=== PATIENT | female | born 2000 | race Caucasian/White ===

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

== ENCOUNTER → 2023-01-09 | Outpatient (CLI) | payer MEDICAID, SELFPAY ==
[2023-01-11 21:07] LABS: Chlamydia By Nucleic Acid AMP Negative (Negative); Gonococcus By Nucleic Acid AMP Negative (Negative)
== END | disposition home or self-care (01) ==
PROVIDERS: PCP Pediatrics; Referring Provider Obstetrics & Gynecology; Visit Provider Obstetrics & Gynecology
DX: Z34.90 Encounter for supervision of normal pregnancy, unspecified, unspecified trimester (principal)
CPT/HCPCS: 87086; 87491; 87591

== ENCOUNTER → 2023-01-10 | Outpatient (CLI) | payer MEDICAID, SELFPAY ==
[2023-01-10 14:51] LABS: Absolute Lymphocyte Count 2.27 X10^3/uL (0.83-4.51); Absolute Neutrophil Count 9.3 X10^3/uL (2.0-7.7); Basophil# 0.06 X10^3/uL; Basophil% 0.5 % (0-1); Eosinophil# 0.23 X10^3/uL; Eosinophils% 1.8 % (0-5); Hematocrit 39.2 % (37-47); Hemoglobin 13.3 g/dL (12.0-15.0); Lymphocyte # 2.27 X10^3/ul (0.83-4.51); Mean Corp Hgb Conc 33.9 g/dL (32-36); Mean Corpuscular Hgb 31.4 pg (27.0-32.0); Mean Corpuscular Volume 92.7 fL (81-99); Mean Platelet Vol. 11.2 fl (6.2-12.0); Monocyte# 0.74 X10^3/uL; Monocyte% 5.9 % (0-10); NRBC Flagged by Analyzer 0 % (0-5); Neutrophil # 9.25 X10^3/uL (2.7-7.7); Neutrophil % 73.4 % (47-70); Platelet Count 186 K/mm3 (150-450); RBC Distribution Width CV 12.4 % (11.6-14.6); RBC Distribution Width SD 42.5 fl (35.1-43.9); Red Blood Count 4.23 M/mm3 (4.2-5.4); White Blood Count 12.6 K/mm3 (4.4-11.0)
[2023-01-10 15:50] LABS: NATERA MAILED SPECIMEN
[2023-01-10 16:04] LABS: HIV - WCH Non-Reactive (Nonreactive); Hepatitis B Surface Antigen Non-Reactive (Nonreactive); Hepatitis C Antibody Non-Reactive (Nonreactive); Rubella IgG Reactive (Nonreactive); Syphilis Antibodies Non-reactive
== END | disposition home or self-care (01) ==
PROVIDERS: PCP Pediatrics; Referring Provider Obstetrics & Gynecology; Visit Provider Obstetrics & Gynecology
DX: Z34.81 Encounter for supervision of other normal pregnancy, first trimester (principal)
CPT/HCPCS: 36415; 85025; 86703; 86762; 86780; 86803; 86850; 86900; 86901; 87340

== ENCOUNTER → 2023-05-16 | Outpatient (CLI) | payer MEDICAID, SELFPAY ==
[2023-05-16 13:31] LABS: Absolute Lymphocyte Count 1.79 X10^3/uL (0.83-4.51); Absolute Neutrophil Count 8.4 X10^3/uL (2.0-7.7); Basophil# 0.03 X10^3/uL; Basophil% 0.3 % (0-1); Eosinophil# 0.09 X10^3/uL; Eosinophils% 0.8 % (0-5); Hematocrit 35.3 % (37-47); Lymphocyte # 1.79 X10^3/ul (0.83-4.51); Mean Corpuscular Hgb 31.7 pg (27.0-32.0); Mean Corpuscular Volume 93.4 fL (81-99); Mean Platelet Vol. 10.7 fl (6.2-12.0); Monocyte# 0.75 X10^3/uL; Monocyte% 6.7 % (0-10); NRBC Flagged by Analyzer 0 % (0-5); Neutrophil # 8.42 X10^3/uL (2.7-7.7); Platelet Count 205 K/mm3 (150-450); RBC Distribution Width CV 12.5 % (11.6-14.6); Red Blood Count 3.78 M/mm3 (4.2-5.4); White Blood Count 11.2 K/mm3 (4.4-11.0)
[2023-05-16 13:49] LABS: Glucose Challenge Gest 1H 50g 111 mg/dL (70-140)
--- OUTSIDE RECORDS SUMMARY | 2023-05-16 14:40 | XMS RPT_ITS | CCD ---
Author Name Unknown Address [facility] [address] [place] [address] Organization [facility] Care Team Providers Care Job Superintendent Name Role Phone DELICIA NEAL Primary Care Unavailable HERMAN PINZON Attending Unavailable DELICIA NEAL Primary Care Unavailable PORSHA RENDON Referring Unavailable DELICIA NEAL Primary Care Unavailable HELENA HUDSON Referring Unavailab BETTY Sylvester Attending Unavailable Results Test Name Value Interpretation Reference Range Facil ity Encounters Encounter Date Encounter Type Care Provider Facility Start: 04-26-2023 End: 04-26-2023 ambulatory DELICIA [facility] Start: 03-27-2023 End: 03-27-2023 ambulatory HERMAN PINZON [facility] Start: 12-11-2022 ambulatory DELICIA NEAL Facil ity:[facility] Procedures Date Procedure Procedure Detail Performing Clinician Start: 05-13-2019 Electrocardiogram Payers Date Payer Category Payer Medicaid [id number] 2002 Unknown [id number] 2002 Unknown [id number] Summary Purpose Family History No Family History Records FoundNo Family History Records FoundNo Family History Records FoundNo Family History Records FoundNo Family History Records Found Advance Directives No Advanced Directives Records FoundNo Advanced Directives Records FoundNo Advanced Directives Records FoundNo Advanced Directives Records FoundNo Advanced Directives Records Found Hospital Course Note Send Summary: Discharge Summ alondra Providers: Provider RoleProvider Name Yajaira Villalba AttendingUte Olmos PrimaryRequired, No Pcp Note Recipients: Yajaira Hagan MD Required, No Pcp, MAYKEL CRANDALL M - [phone] [] Discharge: Summary: Admission Date: .13-May-2019 17:56:00 Discharge Date: 17-May-2019 Attending Physician at Discharge: Ute Olmos Admission Reason: Suicidal Ideation(1) Final Discharge Diagnoses: Cervicitis, Current severe episode of major depressive disorder without psychotic features without prior episode, PTSD (post-traumatic stress disorder), Recurrent major depressive disorder, Procedures: none Condition at Discharge: Satisfactory Disposition at Discharge: .Home Vital Signs: T PRBPSpO2 [id number]/8498% Date/Time05/16 9: 9: 9: 9: 9:02 Range(36.5C - 36.8C ) (72 - 74 ) (18 - 18 ) (109 - 119 )/ (74 - 84 ) (98% - 98% ) Physical Exam: General: Well appearing teenage female Appearance: In hospital gown, with long dark montoya (more content not included)... Additional Source Comments INFORMATION SOURCE (unrecogn ized section and content) DATE CREATED AUTHOR AUTHOR'S ORGANIZ ATION 05/17/2019 [facility] DATE CREATED AUTHOR AUTHOR'S ORGANIZ ATION 05/20/2019 [facility] DATE CREATED AUTHOR AUTHOR'S ORGANIZ ATION 12/16/2022 [facility] DATE CREATED AUTHOR AUTHOR'S ORGANIZ ATION 04/28/2023 [facility] FOR RECORDS PERTAINING TO PATIENTS WHO ARE OR HAVE BEEN ENROLLED IN A CHEMICAL DEPENDENCY/SUBSTANCEABUSE PROGRAM, SOME INFORMATION MAY BE OMITTED. This clinical summary was aggregated from multiple sources. Caution should be exercised in using it in the provision of clinical care. This summary normalizes information from multiple sources, and as a consequence, information in this document may materially change the coding, format and clinical context of patient data. In addition, data may be omitted in some cases. CLINICAL DECISIONS SHOULD BE BASED ON THE PRIMARY CLINICAL RECORDS. [facility]. provides no warranty or guarantee of the accuracy or completeness of information in this document.
[2023-05-16 14:52] LABS: HIV - WCH Non-Reactive (Nonreactive); Syphilis Antibodies Non-reactive
== END | disposition home or self-care (01) ==
LOC: PAVLAB 12:42
PROVIDERS: PCP Pediatrics; Referring Provider Obstetrics & Gynecology; Visit Provider Obstetrics & Gynecology
DX: Z34.00 Encounter for supervision of normal first pregnancy, unspecified trimester (principal)
CPT/HCPCS: 36415; 82950; 85025; 86703; 86780

== ENCOUNTER 2023-07-09 17:40 | Outpatient (CLI) | payer MEDICAID, SELFPAY ==
[2023-07-09] VITALS (7 sets, daily range): BP systolic 132–142; BP diastolic 65–84; PULSE 85–109; RESP 20; TEMP 37.7; O2SAT 99; BMI 29.7
--- NOTE | 2023-07-09 18:07 | OB.TRI.HP_ITS ---
HPI - General General Date of Service: 07/09/23 Chief Complaint: dec fm HPI Narrative BERENICE LEIJA, is a 22 F who presents at 35.6 with decreased movement. has felt 7 movements in 1 hour. denies lof/vb/ctx. Maternal Data Information DESTIN Calculator Estimated Delivery Date Method Current WG Current Estimate 08/10/23 Ultrasound #1 35w 3d Other Estimates 08/07/23 Ultrasound #2 35w 6d PFSH PFSH Medical History Anxiety Depression Migraines Home Medications multivit-min no.71-iron fum 28 mg-folate no.1 1 mg-dha 300 mg capsule (PNV- [place]) 1 cap PO DAILY 01/05/23 [History Last Taken 07/09/23 09:00] calcium carbonate 500 mg-simethicone 20 mg chewable tablet 2 tab PO PRN PRN heartburn 07/09/23 [History Last Taken 07/09/23 13:45] Allergy/AdvReac Type Severity Reaction Status Date / Time No Known Allergies Allergy Verified 07/09/23 17:50 Family History Grandmother Breast cancer, Onset Age: 80 Paternal Surgical History History of tonsillectomy Social History adopted: No household members: significant other current occupational status: employed current occupation: [employer] current occupational exposures/hazards: No pets and animals: Yes pets and animals: dog(s) history of recent travel: No sexually active: Yes Smoking Status: Never smoker alcohol intake: never substance use type: does not use well-balanced diet: daily or most days caffeine: Yes Type: coffee Number of servings: 1 eating out: 1-3 times/week during the past year weight has: remained stable what type of physical activity do you participate in: weight training and other details: cardio frequency: 1-2 times per week duration: > 90 minutes/day dana/mandaen: [employer] seatbelt use: always do you feel safe at home: Yes additional social history: BF Magdiel- [employer] History 1 Elective abortions Hx Para 0 Spontaneous abortions Hx # Term Pregnancies Ectopic pregnancies Hx # Pregnancies Multiple births # of living children Visit Details Expected Delivery Route/Plan Labor Preferences- CB/BF classes: encouraged labor support person: BARB Veloz labor intervention preferences: [] pain management options preferred: epidural cut cord/dad catch: yes : yes PP control planned: discussed discussed possible routes of delivery and associated risks: [] special requests: [] Plans Covid status: no Flu vaccine: no, not interested Tdap vaccine: declines Rhogam: na LARC form signed: yes Problem list reviewed and updated with the most current plan of care details and appropriate orders placed. Relevant counseling for the gestational age provided. Continue routine care and follow up unless otherwise noted in visit notes/problem list details OB Flowsheet Initial Weight: Not Recorded Date -?-?-?-?-?-?-?-?-?-?-?-?- EGA Weight BP Urine Prot -?-?-?-?-?-?-?-?-?-?-?-?- Glucose FHR FuHt Pres Dilation -?-?-?-?-?-?-?-?-?-?-?-?- Effaced St Visit Note 01/09/23 -?-?-?-?-?-?-?-?-?-?-?-?- 9w 4d 142 lb 4 oz 125/78 -?-?-?-?-?-?-?-?-?-?-?-?- 186 -?-?-?-?-?-?-?-?-?-?-?-?- JV- CRL consiste nt with LMP. undecided about NIPT (gutierrez pay) 02/09/23 -?-?-?-?-?-?-?-?-?-?-?-?- 14w 0d 142 lb 2 oz 116/74 Nega tive -?-?-?-?-?-?-?-?-?-?-?-?- Negative 160 -?-?-?-?-?-?-?-?-?-?-?-?- LC- no vb/crampi ng. its a girl! discussed and declines afp. anatomy scheduled. 12/28/23 -?-?-?-?-?-?-?-?-?-?-?-?- 17w 6d 150 lb 125/74 Negative -?-?-?-?-?-?-?-?-?-?-?-?- Negative 149 -?-?-?-?-?-?-?-?-?-?-?-?- -No VB, chris silva. Has felt flutters. US next week 04/05/23 -?-?-?-?-?-?-?-?-?-?-?-?- 21w 6d 161 lb 2 oz 114/64 Nega tive -?-?-?-?-?-?-?-?-?-?-?-?- Negative 145 22 -?-?-?-?-?-?-?-?-?-?-?-?- SM- no vb lof go od fm no regular ctx, fu anatomy scan to evaluate feet, declined ntd screen. encouraged classes 05/16/23 -?-?-?-?-?-?-?-?-?-?-?-?- 27w 5d 172 lb 6 oz 126/74 Nega tive -?-?-?-?-?-?-?-?-?-?-?-?- Negative 146 27 -?-?-?-?-?-?-?-?-?-?-?-?- -No VB, LOF. g ood FM. 28 wk labs pending. Larc. 05/31/23 -?-?-?-?-?-?-?-?-?-?-?-?- 29w 6d 178 lb 122/78 Negative -?-?-?-?-?-?-?-?-?-?-?-?- Negative 145 31 -?-?-?-?-?-?-?-?-?-?-?-?- KW- no vb/lof/ct x. good fm. Labs normal. 06/13/23 -?-?-?-?-?-?-?-?-?-?-?-?- 31w 5d 184 lb 2 oz 126/77 Nega tive -?-?-?-?-?-?-?-?-?-?-?-?- Negative 161 32 -?-?-?-?-?-?-?-?-?-?-?-?- MH-No VB, LOF. G ood Fm. Some RL pain-reassured 06/27/23 -?-?-?-?-?-?-?-?-?-?-?-?- 33w 5d 185 lb 115/71 Negative -?-?-?-?-?-?-?-?-?-?-?--?- Negative 130 34 -?-?-?-?-?-?-?-?-?-?-?-?- LC- no vb/ctx/lo f. good fm. no concerns today. Physical Exam Const alert, oriented x3 and no apparent distress Resp normal respiratory effort, normal air movement, no retractions and no use of accessory muscles Cardio regular rate and regular rhythm GI soft to palpation and non-tender Inspection: Palpation: soft Rectal Exam: deferred no CVA tenderness and external exam normal Bimanual Exam - Vag & Uterus: uterus non-tender and other gravid uterus, normal for gestational age OB / External & Speculum: Negative for herpetic lesions Manual OB Exam: estimated gestational size appropriate and presentation cephalic Amniotic Fluid: no amniotic fluid noted Extremity normal to inspection and full ROM Neuro Motor Exam: strength 5/5 throughout and muscle tone normal throughout Deep Tendon Reflexes: Rt Patellar (L4): 2+ and Lt Patellar (L4): 2+ NST FHR Rate Baby A Baseline: 140 Variability:: Moderate Accelerations:: 15 x 15 Decelerations:: None NST Reactive:: Yes FHR Category:: Category I Uterine Activity:: irregular, non painful Assessment & Plan (1) Decreased movement: COMMENT: reactive NST, movement now safe for d/c PLAN: Plan Patient presents for triage evaluation secondary to decreased movement FHT: Moderate variability reactive no decelerations category I tracing [place]: irreg non painful Contractions Assessment and plan: Reactive NST, reassuring maternal and status patient discharged to home to follow-up in office. See problem list details for additional plan information. Charges/Coding Visit Charges Office Visits / Consults: [id number] OP Consult L3 Procedures Urinary/Genital 52xxx-59xxx: 20196-20 non-stress test Interp Multi Select Codes Urinary/Genital Urinary/Genital CPT Codes: 11059-96 non-stress test Interp
== END 2023-07-09 18:55 | disposition home or self-care (01) ==
LOC: WPOUT 17:47 → WP 17:47
PROVIDERS: PCP Pediatrics; Referring Provider Registered Nurse; Visit Provider Registered Nurse
DX: O36.8130 Decreased fetal movements, third trimester, not applicable or unspecified (principal); Z3A.35 35 weeks gestation of pregnancy
CPT/HCPCS: 59025; 59050; 99221; G0378

== ENCOUNTER → 2023-07-18 | Outpatient (CLI) | payer MEDICAID, SELFPAY | END | disposition home or self-care (01) | PROVIDERS: PCP Pediatrics; Referring Provider Obstetrics & Gynecology; Visit Provider Obstetrics & Gynecology | DX: Z34.00 Encounter for supervision of normal first pregnancy, unspecified trimester (principal); Z3A.00 Weeks of gestation of pregnancy not specified | CPT/HCPCS: 87081 ==

== ENCOUNTER 2023-08-02 10:18 | Outpatient (CLI) | payer MEDICAID, SELFPAY ==
[2023-08-02 10:28] VITALS: BP 133/75; PULSE 106; RESP 18; TEMP 36.7; O2SAT 100
[2023-08-02 10:41] VITALS: BMI 30.2
[2023-08-02] MEDS: Acetaminophen 500 MG Tablet 1000 MG PO (11:04)
[2023-08-02 11:08] VITALS: BP 130/75; PULSE 109
[2023-08-02] MEDS: Metoclopramide 10 MG Tablet PO (11:12)
[2023-08-02 11:16] LABS: Protein, Urine (Random) 18.9 mg/dL (<11.9); Protein:Creat Ratio 228 mg/g CRE (0-200)
[2023-08-02 11:19] LABS: Hematocrit 33.7 % (37-47); Hemoglobin 10.8 g/dL (12.0-15.0); Mean Corpuscular Hgb 27.8 pg (27.0-32.0); Mean Corpuscular Volume 86.9 fL (81-99); Mean Platelet Vol. 10.5 fl (6.2-12.0); Platelet Count 165 K/mm3 (150-450); RBC Distribution Width CV 13.5 % (11.6-14.6); RBC Distribution Width SD 42.8 fl (35.1-43.9); Red Blood Count 3.88 M/mm3 (4.2-5.4); White Blood Count 13.5 K/mm3 (4.4-11.0)
[2023-08-02 11:23] VITALS: BP 122/70; PULSE 100
[2023-08-02 11:23] LABS: ROM Internal Control Test YES-OK TO RESULT pt. (Internal QC); ROM Patient Test Negative (Negative); Record Kit Lot#, ROM+ K1866
[2023-08-02 11:33] LABS: AST(SGOT) 24 U/L (15-37); Alanine Aminotransfer ALT/SGPT 21 U/L (13-56); Creatinine, Serum 0.59 mg/dL (0.55-1.02); EST Glomerular Filtration Rate 137 mL/min (>60); Est Glom Filt Rate - Afr Amer 166 mL/min (>60); Estimated Creatinine Clearance 168.32 ml/min
[2023-08-02 11:38] VITALS: BP 127/68; PULSE 101
[2023-08-02 11:53] VITALS: BP 125/67; PULSE 96
--- NOTE | 2023-08-02 17:57 | OB.TRI.PN_ITS ---
Progress Notes Date of Service: 08/02/23 Progress Note: Patient presents for triage evaluation secondary to headache FHT: 140 Moderate variability reactive no decelerations category I tracing [place]: mno regular Contractions Assessment and plan: headcahe normal pree labs no proteinuria no elevated bps, possible early sinus infection or allergies. Reactive NST, reassuring maternal and status patient discharged to home to follow-up as scheduled, reviewe dprecautions. See problem list details for additional plan information. Laboratory Studies: Laboratory Tests 08/02/23 08/02/23 Range/Units 11:11 10:15 WBC 13.5 H (4.4-11.0) K/mm3 RBC 3.88 L (4.2-5.4) M/mm3 Hgb 10.8 L (12.0-15.0) g/dL Hct 33.7 L (37-47) % MCV 86.9 (81-99) fL MCH 27.8 (27.0-32.0) pg MCHC 32.0 (32-36) g/dL RDW Std Deviation 42.8 (35.1-43.9) fl RDW Coeff of Francesco 13.5 (11.6-14.6) % Plt Count 165 (150-450) K/mm3 MPV 10.5 (6.2-12.0) fl Creatinine 0.59 (0.55-1.02) mg/dL Estim Creat Clear Calc 168.32 ml/min Est GFR (MDRD) Af Amer 166 (>60) mL/min Est GFR (MDRD) Non-Af 137 (>60) mL/min Uric Acid 4.0 (2.6-6.0) mg/dL AST 24 (15-37) U/L ALT 21 (13-56) U/L U Random Total Protein 18.9 H (<11.9) mg/dL Urine Creatinine 83.00 (NO RANGE EST.) mg/dL Protein/Creatinin Ratio 228 H (0-200) mg/g CRE Vag Amniotic Fld Detect Negative (Negative) Charges/Coding Procedures Urinary/Genital 52xxx-59xxx: 65452-55 non-stress test Interp
== END 2023-08-02 12:17 | disposition home or self-care (01) ==
LOC: WPOUT 10:27 → WP 10:27
PROVIDERS: PCP Pediatrics; Referring Provider Obstetrics & Gynecology; Visit Provider Obstetrics & Gynecology
DX: O99.891 Other specified diseases and conditions complicating pregnancy (principal); R51.9 Headache, unspecified; Z3A.00 Weeks of gestation of pregnancy not specified
CPT/HCPCS: 36415; 59025; 59050; 82565; 82570; 84112; 84156; 84450; 84460; 84550; 85027; 99221; G0378

== ENCOUNTER 2023-08-06 21:47 | Inpatient (IN) | payer MEDICAID, SELFPAY ==
[2023-08-06] VITALS (7 sets, daily range): BP systolic 123–145; BP diastolic 59–79; PULSE 79–99; RESP 16–17; TEMP 36.8–37.6; O2SAT 99; BMI 31.5
[2023-08-06 21:42] LABS: ROM Internal Control Test YES-OK TO RESULT pt. (Internal QC); ROM Patient Test POSITIVE (Negative); Record Kit Lot#, ROM+ K1866
[2023-08-06] MEDS: Lactated Ringers 1,000 ML 50 ML IV (22:07)
[2023-08-06 22:25] LABS: Absolute Lymphocyte Count 2.17 X10^3/uL (0.83-4.51); Absolute Neutrophil Count 9.2 X10^3/uL (2.0-7.7); Basophil# 0.04 X10^3/uL; Basophil% 0.3 % (0-1); Eosinophil# 0.12 X10^3/uL; Eosinophils% 0.9 % (0-5); Hemoglobin 10.5 g/dL (12.0-15.0); Lymphocyte # 2.17 X10^3/ul (0.83-4.51); Lymphocyte % 17.2 % (19-41); Mean Corp Hgb Conc 31.8 g/dL (32-36); Mean Corpuscular Hgb 27.5 pg (27.0-32.0); Mean Corpuscular Volume 86.4 fL (81-99); Mean Platelet Vol. 10.7 fl (6.2-12.0); Monocyte# 0.97 X10^3/uL; Monocyte% 7.7 % (0-10); NRBC Flagged by Analyzer 0 % (0-5); Neutrophil # 9.24 X10^3/uL (2.7-7.7); Platelet Count 172 K/mm3 (150-450); RBC Distribution Width CV 13.7 % (11.6-14.6); RBC Distribution Width SD 42.5 fl (35.1-43.9); Red Blood Count 3.82 M/mm3 (4.2-5.4); White Blood Count 12.7 K/mm3 (4.4-11.0)
[2023-08-06 22:39] LABS: AST(SGOT) 21 U/L (15-37); Alanine Aminotransfer ALT/SGPT 20 U/L (13-56); Creatinine, Serum 0.54 mg/dL (0.55-1.02); EST Glomerular Filtration Rate 151 mL/min (>60); Est Glom Filt Rate - Afr Amer 182 mL/min (>60); Estimated Creatinine Clearance 186.34 ml/min
[2023-08-06 23:11] LABS: Protein:Creat Ratio 287 mg/g CRE (0-200)
[2023-08-06 23:34] LABS: Amphetamine Urine NEGATIVE (<1000 ng/mL); Barbiturate Urine NEGATIVE (< 200 ng/mL); Benzodiazepine Urine NEGATIVE (< 200 ng/mL); Cocaine Urine NEGATIVE (< 300 ng/mL); Ecstacy Urine NEGATIVE (< 500 ng/mL); Methadone Urine NEGATIVE (< 300 ng/mL); Opiates Urine NEGATIVE (< 300 ng/mL); PCP Urine NEGATIVE (< 25 ng/mL); THC Urine NEGATIVE (< 50 ng/mL); Vista UDS pH Range 6
[2023-08-07] VITALS (57 sets, daily range): BP systolic 90–140; BP diastolic 46–88; PULSE 71–126; RESP 14–18; TEMP 36.3–37.5; O2SAT 81–100
[2023-08-07] MEDS: LACTATED RINGERS 500 ML 999 ML IV ×3 (01:38→07:02)
[2023-08-07] MEDS: fentaNYL-bupivacaine (epidural) 100 ML BAG EPIDURAL ×3 (02:32→12:27)
--- NOTE | 2023-08-07 02:50 | HP.PCM.OB_ITS ---
HPI - General General Date of Admission: 08/06/23 Date of Service: 08/06/23 HPI Narrative BERENICE LEIJA, is a 22 F 39.3 weeks who presents to unit with vaginal discharge. Rom plus positive. Admission orders for labor Maternal Data Information DESTIN Calculator Estimated Delivery Date Method Current WG Current Estimate 08/10/23 Ultrasound #1 39w 4d Other Estimates 08/07/23 Ultrasound #2 40w 0d Final DESTIN: 08/10/23 Final DESTIN Source: US >20 weeks Gestational age: 39.4 PFSH PFSH Medical History Depression Anxiety Migraines Home Medications ?Medication ?Instructions ?Recorded ?Last Taken ?Type multivit-min no.71-iron fum 28 1 cap PO DAILY 01/05/23 08/06/23 08:00 History mg-folate no.1 1 mg-dha 300 mg 1 cap capsule (PNV-[place]) calcium carbonate 500 2 tab PO PRN PRN heartburn 07/09/23 08/06/23 19:40 History mg-simethicone 20 mg chewable 1 TAB tablet famotidine 20 mg tablet (Pepcid) 20 mg PO BID #60 tabs 07/18/23 08/06/23 19:30 Rx 20 mg Allergy/AdvReac Type Severity Reaction Status Date / Time No Known Allergies Allergy Verified 08/06/23 20:56 Family History Grandmother Breast cancer, Onset Age: 80 Paternal Surgical History History of tonsillectomy Social History adopted: No household members: significant other current occupational status: employed 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 current occupational exposures/hazards: No pets and animals: Yes pets and animals: dog(s) history of recent travel: No sexually active: Yes Smoking Status: Former smoker alcohol intake: never substance use type: does not use well-balanced diet: daily or most days caffeine: Yes Type: coffee Number of servings: 1 eating out: 1-3 times/week during the past year weight has: remained stable what type of physical activity do you participate in: weight training and other details: cardio frequency: 1-2 times per week duration: > 90 minutes/day dana/orthodoxy: Religion seatbelt use: always do you feel safe at home: Yes additional social history: 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 1 Elective abortions Hx Para 0 Spontaneous abortions Hx # Term Pregnancies Ectopic pregnancies Hx # Pregnancies Multiple births # of living children Visit Details Expected Delivery Route/Plan Labor Preferences- CB/BF classes: encouraged labor support person: BARB Veloz labor intervention preferences: [] pain management options preferred: epidural cut cord/dad catch: yes : yes PP control planned: discussed discussed possible routes of delivery and associated risks: [] special requests: [] Plans Covid status: no Flu vaccine: no, not interested Tdap vaccine: declines Rhogam: na LARC form signed: yes Problem list reviewed and updated with the most current plan of care details and appropriate orders placed. Relevant counseling for the gestational age provided. Continue routine care and follow up unless otherwise noted in visit notes/problem list details OB Flowsheet Initial Weight: Not Recorded Date -?-?-?-?-?-?-?-?-?-?-?-?- EGA Weight BP Urine Prot -?-?-?-?-?-?-?-?-?-?-?-?- Glucose FHR FuHt Pres Dilation -?-?-?-?-?-?-?-?-?-?-?-?- Effaced St Visit Note 01/09/23 -?-?-?-?-?-?-?-?-?-?-?-?- 9w 4d 142 lb 4 oz 125/78 -?-?-?-?-?-?-?-?-?-?-?-?- 186 -?-?-?-?-?-?-?-?-?-?-?-?- JV- CRL consiste nt with LMP. undecided about NIPT (gutierrez pay) 02/09/23 -?-?-?-?-?-?-?-?-?-?-?-?- 14w 0d 142 lb 2 oz 116/74 Nega tive -?-?-?-?-?-?-?-?-?-?-?-?- Negative 160 -?-?-?-?-?-?-?-?-?-?-?-?- LC- no vb/chris silva. its a girl! discussed and declines afp. anatomy scheduled. 03/08/23 -?-?-?-?-?-?-?-?-?-?-?-?- 17w 6d 150 lb 125/74 Negative -?-?-?-?-?-?-?-?-?-?-?-?- Negative 149 -?-?-?-?-?-?-?-?-?-?-?-?- MH-No VB, chris silva. Has felt flutters. US next week 04/05/23 -?-?-?-?-?-?-?-?-?-?-?-?- 21w 6d 161 lb 2 oz 114/64 Nega tive -?-?-?--?-?-?-?-?-?-?-?-?- Negative 145 22 -?-?-?-?-?-?-?-?-?-?-?-?- SM- no vb lof go od fm no regular ctx, fu anatomy scan to evaluate feet, declined ntd screen. encouraged classes 05/16/23 -?-?-?-?-?-?-?-?-?-?-?-?- 27w 5d 172 lb 6 oz 126/74 Nega tive -?-?-?-?-?-?-?-?-?-?-?-?- Negative 146 27 -?-?-?--?-?-?-?-?-?-?-?-?- MH-No VB, LOF. g ood FM. 28 wk labs pending. Larc. 05/31/23 -?-?-?-?-?-?-?-?-?-?-?-?- 29w 6d 178 lb 122/78 Negative -?-?-?-?-?-?-?-?-?-?-?-?- Negative 145 31 -?-?-?-?-?-?-?-?-?-?-?-?- KW- no vb/lof/ct x. good fm. Labs normal. 06/13/23 -?-?-?-?-?-?-?-?-?-?-?-?- 31w 5d 184 lb 2 oz 126/77 Nega tive -?-?-?-?-?-?-?-?-?-?-?-?- Negative 161 32 -?-?-?-?-?-?-?-?-?-?-?-?- MH-No VB, LOF. G ood Fm. Some RL pain-reassured 06/27/23 -?-?-?-?-?-?-?-?-?-?-?-?- 33w 5d 185 lb 115/71 Negative -?-?-?-?-?-?-?-?-?-?-?-?- Negative 130 34 -?-?-?-?-?-?-?-?-?-?-?-?- LC- no vb/ctx/lo f. good fm. no concerns today. 07/11/23 -?-?-?-?-?-?-?-?-?-?-?-?- 35w 5d 187 lb 4 oz 134/75 Nega tive -?-?-?-?-?-?-?-?-?-?-?-?- Negative 145 35 Cephalic -?-?-?-?-?-?-?-?-?-?-?-?- JJosé Miguel- pt was on L& D last week for pressure and pain and was sent home. States nothing was done for her and bp was high. bp is still in normal limits but upper level. pre-e precautions discussed. bedside scan performed for reassurance. 07/18/23 -?-?-?-?-?-?-?-?-?-?-?-?- 36w 5d 188 lb 129/80 Negative -?-?-?-?-?-?-?-?-?-?-?-?- Negative 120 36 Cephalic 0 -?-?-?-?-?-?-?-?-?-?-?-?- JV- gbs collecte d. pt thought could be leaking. no fluid in vault. RISHI 11. pt reassured. sending in pepcid for indigestion. 07/26/23 -?-?-?-?-?-?-?-?-?-?-?-?- 37w 6d 189 lb 111/71 -?-?-?-?-?-?-?-?-?-?-?-?- 130 38 Cephalic -?-?-?-?-?-?-?-?-?-?-?-?- SM- no vb lof go od fm no regular ctx 08/02/23 -?-?-?-?-?-?-?-?-?-?-?-?- 38w 6d 191 lb 141/80 130/81 Negative -?--?-?-?-?-?-?-?-?-?-?-?- Negative 140 39 Cephalic 1 -?-?-?-?-?-?-?-?-?-?-?-?- Sm- headache x 3 days yellow floaters in her vision questionable LOF no vb good fm no regular ctx to l and d for evaluation NST FHR Rate Baby A Baseline: 140 Variability:: Moderate Accelerations:: 15 x 15 Decelerations:: None NST Reactive:: Yes FHR Category:: Category I Uterine Activity:: irregular ROS Constitutional Constitutional: Denies change in weight, fatigue, fever(s), headache(s), poor appetite or weakness Eyes Eyes: Denies blurry vision, change in vision, floaters, seeing flashes or spots in vision ENT HEENT: Denies dizziness, headache(s), loss taste/smell or sore throat Cardiovascular Cardiovascular: Denies chest pain, dizziness, dyspnea, irregular heart rhythm, lightheadedness, palpitations or rapid heart rate Respiratory/Chest Respiratory/Chest: Denies change in mental status, chest tightness, cough, dyspnea or breast pain Gastrointestinal Gastrointestinal: Denies anorexia, chewing difficulty, constipation, diarrhea or weight changes Genitourinary Genitourinary: Denies difficulty urinating, dysuria, flank pain, genital pain, urinary frequency or urinary urgency Musculoskeletal Musculoskeletal: Denies back pain, difficulty walking, extremity pain, joint pain, muscle cramps or muscle weakness Integumentary Integumentary: Denies lesions or unusual bruising Neurologic Neurologic: Denies abnormal movements, abnormal speech, dizziness, numbness, seizure-like activity, syncope or weakness Psychiatric Psychiatric: Denies behavioral changes, change in appetite, confusion, depression, homicidal ideation, suicidal ideation or suicidal thoughts Endocrine Endocrinology: Denies excessive sweating, polydipsia or polyuria Hematologic/Lymphatic Hematologic/Lymphatic: Denies anemia Allergic/Immunologic Allergic/Immunologic: Denies itchy eyes, lip swelling, throat swelling, tongue swelling or wheezing Vital Signs Vital Signs Vital Signs: 08/06/23 20:48 08/06/23 20:48 08/06/23 20:48 Temperature Temperature Source Pulse Rate 89 Respiratory Rate Blood Pressure 145/75 H BP Systolic 145 BP Diastolic 75 Pulse Ox 99 08/06/23 20:50 08/06/23 20:50 08/06/23 20:50 Temperature 99.7 F H Temperature Source Temporal Pulse Rate Respiratory Rate 17 Blood Pressure BP Systolic BP Diastolic Pulse Ox 08/06/23 21:01 08/06/23 21:01 08/06/23 21:10 Temperature Temperature Source Pulse Rate 99 Respiratory Rate Blood Pressure 129/79 H 131/70 H BP Systolic 129 131 BP Diastolic 79 70 Pulse Ox 08/06/23 21:10 08/06/23 22:53 08/06/23 22:53 Temperature Temperature Source Temporal Pulse Rate 86 81 Respiratory Rate Blood Pressure BP Systolic BP Diastolic Pulse Ox 08/06/23 22:53 08/06/23 22:53 08/06/23 22:53 Temperature 98.8 F Temperature Source Pulse Rate Respiratory Rate 16 Blood Pressure BP Systolic BP Diastolic Pulse Ox 99 08/06/23 22:55 08/06/23 22:55 08/06/23 23:45 Temperature Temperature Source Temporal Pulse Rate 79 Respiratory Rate Blood Pressure 130/59 H BP Systolic 130 BP Diastolic 59 Pulse Ox 08/06/23 23:45 08/06/23 23:45 08/06/23 23:45 Temperature Temperature Source Pulse Rate 86 Respiratory Rate 17 Blood Pressure 123/60 H BP Systolic 123 BP Diastolic 60 Pulse Ox 08/06/23 23:45 08/06/23 23:45 08/07/23 00:33 Temperature 98.3 F Temperature Source Temporal Pulse Rate Respiratory Rate Blood Pressure BP Systolic BP Diastolic Pulse Ox 99 08/07/23 00:33 08/07/23 00:33 08/07/23 00:33 Temperature Temperature Source Pulse Rate 89 Respiratory Rate 18 Blood Pressure 133/70 H BP Systolic 133 BP Diastolic 70 Pulse Ox 08/07/23 00:33 08/07/23 01:33 08/07/23 01:33 Temperature 99.3 F H Temperature Source Pulse Rate 79 Respiratory Rate Blood Pressure 116/61 BP Systolic 116 BP Diastolic 61 Pulse Ox 08/07/23 01:33 08/07/23 01:33 08/07/23 01:33 Temperature Temperature Source Temporal Pulse Rate 81 Respiratory Rate 18 Blood Pressure BP Systolic BP Diastolic Pulse Ox 08/07/23 01:33 08/07/23 01:33 08/07/23 02:14 Temperature 99.0 F Temperature Source Pulse Rate 94 Respiratory Rate Blood Pressure BP Systolic BP Diastolic Pulse Ox 99 08/07/23 02:14 08/07/23 02:19 08/07/23 02:19 Temperature Temperature Source Pulse Rate 95 Respiratory Rate Blood Pressure BP Systolic BP Diastolic Pulse Ox 100 100 08/07/23 02:23 08/07/23 02:23 08/07/23 02:23 Temperature Temperature Source Pulse Rate 96 Respiratory Rate 18 Blood Pressure 140/74 H BP Systolic 140 BP Diastolic 74 Pulse Ox 08/07/23 02:24 08/07/23 02:24 08/07/23 02:28 Temperature Temperature Source Pulse Rate 101 H Respiratory Rate Blood Pressure 132/64 H BP Systolic 132 BP Diastolic 64 Pulse Ox 100 08/07/23 02:28 08/07/23 02:28 08/07/23 02:29 Temperature Temperature Source Pulse Rate 86 Respiratory Rate 18 Blood Pressure 129/64 H BP Systolic 129 BP Diastolic 64 Pulse Ox 08/07/23 02:29 08/07/23 02:29 08/07/23 02:34 Temperature Temperature Source Pulse Rate 91 Respiratory Rate Blood Pressure 118/57 L BP Systolic 118 BP Diastolic 57 Pulse Ox 99 08/07/23 02:34 08/07/23 02:34 08/07/23 02:34 Temperature Temperature Source Pulse Rate 88 88 Respiratory Rate 18 Blood Pressure BP Systolic BP Diastolic Pulse Ox 08/07/23 02:34 08/07/23 02:38 08/07/23 02:38 Temperature Temperature Source Temporal Pulse Rate Respiratory Rate 18 Blood Pressure BP Systolic BP Diastolic Pulse Ox 99 08/07/23 02:38 08/07/23 02:39 08/07/23 02:39 Temperature 98.9 F Temperature Source Pulse Rate 93 Respiratory Rate Blood Pressure 102/53 L BP Systolic 102 BP Diastolic 53 Pulse Ox 08/07/23 02:39 08/07/23 02:39 08/07/23 02:44 Temperature Temperature Source Pulse Rate Respiratory Rate 17 Blood Pressure 113/52 L BP Systolic 113 BP Diastolic 52 Pulse Ox 100 08/07/23 02:44 08/07/23 02:44 08/07/23 02:44 Temperature Temperature Source Pulse Rate 89 92 Respiratory Rate Blood Pressure BP Systolic BP Diastolic Pulse Ox 100 Weight Weight: 195 lb 6 oz Body Mass Index (BMI) 31.5 Physical Exam Const alert, oriented x3 and no apparent distress General Appearance: cooperative Orientation / Consciousness: awake HEENT normocephalic Neck full ROM Lymph Lymphatic: no lymphadenopathy noted Chest inspection of chest normal Resp normal respiratory effort and normal air movement Effort and Inspection: able to speak in complete sentences and symmetric chest movement GI soft to palpation and non-tender Inspection: gravid Palpation: soft; Negative for tender external exam normal Back/Spine normal to inspection Extremity normal to inspection and full ROM Skin no rashes or lesions noted Psych mental status grossly normal Appearance: grossly normal Speech: normal speech Labs Labs Labs: Blood Type A POSITIVE Antibody Screen NEGATIVE Hct 33.0 % (37-47) L Hgb 10.5 g/dL (12.0-15.0) L Syphilis Total Ab Non-reactive Rubella IgG Antibody Reactive (Nonreactive) Hep Bs Antigen Non-Reactive (Nonreactive) Hepatitis C Antibody Non-Reactive (Nonreactive) Chlamydia DNA ([facility]) Negative (Negative) N.gonorrhoeae DNA ([facility]) Negative (Negative) HIV 1&2 Antibody Non-Reactive (Nonreactive) Glucose 1 Hr 50 gm 111 mg/dL (70-140) Assessment & Plan (1) Depression: QUALIFIERS: Depression Type: unspecified Qualified Code(s): F32.A - Depression, unspecified COMMENT: no meds. stable (2) Anxiety: COMMENT: no meds. Stable (3) Supervision of normal first : QUALIFIERS: Trimester: second trimester Qualified Code(s): Z34.02 - Encounter for supervision of normal first , second trimester COMMENT: PRR, , DESTIN 08/10/23 girl Rafia Veloz (4) : QUALIFIERS: Weeks of gestation: 37 weeks Qualified Code(s): Z3A.37 - 37 weeks gestation of COMMENT: GBS Negative, NIPT low risk,declined carrier testing, nl anatomy. declined ntd screening. (5) SROM (spontaneous rupture of membranes): PLAN: Patient presents IAL, plan expectant management for , pitocin/AROM PRN if needed. Pain management: plans epidural. GBS negative. Management of any complications: none I have reviewed the [facility] and made any clinically relevant updates. Dr Saravia aware of and agrees with above findings and plan Charges/Coding Multi Select Codes Urinary/Genital Urinary/Genital CPT Codes: No Charge
--- NOTE | 2023-08-07 02:56 | PN_ITS ---
Progress Note comfortable with epidural current tracing: FHT: 140 Moderate variability reactive no decelerations category I tracing [place]: 4-5 minutes Contractions Membranes: SROM at 1900 08/06/23 remains clear SVE:3/-1 A/P: Continue with position changes start/titrate pitocin per protocol if contractions more than 3-4 minutes apart Reassess SVE between 2060-3415 Epidural per anesthesia GBS neg minimize vaginal exams Anticipate Dr Saravia aware of above assessment and agrees with plan of care Assessment & Plan Assessment/Plan (1) SROM (spontaneous rupture of membranes): (2) Anxiety: (3) Supervision of normal first : QUALIFIERS: Trimester: second trimester Qualified Code(s): Z34.02 - Encounter for supervision of normal first , second trimester (4) : QUALIFIERS: Weeks of gestation: 37 weeks Qualified Code(s): Z3A.37 - 37 weeks gestation of (5) Depression: QUALIFIERS: Depression Type: unspecified Qualified Code(s): F32.A - Depression, unspecified Multi Select Codes Urinary/Genital Urinary/Genital CPT Codes: No Charge
[2023-08-07] MEDS: Oxytocin 15 Units/NS 250ml 15 UNITS/250 ML IV.SOLN 2 UNITS IV (04:08)
[2023-08-07] MEDS: Lactated Ringers 1,000 ML 200 ML IV ×3 (06:32→18:01)
[2023-08-07] MEDS: Mag Hydrox/Al Hydrox/Simeth 30 ML UDC PO ×2 (07:04→10:55)
[2023-08-07 12:37] LABS: Syphilis Antibodies Non-reactive
[2023-08-07] MEDS: Sodium Citrate/Citric Acid 30 ML UDC PO (13:15)
[2023-08-07] MEDS: Cefazolin 2 GM in 0.9% Normal Saline (100mL Bag) 100 ML IV (13:36)
[2023-08-07] MEDS: Azithromycin 500 MG in Dextrose 5%-Water (250mL Bag) 250 ML 250 MG IV (14:12)
[2023-08-07] MEDS: Oxytocin 15 Units/NS 250ml 15 UNITS/250 ML IV.SOLN 83 UNITS IV (14:45)
[2023-08-07] MEDS: 0.9% Saline Lock 10 ML Syringe IV ×2 (15:36→21:55)
[2023-08-07] MEDS: Ketorolac 30 MG/ML Syringe IV ×2 (15:36→21:55)
[2023-08-07] MEDS: Acetaminophen 500 MG Tablet 1000 MG PO ×2 (15:39→21:55)
[2023-08-08 00:20] VITALS: BP 113/62; PULSE 86; RESP 16; TEMP 36.5; O2SAT 97
[2023-08-08] MEDS: Ketorolac 30 MG/ML Syringe IV ×2 (03:44→09:43)
[2023-08-08] MEDS: Acetaminophen 500 MG Tablet 1000 MG PO ×4 (03:45→22:11)
[2023-08-08] MEDS: Enoxaparin 40 MG/0.4 ML Syringe SC ×2 (03:45→22:11)
[2023-08-08] MEDS: 0.9% Saline Lock 10 ML Syringe IV ×2 (03:45→09:44)
[2023-08-08 03:53] VITALS: BP 119/66; PULSE 91; RESP 16; TEMP 36.8; O2SAT 99
--- NOTE | 2023-08-08 06:02 | EX.PCM.OBRPT ---
Assessment & Plan (1) SROM (spontaneous rupture of membranes): (2) Headache in : (3) Depression: QUALIFIERS: Depression Type: unspecified Qualified Code(s): F32.A - Depression, unspecified COMMENT: no meds. stable (4) Anxiety: COMMENT: no meds. Stable (5) Supervision of normal first : QUALIFIERS: Trimester: second trimester Qualified Code(s): Z34.02 - Encounter for supervision of normal first , second trimester COMMENT: PRR, , DESTIN 08/10/23 girl Rafia BARB Veloz (6) : QUALIFIERS: Weeks of gestation: 37 weeks Qualified Code(s): Z3A.37 - 37 weeks gestation of COMMENT: GBS Negative, NIPT low risk,declined carrier testing, nl anatomy. declined ntd screening. (7) Direct occipitoposterior position: (8) Arrest of descent, delivered, current hospitalization: (9) Cephalopelvic disproportion: COMMENT: recommend only RLTCS (10) delivery delivered: COMMENT: LTCS pushed 3 1/2 hours OP CPD 8lb 2 ounces girl Rafia 39 Maternal Data Information DESTIN Calculator Estimated Delivery Date Method Current WG Current Estimate 08/10/23 Ultrasound #1 39w 5d Other Estimates 08/07/23 Ultrasound #2 40w 1d Final DESTIN Source: LMP Gestational age: 39 Details Operative Information Date of Procedure: 08/08/23 Pre-Operative Diagnosis: see a/p diagnoses Post-Operative Diagnosis: same Indications for : Arrrest of Descent and Suspected cephalopelvic disproportion Indications Narrative: surgeon: Diana Escobar MD Procedure Type: low transverse 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 labored down for 1 hour. she was found to be OP at the beginning of pushing so manual rotation with ultrasound guidance was attempted and unsuccessful. it was noted at that time that the vaginal outlet was narrow. after 3 1/2 hours of pushing in various pushing with excellent maternal effort, the head was still at a 0 to + 1 station with significant caput. Decision was made to proceed with primary due to suspected CPD in addition to the direct OP presentation. patient agreed. The patient was placed in the dorsal supine position with leftward tilt. Patient was prepped and draped in the normal sterile fashion. Pfannenstiel skin incision was made with the scalpel and carried through to the underlying layer of fascia with the scalpel. Fascia was nicked in the midline and the incision extended laterally. The rectus bellies were dissected off superiorly and inferiorly with out complication both sharply and bluntly. The peritoneum was entered digitally. The incision was stretched and a low transverse uterine incision was made with the scalpel. The 's head was delivered atraumatically followed by the anterior and posterior shoulders without complication the rest of the delivered. The cord was clamped and cut and the infant was handed off to awaiting nurse. The placenta was delivered spontaneously immediately following and was noted to be intact and have a three-vessel cord. The uterus was exteriorized cleared of all clots and debris, and the incision was closed in a double layer closure using #1 Monocryl. there was a left cervical extension that was minimal. The ovaries and fallopian tubes were noted to be within normal limits. The uterus was returned to the maternal abdomen and gutters were cleared of all clots and debris. The peritoneum was closed with 3-0 Monocryl in a running fashion. Fascia was closed with 0 PDS in a running fashion. Subcutaneous tissue was copiously irrigated and the skin was closed with 3-0 Monocryl in a subcuticular fashion. Mepilex dressing was applied without complication. Patient was taken to recovery in stable condition. It was discussed with the patient that based on the clinical information obtained during this encounter, combined with her history, at this time I would recommend cesareans for future deliveries if further pregnancies are desired. Placental Delivery Description: Spontaneous Placenta Disposition: [facility] Cord Vessel Description: 3 Vessels Delayed Cord Clamping: No Complications Risks of Surgery Discussed w/Patient: Bleeding, Infection, Need for Future C-Sections and Injury to surrounding structure(s) including bowel and bladder Complications: none Admit VTE Documentation VTE Present on Admission: No VTE Mechan Device Prophylaxis: SCD's Procedures Urinary/Genital [id number]: [id number] delivery+ Care([facility])
--- NOTE | 2023-08-08 06:10 | PCM.DC ---
Discharge Instructions Diet Discharge Diet: No restrictions Activity Discharge Activity: May Not Drive (for 2 weeks or while taking narcotic pain medications.), May Shower and May Take a Tub Bath (in 7 days) May shower in (days): 0 May resume sexual activity in: 4-6 weeks Weight Bearing Status: Full weight bearing Lifting Restrictions: 20 pounds Dressing / Incision Call your doctor if your incision/area has: Continuous Slow Oozing, Sudden Increased Bleeding, Increased Pain/ Swelling, Increased Redness and Foul Smelling Discharge Call your doctor if you observe: Fever of 101 or Higher and Using more than 1 pad per hour (for 2 hours) Suture Line Care: Avoid Pulling/Pushing and Avoid Pinching/Bending Cleanse incision/area with: Soap & Water and Keep Dressing Clean & Dry Follow Up Care Please Follow Up With: Diana Escobar MD When: Call [phone] to make an appointment for an incision check in 1-2 weeks. Test Results: Test results from this visit will be discussed in further detail at your follow-up appointment, if applicable. Discharge Plan Admission Admit Date/Time: 08/06/23 21:47 Attending Provider: Diana Escobar Primary Care Provider: Mariely Kim Discharge Orders/Prescriptions Prescriptions: New oxycodone-acetaminophen [Percocet] 5-325 mg tablet 1 tab PO Q6H PRN (Reason: pain) 7 Days Qty: 20 0RF naproxen 500 mg tablet 500 mg PO BID PRN PRN (Reason: Pain) Qty: 30 1RF No Action PNV-[place] 28-1-300 mg capsule 1 cap PO DAILY famotidine [Pepcid] 20 mg tablet 20 mg PO BID Qty: 60 3RF calcium carbonate-simethicone 500-20 mg tablet,chewable 2 tab PO PRN PRN (Reason: heartburn) Referrals / Follow Up: Mariely Kim MD [Primary Care Provider] - Disposition Disposition (needs filled in before D/C Order can be placed): Home, Self Care
[2023-08-08 06:54] LABS: Hematocrit 26.8 % (37-47); Hemoglobin 8.5 g/dL (12.0-15.0); Mean Corp Hgb Conc 31.7 g/dL (32-36); Mean Corpuscular Volume 88.2 fL (81-99); Mean Platelet Vol. 11.2 fl (6.2-12.0); Platelet Count 133 K/mm3 (150-450); RBC Distribution Width CV 14.2 % (11.6-14.6); RBC Distribution Width SD 45.4 fl (35.1-43.9); Red Blood Count 3.04 M/mm3 (4.2-5.4); White Blood Count 16.9 K/mm3 (4.4-11.0)
[2023-08-08 07:58] VITALS: BP 111/59; PULSE 73; RESP 16; TEMP 36.3
--- NOTE | 2023-08-08 08:17 | PN.OBGYN_ITS ---
Subjective Subjective Patient doing well without complaints. Tolerating PO. Ambulating and voiding without difficulty. Feeding well. Denies chest pain, shortness of breath, calf pain/swelling, fevers, chills, lightheadedness. Objective Data Objective Data Vital Signs: Vital Signs Temp Pulse Resp BP Pulse Ox O2 Del Method 97.3 F L 73 16 111/59 L 99 Room Air 08/08/23 07:58 08/08/23 07:58 08/08/23 07:58 08/08/23 07:58 08/08/23 03:53 08/08/23 03:53 Oxygen Delivery Method Room Air Weight: 195 lb 6 oz Body Mass Index (BMI) 31.5 Intake & Output: Intake and Output for Last 24 Hours 08/06/23 08/07/23 08/08/23 23:59 23:59 23:59 Intake Total 5517.83 / 5517.83 Output Total 300 / 300 3930 / 3930 200 / 200 Balance -300 / -300 1587.83 / 1587.83 -200 / -200 Lab / Micro Data 08/08/23 06:38 08/06/23 22:07 Labs: Laboratory Results - last 24 hr 08/06/23 22:07: Syphilis Total Ab Non-reactive 08/08/23 06:38: WBC 16.9 H, RBC 3.04 L, Hgb 8.5 L, Hct 26.8 L, MCV 88.2, MCH 28.0, MCHC 31.7 L, RDW Std Deviation 45.4 H, RDW Coeff of Francesco 14.2, Plt Count 133 L, MPV 11.2 Physical Exam Const alert and oriented x3 HEENT normocephalic Eyes PERRL Neck full ROM Resp normal respiratory effort GI soft to palpation GI Narrative: FF below U. Dressing dry and intact Palpation: tender other (appropriately) Assessment & Plan (1) delivery delivered: COMMENT: SM LTCS pushed 3 1/2 hours OP CPD 8lb 2 ounces girl Rafia 39 (2) Depression: QUALIFIERS: Depression Type: unspecified Qualified Code(s): F32.A - Depression, unspecified COMMENT: no meds. stable (3) Anxiety: COMMENT: no meds. Stable (4) Anemia: QUALIFIERS: Anemia type: unspecified type Qualified Code(s): D 64.9 - Anemia, unspecified PLAN: Plan s/p LTCS PPD # 1 1. routine post care 2. breast feeding- support given 3. rh positive 4. rubella immune 5. repeat CBC noon today
[2023-08-08] MEDS: Senna/Docusate Sodium 1 Tablet PO (09:44)
[2023-08-08 11:54] VITALS: BP 127/71; PULSE 89; RESP 16; TEMP 36.8
--- NOTE | 2023-08-08 12:14 | CASEMGMT ---
Social Work Assessment Labor and Delivery Unit Patient Address: [address] [place] [address] Phone number: [phone] Date of Referral: 08/06/23 Time of Referral:? [id number] Referred By: Yomaira Michael Date of Intervention: ??08/08/23 Time of Intervention:? 1030 Reason for Referral:? hs of drug/ alcohol abuse, anxiety and depression Sw completed chart review and acknowledges social work consult due to history of substance use and maternal mental health. Sw presented to bedside and introduced self to mother of baby (MOB- Melanie) and father of baby (FOB- Magdiel). Sw explained reason for sw involvement and completed psychosocial assessment. History obtained from: medical records, MOB and FOB Household composition: Currently residing in the family home is MOB, FOB and now baby. Parents deny any issues or concerns with current housing. Patient's parent/guardian status:? ?KALEB states that she and FOBlossom have been together for 15 months after meeting on a dating haley. No reports of domestic violence or intimate partner violence. Medical History: ?KALEB is 22 year old female who is 1, para 0-now 1 following labor and delivery of . KALEB received routine care during with [facility]. KALEB presented to hospital with discharge and rupture of membranes on 08/06/23. MOB required delivery due to failure to progress on 08/07/23. Baby girl, named Rafia Benitez, was born weighing 8lb 5oz with apgars of 9 and 9 at one and five minutes of life, respectfully. MOB states that she is breast feeding and still learning along with baby. MOB reports that baby will be followed by Dr. Kim for pediatrics. Educational Status:?Both parents graduated from high school. No issues with reading, learning or comprehension. Financial Status: Both parents are gainfully employed outside of the home. 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 Infant Supplies:??Parents have obtained all necessary baby supplies, including: car seat, safe sleep space, clothes, diapers and wipes. REINAB states that KALEB loves cows, and the nursery is decorated in cows. Childcare/Caregiver(s):? When both parents have returned to work parents have arranged childcare with family members. Transportation:?? Both parents have their drivers license and reliable means of transportation. No barriers. Programs/Agencies Involved: ??MOB denies linkage to any community agencies that help her financially at this time. Neither parent is connected to mental health supports or services at this time. ? Children Services/Legal Issues:?No history of children services involvement, no issues or concerns warranting referral to be made at this time. ?? Behavioral Health Issues: ??Mental Health History:?FOB denies mental health history, MOB states that she has been diagnosed with anxiety and depression. MOB states that she is familiar with the terms, baby blues and depression and anxiety. FOB states that if MOB were to struggle during this period with her mental health he would be lora to recognize a change in her. FOB states that he would be able to help and support MOB. ? Substance Use History:?MOB denies substance use prior to and during . ? Family History:??MOB states that her dad is an alcoholic. MOB states that she does not have contact with him and she was raised by her mother. ??? Drug Screens: ??MOB drug screen on admission was negative for all substances. Family/Social Stressors:? Parents deny any issues, concerns or stressors at this time. Support Systems: MOB states that FOB and her grandparents are her biggest supports. GINA states that his parents are his biggest supports. Both families are excited for baby to be here. Depression/Shaken Baby/Safe Sleeping:? Susy educated parents at length regarding signs and symptoms of baby blues and depression and anxiety. Parents expressed understanding. Susy educated parents on shaken baby prevention and ABCs of safe sleep. Parents express understanding. ASSESSMENT:? MOB and baby admitted following labor and delivery of . This is first baby for both parents, who have been together for short period of time, but were observed to have strong support found in one another. Parents have obtained all necessary provisions for baby. Parents report to having natural supports from both sides of their families. Childcare is arranged for when parents return to work. MOB with mental health history, she is not prescribed any medications to help manage her symptoms. MOB states that she utilizes healthy coping skills when she starts to feel anxious. MOB reports to feeling a marinelli/ connection with baby. MOB acknowledges need to talk to her OBGYN or mental health professional if she were to struggle with her mental health during this period. MOB denies history of substance use including during - urine screen was negative at admission for all substances. PLAN:? MOB and baby to be discharged when medically ready ?No other services requested or indicated. Iftikhar Post, FLIGHT SIMULATOR TEACHER, CHEMICAL BLENDER
[2023-08-08 12:32] LABS: Absolute Lymphocyte Count 1.82 X10^3/uL (0.83-4.51); Absolute Neutrophil Count 12.3 X10^3/uL (2.0-7.7); Basophil# 0.04 X10^3/uL; Basophil% 0.3 % (0-1); Eosinophil# 0.08 X10^3/uL; Eosinophils% 0.5 % (0-5); Hematocrit 28.6 % (37-47); Hemoglobin 8.9 g/dL (12.0-15.0); Lymphocyte # 1.82 X10^3/ul (0.83-4.51); Lymphocyte % 11.8 % (19-41); Mean Corp Hgb Conc 31.1 g/dL (32-36); Mean Corpuscular Hgb 27.3 pg (27.0-32.0); Mean Corpuscular Volume 87.7 fL (81-99); Mean Platelet Vol. 10.7 fl (6.2-12.0); Monocyte# 1.02 X10^3/uL; Monocyte% 6.6 % (0-10); NRBC Flagged by Analyzer 0 % (0-5); Neutrophil # 12.34 X10^3/uL (2.7-7.7); Neutrophil % 79.7 % (47-70); Platelet Count 160 K/mm3 (150-450); RBC Distribution Width CV 14.1 % (11.6-14.6); RBC Distribution Width SD 45.1 fl (35.1-43.9); Red Blood Count 3.26 M/mm3 (4.2-5.4); White Blood Count 15.5 K/mm3 (4.4-11.0)
[2023-08-08] MEDS: Naproxen 500 MG Tablet PO (17:21)
[2023-08-08] MEDS: oxyCODONE 5 MG Tablet PO (21:17)
[2023-08-08 21:29] VITALS: BP 115/60; PULSE 82; RESP 14; TEMP 36.7; O2SAT 99
[2023-08-09] MEDS: Naproxen 500 MG Tablet PO (01:12)
[2023-08-09 01:16] VITALS: BP 113/72; PULSE 75; RESP 14; TEMP 36.4; O2SAT 100
[2023-08-09] MEDS: Acetaminophen 500 MG Tablet 1000 MG PO (04:06)
[2023-08-09 07:45] VITALS: BP 113/69; PULSE 77; RESP 16; TEMP 36.4
[2023-08-09 09:29] VITALS: BP 113/69; PULSE 77; RESP 16; TEMP 36.4
--- NOTE | 2023-08-09 09:39 | PN.OBGYN_ITS ---
Subjective Subjective Patient doing well without complaints. Tolerating PO. Ambulating and voiding without difficulty. feeding well. Denies chest pain, shortness of breath, calf pain/swelling, fevers, chills, lightheadedness. Objective Data Objective Data Vital Signs: Vital Signs Temp Pulse Resp BP Pulse Ox O2 Del Method 97.6 F L 77 16 113/69 100 Room Air 08/09/23 09:29 08/09/23 09:29 08/09/23 09:29 08/09/23 09:29 08/09/23 01:16 08/09/23 09:29 Oxygen Delivery Method Room Air Weight: 195 lb 6 oz Body Mass Index (BMI) 31.5 Intake & Output: Intake and Output for Last 24 Hours 08/07/23 08/08/23 08/09/23 23:59 23:59 23:59 Intake Total 5517.83 / 5517.83 Output Total 3930 / 3930 500 / 500 Balance 1587.83 / 1587.83 -500 / -500 Lab / Micro Data 08/08/23 11:51 08/06/23 22:07 Labs: Laboratory Results - last 24 hr 08/08/23 11:51: WBC 15.5 H, RBC 3.26 L, Hgb 8.9 L, Hct 28.6 L, MCV 87.7, MCH 27.3, MCHC 31.1 L, RDW Std Deviation 45.1 H, RDW Coeff of Francesco 14.1, Plt Count 160, MPV 10.7, Immature Gran % (Auto) 1.100 H, Neut % (Auto) 79.7 H, Lymph % (Auto) 11.8 L, [place] % (Auto) 6.6, Eos % (Auto) 0.5, Baso % (Auto) 0.3, Absolute Neuts (auto) 12.3 H, Absolute Lymphs (auto) 1.82, Nucleated RBC % 0 ROS Constitutional Constitutional: Reports systems reviewed and no addt'l complaints, except as documented Cardiovascular Cardiovascular: Reports systems reviewed and no addt'l complaints, except as documented Respiratory/Chest Respiratory/Chest: Reports systems reviewed and no addt'l complaints, except as documented Gastrointestinal Gastrointestinal: Reports systems reviewed and no addt'l complaints, except as documented Physical Exam Const alert, oriented x3 and no apparent distress HEENT Head and Scalp: atraumatic Resp normal respiratory effort GI soft to palpation and non-tender Inspection: incision intact, healing well and drainage (none) Bimanual Exam - Vag & Uterus: uterus non-tender Uterus Palpation: uterus fundus firm (below Umbilicus) Assessment & Plan (1) Anxiety: COMMENT: no meds. Stable (2) Depression: QUALIFIERS: Depression Type: unspecified Qualified Code(s): F32.A - Depression, unspecified COMMENT: no meds. stable (3) delivery delivered: COMMENT: LTCS pushed 3 1/2 hours OP CPD 8lb 2 ounces girl Rafia 39 (4) Anemia: QUALIFIERS: Anemia type: unspecified type Qualified Code(s): D 64.9 - Anemia, unspecified PLAN: Plan s/p LTCS PPD # 2 1. routine post care 2. breast feeding- support given 3. rh positive 4. rubella immune
--- NOTE | 2023-08-10 13:17 | DS.PCM_ITS ---
Providers Date of Admission: 08/06/23 Primary Care Physician: Dr. Mariely Kim MD Reason For Visit: PRIMARY Diagnosis Discharge Diagnosis (1) Anxiety: Status: Acute Code(s): F41.9 - Anxiety disorder, unspecified (2) Depression: Status: Acute Code(s): F32.A - Depression, unspecified Qualifiers: Depression Type: unspecified Qualified Code(s): F32.A - Depression, unspecified (3) delivery delivered: Status: Acute Code(s): O82 - Encounter for delivery without indication (4) Anemia: Status: Acute Code(s): D64.9 - Anemia, unspecified Qualifiers: Anemia type: unspecified type Qualified Code(s): D64.9 - Anemia, unspecified Plan s/p LTCS PPD # 2 1. routine post care 2. breast feeding- support given 3. rh positive 4. rubella immune Medications at Discharge Home Medications multivit-min no.71-iron fum 28 mg-folate no.1 1 mg-dha 300 mg capsule (PNV- Liberty) 1 cap PO DAILY 01/05/23 calcium carbonate 500 mg-simethicone 20 mg chewable tablet 2 tab PO PRN PRN heartburn 07/09/23 famotidine 20 mg tablet (Pepcid) 20 mg PO BID #60 tabs 07/18/23 naproxen 500 mg tablet 500 mg PO BID PRN PRN Pain #30 tabs 08/08/23 oxycodone-acetaminophen 5 mg-325 mg tablet (Percocet) 1 tab PO Q6H PRN pain 7 days #20 tabs 08/08/23 Hospital Course Summary of Care Provided Hospital Course: Patient was admitted in active labor spontaneous rupture membranes underwent Pitocin augmentation proceeded to complete dilation. At the beginning of pushing the position was noted to be direct OP and this was attempted to be rotated to an NIKKO position and was unsuccessful. Patient's pelvic outlet was noted to be more narrow, patient pushed for 3 and half hours with no significant descent and a large amount of caput present. Patient had pushed with excellent maternal effort during the entire pushing effort. Decision was made to proceed with primary low-transverse for suspected cephalopelvic disproportion. Patient underwent primary low-transverse without complication and had routine recovery with return of bowel and bladder function was stable for discharge to home on day #2 discharge medications naproxen and Percocet. Weight / BMI Weight Weight: 195 lb 6 oz Body Mass Index (BMI) 31.5 ABG / Lab / Microbiology Data 08/08/23 11:51 08/06/23 22:07 D/C Instructions Discharge Diet: No restrictions May shower in (days): 0 May resume sexual activity in: 4-6 weeks Weight Bearing Status: Full weight bearing Call your doctor if your incision/area has: Continuous Slow Oozing, Sudden Increased Bleeding, Increased Pain/ Swelling, Increased Redness and Foul Smelling Discharge Call your doctor if you observe: Fever of 101 or Higher and Using more than 1 pad per hour (for 2 hours) Suture Line Care: Avoid Pulling/Pushing and Avoid Pinching/Bending Cleanse incision/area with: Soap & Water and Keep Dressing Clean & Dry Please Follow Up With: Diana Escobar MD When: Call [phone] to make an appointment for an incision check in 1-2 weeks. Meaningful Use Info Meaningful Use Meaningful Use Diagnoses (Choose all that apply): None applicable Ischemic Stroke Statin Dosing Therapy Reference: STATIN DOSE THERAPY REFERENCE: * Patients > 75 years receive moderate or high dose statin therapy. * Patients 75 years or YOUNGER should receive HIGH intensity statin dose unless contraindicated. You will be required to document reason for non-treatment if statin daily dose does not meet guidelines. HIGH DOSE STATIN THERAPY DAILY Atorvastatin > than or = to 40 mg Rosuvastatin > than or = to 20 mg Amlodipine + Atorvastatin > than or = to 2.5/40 mg Ezetimibe + Simvastatin 10/80 mg Simvastatin 80mg Discharge Plan Admission Admit Date/Time: 08/06/23 21:47 Primary Reason for Your Visit: delivery Attending Provider: Diana Escobar Primary Care Provider: Mariely Kim Instructions Patient Instructions: After a Discharge Orders/Prescriptions Prescriptions: New oxycodone-acetaminophen [Percocet] 5-325 mg tablet 1 tab PO Q6H PRN (Reason: pain) 7 Days Qty: 20 0RF naproxen 500 mg tablet 500 mg PO BID PRN PRN (Reason: Pain) Qty: 30 1RF No Action PNV-Liberty 28-1-300 mg capsule 1 cap PO DAILY famotidine [Pepcid] 20 mg tablet 20 mg PO BID Qty: 60 3RF calcium carbonate-simethicone 500-20 mg tablet,chewable 2 tab PO PRN PRN (Reason: heartburn) Referrals / Follow Up: Mariely Kim MD [Primary Care Provider] - Disposition Disposition (needs filled in before D/C Order can be placed): Home, Self Care
== END 2023-08-09 09:30 | disposition home or self-care (01) | DRG 540 ==
LOC: WPOUT 21:51 → WP 21:51
PROVIDERS: Advanced Practice Midwife; Nurse Practitioner Women's Health; Admitting Provider Obstetrics & Gynecology; PCP Pediatrics; Visit Provider Obstetrics & Gynecology
DX: O64.0XX0 Obstructed labor due to incomplete rotation of fetal head, not applicable or unspecified (principal); O33.9 Maternal care for disproportion, unspecified; O99.02 Anemia complicating childbirth; O62.1 Secondary uterine inertia; Z79.899 Other long term (current) drug therapy; Z3A.39 39 weeks gestation of pregnancy; Z37.0 Single live birth; Z87.891 Personal history of nicotine dependence; Z3A.37 37 weeks gestation of pregnancy
CPT/HCPCS: 59025; 59050; 80307; 82565; 82570; 84112; 84156; 84450; 84460; 84550; 85025; 85027; 86780; 86850; 86900; 86901; 99221; A4216; G0378; J2405

== ENCOUNTER → 2023-09-19 | Outpatient (CLI) | payer MEDICAID, SELFPAY ==
[2023-09-24 18:48] LABS: HPV Reflexed? NOT INDICATED
== END | disposition home or self-care (01) ==
PROVIDERS: PCP Pediatrics; Referring Provider Obstetrics & Gynecology; Visit Provider Obstetrics & Gynecology
DX: Z12.4 Encounter for screening for malignant neoplasm of cervix (principal)
CPT/HCPCS: 88175; G0145

== ENCOUNTER → 2024-08-28 | Outpatient (CLI) | payer MEDICAID, SELFPAY ==
[2024-09-01 19:08] LABS: Chlamydia By Nucleic Acid AMP Negative (Negative); Gonococcus By Nucleic Acid AMP Negative (Negative)
== END | disposition home or self-care (01) ==
LOC: LABSPEC 16:33
PROVIDERS: PCP Pediatrics; Referring Provider Advanced Practice Midwife; Visit Provider Advanced Practice Midwife
DX: O09.90 Supervision of high risk pregnancy, unspecified, unspecified trimester (principal); Z3A.00 Weeks of gestation of pregnancy not specified
CPT/HCPCS: 87086; 87088; 87491; 87591

== ENCOUNTER → 2024-09-01 | Outpatient (CLI) | payer MEDICAID, SELFPAY ==
[2024-09-01 17:14] LABS: Absolute Lymphocyte Count 2.28 X10^3/uL (0.83-4.51); Absolute Neutrophil Count 6.9 X10^3/uL (2.0-7.7); Basophil# 0.02 X10^3/uL; Basophil% 0.2 % (0-1); Eosinophil# 0.08 X10^3/uL; Eosinophils% 0.8 % (0-5); Hemoglobin 13.5 g/dL (12.0-15.0); Lymphocyte # 2.28 X10^3/ul (0.83-4.51); Mean Corp Hgb Conc 34.6 g/dL (32-36); Mean Corpuscular Hgb 31.8 pg (27.0-32.0); Mean Platelet Vol. 12.5 fl (6.2-12.0); Monocyte# 0.61 X10^3/uL; Monocyte% 6.1 % (0-10); NRBC Flagged by Analyzer 0 % (0-5); Neutrophil # 6.93 X10^3/uL (2.7-7.7); Neutrophil % 69.8 % (47-70); Platelet Count 164 K/mm3 (150-450); RBC Distribution Width CV 13.1 % (11.6-14.6); RBC Distribution Width SD 44.3 fl (35.1-43.9); Red Blood Count 4.24 M/mm3 (4.2-5.4); White Blood Count 9.9 K/mm3 (4.4-11.0)
[2024-09-01 17:39] LABS: HIV Nonreactive (Nonreactive); Hepatitis B Surface Antigen Nonreactive (Nonreactive); Hepatitis C Antibody Nonreactive (Nonreactive); Rubella IgG REAC (Nonreactive); Syphilis Antibodies Nonreactive (Nonreactive)
== END | disposition home or self-care (01) ==
PROVIDERS: PCP Pediatrics; Referring Provider Advanced Practice Midwife; Visit Provider Advanced Practice Midwife
DX: O09.91 Supervision of high risk pregnancy, unspecified, first trimester (principal); Z3A.00 Weeks of gestation of pregnancy not specified
CPT/HCPCS: 36415; 85025; 86703; 86762; 86780; 86803; 86850; 86900; 86901; 87340

== ENCOUNTER 2024-11-13 16:10 | Outpatient (CLI) | payer MEDICAID, SELFPAY ==
--- NOTE | 2024-11-13 16:16 | CT_ITS ---
PROCEDURE: ABDOMEN/PELVIS WITHOUT CONT 11/13/2024 REASON FOR EXAM: R/O RIGHT KIDNEY STONE TECHNIQUE: Procedure Code: [id number] Modality: CT Procedure: ABDOMEN/PELVIS WITHOUT CONT Noncontrast technique limits evaluation of the abdominal and pelvic viscera. Coronal and Sagittal reconstruction series were provided. One or more dose reduction techniques were used (e.g., Automated exposure control, adjustment of the mA and/or kV according to patient size, use of iterative reconstruction technique). COMPARISON: CT abdomen and pelvis 05/01/2024 FINDINGS: Lung bases: Unremarkable. Liver: Mildly enlarged measuring up to 18.9 cm craniocaudally. No obvious hepatic mass. Gallbladder: Unremarkable. No biliary ductal dilatation. Spleen: Normal size. Pancreas: Normal size. No surrounding inflammation. Adrenals: Unremarkable. Kidneys: No urolithiasis. No hydronephrosis. Bladder: Underdistended, limiting evaluation. Reproductive Organs: Gravid uterus. Bowel: No bowel obstruction. Appendix: Normal. Lymph nodes: Unremarkable. Vasculature: The abdominal aorta and IVC contours are normal. Noncontrast technique limits evaluation. Peritoneum / Retroperitoneum: No free fluid or air. Bones: Unremarkable. No acute fractures. CT/Abdomen/Pelvis without Cont IMPRESSION: 1. No acute findings. 2. No renal calculi. 3. Mild hepatomegaly. 4. Gravid uterus. [facility]
[2024-11-13 16:24] VITALS: BP 114/64; PULSE 93
[2024-11-13 16:29] VITALS: BP 114/64; PULSE 93; RESP 14; TEMP 36.8
[2024-11-13 16:30] VITALS: BMI 27.2
[2024-11-13 16:56] LABS: Color, Urine Amber (Yellow); Glucose, Dipstick Normal (Normal); Ketone-Dipstick Negative (Negative); Leukocyte Esterase-Dipstick 500 /ul (Negative); Nitrite-Dipstick Negative (Negative); Occult Blood-Urine 250 /ul (Negative); Protein-Dipstick 100 mg/dl (Negative); Specific Gravity, Urine 1.010 (1.002-1.030); Urine Bilirubin Dipstick Negative (Negative)
--- NOTE | 2024-11-13 17:57 | OB.TRI.PN ---
Progress Notes Date of Service: 11/13/24 Progress Note: seen 20 weeks for hematuria and ct neg for stones suspect hemorhagic cystits or stones not seen on scan, dc home antibiotics and aggressive hydration. Laboratory Studies: Laboratory Tests 11/13/24 Range/Units 16:20 Urine Color Nadege (Yellow) Urine Clarity Turbid (Clear) Urine pH 7.0 (5.0 - 8.0) Ur Specific [place] 1.010 (1.002-1.030) Urine Protein 100 H (Negative) mg/dl Urine Glucose (UA) Normal (Normal) mg/dl Urine Ketones Negative (Negative) mg/dl Urine Occult Blood 250 H (Negative) /ul Urine Nitrite Negative (Negative) Urine Bilirubin Negative (Negative) mg/dL Urine Urobilinogen Normal (Normal) mg/dl Ur Leukocyte Esterase 500 H (Negative) /ul Charges/Coding Procedures Urinary/Genital [id number]-[id number]: No Charge
[2024-11-13 18:41] LABS: Hematocrit 37.1 % (37-47); Hemoglobin 12.9 g/dL (12.0-15.0); Immature Granulocytes Count 0.080 X10^3/uL (0.0-0.0); Mean Corp Hgb Conc 34.8 g/dL (32-36); Mean Corpuscular Volume 92.5 fL (81-99); Mean Platelet Vol. 11.0 fl (6.2-12.0); NRBC Flagged by Analyzer 0 % (0-5); Platelet Count 170 K/mm3 (150-450); RBC Distribution Width CV 13.3 % (11.6-14.6); RBC Distribution Width SD 44.9 fl (35.1-43.9); Red Blood Count 4.01 M/mm3 (4.2-5.4); White Blood Count 12.4 K/mm3 (4.4-11.0)
[2024-11-13 19:31] LABS: AST(SGOT) 19 U/L (<=31); Alanine Aminotransfer ALT/SGPT 11 U/L (<=34); Albumin, Serum 3.7 g/dL (3.5-5.0); Alkaline Phosphatase 67 U/L (35-104); Anion Gap 12 (5-15); BUN 7 mg/dL (4-19); BUN/Creat Ratio 12.7 RATIO (10-20); Calcium,Total 9.0 mg/dL (7.6-11.0); Carbon Dioxide 21.5 mmol/L (21.0-32.0); Chloride 103 mmol/L (98-108); Estimated Creatinine Clearance 159.10 ml/min (50-250); Globulin 2.8 g/dL (2.2-4.2); Glucose 87 mg/dL (70-99); Potassium 3.8 mmol/L (3.3-5.1)
== END 2024-11-13 19:45 | disposition home or self-care (01) ==
LOC: WPOUT 16:14 → WP 16:14
PROVIDERS: Obstetrics & Gynecology; PCP Pediatrics; Referring Provider Obstetrics & Gynecology; Visit Provider Obstetrics & Gynecology
DX: O99.891 Other specified diseases and conditions complicating pregnancy (principal); R31.9 Hematuria, unspecified; Z3A.20 20 weeks gestation of pregnancy
CPT/HCPCS: 36415; 74176; 80053; 81002; 85025; 87086; 87088; 99221; G0378

== ENCOUNTER 2024-12-12 09:20 | Outpatient (CLI) | payer MEDICAID, SELFPAY ==
[2024-12-12 09:46] VITALS: BMI 29.5
--- OUTSIDE RECORDS SUMMARY | 2024-12-12 09:49 | XMS RPT_ITS | CCD ---
Author Organization [facility] Care Team Providers Care Stock Blender Name Role Phone MARIELY NEAL Primary Care Unavailable Dr. Mariely Neal Primary Care Provider Dr. Mariely Neal Referring Provider Dr. Mary Canales Attending Provider Dr. Mariely Neal Primary Care Provider Dr. Mariely Neal Referring Provider MICHELLE Cason Attending Provider Chelsey MANAGEMENT INFORMATION SYSTEMS DIRECTOR, JAM-Haris Ernst Attending Provider Dr. Diana Escobar Attending Provider Dr. Mary Canalse Attending Provider DENISE Singer Attending Provider Dr. Mariely Neal Primary Care Provider Dr. Mariely Neal Referring Provider Chelsey POLK, MANJU Ernst Attending Provider MICHELLE Michael Attending Provider MICHELLE Cason Attending Provider MICHELLE Cason Referring Provider MICHELLE Cason Other Provider Dr. Mariely Neal MD Primary Care Provider Jonna Bernabe RN Attending Provider UnavailDr. Mariely Gayle MD Referring Provider Yomaira Michael CNM Attending Provider Yomaira Michael CNM Referring Provider [phone] Dr. Mary Canales DO Attending Provider Chelsey POLK-CSujata Attending Provider [phone] REFERRED, SELF Referring Unavailable NEAL, MARIELY A Primary Care Unavailable NAM HARRIS Attending Unavailable NEAL, MARIELY A Primary Care Unavailable MARY HUDSON Referring Unavailab MARLENE Kent Attending Unavailable Luz NINO, Dr. Ortiz Attending Provider Dr. Diana Escobar MD Referring Provider Yomaira Michael Attending Unavailable Neal, Mariely Primary Care Unavailable Neal, Mariely Referring Unavailable MarcanthonyDiana Referring Unavailable Neal, Mariely Primary Care Unavailable Diana Escobar Consulting Unavailable Diana Escobar Attending Unavailable Neal, Mariely Primary Care Unavailable Jonna Bernabe Attending Unavailable Neal, Mariely Referring Unavailable Neal, Mariely Primary Care Unavailable VandMary Lanza Attending Unavailabl e Diana Escobar Attending Unavailable Neal, Mariely Primary Care Unavailable Neal, Mariely Referring Unavailable Neal, Mariely Primary Care Unavailable Neal, Mariely Referring Unavailable Sujata Barbosa NP Attending Unavailable Neal, Mariely Primary Care Unavailable Neal, Mariely Referring Unavailable Mary Canales Attending UnavailYomaira Carrasco Attending Unavailable Neal, Mariely Primary Care Unavailable Yomaira Michael Referring Unavailable Neal, Mariely Primary Care Unavailable Yomaira Michael Attending Unavailable Yomaira Michael Referring Unavailable Diana Escobar Referring Unavailable Neal, Mariely Primary Care Unavailable Diana Escobar Attending Unavailable Medications Current Medications Medication Drug Class(es) Dates Sig (Normalized) Sig (Original) ascorbic acid 500 mg oral capsule (8 sources) Vitamin C Start: 08-16-2023 Ascorbic Acid (Vitamin C) 500 mg capsule Active mg PO August 16, 2023 12:00am cephalexin 500 mg oral capsule (2 sources) Cephalosporin Antibacterial Start: 11-13-2024 take 1 capsule by mouth three times daily Cephalexin 500 mg capsule Active 500 mg PO THREE TIMES A DAY 30 0 November 13, 2024 12:00am cholecalciferol 0.05 mg oral capsule (8 sources) Vitamin D Start: 08-16-2023 take 1 capsule by mouth once daily Cholecalciferol (Vitamin D3) 50 mcg (2,000 unit) capsule Active 50 ug PO DAILY August 16, 2023 12:00am docosahexaenoic acid 200 mg oral capsule (8 sources) Start: 2023 Docosahexaenoic Acid ( Dha) 200 mg capsule Active mg PO 2023 12:00am Completed/Discontinued Medications Medication Drug Class(es) Dates Sig (Normalized) Sig (Original) acetaminophen 325 mg / oxyCODONE hydrochloride 5 mg oral tablet (8 sources) Opioid Agonist Start: 08-08-2023 End: 08-16-2023 Oxycodone-Acetamino phen (Percocet) 5-325 mg tablet Discontinued 1 {tbl} PO EVERY 6 HOURS as needed for pain 20 7 0 August 08, 2023 August 16, 2023 1:38pm delivery delivered Encounter for delivery without indication amoxicillin 80 mg/ml oral suspension (12 sources) Penicillin-class Antibacterial Start: 07-24-2022 End: 01-05-2023 take 1000 mg by mouth twice daily Amoxicillin 400 mg/5 mL suspension for reconstitution Discontinued 1000 mg PO TWICE A DAY 250 0 July 24, 2022 12:00am January 05, 2023 2:32pm Calcium Carbonate / Simethicone (9 sources) Start: 07-09-2023 End: 08-16-2023 Calcium Carbonate-Simethico ne 500-20 mg tablet,chewable Discontinued 2 {tbl} PO NEEDED as needed for heartburn July 09, 2023 12:00am August 16, 2023 1:38pm Start: 07-09-2023 Calcium Carbon ate-Simethicone Active 2 TABLET PO NEEDED July 09, 2023 12:00am ciprofloxacin 2 mg/ml / hydrocortisone 10 mg/ml otic suspension (12 sources) Corticosteroid, Quinolone Antimicrobial Start: 10-14-2016 End: 07-18-2017 Ciprofloxacin-Hydrocortisone 10 ML drops,suspension Discontinued 4 NMA LEFT EAR TWICE A DAY 7 0 October 14, 2016 12:00am July 18, 2017 10:28am Start: 10-14-2016 End: 07-18-2017 Ciprofloxacin-Hydrocortisone Discontinued 4 DRP LEFT EAR TWICE A DAY 7 October 14, 2016 12:00am July 18, 2017 10:28am clindamycin 15 mg/ml oral solution (12 sources) Lincosamide Antibacterial Start: 07-18-2017 End: 07-28-2017 take 300 mg by mouth three times daily Clindamycin Palmitate Hcl (Clindamycin Pediatric) 75 mg/5 mL recon soln Discontinued 300 mg PO THREE TIMES A DAY 600 10 0 July 18, 2017 12:00am July 27, 2017 12:00am July 28, 2017 12:07am famotidine 20 mg oral tablet (8 sources) Histamine-2 Receptor Antagonist Start: 07-18-2023 End: 08-16-2023 take 1 tablet by mouth twice daily Famotidine (Pepcid) 20 mg tablet Discontinued 20 mg PO TWICE A DAY 60 3 July 18, 2023 12:00am August 16, 2023 1:37pm hydrOXYzine pamoate 25 mg oral capsule (12 sources) Antihistamine Start: 04-06-2021 End: 07-24-2022 take 1 capsule by mouth three times daily as needed for anxiety Hydroxyzine Pamoate 25 MG capsule Discontinued 25 mg PO 3 TIMES DAILY NEEDED as needed for Anxiety 20 0 April 06, 2021 1:00am July 24, 2022 2:23pm Mv-Mins 22-Icyd-Sxcmq No.1-Dha ([facility]nv-[place]) 28-1-300 mg capsule (12 sources) Start: 01-05-2023 End: 08-16-2023 Mv-Mins 92-Cccg-Xpxke No.1-Dha ([facility]) 28-1-300 mg capsule Discontinued 1 NMA PO DAILY January 05, 2023 12:00am August 16, 2023 1:37pm Start: 01-05-2023 End: 08-16-2023 Mv-Mins 05-Qxqs-Afmvh No.1-D montoya ([facility]) 28-1-300 mg capsule Discontinued 1 NMA PO DAILY January 05, 2023 12:00am August 16, 2023 1:37pm Start: 01-05-2023 take 1 capsule by mo [facility] once daily Mv-Mins 92-Okjk-Gbuxt No.1-Dha ([facility]) 28-1-300 mg capsule Active 1 CAP PO DAILY January 05, 2023 12:00am Start: 01-05-2023 take 1 capsule by mouth once M v-Mins 71-Pwlh-Djrag No.1-Dha ([facility]) 28-1-300 mg capsule Active CAP PO January 05, 2023 12:00am Start: 01-05-2023 take 1 capsule by mouth once M v-Mins 92-Gqja-Lawnj No.1-Dha ([facility]) 28-1-300 mg capsule Active CAP PO January 04, 2023 11:00pm naproxen 500 mg oral tablet (20 sources) Nonsteroidal Anti-inflammatory Drug Start: 08-08-2023 End: 08-16-2023 take 1 tablet by mouth twice daily as needed for pain Naproxen 500 mg tablet Discontinued 500 mg PO TWICE DAILY NEEDED as needed for Pain 30 August 08, 2023 12:00am August 16, 2023 1:39pm Start: 05-01-2019 End: 10-08-2019 take 1 tablet by mouth twice daily as needed Naproxen 500 MG tablet Discontinued 500 mg PO TWICE DAILY NEEDED May 01, 2019 1:00am October 08, 2019 11:31am ondansetron 4 mg disintegrating oral tablet (20 sources) Serotonin-3 Receptor Antagonist Start: 01-09-2023 End: 07-09-2023 take 1 tablet by mouth every eight hours as needed for nausea and vomiting Ondansetron 4 mg tablet,disintegrating Discontinued 4 mg PO Q8H as needed for nausea and vomiting 30 4 January 09, 2023 12:00am July 09, 2023 5:51pm Start: 04-06-2021 End: 07-24-2022 take 1 tablet by mouth every six hours as needed for nausea and vomiting Ondansetron 4 mg tablet,disintegrating Discontinued 4 mg PO EVERY 6 HOURS as needed for nausea and vomiting 10 0 April 06, 2021 1:00am July 24, 2022 2:23pm penicillin v potassium 500 mg oral tablet (12 sources) Start: 04-15-2018 End: 05-01-2019 take 1 tablet by mouth four times daily Penicillin V Potassium 500 MG tablet Discontinued 500 mg PO 4 TIMES DAILY 40 0 April 15, 2018 1:00am May 01, 2019 11:23am prednisoLONE 15 mg disintegrating oral tablet (12 sources) Corticosteroid Start: 02-23-2022 End: 07-24-2022 take 15 mg by mouth twice daily Prednisolone 15 mg/5 mL solution Discontinued 15 mg PO TWICE A DAY 50 0 February 23, 2022 1:00am July 24, 2022 2:23pm sulfamethoxazole 800 mg / trimethoprim 160 mg oral tablet (12 sources) Dihydrofolate Reductase Inhibitor Antibacterial, Sulfonamide Antimicrobial Start: 05-01-2019 End: 10-08-2019 Sulfamethoxazole- Trimethoprim 1 TABLET tablet Discontinued 1 {tbl} PO TWICE A DAY 14 0 May 01, 2019 1:00am October 08, 2019 11:31am Start: 05-01-2019 End: 10-08-2019 take 1 tablet by mouth twice daily Sulfamethoxazole-Trimethoprim Discontinu ed 1 TABLET PO TWICE A DAY 14 May 01, 2019 1:00am October 08, 2019 11:31am Problems Problem Classification Problem Date Documented Date Episodic/Chronic Anxiety disorders (20 sources) Anxiety; Translations: [Anxiety disorder, unspecified] Onset: 08-28-2024 04-14-2021 Chronic Comment on above: no meds. Stable Calculus of urinary tract (2 sources) Kidney stone; Translations: [Calculus of kidney] 11-17-2024 Episodic Comment on above: 20 weeks . fu with urogyn Deficiency and other anemia (8 sources) Anemia; Translations: [Anemia, unspecified] 08-08-2024 Episodic Disorders of teeth and jaw (12 sources) Toothache; Translations: [Other specified disorders of teeth and supporting structures] 04-16-2018 Episodic distress and abnormal forces of labor (8 sources) Arrested active phase of labor; Translations: [Secondary uterine inertia] 08-08-2023 Episodic Fetopelvic disproportion; obstruction (20 sources) Direct occipitoposterior position; Translations: [Obstructed labor due to incomplete rotation of head, not applicable or unspecified] Onset: 08-28-2024 08-08-2023 Episodic Comment on above: recommend only RLTCS recommend only RLTCS SM Mood disorders (20 sources) Depressive disorder; Translations: [Depression] 05-16-2023 Chronic Comment on above: no meds. stable Mood disorders (1 source) Mood disorders; Translations: [Depression, unspecified] Onset: 08-28-2024 Nausea and vomiting (12 sources) Nausea and vomiting; Translations: [Nausea with vomiting, unspecified] 04-14-2021 Episodic Other complications of ; puerperium affecting management of mother (8 sources) Deliveries by ; Translations: [Encounter for delivery without indication] 08-08-2024 Episodic Comment on above: SM LTCS pushed 3 1/2 hours OP CPD 8lb 2 ounces girl Rafia 39 Other complications of (9 sources) Reduced movement; Translations: [Decreased movements, unspecified trimester, not applicable or unspecified] 07-09-2023 Episodic Comment on above: reactive NST, movement now safe for d/c Other complications of (1 source) Decreased movements, unspecified trimester, not applicable or unspecified; Translations: [Decreased movements, affecting management of mother, unspecified as to episode of care] 07-09-2023 Episodic Other complications of (20 sources) High risk ; Translations: [Supervision of high risk , unspecified, unspecified trimester] 08-08-2024 Episodic Comment on above: , DESTIN 03/28, PC: Mary Jo Morataya : Hugh [id number], DESTIN 03/28, P C: Mary Jo Morataya : Hugh Other complications of (8 sources) Headache; Translations: [Other specified related conditions, unspecified trimester] 08-08-2023 Episodic Other complications of (7 sources) Placenta adherent to previous uterine scar; Translations: [Other placental disorders, unspecified trimester] 11-03-2024 Episodic Comment on above: possible on anatomy US. Rpt US 4 wk Other complications of (1 source) Supervision of high risk , unspecified, unspecified trimester; Translations: [Supervision of high risk , unspecified, unspecified trimester] Onset: 09-03-2024 Episodic Other and delivery including normal (20 sources) Normal ; Translations: [Encounter for supervision of normal first , unspecified trimester] Onset: 08-28-2024 01-10-2023 Episodic Comment on above: PRR, , DESTIN girl Rafia BARB Tysonony accepts NIPT GBS Negative, NIPT l ow risk,declined carrier testing, nl anatomy. declined ntd screening. NIPT: low risk, fema le Other upper respiratory infections (20 sources) Viral upper respiratory tract infection; Translations: [Acute upper respiratory infection, unspecified] 09-02-2014 Episodic Otitis media and related conditions (12 sources) Otitis media of left ear; Translations: [Otitis media, unspecified, left ear] 09-02-2014 Episodic Polyhydramnios and other problems of amniotic cavity (8 sources) Spontaneous rupture of membranes 08-08-2023 Episodic Previous (1 source) Maternal care for unspecified type scar from previous delivery; Translations: [Maternal care for unspecified type scar from previous delivery] Onset: 08-28-2024 Episodic Residual codes; unclassified (8 sources) Gestation period, 38 weeks; Translations: [38 weeks gestation of ] 08-08-2024 Episodic Unclassified (1 source) Other specified diseases and conditions complicating ; Translations: [Other specified diseases and conditions complicating ] Onset: 11-21-2024 Urinary tract infections (12 sources) Urinary tract infectious disease; Translations: [Urinary tract infection, site not specified] 05-02-2019 Episodic Results Test Name Value Interpretation Reference Range Facility Heating Worker Office Visit Reporton 11-17-2024 Heating Worker Office Visit Report [facility] [address], [address] [place] [address] OFFICE VISIT Date of Service: 11/17/24 MR#: [id number] Acct: [id number] Name: MELANIE LEIJA Rep #: [id number] : 2000 Provider: Dr. 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 Is patient in pain?: No Allergies No Known Allergies Allergy (Verified 11/17/24 09:34) Medications ???Medication ???Instructions ???Recorded ???Confirmed ???Type ascorbic acid (vitamin C) 500 mg mg PO 08/16/23 11/17/24 History capsule cholecalciferol (vitamin D3) 50 50 mcg PO DAILY 08/16/23 11/17/24 History mcg (2,000 unit) capsule docosahexaenoic acid 200 mg mg PO 08/20/23 11/17/24 History capsule ( DHA) cephalexin 500 mg capsule 500 mg PO TID #30 caps 11/13/24 Rx Last Menstrual Period: 06/21/24 Zika: Zika virus screening: Negative : No PFSH PFSH Medical History Cephalopelvic disproportion Depression Anxiety Migraines Surgical History delivery delivered History of tonsillectomy Family History Grandmother Breast cancer, Onset Age: 80 Paternal Social History adopted: No household members: significant other and children number of children: 1 current occupational status: employed current occupation: [employer] current occupational exposures/hazards: No pets and animals: Yes pets and animals: dog(s) history of recent travel: No sexually active: Yes Smoking Status: Never smoker second hand exposure: No alcohol intake: current alcohol intake frequency: holidays/special occasions only details: Not while substance use type: does not use well-balanced diet: about half the time caffeine: Yes Type: coffee Number of servings: 1 eating out: rarely or never during the past year weight has: remained stable what type of physical activity do you participate in: none frequency: 1-2 times per week duration: > 90 minutes/day dana/jew: None seatbelt use: always do you feel safe at home: Yes additional 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 Date Name GA/Weeks Outcome Route Bth Weight Gen Labor Lgth Anesthesia Del Locatn Provider FOB 08/08/23 Rafia 39 live - full term 8lbs 5oz Female epidural [facility] Luz Veloz Delivery Date: 08/08/23 Last Updated by: Autumn Guerra cpd pushed for 3.5 hours direct OP HPI 22wk ob Details: MELANIE LEIJA is a 24 year old who presents for routine OB visit. OB Visit DESTIN Calculator Estimated Delivery Date Method Current WG Current Estimate 03/28/25 LMP (Certain) 21w 2d Other Estimates 03/28/25 Ultrasound #1 21w 2d Expected Delivery Route/Plan Desired repeat c/s Specific Issue/Plans Covid status: [] Flu vaccine: [] Tdap vaccine: [] Rhogam: [] LARC form signed: [] Problem list reviewed and updated with the most current plan of care details and appropriate orders placed. Relevant counseling for the gestational age provided. Continue routine care and follow up unless otherwise noted in visit notes/problem list details Initial Weight: 155 lb Date -???-???-???-???-???-?? ?-???-???-???-???-???-? ??- EGA Weight BP Urine Prot -???-???-???-???-???-?? ?-???-???-???-???-???-? ??- Glucose FHR FuHt Pres Dilation -???-???-???-???-???-?? ?-???-???-???-???-???-? ??- Effaced St Visit Note 08/28/24 -???-???-???-???-???-?? ?-???-???-???-???-???-? ??- 9w 5d 155 lb 4 oz (+4 oz) 135/71 -???-???-???-???-???-?? ?-???-???-???-???-???-? ??- 167 -???-???-???-???-???-?? ?-???-???-???-???-???-? ??- KW- CRL 2.87 cm and cons with dates. accepts NIPT 09/25/24 -???-???-???-???-???-?? ?-???-???-???-???-???-? ??- 13w 5d 157 lb 4 oz (+2 lb 4 oz) 133/81 Negative -???-???-???-???-???-?? ?-???-???-???-???-???-? ??- Negative 156 -???-???-???-???-???-?? ?-???-???-???-???-???-? ??- JV CRL still consistent with LMp. low risk NIPT girl! no complaints today. anatomy scan ordered. planning repeat section. 10/20/24 -???-???-???-???-???-?? ?-???-???-???-???-???-? ??- 17w 2d 162 lb (more content not included)... Normal [facility] Urine Cultureon 11-16-2024 URC Below infection leve l. Mixed Gram Positive Organisms Vale Count <1000 MIXC Mixed contaminants. Submit a new specimen if indicated. Normal [facility] Comment on above: Performed By: #### M 100.2329 #### [facility] [address] [place], [address] Abdomen/Pelvis without Conto n 11-13-2024 Abdomen/Pelvis without Cont [facility] Imaging Services [address] [place] [address] Abdomen/Pelvis without Cont MR#: [id number] Acct: [id number] Name: MELANIE LEIJA Rep #: [id number] : 2000 F 24 From: Rashaun Aldana MD PCP: Dr. Mariely Neal MD Status: REG CLI Study: Abdomen/Pelvis without Cont Date of Exam: 07/04 Exam# [id number] Ordering Dr: Diana Escobar PROCEDURE: ABDOMEN/PELVIS WITHOUT CONT 11/13/2024 REASON FOR EXAM: R/O RIGHT KIDNEY STONE TECHNIQUE: Procedure Code: CTABDPEL Modality: CT Procedure: ABDOMEN/PELVIS WITHOUT CONT Noncontrast technique limits evaluation of the abdominal and pelvic viscera. Coronal and Sagittal reconstruction series were provided. One or more dose reduction techniques were used (e.g., Automated exposure control, adjustment of the mA and/or kV according to patient size, use of iterative reconstruction technique). COMPARISON: CT abdomen and pelvis 05/01/2024 FINDINGS: Lung bases: Unremarkable. Liver: Mildly enlarged measuring up to 18.9 cm craniocaudally. No obvious hepatic mass. Gallbladder: Unremarkable. No biliary ductal dilatation. Spleen: Normal size. Pancreas: Normal size. No surrounding inflammation. Adrenals: Unremarkable. Kidneys: No urolithiasis. No hydronephrosis. Bladder: Underdistended, limiting evaluation. Reproductive Organs: Gravid uterus. Bowel: No bowel obstruction. Appendix: Normal. Lymph nodes: Unremarkable. Vasculature: The abdominal aorta and IVC contours are normal. Noncontrast technique limits evaluation. Peritoneum / Retroperitoneum: No free fluid or air. Bones: Unremarkable. No acute fractures. CT/Abdomen/Pelvis without Cont IMPRESSION: 1. No acute findings. 2. No renal calculi. 3. Mild hepatomegaly. 4. Gravid uterus. Reading Location: [facility] CC: Dr. Mariely Neal MD; Dr. 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: Signed Normal [facility] Absolute lymphocyte countOrd ered By: Diana Escobar on 11-13-2024 Lymphocytes Auto (Unsp spec) [#/Vol] 2.10 10*3/uL 0.83-4.51 [facility] Absolute neutrophil countOrd ered By: Diana Escobar on 11-13-2024 Neutrophils (Bld) [#/Vol] 9.5 10*3/uL High 2.0-7.7 [facility] Anion gap in Serum or Plasma Ordered By: Diana Escobar on 11-13-2024 Anion gap [Moles/Vol] 12 mmol/L 5-15 [facility] Automated lymphocyte count a s percentage of total leukocytesOrdered By: Diana Escobar on 11-13-2024 Lymphocytes/100 WBC Auto (Unsp spec) 16.9 % Low 19-41 [facility] BUN/creatinine ratioOrdered By: Diana Escobar on 11-13-2024 Urea nitrogen/Creatinine [Mass ratio] 12.7 mg/mg 10-20 [facility] Basophil percentageOrdered B y: Diana Escobar on 11-13-2024 Basophils/100 WBC (Bld) 0.2 % 0-1 [facility] Bilirubin Test strip Ql (U)O rdered By: Mary Perez on 11-13-2024 Bilirubin Ql (U) Negative Negative [facility] Bilirubin, totalOrdered By: Diana Escobar on 11-13-2024 Bilirubin [Mass/Vol] 0.58 mg/dL 0.00-1.30 [facility] CBC W/Diff, Automatedon Absolute Lymph 2.10 X10 3/uL Normal 0.83-4.51 [facility] Comment on above: Performed By: #### L 100.0100 #### [facility] [address] [place], [address] Absolute Neut 9.5 X10 3/uL High 2.0-7.7 [facility] Comment on above: Performed By: #### L 100.0100 #### [facility] [address] [place], [address] Basophils/100 WBC (Bld) 0.2 % Normal 0-1 [facility] Comment on above: Performed By: #### L 100.0100 #### [facility] [address] [place], [address] Eosinophils/100 WBC (Bld) 0.7 % Normal 0-5 [facility] Comment on above: Performed By: #### L 100.0100 #### [facility] [address] [place], [address] Erythrocyte distribution width (RBC) [Ratio] 13.3 % Normal 11.6-14.6 [facility] Comment on above: Performed By: #### L 100.0100 #### [facility] [address] [place], [address] Hematocrit (Bld) [Volume fraction] 37.1 % Normal 37-47 [facility] Comment on above: Performed By: #### L 100.0100 #### [facility] [address] [place], [address] Hemoglobin (Bld) [Mass/Vol] 12.9 g/dL Normal 12.0-15.0 [facility] Comment on above: Performed By: #### L 100.0100 #### [facility] [address] [place], [address] IG% 0.600 Normal 0.0-0.9 [facility] Comment on above: Result Comment: IG% - Immature Granulocytes (promyelocytes, myelocytes and metamyelocytes) > 1% indicates that a LEFT SHIFT is Present. Performed By: #### L 100.0100 #### [facility] [address] [place], [address] Lymphocytes/100 WBC (Bld) 16.9 % Low 19-41 [facility] Comment on above: Performed By: #### L 100.0100 #### [facility] [address] [place], [address] MCH (RBC) [Entitic mass] 32.2 pg High 27.0-32.0 [facility] Comment on above: Performed By: #### L 100.0100 #### [facility] [address] [place], [address] MCHC (RBC) [Mass/Vol] 34.8 g/dL Normal 32-36 [facility] Comment on above: Performed By: #### L 100.0100 #### [facility] [address] [place], [address] MCV (RBC) [Entitic vol] 92.5 fL Normal 81-99 [facility] Comment on above: Performed By: #### L 100.0100 #### [facility] [address] [place], [address] Monocytes/100 WBC (Bld) 4.8 % Normal 0-10 [facility] Comment on above: Performed By: #### L 100.0100 #### [facility] [address] [place], [address] Neutrophils/100 WBC (Bld) 76.8 % High 47-70 [facility] Comment on above: Performed By: #### L 100.0100 #### [facility] [address] [place], [address] Nucleated RBC (Bld) [#/Vol] 0 10*3/uL Normal 0-5 [facility] Comment on above: Performed By: #### L 100.0100 #### [facility] [address] [place], [address] Platelet mean volume (Bld) [Entitic vol] 11.0 fL Normal 6.2-12.0 [facility] Comment on above: Performed By: #### L 100.0100 #### [facility] [address] [place], [address] Platelets (Bld) [#/Vol] 170 10*3/uL Normal 150-450 [facility] Comment on above: Performed By: #### L 100.0100 #### [facility] [address] [place], [address] RBC (Bld) [#/Vol] 4.01 10*6/uL Low 4.2-5.4 [facility] Comment on above: Performed By: #### L 100.0100 #### [facility] [address] [place], [address] RDW SD 44.9 fl High 35.1-43.9 [facility] Comment on above: Performed By: #### L 100.0100 #### [facility] [address] [place], [address] WBC (Bld) [#/Vol] 12.4 10*3/uL High 4.4-11.0 [facility] Comment on above: Performed By: #### L 100.0100 #### [facility] [address] [place], [address] Carbon dioxide, total [Moles /volume] in Central venous bloodOrdered By: Diana Escobar on 11-13-2024 CO2 [Moles/Vol] 21.5 mmol/L 21.0-32.0 [facility] Chloride assayOrdered By: Cy Escobar on 11-13-2024 Chloride [Moles/Vol] 103 mmol/L 98-108 [facility] Comprehensive Metabolic Prof ilon 11-13-2024 Albumin [Mass/Vol] 3.7 g/dL Normal 3.5-5.0 [facility] Comment on above: Performed By: #### L 7000.1800, M1.2199 #### [facility] [address] [place], [address] Albumin/Globulin [Mass ratio] 1.3 {ratio} Normal 0.9-2.4 [facility] Comment on above: Performed By: #### L 7000.1800, M100.2200 #### [facility] [address] [place], [address] ALK PHOS 67 U/L Normal 35-104 [facility] Comment on above: Performed By: #### L 7000.1800, M100.2200 #### [facility] [address] [place], [address] ALT [Catalytic activity/Vol] 11 U/L Normal <=34 [facility] Comment on above: Performed By: #### L 0.1799, #### [facility] [address] [place], [address] AST [Catalytic activity/Vol] 19 U/L Normal <=31 [facility] Comment on above: Performed By: #### L 0.1799, #### [facility] [address] [place], [address] Bilirubin [Mass/Vol] 0.58 mg/dL Normal 0.00-1.30 [facility] Comment on above: Performed By: #### L 0.1799, #### [facility] [address] [place], [address] BUN/CRE 12.7 RATIO Normal 10-20 [facility] Comment on above: Performed By: #### L 0.1799, #### [facility] [address] [place], [address] Calcium [Mass/Vol] 9.0 mg/dL Normal 7.6-11.0 [facility] Comment on above: Performed By: #### L 0.1799, #### [facility] [address] [place], [address] Chloride [Moles/Vol] 103 mmol/L Normal 98-108 [facility] Comment on above: Performed By: #### L 0.1799, #### [facility] [address] [place], [address] CO2 [Moles/Vol] 21.5 mmol/L Normal 21.0-32.0 [facility] Comment on above: Performed By: #### L 0.1799, #### [facility] [address] [place], [address] Creatinine [Mass/Vol] 0.58 mg/dL Low 0.70-1.20 [facility] Comment on above: Performed By: #### L 0.1800, #### [facility] [address] [place], [address] ECRCL 159.10 ml/min Normal 50-250 [facility] Comment on above: Performed By: #### L 0.1799, #### [facility] [address] [place], [address] GAP 12 Normal 5-15 [facility] Comment on above: Performed By: #### L 0.1799, #### [facility] [address] [place], [address] GFR/1.73 sq M.predicted among non-blacks MDRD (S/P/Bld) [Vol rate/Area] 131 mL/min/{1.73_m2} Normal >60 [facility] Comment on above: Result Comment: mL/m in/1.73m2 CKD-EPI Creatinine Equation (2020) Performed By: #### L 0.1799, #### [facility] [address] [place], [address] Globulin (S) [Mass/Vol] 2.8 g/dL Normal 2.2-4.2 [facility] Comment on above: Performed By: #### L 7000.1800, #### [facility] [address] [place], [address] Glucose [Mass/Vol] 87 mg/dL Normal 70-99 [facility] Comment on above: Performed By: #### L 0.1800, #### [facility] [address] [place], [address] Potassium [Moles/Vol] 3.8 mmol/L Normal 3.3-5.1 [facility] Comment on above: Performed By: #### L 7000.1800, M100.2200 #### [facility] [address] [place], [address] Sodium [Moles/Vol] 136 mmol/L Normal 133-145 [facility] Comment on above: Performed By: #### L 7000.1800, M100.2200 #### [facility] [address] [place], [address] T PROT 6.5 g/dL Normal 5.9-8.4 [facility] Comment on above: Performed By: #### L 7000.1800, M100.2200 #### [facility] [address] [place], [address] Urea nitrogen [Mass/Vol] 7 mg/dL Normal 4-19 [facility] Comment on above: Performed By: #### L 7000.1800, M100.2200 #### [facility] [address] [place], [address] Eosinophil percentageOrdered By: Diana Escobar on 11-13-2024 Eosinophils/100 WBC (Bld) 0.7 % 0-5 [facility] Erythrocyte distribution wid th ratioOrdered By: Diana Escobar on 11-13-2024 Erythrocyte distribution width (RBC) [Ratio] 13.3 % 11.6-14.6 [facility] Erythrocyte distribution wid th standard deviationOrdered By: Diana Escobar on 11-13-2024 Erythrocyte distribution width (RBC) [Ratio] 44.9 fl High 35.1-43.9 [facility] Glomerular filtration rate ( GFR) estimation/1.73 sq m using serum, plasma, or whole bOrdered By: Diana Escobar on 11-13-2024 GFR/1.73 sq M.predicted among non-blacks MDRD (S/P/Bld) [Vol rate/Area] 131 mL/min/{1.73_m2} >60 [facility] Comment on above: mL/min/1.73m2 CKD-EP I Creatinine Equation (2020) Hematocrit Auto (Bld) [Volum e fraction]Ordered By: Diana Escobar on 11-13-2024 Hematocrit (Bld) [Volume fraction] 37.1 % 37-47 [facility] Hemoglobin measurementOrdere d By: Diana Escobar on 11-13-2024 Hemoglobin (Bld) [Mass/Vol] 12.9 g/dL 12.0-15.0 [facility] Immature granulocytes/100 WB C Auto (Bld)Ordered By: Diana Escobar on 11-13-2024 Immature granulocytes/100 WBC (Bld) 0.600 % 0.0-0.9 [facility] Comment on above: IG% - Immature Granu locytes (promyelocytes, myelocytes and metamyelocytes) > 1% indicates that a LEFT SHIFT is Present. Ketones Test strip Ql (U)Ord ered By: Mary Perez on 11-13-2024 Ketones Ql (U) Negative Negative [facility] - Chemistry and C hemistry - challengeOrdered By: Diana Escobar on 11-13-2024 AST [Catalytic activity/Vol] 19 U/L <32 [facility] MCV (mean corpuscular volume ) determinationOrdered By: Diana Escobar on 11-13-2024 MCV (RBC) [Entitic vol] 92.5 fL 81-99 [facility] Mean corpuscular hemoglobin (MCH) determinationOrdered By: Diana Escobar on 11-13-2024 MCH (RBC) [Entitic mass] 32.2 pg High 27.0-32.0 [facility] Mean corpuscular hemoglobin concentration (MCHC) determinationOrdered By: Diana Escobar on 11-13-2024 MCHC (RBC) [Mass/Vol] 34.8 g/dL 32-36 [facility] Mean platelet volume determi nationOrdered By: Diana Escobar on 11-13-2024 Platelet mean volume (Bld) [Entitic vol] 11.0 fL 6.2-12.0 [facility] Monocyte percentageOrdered B y: Diana Escobar on 11-13-2024 Monocytes/100 WBC (Bld) 4.8 % 0-10 [facility] Neutrophil percentageOrdered By: Diana Escobar on 11-13-2024 Neutrophils/100 WBC (Bld) 76.8 % High 47-70 [facility] Nitrite Test strip Ql (U)Ord ered By: Mary Perez on 11-13-2024 Nitrite Ql (U) Negative Negative [facility] Nucleated red blood cell per centageOrdered By: Diana Escobar on 11-13-2024 Nucleated RBC/100 WBC (Bld) [Ratio] 0 % 0-5 [facility] OB Triage Progress Noteon OB Triage Progress Note [facility] Medical Records Department [address] [place] [address] OB Triage Progress Note 11/13/24 1757 MR#: [id number] Acct: [id number] Name: MELANIE LEIJA Rep #: [id number] : 2000 24 From: Diana Escobar MD PCP: Dr. Mariely Neal MD Status:DEP I Y DOS: Location: WPOUT Progress Notes Date of Service: 11/13/24 Progress Note: seen 20 weeks for hematuria and ct neg for stones suspect hemorhagic cystits or stones not seen on scan, dc home antibiotics and aggressive hydration. Laboratory Studies: Laboratory Tests 11/13/24 Range/Units 16:20 Urine Color Nadege (Yellow) Urine Clarity Turbid (Clear) Urine pH 7.0 (5.0 - 8.0) Ur Specific [place] 1.010 (1.002-1.030) Urine Protein 100 H (Negative) mg/dl Urine Glucose (UA) Normal (Normal) mg/dl Urine Ketones Negative (Negative) mg/dl Urine Occult Blood 250 H (Negative) /ul Urine Nitrite Negative (Negative) Urine Bilirubin Negative (Negative) mg/dL Urine Urobilinogen Normal (Normal) mg/dl Ur Leukocyte Esterase 500 H (Negative) /ul Charges/Coding Procedures Urinary/Genital 52xxx-59xxx: No Charge 11/18/24 0524 Date Diana Escobar MD Cosigner Signature (if applicable): Date CC: Dr. Mariely Neal MD; Dr. Diana Escobar MD Signed Normal [facility] Heating Worker Office Visit Reporton 11-13-2024 Heating Worker Office Visit Report [facility] [address], [address] [place] [address] OFFICE VISIT Date of Service: 11/13/24 MR#: [id number] Acct: [id number] Name: MELANIE LEIJA Rep #: [id number] : 2000 Provider: Dr. Mary Peterson DO Age/Sex: 24/F Location: [facility] Status: Signed Intake Vital Signs 10/20/24 09:38 11/13/24 15:28 Height 5 ft 6 in 5 ft 6 in Weight: 170 lb 7 oz BMI 27.5 BP 129/84 H Intake Visit Reasons: OB bleeding Chief Complaint: OB Bleeding 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 Is patient in pain?: No Allergies No Known Allergies Allergy (Verified 11/17/24 09:34) Medications ???Medication ???Instructions ???Recorded ???Confirmed ???Type ascorbic acid (vitamin C) 500 mg mg PO 08/16/23 11/17/24 History capsule cholecalciferol (vitamin D3) 50 50 mcg PO DAILY 08/16/23 11/17/24 History mcg (2,000 unit) capsule docosahexaenoic acid 200 mg mg PO 08/20/23 11/17/24 History capsule ( DHA) cephalexin 500 mg capsule 500 mg PO TID #30 caps 11/13/24 Rx Last Menstrual Period: 06/21/24 PFSH PFSH Medical History Cephalopelvic disproportion Depression Anxiety Migraines Surgical History delivery delivered History of tonsillectomy Family History Grandmother Breast cancer, Onset Age: 80 Paternal Social History adopted: No household members: significant other and children number of children: 1 current occupational status: employed current occupation: [employer] current occupational exposures/hazards: No pets and animals: Yes pets and animals: dog(s) history of recent travel: No sexually active: Yes Smoking Status: Never smoker second hand exposure: No alcohol intake: current alcohol intake frequency: holidays/special occasions only details: Not while substance use type: does not use well-balanced diet: about half the time caffeine: Yes Type: coffee Number of servings: 1 eating out: rarely or never during the past year weight has: remained stable what type of physical activity do you participate in: none frequency: 1-2 times per week duration: > 90 minutes/day dana/jew: None seatbelt use: always do you feel safe at home: Yes additional 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 Date Name GA/Weeks Outcome Route Bth Weight Infant Gen Labor Lgth Anesthesia Del Locatn Provider FOB 08/08/23 Rafia 39 live - full term 8lbs 5oz Female epidural [facility] Luz Veloz Delivery Date: 08/08/23 Last Updated by: Autumn Guerra cpd pushed for 3.5 hours direct OP HPI OB bleeding Details: MELANIE LEIJA is a 24 year old who presents for routine OB visit. OB Visit DESTIN Calculator Estimated Delivery Date Method Current WG Current Estimate 03/28/25 LMP (Certain) 21w 3d Other Estimates 03/28/25 Ultrasound #1 21w 3d Expected Delivery Route/Plan Desired repeat c/s Specific Issue/Plans Covid status: [] Flu vaccine: [] Tdap vaccine: [] Rhogam: [] LARC form signed: [] Problem list reviewed and updated with the most current plan of care details and appropriate orders placed. Relevant counseling for the gestational age provided. Continue routine care and follow up unless otherwise noted in visit notes/problem list details Initial Weight: 155 lb Date -???-???-???-???-???-?? ?-???-???-???-???-???-? ??- EGA Weight BP Urine Prot -???-???-???-???-???-?? ?-???-???-???-???-???-? ??- Glucose FHR FuHt Pres Dilation -???-???-???-???-???-?? ?-???-???-???-???-???-? ??- Effaced St Visit Note 08/28/24 -???-???-???-???-???-?? ?-???-???-???-???-???-? ??- 9w 5d 155 lb 4 oz (+4 oz) 135/71 -???-???-???-???-???-?? ?-???-???-???-???-???-? ??- 167 -???-???-???-???-???-?? ?-???-???-???-???-???-? ??- KW- CRL 2.87 cm and cons with dates. accepts NIPT 09/25/24 -???-???-???-???-???-?? ?-???-???-???-???-???-? ??- 13w 5d 157 lb 4 oz (+2 lb 4 oz) 133/81 Negative -???-???-???-???-???-?? ?-???-???-???-???-???-? ??- Negative 156 -???-???-???-???-???-?? ?-???-???-???-???-???-? ??- JV CRL still consistent with LMp. low risk NIPT girl! no complaints today. anatomy scan ordered. planning repeat section. 10/20/24 -???-???-???-???-???-?? ?-???-???-???-???-???-? ??- 17w 2d 162 lb 3 oz (+7 lb 3 oz) 139/69 Negative -???-? (more content not included)... Normal [facility] Platelet countOrdered By: Cy Escobar on 11-13-2024 Platelets (Bld) [#/Vol] 170 10*3/uL 150-450 [facility] Potassium measurement (mass/ volume)Ordered By: Diana Escobar on 11-13-2024 Potassium (Unsp spec) [Mass/Vol] 3.8 mmol/L 3.3-5.1 [facility] Protein Test strip Ql (U)Ord ered By: Mary Perez on 11-13-2024 Protein Ql (U) 100 mg/dl High Negative [facility] RBC Auto (Bld) [#/Vol]Ordere d By: Diana Escobar on 11-13-2024 RBC (Bld) [#/Vol] 4.01 10*6/uL Low 4.2-5.4 [facility] Serum creatinine measurement (mass/volume)Ordered By: Diana Escobar on 11-13-2024 Creatinine [Mass/Vol] 0.58 mg/dL Low 0.70-1.20 [facility] Serum globulin measurementOr dered By: Diana Escobar on 11-13-2024 Globulin (S) [Mass/Vol] 2.8 g/dL 2.2-4.2 [facility] Serum glucose measurement (m ass/volume)Ordered By: Diana Escobar on 11-13-2024 Glucose [Mass/Vol] 87 mg/dL 70-99 [facility] Serum or plasma alanine rincon otransferase (ALT) measurementOrdered By: Diana Escobar on 11-13-2024 ALT [Catalytic activity/Vol] 11 U/L <35 [facility] Serum or plasma albumin beni urement (mass/volume)Ordered By: Diana Escobar on 11-13-2024 Albumin [Mass/Vol] 3.7 g/dL 3.5-5.0 [facility] Serum or plasma albumin/glob ulin mass ratioOrdered By: Diana Escobar on 11-13-2024 Albumin/Globulin [Mass ratio] 1.3 {ratio} 0.9-2.4 [facility] Serum or plasma alkaline whit sphatase measurementOrdered By: Diana Escobar on 11-13-2024 ALP [Catalytic activity/Vol] 67 U/L 35-104 [facility] Serum or plasma calcium beni urement (mass/volume)Ordered By: Diana Escobar on 11-13-2024 Calcium [Mass/Vol] 9.0 mg/dL 7.6-11.0 [facility] Serum or plasma urea nitroge n measurement (mass/volume)Ordered By: Diana Escobar on 11-13-2024 Urea nitrogen [Mass/Vol] 7 mg/dL 4-19 [facility] Sodium levelOrdered By: Vincenzo Escobar on 11-13-2024 Sodium [Moles/Vol] 136 mmol/L 133-145 [facility] Total proteinOrdered By: Orlando Escobar on 11-13-2024 Protein [Mass/Vol] 6.5 g/dL 5.9-8.4 [facility] Urinalysis, Routine (Dipstic k)on 11-13-2024 BILIRUBIN URINE Negative Normal Negative [facility] Comment on above: Order Comment: COLOR OF URINE MAY AFFECT DIPSTICK RESULTS.BRIDGE OPERATOR SLIP TO SPECIFY Performed By: #### L 9090.1800, M1.2199 #### [facility] [address] [place], [address] Clarity (U) Turbid Normal Clear [facility] Comment on above: Order Comment: COLOR OF URINE MAY AFFECT DIPSTICK RESULTS.BRIDGE OPERATOR SLIP TO SPECIFY Performed By: #### L 0.1800, M100.2199 #### [facility] [address] [place], [address] Color (U) [place]ade[place] Normal Yellow [facility] Comment on above: Order Comment: COLOR OF URINE MAY AFFECT DIPSTICK RESULTS.BRIDGE OPERATOR SLIP TO SPECIFY Performed By: #### L 0.1800, 00.2200 #### [facility] [address] [place], [address] GLUCOSE, UR Normal Normal Normal [facility] Comment on above: Order Comment: COLOR OF URINE MAY AFFECT DIPSTICK RESULTS.BRIDGE OPERATOR SLIP TO SPECIFY Performed By: #### L 0.1799, .2199 #### [facility] [address] [place], [address] KETONE UR Negative Normal Negative [facility] Comment on above: Order Comment: COLOR OF URINE MAY AFFECT DIPSTICK RESULTS.BRIDGE OPERATOR SLIP TO SPECIFY Performed By: #### L 0.1800, .2199 #### [facility] [address] [place], [address] LEUK ESTERASE 500 /ul Abnormal Negative [facility] Comment on above: Order Comment: COLOR OF URINE MAY AFFECT DIPSTICK RESULTS.BRIDGE OPERATOR SLIP TO SPECIFY Performed By: #### L 0.1800, .2199 #### [facility] [address] [place], [address] Nitrite Ql (U) Negative Normal Negative [facility] Comment on above: Order Comment: COLOR OF URINE MAY AFFECT DIPSTICK RESULTS.BRIDGE OPERATOR SLIP TO SPECIFY Performed By: #### L 7000.1800, M100.2200 #### [facility] [address] [place], [address] OCCULT BLOOD-UR 250 /ul Abnormal Negative [facility] Comment on above: Order Comment: COLOR OF URINE MAY AFFECT DIPSTICK RESULTS.BRIDGE OPERATOR SLIP TO SPECIFY Performed By: #### L 7000.1800, M1.2200 #### [facility] [address] [place], [address] pH UR 7.0 Normal 5.0 - 8.0 [facility] Comment on above: Order Comment: COLOR OF URINE MAY AFFECT DIPSTICK RESULTS.BRIDGE OPERATOR SLIP TO SPECIFY Performed By: #### L 7000.1800, M100.2200 #### [facility] [address] [place], [address] PROT DIPSTX 100 mg/dl Abnormal Negative [facility] Comment on above: Order Comment: COLOR OF URINE MAY AFFECT DIPSTICK RESULTS.BRIDGE OPERATOR SLIP TO SPECIFY Performed By: #### L 7000.1800, M100.2200 #### [facility] [address] [place], [address] SP.GR. DIPSTX 1.010 Normal 1.002-1.030 [facility] Comment on above: Order Comment: COLOR OF URINE MAY AFFECT DIPSTICK RESULTS.BRIDGE OPERATOR SLIP TO SPECIFY Performed By: #### L 7000.1800, M100.2200 #### [facility] [address] [place], [address] UROBILI Normal Normal Normal [facility] Comment on above: Order Comment: COLOR OF URINE MAY AFFECT DIPSTICK RESULTS.BRIDGE OPERATOR SLIP TO SPECIFY Performed By: #### L 7000.1800, M100.2200 #### [facility] [address] [place], [address] Urine clarityOrdered By: Staci Perez on 11-13-2024 Clarity (U) Turbid Clear [facility] Urine color determinationOrd ered By: Mary Perez on 11-13-2024 Color (U) [place] Yellow [facility] Urine cultureOrdered By: Staci Perez on 11-13-2024 Bacteria identified Cx Nom (U) Positive Abnormal [facility] Urine glucose detectionOrder ed By: Mary Perez on 11-13-2024 Glucose Ql (U) Normal mg/dl Normal [facility] Urine leukocyte esterase det ection by dipstickOrdered By: Mary Perez on 11-13-2024 Leukocyte esterase Test strip Ql (U) 500 /ul High Negative [facility] Urine pHOrdered By: Mary Perez on 11-13-2024 pH (U) 7.0 [pH] 5.0 - 8.0 [facility] Urine specific gravity measu rementOrdered By: Mary Perez on 11-13-2024 Specific gravity (U) [Rel density] 1.010 1.002-1.030 [facility] Urine urobilinogen measureme ntOrdered By: Mary Perez on 11-13-2024 Urobilinogen Ql (U) Normal mg/dl Normal [facility] White blood cell (WBC) count Ordered By: Diana Escobar on 11-13-2024 WBC (Bld) [#/Vol] 12.4 10*3/uL High 4.4-11.0 [facility] Progress Noteon 11-07-2024 Sales Representative Door To Door Authentication Interface Message Text [facility] Ultrasound Consult Note Today we discussed the US findings seen on today's Ultrasound: Placenta previa with 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 Overall the patient is doing well without physical complaints. Obstetrical History OB History Para Term AB Living 2 1 1 1 SAB IAB Ectopic Multiple Live Births 1 # Outcome Date GA Lbr Oskar/2nd Weight Sex Type Anes PTL Lv 2 Current 1 Term 08/07/23 40w0d 4.224 kg F CS-LTranv EPI JAY NIPT Low risk for aneuploidy. Anatomy ultrasound had no abnormal findings. 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 Recommendations We discussed, today in person regarding the recent remote read, the standard risk with a patient having a placenta overlying the previous uterine hysterotomy. The risk increasing with the number of cesareans that a patient undergoes. In this case she has had 1 prior with her placental overlying her uterine scar. This would have a baseline risk of 11% in having a placenta accreta spectrum. See on US, see previous impression, there were additional signs that are concerning for PAS. This was described to the patient. She was then counseled on the additional risk of bleeding when she is to deliver if the placenta was adhered to the myometrium. We recommend a repeat , typically 34-36 weeks if PAS is suspected on future follow up ultrasounds. At the time of she may need a hysterectomy if the placental is found or thought to be adherent in order to reduce blood loss. I recommend serial growths as well as transvaginal US with full bladder at 28, 32 weeks. If the previa has not resolved then a consult with MFM at 32 weeks should be considered for delivery planning and further imaging review. Patient hemoglobin should be optimized, patient given pelvic and vaginal bleeding precautions. All questions and concerns addressed. My final recommendations will be communicated back to the requesting physician by way of shared medical record or fax. Nam Harris MD Normal [facility] Laboratory - Chemistry and C hemistry - challengeOrdered By: Sujata Barbosa on 10-20-2024 Glucose Ql (U) Negative [facility] Laboratory - UrinalysisOrder ed By: Sujata Barbosa on 10-20-2024 Protein Ql (U) Negative [facility] Heating Worker Office Visit Reporton 10-20-2024 Heating Worker Office Visit Report [facility] [address], [address] [place] [address] OFFICE VISIT Date of Service: 10/20/24 MR#: [id number] Acct: [id number] Name: MELANIE LEIJA Rep #: [id number] 7 : 2000 Provider: MANJU de los santos Age/Sex: 24/F Location: [facility] [place] Status: Signed Intake Vital Signs 08/28/24 13:05 09/25/24 13:54 10/20/24 09:38 Height 5 ft 6 in 5 ft 6 in 5 ft 6 in Weight: 162 lb 3 oz BMI 26.2 BP 139/69 H Intake Visit Reasons: 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 Is patient in pain?: No Allergies No Known Allergies Allergy (Verified 10/20/24 09:39) Medications ???Medication ???Instructions ???Recorded ???Confirmed ???Type ascorbic acid (vitamin C) 500 mg mg PO 08/16/23 10/20/24 History capsule cholecalciferol (vitamin D3) 50 50 mcg PO DAILY 08/16/23 10/20/24 History mcg (2,000 unit) capsule docosahexaenoic acid 200 mg mg PO 08/20/23 10/20/24 History capsule ( DHA) Last Menstrual Period: 06/21/24 Zika: Zika virus screening: Negative : Yes Have you fallen in the past year?: No PFSH PFSH Medical History Cephalopelvic disproportion Depression Anxiety Migraines Surgical History delivery delivered History of tonsillectomy Family History Grandmother Breast cancer, Onset Age: 80 Paternal Social History adopted: No household members: significant other and children number of children: 1 current occupational status: employed current occupation: [employer] current occupational exposures/hazards: No pets and animals: Yes pets and animals: dog(s) history of recent travel: No sexually active: Yes Smoking Status: Never smoker second hand exposure: No alcohol intake: current alcohol intake frequency: holidays/special occasions only details: Not while substance use type: does not use well-balanced diet: about half the time caffeine: Yes Type: coffee Number of servings: 1 eating out: rarely or never during the past year weight has: remained stable what type of physical activity do you participate in: none frequency: 1-2 times per week duration: > 90 minutes/day dana/jew: None seatbelt use: always do you feel safe at home: Yes additional 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 Date Name GA/Weeks Outcome Route Bth Weight Gen Labor Lgth Anesthesia Del Jeremieatruben Provider FOB 08/08/23 Rafia 39 live - full term 8lbs 5oz Female epidural [facility] Luz Veloz Delivery Date: 08/08/23 Last Updated by: Autumn Guerra cpd pushed for 3.5 hours direct OP HPI 18wk ob Details: MELANIE LEIJA is a 24 year old who presents for routine OB visit. OB Visit DESTIN Calculator Estimated Delivery Date Method Current WG Current Estimate 03/28/25 LMP (Certain) 17w 2d Other Estimates 03/28/25 Ultrasound #1 17w 2d Expected Delivery Route/Plan Desired repeat c/s Specific Issue/Plans Covid status: [] Flu vaccine: [] Tdap vaccine: [] Rhogam: [] LARC form signed: [] Problem list reviewed and updated with the most current plan of care details and appropriate orders placed. Relevant counseling for the gestational age provided. Continue routine care and follow up unless otherwise noted in visit notes/problem list details Initial Weight: 155 lb Date -???-???-???-???-???-?? ?-???-???-???-???-???-? ??- EGA Weight BP Urine Prot -???-???-???-???-???-?? ?-???-???-???-???-???-? ??- Glucose FHR FuHt Pres Dilation -???-???-???-???-???-?? ?-???-???-???-???-???-? ??- Effaced St Visit Note 08/28/24 -???-???-???-???-???-?? ?-???-???-???-???-???-? ??- 9w 5d 155 lb 4 oz (+4 oz) 135/71 -???-???-???-???-???-?? ?-???-???-???-???-???-? ??- 167 -???-???-???-???-???-?? ?-???-???-???-???-???-? ??- KW- CRL 2.87 cm and cons with dates. accepts NIPT 09/25/24 -???-???-???-???-???-?? ?-???-???-???-???-???-? ??- 13w 5d 157 lb 4 oz (+2 lb 4 oz) 133/81 Negative -???-???-???-???-???-?? ?-???-???-???-???-???-? ??- Negative 156 -???-???-???-???-???-?? ?-???-???-???-???-???-? ??- JV CRL still consistent with LMp. low risk NIPT girl! no complaints today. anatomy scan ordered. planning repeat section. 10/20/24 -???-???-???-???-???-?? ?-???-???-???-???-???-? ??- 17w 2d 162 lb 3 oz (+7 lb 3 oz) 139/69 Negative -???-???-??? (more content not included)... Normal [facility] Laboratory - Chemistry and C hemistry - challengeOrdered By: Mary Perez on 09-25-2024 Glucose Ql (U) Negative [facility] Laboratory - UrinalysisOrder ed By: Mary Perez on 09-25-2024 Protein Ql (U) Negative [facility] Heating Worker Office Visit Reporton 09-25-2024 Heating Worker Office Visit Report [facility] [address], [address] [place] [address] OFFICE VISIT Date of Service: 09/25/24 MR#: [id number] Acct: [id number] Name: MELANIE LEIJA Rep #: [id number] 2 : 2000 Provider: Dr. 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 Is patient in pain?: No Allergies No Known Allergies Allergy (Verified 09/25/24 13:53) Medications ???Medication ???Instructions ???Recorded ???Confirmed ???Type ascorbic acid (vitamin C) 500 mg mg PO 08/16/23 09/25/24 History capsule cholecalciferol (vitamin D3) 50 50 mcg PO DAILY 08/16/23 09/25/24 History mcg (2,000 unit) capsule docosahexaenoic acid 200 mg mg PO 08/20/23 09/25/24 History capsule ( DHA) Last Menstrual Period: 06/21/24 PFSH PFSH Medical History Cephalopelvic disproportion Depression Anxiety Migraines Surgical History delivery delivered History of tonsillectomy Family History Grandmother Breast cancer, Onset Age: 80 Paternal Social History adopted: No household members: significant other and children number of children: 1 current occupational status: employed current occupation: [employer] current occupational exposures/hazards: No pets and animals: Yes pets and animals: dog(s) history of recent travel: No sexually active: Yes Smoking Status: Never smoker second hand exposure: No alcohol intake: current alcohol intake frequency: holidays/special occasions only details: Not while substance use type: does not use well-balanced diet: about half the time caffeine: Yes Type: coffee Number of servings: 1 eating out: rarely or never during the past year weight has: remained stable what type of physical activity do you participate in: none frequency: 1-2 times per week duration: > 90 minutes/day dana/jew: None seatbelt use: always do you feel safe at home: Yes additional 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 Date Name GA/Weeks Outcome Route Bth Weight Gen Labor Lgth Anesthesia Del Locatn Provider FOB 08/08/23 Rafia 39 live - full term 8lbs 5oz Female epidural [facility] Luz Veloz Delivery Date: 08/08/23 Last Updated by: Autumn Guerra cpd pushed for 3.5 hours direct OP HPI 14wk ob Details: MELANIE LEIJA is a 24 year old who presents for routine OB visit. OB Visit DESTIN Calculator Estimated Delivery Date Method Current WG Current Estimate 03/28/25 LMP (Certain) 13w 5d Other Estimates 03/28/25 Ultrasound #1 13w 5d Expected Delivery Route/Plan Desired repeat c/s Specific Issue/Plans Covid status: [] Flu vaccine: [] Tdap vaccine: [] Rhogam: [] LARC form signed: [] Problem list reviewed and updated with the most current plan of care details and appropriate orders placed. Relevant counseling for the gestational age provided. Continue routine care and follow up unless otherwise noted in visit notes/problem list details Initial Weight: 155 lb Date -???-???-???-???-???-?? ?-???-???-???-???-???-? ??- EGA Weight BP Urine Prot -???-???-???-???-???-?? ?-???-???-???-???-???-? ??- Glucose FHR FuHt Pres Dilation -???-???-???-???-???-?? ?-???-???-???-???-???-? ??- Effaced St Visit Note 08/28/24 -???-???-???-???-???-?? ?-???-???-???-???-???-? ??- 9w 5d 155 lb 4 oz (+4 oz) 135/71 -???-???-???-???-???-?? ?-???-???-???-???-???-? ??- 167 -???-???-???-???-???-?? ?-???-???-???-???-???-? ??- KW- CRL 2.87 cm and cons with dates. accepts NIPT 09/25/24 -???-???-???-???-???-?? ?-???-???-???-???-???-? ??- 13w 5d 157 lb 4 oz (+2 lb 4 oz) 133/81 Negative -???-???-???-???-???-?? ?-???-???-???-???-???-? ??- Negative 156 -???-???-???-???-???-?? ?-???-???-???-???-???-? ??- JV CRL still consistent with LMp. low risk NIPT girl! no complaints today. anatomy scan ordered. planning repeat section. ACOG First Trimester First Trimester: Desire for , Alcohol, Tobacco Cessation, Illicit/Recreational Drug/Substance Use, Intimate Partner Violence, Barriers to care, Unstable Ho (more content not included)... Normal [facility] Absolute lymphocyte countOrd ered By: Yomaira Michael on 09-01-2024 Lymphocytes Auto (Unsp spec) [#/Vol] 2.28 10*3/uL 0.83-4.51 [facility] Absolute neutrophil countOrd ered By: Yomaira Michael on 09-01-2024 Neutrophils (Bld) [#/Vol] 6.9 10*3/uL 2.0-7.7 [facility] Automated lymphocyte count a s percentage of total leukocytesOrdered By: Yomaira Michael on 09-01-2024 Lymphocytes/100 WBC Auto (Unsp spec) 23.0 % 19-41 [facility] Basophil percentageOrdered B y: Yomaira Michael on 09-01-2024 Basophils/100 WBC (Bld) 0.2 % 0-1 [facility] CBC W/Diff, Automatedon 08-11 Absolute Lymph 2.28 X10 3/uL Normal 0.83-4.51 [facility] Comment on above: Performed By: #### L 509.8002, L3890.6102, BTS, L3890.6301, L100.0100, L509.4006, L3890.6006 #### [facility] [address] [place], [address] Absolute Neut 6.9 X10 3/uL Normal 2.0-7.7 [facility] Comment on above: Performed By: #### L 509.8002, L3890.6102, BTS, L3890.6301, L100.0100, L509.4006, L3890.6006 #### [facility] [address] [place], [address] Basophils/100 WBC (Bld) 0.2 % Normal 0-1 [facility] Comment on above: Performed By: #### L 509.8002, L3890.6102, BTS, L3890.6301, L100.0100, L509.4006, L3890.6006 #### [facility] [address] [place], [address] Eosinophils/100 WBC (Bld) 0.8 % Normal 0-5 [facility] Comment on above: Performed By: #### L 509.8002, L3890.6102, BTS, L3890.6301, L100.0100, L509.4006, L3890.6006 #### [facility] [address] [place], [address] Erythrocyte distribution width (RBC) [Ratio] 13.1 % Normal 11.6-14.6 [facility] Comment on above: Performed By: #### L 509.8002, L3890.6102, BTS, L3890.6301, L100.0100, L509.4006, L3890.6006 #### [facility] [address] [place], [address] Hematocrit (Bld) [Volume fraction] 39.0 % Normal 37-47 [facility] Comment on above: Performed By: #### L 509.8002, L3890.6102, BTS, L3890.6301, L100.0100, L509.4006, L3890.6006 #### [facility] [address] [place], [address] Hemoglobin (Bld) [Mass/Vol] 13.5 g/dL Normal 12.0-15.0 [facility] Comment on above: Performed By: #### L 509.8002, L3890.6102, BTS, L3890.6301, L100.0100, L509.4006, L3890.6006 #### [facility] [address] [place], [address] IG% 0.100 Normal 0.0-0.9 [facility] Comment on above: Result Comment: IG% - Immature Granulocytes (promyelocytes, myelocytes and metamyelocytes) > 1% indicates that a LEFT SHIFT is Present. Performed By: #### L 509.8002, L3890.6102, BTS, L3890.6301, L100.0100, L509.4006, L3890.6006 #### [facility] [address] [place], [address] Lymphocytes/100 WBC (Bld) 23.0 % Normal 19-41 [facility] Comment on above: Performed By: #### L 509.8002, L3890.6102, BTS, L3890.6301, L100.0100, L509.4006, L3890.6006 #### [facility] [address] [place], [address] MCH (RBC) [Entitic mass] 31.8 pg Normal 27.0-32.0 [facility] Comment on above: Performed By: #### L 509.8002, L3890.6102, BTS, L3890.6301, L100.0100, L509.4006, L3890.6006 #### [facility] [address] [place], [address] MCHC (RBC) [Mass/Vol] 34.6 g/dL Normal 32-36 [facility] Comment on above: Performed By: #### L 509.8002, L3890.6102, BTS, L3890.6301, L100.0100, L509.4006, L3890.6006 #### [facility] [address] [place], [address] MCV (RBC) [Entitic vol] 92.0 fL Normal 81-99 [facility] Comment on above: Performed By: #### L 509.8002, L3890.6102, BTS, L3890.6301, L100.0100, L509.4006, L3890.6006 #### [facility] [address] [place], [address] Monocytes/100 WBC (Bld) 6.1 % Normal 0-10 [facility] Comment on above: Performed By: #### L 509.8002, L3890.6102, BTS, L3890.6301, L100.0100, L509.4006, L3890.6006 #### [facility] [address] [place], [address] Neutrophils/100 WBC (Bld) 69.8 % Normal 47-70 [facility] Comment on above: Performed By: #### L 509.8002, L3890.6102, BTS, L3890.6301, L100.0100, L509.4006, L3890.6006 #### [facility] [address] [place], [address] Nucleated RBC (Bld) [#/Vol] 0 10*3/uL Normal 0-5 [facility] Comment on above: Performed By: #### L 509.8002, L3890.6102, BTS, L3890.6301, L100.0100, L509.4006, L3890.6006 #### [facility] [address] [place], [address] Platelet mean volume (Bld) [Entitic vol] 12.5 fL High 6.2-12.0 [facility] Comment on above: Performed By: #### L 509.8002, L3890.6102, BTS, L3890.6301, L100.0100, L509.4006, L3890.6006 #### [facility] [address] [place], [address] Platelets (Bld) [#/Vol] 164 10*3/uL Normal 150-450 [facility] Comment on above: Performed By: #### L 509.8002, L3890.6102, BTS, L3890.6301, L100.0100, L509.4006, L3890.6006 #### [facility] [address] [place], [address] RBC (Bld) [#/Vol] 4.24 10*6/uL Normal 4.2-5.4 [facility] Comment on above: Performed By: #### L 509.8002, L3890.6102, BTS, L3890.6301, L100.0100, L509.4006, L3890.6006 #### [facility] [address] [place], [address] RDW SD 44.3 fl High 35.1-43.9 [facility] Comment on above: Performed By: #### L 509.8002, L3890.6102, BTS, L3890.6301, L100.0100, L509.4006, L3890.6006 #### [facility] [address] [place], [address] WBC (Bld) [#/Vol] 9.9 10*3/uL Normal 4.4-11.0 [facility] Comment on above: Performed By: #### L 509.8002, L3890.6102, BTS, L3890.6301, L100.0100, L509.4006, L3890.6006 #### [facility] [address] [place], [address] Chlamydia/GC CHULA aptimaon CHLAMY,NUC ACID Negative Normal Negative [facility] Comment on above: Performed By: #### L 7000.1800, M100.2200 #### [facility] [address] [place], [address] GC BY NUC ACID Negative Normal Negative [facility] Comment on above: Result Comment: Perf ormed at: =G - [facility] [address] [id number] Benefits Analyst: Giselle Gallego MD, Phone: [phone] Performed By: #### L 7000.1800, M100.2200 #### [facility] [address] [place], [address] Eosinophil percentageOrdered By: Yomaira Michael on 09-01-2024 Eosinophils/100 WBC (Bld) 0.8 % 0-5 [facility] Erythrocyte distribution wid th ratioOrdered By: Yomaira Michael on 09-01-2024 Erythrocyte distribution width (RBC) [Ratio] 13.1 % 11.6-14.6 [facility] Erythrocyte distribution wid th standard deviationOrdered By: Yomaira Michael on 09-01-2024 Erythrocyte distribution width (RBC) [Ratio] 44.3 fl High 35.1-43.9 [facility] HIVon 09-01-2024 HIV Non-Reactive Normal Nonreactive [facility] Comment on above: Result Comment: Non- Reactive Reactive Repeatedly reactive samples must be confirmed according to CDC recommended confirmatory algorithms. The subresults for either HIVAG or AHIV can be used as an aid in the selection of the confirmation algorithm for reactive samples. Send out specimens with Reactive results to [facility] for confirmation. Order the HIV antibody detection and differentiation: lc#[id number] Performed By: #### L 509.8002, L3890.6102, BTS, L3890.6301, L100.0100, L509.4006, L3890.6006 #### [facility] [address] [place], [address] Hematocrit Auto (Bld) [Volum e fraction]Ordered By: Yomaira Michael on 09-01-2024 Hematocrit (Bld) [Volume fraction] 39.0 % 37-47 [facility] Hemoglobin measurementOrdere d By: Yomaira Michael on 09-01-2024 Hemoglobin (Bld) [Mass/Vol] 13.5 g/dL 12.0-15.0 [facility] Hepatitis C Antibodyon 09-01 Hepatitis C Ab Non-Reactive Normal Nonreactive [facility] Comment on above: Result Comment: Reac tive: Presumptive evidence of antibodies to HCV. Follow CDC recommendations for supplemental testing. Non-Reactive: Antibodies to HCV were not detected; does not exclude the possibility of exposure to HCV Reactive Results are presumptive evidence of antibodies to HCV. Follow CDC recommendations for supplemental testing. Order confirmation testing: HCV Quant by PCR testing - HCVPCR lc#[id number] Non Reactive: < 0.8 Equivocal: >/= 0.8 to < 1.0 Reactive: >/= 1.0 The CDC requires that a reactive/equivocal HCV antibody result be sent out for confirmation. HCV Quant by PCR testing. Performed By: #### L 7000.1800, M100.2200 #### [facility] [address] [place], [place], [id number] Immature granulocytes/100 WB C Auto (Bld)Ordered By: Yomaira Michael on 09-01-2024 Immature granulocytes/100 WBC (Bld) 0.100 % 0.0-0.9 [facility] Comment on above: IG% - Immature Granu locytes (promyelocytes, myelocytes and metamyelocytes) > 1% indicates that a LEFT SHIFT is Present. L3890.6102on 09-01-2024 HEP B Surf Ag Non-Reactive Normal Nonreactive [facility] Comment on above: Result Comment: Reac tive: Presumptive evidence of HBV. Repeatedly reactive samples must be confirmed using a neutralization test ([employer] HBsAg Confirmatory Test) Non-Reactive: HBsAg not detected; does not exclude the possibility of exposure to HBV Performed By: #### L 509.8002, L3890.6102, BTS, L3890.6301, L100.0100, L509.4006, L3890.6006 #### [facility] [address] [place], [place], [id number] L509.4006on 09-01-2024 Rubella IgG REAC Normal Nonreactive [facility] Comment on above: Result Comment: Anti body Result: Interpretation Non-Reactive: Non-Immune Reactive: Immune The following results were obtained with the [employer] Rubella IgG assay. Results from assays of other manufacturers cannot be used interchangeably. Performed By: #### L 509.8002, L3890.6102, BTS, L3890.6301, L100.0100, L509.4006, L3890.6006 #### [facility] [address] [place], [place], [id number] Laboratory - Microbiology an d Antimicrobial susceptibilityOrdered By: Yomaira Michael on 09-01-2024 HBV surface Ag Ql (S) Non-Reactive Nonreactive [facility] Comment on above: Reactive: Presumptiv e evidence of HBV. Repeatedly reactive samples must be confirmed using a neutralization test ([employer] HBsAg Confirmatory Test)Non-Reactive: HBsAg not detected; does not exclude the possibility of exposure to HBV MCV (mean corpuscular volume ) determinationOrdered By: Yomaira Michael on 09-01-2024 MCV (RBC) [Entitic vol] 92.0 fL 81-99 [facility] Mean corpuscular hemoglobin (MCH) determinationOrdered By: Yomaira Michael on 09-01-2024 MCH (RBC) [Entitic mass] 31.8 pg 27.0-32.0 [facility] Mean corpuscular hemoglobin concentration (MCHC) determinationOrdered By: Yomaira Michael on 09-01-2024 MCHC (RBC) [Mass/Vol] 34.6 g/dL 32-36 [facility] Mean platelet volume determi nationOrdered By: Yomaira Michael on 09-01-2024 Platelet mean volume (Bld) [Entitic vol] 12.5 fL High 6.2-12.0 [facility] Monocyte percentageOrdered B y: Yomaira Michael on 09-01-2024 Monocytes/100 WBC (Bld) 6.1 % 0-10 [facility] NATERAon 09-01-2024 NATURA SEE SCANNED REPORT Normal [facility] Comment on above: Performed By: #### L 7000.1800, M100.2200 #### [facility] [address] [place], [address] Neutrophil percentageOrdered By: Yomaira Michael on 09-01-2024 Neutrophils/100 WBC (Bld) 69.8 % 47-70 [facility] No Panel InformationOrdered By: Yomaira Michael on 09-01-2024 HIV (1&2) Antibody Non-Reactive Nonreactive [facility] Comment on above: Non-ReactiveReactive Repeatedly reactive samples must be confirmed according to CDC recommended confirmatory algorithms. The subresults for either HIVAG or AHIV can be used as an aid in the selection of the confirmation algorithm for reactive samples.Send out specimens with Reactive results to [facility] for confirmation.Order the HIV antibody detection and differentiation: #[id number] Nucleated red blood cell per centageOrdered By: Yomaira Michael on 09-01-2024 Nucleated RBC/100 WBC (Bld) [Ratio] 0 % 0-5 [facility] Platelet countOrdered By: Hima Michael on 09-01-2024 Platelets (Bld) [#/Vol] 164 10*3/uL 150-450 [facility] RBC Auto (Bld) [#/Vol]Ordere d By: Yomaira Michael on 09-01-2024 RBC (Bld) [#/Vol] 4.24 10*6/uL 4.2-5.4 [facility] Syphilis Antibodieson 2024 Syphilis Abs Non-Reactive Normal Nonreactive [facility] Comment on above: Performed By: #### L 509.8002, L3890.6102, BTS, L3890.6301, L100.0100, L509.4006, L3890.6006 #### [facility] [address] [place], [address] Type AND Screenon 09-01-2024 Ab SCREEN GEL Negative Normal [facility] Comment on above: Order Comment: PN Performed By: #### L 7000.1800, M100.2200 #### [facility] [address] [place], [address] White blood cell (WBC) count Ordered By: Yomaira Michael on 09-01-2024 WBC (Bld) [#/Vol] 9.9 10*3/uL 4.4-11.0 [facility] Urine Cultureon 08-31-2024 URC Mixed Gram Positive Organisms Vale Count 11,000-25,000 MIXC Mixed contaminants. Submit a new specimen if indicated. [facility] Comment on above: Performed By: #### L 7000.1800, M100.2200 #### [facility] [address] [place], [address] Chlamydia trachomatis rRNA d etection by probe and target amplification methodOrdered By: Yomaira Michael on 08-28-2024 C. trachomatis rRNA CHULA+probe Ql (Unsp spec) Negative Negative [facility] Neisseria gonorrhoeae nuclei c acid detection by amplified probe techniqueOrdered By: Yomaira Michael on 08-28-2024 N. gonorrhoeae DNA CHULA+probe Ql (Unsp spec) Negative Negative [facility] Comment on above: Performed at: =[facility] [place] [id number] Director: Giselle Gallego MD, Phone: [phone] Heating Worker Office Visit Reporton 08-28-2024 Heating Worker Office Visit Report [facility] [address], [address] [place] [address] OFFICE VISIT Date of Service: 08/28/24 MR#: [id number] Acct: [id number] Name: MELANIE LEIJA Rep #: [id number] : 2000 Provider: MICHELLE Interiano ams Age/Sex: 24/F [place] [facility] [place] Status: Signed Intake Vital Signs 09/19/23 14:48 08/28/24 13:01 08/28/24 13:05 Height 5 ft 6 in 5 ft 6 in 5 ft 6 in Weight: 155 lb 4 oz BMI 25.0 BP 135/71 H Intake Visit Reasons: *EST* NOB LMP 06/21, DESTIN 03/28 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 Is patient in pain?: No Allergies No Known Allergies Allergy (Verified 08/28/24 13:00) Medications ???Medication ???Instructions ???Recorded ???Confirmed ???Type ascorbic acid (vitamin C) 500 mg mg PO 08/16/23 08/28/24 History capsule cholecalciferol (vitamin D3) 50 50 mcg PO DAILY 08/16/23 08/28/24 History mcg (2,000 unit) capsule docosahexaenoic acid 200 mg mg PO 08/20/23 08/28/24 History capsule ( DHA) Last Menstrual Period: 06/21/24 Zika: Zika virus screening: Negative : Yes PFSH PFSH Medical History Cephalopelvic disproportion Depression Anxiety Migraines Surgical History delivery delivered History of tonsillectomy Family History Grandmother Breast cancer, Onset Age: 80 Paternal Social History adopted: No household members: significant other and children number of children: 1 current occupational status: employed current occupation: [employer] current occupational exposures/hazards: No pets and animals: Yes pets and animals: dog(s) history of recent travel: No sexually active: Yes Smoking Status: Never smoker second hand exposure: No alcohol intake: current alcohol intake frequency: holidays/special occasions only details: Not while substance use type: does not use well-balanced diet: about half the time caffeine: Yes Type: coffee Number of servings: 1 eating out: rarely or never during the past year weight has: remained stable what type of physical activity do you participate in: none frequency: 1-2 times per week duration: > 90 minutes/day dana/jew: None seatbelt use: always do you feel safe at home: Yes additional 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 Date Name GA/Weeks Outcome Route Bth Weight Gen Labor Lgth Anesthesia Del Locatn Provider FOB 08/08/23 Rafia 39 live - full term 8lbs 5oz Female epidural [facility] Sunilhugh Tysonony Delivery Date: 08/08/23 Last Updated by: Autumn Guerra cpd pushed for 3.5 hours direct OP HPI *EST* NOB LMP 06/21, DESTIN 03/28 Details: MELANIE LEIJA is a 24 year old who presents for New OB visit. OB Visit DESTIN Calculator Estimated Delivery Date Method Current WG Current Estimate 03/28/25 Ultrasound #1 9w 5d Other Estimates 03/28/25 LMP (Certain) 9w 5d Estimated Due Date: 03/28/25 Expected Delivery Route/Plan Desired repeat c/s Specific Issue/Plans Covid status: [] Flu vaccine: [] Tdap vaccine: [] Rhogam: [] LARC form signed: [] Problem list reviewed and updated with the most current plan of care details and appropriate orders placed. Relevant counseling for the gestational age provided. Continue routine care and follow up unless otherwise noted in visit notes/problem list details Initial Weight: 155 lb Date -???-???-???-???-???-?? ?-???-???-???-???-???-? ??- EGA Weight BP Urine Prot -???-???-???-???-???-?? ?-???-???-???-???-???-? ??- Glucose FHR FuHt Pres Dilation -???-???-???-???-???-?? ?-???-???-???-???-???-? ??- Effaced St Visit Note 08/28/24 -???-???-???-???-???-?? ?-???-???-???-???-???-? ??- 9w 5d 155 lb 4 oz (+4 oz) 135/71 -???-???-???-???-???-?? ?-???-???-???-???-???-? ??- 167 -???-???-???-???-???-?? ?-???-???-???-???-???-? ??- KW- CRL 2.87 cm and cons with dates. accepts NIPT Menstrual History Last Menstrual Period: 06/21/24 Reported LMP: definite Normal amount/duration: Yes Frequency in days: 28 On hormonal BC at conception: No hCG+: 07/18/24 Antepartum Record Genetic Screening: Congenital Heart Defect: Other, Neural Tube Defect: Other, Hemoglobinopathy Or Carrier: Other, Cystic Fibrosis: Other, Chromosome Abnormality: Other, Juan F-Sachs: Other, Hemophilia: Other, Intellectual D (more content not included)... Normal [facility] Urine cultureOrdered By: Moises Michael on 08-28-2024 Bacteria identified Cx Nom (U) Positive Abnormal [facility] Laboratory - Chemistry and C hemistry - challengeon 06-27-2023 Glucose Ql (U) Negative [facility] - Urinalysison Protein Ql (U) Negative [facility] - Chemistry and C hemistry - challengeon 06-13-2023 Glucose Ql (U) Negative [facility] - Urinalysison Protein Ql (U) Negative [facility] - Chemistry and C hemistry - challengeon 05-31-2023 Glucose Ql (U) Negative [facility] - Urinalysison Protein Ql (U) Negative [facility] Absolute lymphocyte countOrd ered By: Mary Perez on 05-16-2023 Lymphocytes Auto (Unsp spec) [#/Vol] 1.79 10*3/uL 0.83-4.51 [facility] Automated lymphocyte count a s percentage of total leukocytesOrdered By: Mary Perez on 05-16-2023 Lymphocytes/100 WBC Auto (Unsp spec) 16.0 % 19-41 [facility] Basophil percentageOrdered B y: Mary Perez on 05-16-2023 Basophils/100 WBC (Bld) 0.3 % 0-1 [facility] Eosinophils/100 WBC (Bld) 0.8 % 0-5 [facility] Hemoglobin (Bld) [Mass/Vol] 12.0 g/dL 12.0-15.0 [facility] Monocytes/100 WBC (Bld) 6.7 % 0-10 [facility] Neutrophils (Bld) [#/Vol] 8.4 10*3/uL 2.0-7.7 [facility] Neutrophils/100 WBC (Bld) 75.0 % 47-70 [facility] WBC (Bld) [#/Vol] 11.2 10*3/uL 4.4-11.0 [facility] Determination of erythrocyte mean corpuscular volume (MCV)Ordered By: Mary Perez on 05-16-2023 MCV (RBC) [Entitic vol] 93.4 fL 81-99 [facility] Erythrocyte distribution wid th ratioOrdered By: Mary Perez on 05-16-2023 Erythrocyte distribution width (RBC) [Ratio] 12.5 % 11.6-14.6 [facility] Erythrocyte distribution wid th standard deviationOrdered By: Mary Perez on 05-16-2023 Erythrocyte distribution width (RBC) [Entitic vol] 43.0 fL 35.1-43.9 [facility] Gestational diabetes screen 1-hour screen with 50g oral glucose loadOrdered By: Mary Perez on 05-16-2023 Glucose 1 Hr post 50 g glucose PO [Mass/Vol] 111 mg/dL 70-140 [facility] HIV 1 and HIV-2 antibody ass ay with HIV-1 p24 antigen detectionOrdered By: Mary Perez on 05-16-2023 HIV 1+2 Ab+HIV1 p24 Ag IA Ql Non-Reactive Nonreactive [facility] Hematocrit Auto (Bld) [Volum e fraction]Ordered By: Mary Perez on 05-16-2023 Hematocrit (Bld) [Volume fraction] 35.3 % 37-47 [facility] Immature granulocytes/100 WB C Auto (Bld)Ordered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 1.7 Low 2.8-20.0 [facility] Comment on above: Performed By: #### D RUG3 #### [place] [address] Serum Alcohol < 3 Normal [facility] Comment on above: Performed By: #### D RUG3 #### [place] [address] Urinalysis Routineon 020 Bacteria LM.HPF (Urine sed) [#/Area] NONE Normal None [facility] Comment on above: Performed By: #### U RIN2 #### [place] [address] Ep Cells Urine 5.6 /hpf High 0.0-5.0 [facility] Comment on above: Performed By: #### U RIN2 #### [facility] [address] [place] [address] Hyaline Cast 2.2 /lpf High 0.0-1.0 [facility] Comment on above: Performed By: #### U RIN2 #### [facility] [address] [place] [address] WBC LM.HPF (Urine sed) [#/Area] 179.6 /[HPF] High 0.0-5.0 [facility] Comment on above: Performed By: #### U RIN2 #### [facility] [address] [place] [address] Appearance (U) 2+ (SLT CLOUDY) Normal [facility] Comment on above: Performed By: #### U RIN2 #### [facility] [address] [place] [address] Color (U) YELLOW Normal [facility] Comment on above: Performed By: #### U RIN2 #### [facility] [address] [place] [address] RBC LM.HPF (Urine sed) [#/Area] 0.0-3 Normal 0.0-5.0 [facility] Comment on above: Performed By: #### U RIN2 #### [facility] [address] [place] [address] Bilirubin (U) [Mass/Vol] Negative Normal Negative [facility] Comment on above: Performed By: #### U RIN2 #### [place] [address] Glucose Ql (U) Negative Normal Negative [facility] Comment on above: Performed By: #### U RIN2 #### [place] [address] Hemoglobin,Urine MODERATE Abnormal Negative [facility] Comment on above: Performed By: #### U RIN2 #### [place] [address] Ketone Urine Negative Normal Negative [facility] Comment on above: Performed By: #### U RIN2 #### [place] [address] Leukocytes Esterase LARGE Abnormal Negative [facility] Comment on above: Performed By: #### U RIN2 #### [facility] [address] [place], [place] [address] Nitrites Urine Negative Normal Negative [facility] Comment on above: Performed By: #### U RIN2 #### [facility] [address] [place], [place] [address] pH (U) 6.5 [pH] Normal 5.0-8.0 [facility] Comment on above: Performed By: #### U RIN2 #### [facility] [address] [place], [place] [address] Protein (U) [Mass/Vol] Negative Normal Negative [facility] Comment on above: Performed By: #### U RIN2 #### [facility] [address] [place] [address] Specific [place], Ur 1.010 Normal 1.005-1.030 [facility] Comment on above: Performed By: #### U RIN2 #### [facility] [address] [place] [address] Urobilinogen,Ur 0.2 EU/dL Normal 0.2-1.0 [facility] Comment on above: Performed By: #### U RIN2 #### [facility] [address] [place] [id number] Vital Signs Date Time Vital Sign Value Performing Clinician Maria L morgan 11-17-2024 09:33-0400 Body height 167.[address] Mariely Neal MD Work Phone: [facility] 11-17-2024 09:33-0400 Body mass index (BMI) [Ratio] 28.1 kg/m2 Dr. Mariely Neal MD Work Phone: [facility] 11-17-2024 09:33-0400 Body weight 79.[address] Mariely Neal MD Work Phone: [facility] 11-17-2024 09:33-0400 Diastolic blood pressure 73 mm[Hg] Dr. Mariely Neal MD Work Phone: [facility] 11-17-2024 09:33-0400 Systolic blood pressure 128 mm[Hg] Dr. Mariely Neal MD Work Phone: 6(388)554-26[address] [place] [address] 11-13-2024 16:30-0400 Body height 167.[address] Mariely Neal MD Work Phone: 2(047)872-850510 [place] [address] 11-13-2024 16:30-0400 Body mass index (BMI) [Ratio] 27.2 kg/m2 Dr. Mariely Neal MD Work Phone: 9(002)728-783010 [place] [address] 11-13-2024 16:30-0400 Body weight 76.[address] Mariely Neal MD Work Phone: 3(935)091-726010 [place] [address] 11-13-2024 16:29-0400 Body temperature 98.2 [degF] Dr. Mariely Neal MD Work Phone: 6(734)824-557710 [place] [address] 11-13-2024 16:29-0400 Diastolic blood pressure 64 mm[Hg] Dr. Mariely Neal MD Work Phone: 1(343)858-834410 [place] [address] 11-13-2024 16:29-0400 Heart rate 93 /min Dr. Mariely Neal MD Work Phone: 1(823)165-385810 [place] [address] 11-13-2024 16:29-0400 Respiratory rate 14 /min Dr. Mariely Neal MD Work Phone: 0(282)356-030410 [place] [address] 11-13-2024 16:29-0400 Systolic blood pressure 114 mm[Hg] Dr. Mariely Neal MD Work Phone: 1(309)790-126510 [place] [address] 11-13-2024 15:28-0400 Body height 167.[address] Mariely Neal MD Work Phone: 0(138)295-445410 [place] [address] 11-13-2024 15:28-0400 Body mass index (BMI) [Ratio] 27.5 kg/m2 Dr. Mariely Neal MD Work Phone: 2(816)703-953810 [place] [address] 11-13-2024 15:28-0400 Body weight 77.[address] Mariely Neal MD Work Phone: 3(156)085-704810 [place] [address] 11-13-2024 15:28-0400 Diastolic blood pressure 84 mm[Hg] Dr. Mariely Neal MD Work Phone: 8(070)833-774840 [address] 11-13-2024 15:28-0400 Systolic blood pressure 129 mm[Hg] Dr. Mariely Neal MD Work Phone: 3(661)660-136110 [place] [address] 10-20-2024 09:38-0400 Body height 167.[address] Mariely Neal MD Work Phone: 7(425)079-329410 [place] [address] 10-20-2024 09:38-0400 Body mass index (BMI) [Ratio] 26.2 kg/m2 Dr. Mariely Neal MD Work Phone: 3(739)260-799810 [place] [address] 10-20-2024 09:38-0400 Body weight 73.[address] Mariely Neal MD Work Phone: 9(191)226-444810 [place] [address] 10-20-2024 09:38-0400 Diastolic blood pressure 69 mm[Hg] Dr. Mariely Neal MD Work Phone: 6(938)942-753910 [place] [address] 10-20-2024 09:38-0400 Systolic blood pressure 139 mm[Hg] Dr. Mariely Neal MD Work Phone: 1(113)435-027910 [place] [address] 09-25-2024 13:54-0400 Body height 167.[address] Mariely Neal MD Work Phone: 4(340)490-206510 [place] [address] 09-25-2024 13:54-0400 Body mass index (BMI) [Ratio] 25.3 kg/m2 Dr. Mariely Neal MD Work Phone: 6(435)740-074110 [place] [address] 09-25-2024 13:54-0400 Body weight 71.[address] Mariely Neal MD Work Phone: 4(322)778-465010 [place] [address] 09-25-2024 13:54-0400 Diastolic blood pressure 81 mm[Hg] Dr. Mariely Neal MD Work Phone: 7(784)578-251010 [place] [address] 09-25-2024 13:54-0400 Systolic blood pressure 133 mm[Hg] Dr. Mariely Neal MD Work Phone: 8(539)310-454410 [place] [address] 08-28-2024 13:05-0400 Body height 167.[address] Mariely Neal MD Work Phone: 6(138)726-379810 [place] [address] 08-28-2024 13:01-0400 Body mass index (BMI) [Ratio] 25 kg/m2 Dr. Mariely Neal MD Work Phone: 6(775)508-494310 [place] [address] 08-28-2024 13:01-0400 Body weight 70.[address] Mariely Neal MD Work Phone: 8(795)428-702610 [place] [address] 08-28-2024 13:01-0400 Diastolic blood pressure 71 mm[Hg] Dr. Mariely Neal MD Work Phone: 2(513)676-637310 [place] [address] 08-28-2024 13:01-0400 Systolic blood pressure 135 mm[Hg] Dr. Mariely Neal MD Work Phone: 6(171)722-393210 [place] [address] 07-09-2023 18:44-0400 Diastolic blood pressure 84 mm[Hg] Dr. Mariely Neal Work Phone: 2(209)333-615210 [place] [address] 07-09-2023 18:44-0400 Heart rate 85 /min Dr. Mariely Neal Work Phone: 3(094)286-956810 [place] [address] 07-09-2023 18:44-0400 Systolic blood pressure 138 mm[Hg] Dr. Mariely Neal Work Phone: 4(858)849-214610 [address] [place] [address] 07-09-2023 18:10-0400 SaO2% (BldA) [Mass fraction] 99 % Dr. Mariely Neal Work Phone: 7(338)014-393410 [place] [address] 07-09-2023 18:09-0400 Body temperature 99.8 [degF] Dr. Mariely Neal Work Phone: 3(610)002-326410 [place] [address] 07-09-2023 17:54-0400 Respiratory rate 20 /min Dr. Mariely Neal Work Phone: 3(772)304-261274 [place] [address] 07-09-2023 17:50-0400 Body height 168.[address] Mariely Neal Work Phone: 1(600)064-653710 [place] [address] 07-09-2023 17:50-0400 Body mass index (BMI) [Ratio] 29.7 kg/m2 Dr. Mariely Neal Work Phone: 5(404)812-274010 [place] [address] 07-09-2023 17:50-0400 Body weight 84.[address] Mariely Neal Work Phone: 2(769)952-580174 [place] [address] 06-27-2023 10:28-0400 Body mass index (BMI) [Ratio] 29.8 kg/m2 Dr. Mariely Neal Work Phone: 3(356)910-097040 [address] 06-27-2023 10:28-0400 Body weight 83.[address] Mariely Neal Work Phone: 9(098)923-192940 [address] 06-27-2023 10:28-0400 Diastolic blood pressure 71 mm[Hg] Dr. Mariely Neal Work Phone: 1(907)066-672340 [address] 06-27-2023 10:28-0400 Systolic blood pressure 115 mm[Hg] Dr. Mariely Neal Work Phone: 1(355)928-465740 [address] 06-13-2023 13:28-0400 Body mass index (BMI) [Ratio] 29.7 kg/m2 Dr. Mariely Neal Work Phone: 6(466)752-672540 [address] 06-13-2023 13:28-0400 Body weight 83.[address] Mariely Neal Work Phone: 1(554)665-343740 [address] 06-13-2023 13:28-0400 Diastolic blood pressure 77 mm[Hg] Dr. Mariely Neal Work Phone: 3(244)008-263410 [place] [address] 06-13-2023 13:28-0400 Systolic blood pressure 126 mm[Hg] Dr. Mariely Neal Work Phone: 7(109)510-686140 [address] 05-31-2023 14:11-0400 Body mass index (BMI) [Ratio] 28.7 kg/m2 Dr. Mariely Neal Work Phone: 0(968)734-087240 [address] 05-31-2023 14:11-0400 Body weight 80.[address] Mariely Neal Work Phone: 3(923)471-254910 [place] [address] 05-31-2023 14:11-0400 Diastolic blood pressure 78 mm[Hg] Dr. Mariely Neal Work Phone: 1(836)130-715440 [address] 05-31-2023 14:11-0400 Systolic blood pressure 122 mm[Hg] Dr. Mariely Neal Work Phone: 0(362)784-038840 [address] 05-16-2023 13:14-0500 Body height 167.[address] Mariely Neal Work Phone: 9(684)175-116940 [address] 05-16-2023 13:14-0500 Body mass index (BMI) [Ratio] 27.8 kg/m2 Dr. Mariely Neal Work Phone: 8(928)614-572740 [address] 05-16-2023 13:14-0500 Body weight 78.[address] Mariely Neal Work Phone: 6(584)147-634310 [place] [address] 05-16-2023 13:14-0500 Diastolic blood pressure 74 mm[Hg] Dr. Mariely Neal Work Phone: 3(178)876-359810 [place] [address] 05-16-2023 13:14-0500 Systolic blood pressure 126 mm[Hg] Dr. Mariely Neal Work Phone: 9(252)527-508010 [place] [address] 05-09-2023 14:41-0500 Body mass index (BMI) [Ratio] 27.4 kg/m2 Dr. Mariely Nael Work Phone: 5(384)889-813110 [place] [address] 05-09-2023 14:41-0500 Body temperature 98.7 [degF] Dr. Mariely Neal Work Phone: 0(530)174-121710 [place] [address] 05-09-2023 14:41-0500 Body weight 77.[address] Mariely Neal Work Phone: 1(766)890-302510 [place] [address] 05-09-2023 14:41-0500 Diastolic blood pressure 86 mm[Hg] Dr. Mariely Neal Work Phone: 4(773)331-587140 [address] 05-09-2023 14:41-0500 Heart rate 107 /min Dr. Mariely Neal Work Phone: 1(656)145-563340 [address] 05-09-2023 14:41-0500 Respiratory rate 16 /min Dr. Mariely Neal Work Phone: 1(085)862-234810 [place] [address] 05-09-2023 14:41-0500 SaO2% (BldA) [Mass fraction] 98 % Dr. Mariely Neal Work Phone: 6(506)975-713640 [address] 05-09-2023 14:41-0500 Systolic blood pressure 134 mm[Hg] Dr. Mariely Neal Work Phone: 3(417)866-024040 [address] 05-02-2023 10:14-0500 Body mass index (BMI) [Ratio] 27.6 kg/m2 Dr. Mariely Neal Work Phone: 2(188)859-816840 [address] 05-02-2023 10:14-0500 Body weight 77.[address] Mariely Neal Work Phone: 4(981)358-046640 [address] 05-02-2023 10:14-0500 Diastolic blood pressure 73 mm[Hg] Dr. Mariely Neal Work Phone: 8(326)711-473840 [address] 05-02-2023 10:14-0500 Systolic blood pressure 124 mm[Hg] Dr. Mariely Neal Work Phone: 2(645)779-178010 [place] [address] 04-05-2023 09:48-0500 Body mass index (BMI) [Ratio] 25.9 kg/m2 Dr. Mariely Neal Work Phone: 9(964)816-216410 [place] [address] 04-05-2023 09:48-0500 Body weight 73.[address] Mariely Neal Work Phone: 5(243)458-215010 [place] [address] 04-05-2023 09:48-0500 Diastolic blood pressure 64 mm[Hg] Dr. Mariely Neal Work Phone: 2(991)676-843810 [place] [address] 04-05-2023 09:48-0500 Systolic blood pressure 114 mm[Hg] Dr. Mariely Neal Work Phone: 1(538)281-635210 [place] [address] 03-08-2023 09:18-0500 Body mass index (BMI) [Ratio] 24.2 kg/m2 Dr. Mariely Neal Work Phone: 3(745)324-211510 [place] [address] 03-08-2023 09:18-0500 Body weight 68.[address] Mariely Neal Work Phone: 8(802)034-602610 [place] [address] 03-08-2023 09:18-0500 Diastolic blood pressure 74 mm[Hg] Dr. Mariely Neal Work Phone: 8(717)177-076310 [place] [address] 03-08-2023 09:18-0500 Systolic blood pressure 125 mm[Hg] Dr. Mariely Neal Work Phone: 0(174)600-759710 [place] [address] 02-09-2023 09:26-0500 Body mass index (BMI) [Ratio] 22.9 kg/m2 Dr. Mariely Neal Work Phone: 2(408)861-663174 [place] [address] 02-09-2023 09:26-0500 Body weight 64.[address] Mariely Neal Work Phone: 8(929)742-939240 [address] 02-09-2023 09:26-0500 Diastolic blood pressure 74 mm[Hg] Dr. Mariely Neal Work Phone: 0(533)041-158040 [address] 02-09-2023 09:26-0500 Systolic blood pressure 116 mm[Hg] Dr. Mariely Neal Work Phone: 6(695)303-356710 [place] [address] 01-09-2023 10:12-0400 Body height 167.[address] Mariely Neal Work Phone: 3(967)384-766110 [place] [address] 01-09-2023 10:12-0400 Body mass index (BMI) [Ratio] 22.9 kg/m2 Dr. Mariely Neal Work Phone: 9(637)529-254410 [place] [address] 01-09-2023 10:12-0400 Body weight 64.[address] Mariely Neal Work Phone: 1(465)380-300710 [place] [address] 01-09-2023 10:12-0400 Diastolic blood pressure 78 mm[Hg] Dr. Mariely Neal Work Phone: 6(666)532-841110 [place] [address] 01-09-2023 10:12-0400 Systolic blood pressure 125 mm[Hg] Dr. Mariely Neal Work Phone: 0(613)833-875940 [address] Encounters Encounter Date Encounter Type Care Provider Facility Start: 11-17-2024 End: 11-17-[address] Diana Escobar MD -[facility] Work Phone: Start: 11-17-2024 End: 11-17-[address] Mariely Neal MD Work Phone: -[facility] Start: 11-13-2024 ambulatory Diana Lisa lity:[facility] Start: 11-13-2024 End: 11-13-[address] Mary Canales DO -[facility] Work Phone: Start: 11-13-2024 End: 11-13-[address] Mariely Neal MD Work Phone: [facility] Start: 11-07-2024 End: 11-07-2024 ambulatory SELF REFERRED [facility] Start: 11-03-2024 End: 11-03-2024 ambulatory MARIELY NEAL [facility] Start: 10-20-2024 End: 10-20-2024 Patient encounter procedure Sujata Barbosa MANAGEMENT INFORMATION SYSTEMS DIRECTOR-C -[facility] Work Phone: Start: 10-20-2024 End: 10-20-[address] Mariely Neal MD Work Phone: [facility] Start: 09-25-2024 End: 09-25-[address] Mariely Neal MD Work Phone: [facility] Start: 09-25-2024 End: 09-25-[address] Mary Canales [facility] Work Phone: Start: 09-01-2024 End: 09-01-[address] Mariely Neal MD Work Phone: [facility] Work Phone: Start: 09-01-2024 End: 09-01-2024 Patient encounter procedure Yomaira Michael CNM -Lab [facility] Start: 09-01-2024 End: 09-01-2024 ambulatory Yomaira Michael Facility:[facility] Start: 08-28-2024 End: 08-28-[address] Mariely Neal MD Work Phone: [facility] Work Phone: Start: 08-28-2024 End: 08-28-2024 Patient encounter procedure Yomaira Michael CNM -Laboratory [facility] Work Phone: Start: 08-28-2024 End: 08-28-2024 Patient encounter procedure Yomaira Michael CNM -[facility] Work Phone: Start: 08-28-2024 End: 08-28-[address] Mariely Neal MD Work Phone: [facility] Work Phone: Start: 08-28-2024 End: 08-28-2024 ambulatory Mariely Volin Facility:[facility] Start: 08-08-2024 Non-patient / Non-visit Jonna Bernabe RN -[facility] Work Phone: Start: 08-08-2024 ambulatory Mariely Volin [place] [facility] [place]: 07-09-2023 Non-patient / Non-visit Dr. Mariely Neal Work Phone: [facility] Start: 07-09-2023 End: 07-09-[address] Mariely Neal Work Phone: [facility] Work Phone: Start: 07-09-2023 End: 07-09-[address] Mariely Neal Work Phone: [facility] Work Phone: Start: 06-27-2023 End: 06-27-[address] Mariely Neal Work Phone: [facility] Work Phone: Start: 06-13-2023 End: 06-13-[address] Mariely Neal Work Phone: [facility] Work Phone: Start: 05-31-2023 End: 05-31-[address] Mariely Neal Work Phone: [facility] Work Phone: Start: 05-16-2023 End: 05-16-[address] Mariely Neal Work Phone: [facility] Work Phone: Start: 05-16-2023 End: 05-16-[address] Mariely Neal Work Phone: [facility] Work Phone: Start: 05-09-2023 End: 05-09-[address] Mariely Neal Work Phone: [facility] Work Phone: Start: 05-02-2023 End: 05-02-[address] Mariely Neal Work Phone: [facility] Work Phone: Start: 04-05-2023 End: 04-05-[address] Mariely Neal Work Phone: [facility] Work Phone: Start: 03-08-2023 End: 03-08-[address] Mariely Neal Work Phone: [facility] Work Phone: Start: 02-09-2023 End: 02-09-[address] Mariely Neal Work Phone: [facility] Work Phone: Start: 01-10-2023 End: 01-10-[address] Mariely Neal Work Phone: [facility] Work Phone: Start: 01-10-2023 End: 01-10-[address] Mariely Neal Work Phone: [facility] Start: 01-09-2023 End: 01-09-[address] Mariely Neal Work Phone: [facility] Work Phone: Start: 01-09-2023 End: 01-09-[address] Mariely Neal Work Phone: [facility]Laboratory[facility] Specimen Work Phone: Start: 01-09-2023 End: 01-09-[address] Mariely Neal Work Phone: [facility] Work Phone: Start: 12-11-2022 ambulatory MARIELY NEAL Facil ity:[facility] Procedures Date Procedure Procedure Detail Performing Clinician Start: 11-13-[address] Mariely Neal MD Work Phone: Start: 11-13-2024 Urnls dip stick/tabl et reagent auto microscopy Dr. Mariely Neal MD Work Phone: Start: 11-13-2024 CT of abdomen and pe lvis without contrast Dr. Mariely Neal MD Work Phone: Start: 11-13-[address] Maged Neal MD Work Phone: Start: 09-01-[address] Mariely Neal MD Work Phone: Start: 09-01-2024 Hepatitis C antibody measurement Dr. Mariely Neal MD Work Phone: Comment on above: Reactive: Presumptiv e evidence of antibodies to HCV. Follow CDC recommendations for supplemental testing.Non-Reactive: Antibodies to HCV were not detected; does not exclude the possibility of exposure to HCVReactive Results are presumptive evidence of antibodies to HCV. Follow CDC recommendations for supplemental testing.Order confirmation testing: HCV Quant by PCR testing - HCVPCR #[id number] Non Reactive: < 0.8 Equivocal: >/= 0.8 to < 1.0 Reactive: >/= 1.0The CDC requires that a reactive/equivocal HCV antibody result be sent out for confirmation. HCV Quant by PCR testing. Start: 09-01-[address] Mariely Neal MD Work Phone: Comment on above: Antibody Result: Int erpretationNon-Reactive: Non- ImmuneReactive: ImmuneThe following results were obtained with the [employer] Rubella IgG assay. Results from assays of other manufacturers cannot be used interchangeably. Start: 09-01-2024 Serologic test for syphilis Dr. Mariely Neal MD Work Phone: Start: 08-28-[address] Maged Neal MD Work Phone: Start: 01-09-[address] Maged Neal Work Phone: Start: 05-13-2019 Electrocardiogram H/O: section History of delivery, currently Dr. Mariely Neal MD Work Phone: Comment on above: x1, Desires rpt csec d/t cephalopelvic disproportion x1, Desires rpt csec d/t cephalopelvic disproportion; growth US 28 wk H/O: section History of delivery, currently Yomaira Michael CNM H/O: section History of delivery, currently Dr. Mary Canales DO H/O: section History of delivery, currently Sujata Barbosa MANAGEMENT INFORMATION SYSTEMS DIRECTOR-C H/O: section History of delivery, currently Dr. Mary Canales DO H/O: section History of delivery, currently Dr. Diana Escobar MD Plan of Treatment Date Care Activity Detail Author Start: 11-13-2024 Nonstress test [facility] Start: 11-13-2024 Obstetric monitoring [facility] Start: 11-13-2024 Vital signs measurements [facility] Start: 11-13-2024 End: 11-13-2024 [facility] Start: 11-13-2024 Bacteria identified in Urine by Culture Urine Culture [facility] Start: 11-13-2024 Patient discharge [facility] Start: 07-09-2023 Nonstress test [facility] Start: 07-09-2023 Obstetric monitoring [facility] Start: 07-09-2023 Vital signs measurements [facility] Start: 07-09-2023 [facility] Start: 07-09-2023 Patient discharge [facility] CBC W Auto Different ial panel - Blood [facility] Chlamydia deoxyribon ucleic acid detection [facility] Hepatitis C antibody measurement [facility] Patient Education [facility] False Labor OB Triage: Return to Hospital or Notify Physician if you Experience: [facility] Work Phone: Patient referral [facility] Work Phone: Rubella IgG measurement [facility] Serologic test for syphilis [facility] Urine culture [facility] Payers Date Payer Category Payer Self-pay [id number] 2022 Medicaid [id number] 2000 Unknown [id number] 2.16. [id number] 2002 Unknown [id number] 2.16. [id number] [id number] Unknown [facility] [employer] [id number] Unknown [id number] 2.16.8 [id number] Unknown [id number] 2.16.8 [id number] Unknown [id number] 2.16.8 [id number] Unknown [id number] 2.16.8 [id number] Unknown [id number] 2.16.8 [id number] Unknown [id number] 2.16.8 [id number] Unknown [id number] 2.16.8 [id number] Unknown [id number] 2.16.8 [id number] Unknown [id number] 2.16.8 [id number] Unknown [id number] 2.16.8 [id number] Social History Date Type Detail Facility Start: 01-09-2023 End: 06-27-2023 Tobacco smoking status NHIS Unknown if ever smoked [facility] Start: 09-01-2014 With Family [facility] Start: 07-22-2020 Non-smoker [facility] Start: 2000 Sex Assigned At Female [facility] Start: 08-08-2024 Tobacco smoking stat us NHIS Never smoked tobacco (finding) [facility] Clinical Notes 08-28-2024 to 11-13-2024 Note Date & Type Note Facility 11-13-2024 Radiology Diagnostic study note [facility] Imaging Services [address] [place], [place] [id number] Abdomen/Pelvis without Cont MR#: [id number] Acct: [id number] Name: MELANIE LEIJA Rep #: [id number] : 2000 F 24 From: Rashaun Aldana MD PCP: Dr. Mariely Neal MD Status: REG CLI Study:Abdomen/Pelvis without Cont Date of Exa m: 11/13/24 Exam# [id number] Ordering Dr: Diana Ruffin MD PROCEDURE: ABDOMEN/PELVIS WITHOUT CONT 11/13/2024 REASON FOR EXAM: R/O RIGHT KIDNEY STONE TECHNIQUE: Procedure Code: CTABDPEL Modality: CT Procedure: ABDOMEN/PELVIS WITHOUT CONT Noncontrast technique limits evaluation of the abdominal and pelvic viscera. Coronal and Sagittal reconstruction series were provided. One or more dose reduction techniques were used (e.g., Automated exposure control, adjustment of the mA and/or kV according to patient size, use of iterative reconstruction technique). COMPARISON: CT abdomen and pelvis 05/01/2024 FINDINGS: Lung bases: Unremarkable. Liver: Mildly enlarged measuring up to 18.9 cm craniocaudally. No obvious hepatic mass. Gallbladder: Unremarkable. No biliary ductal dilatation. Spleen: Normal size. Pancreas: Normal size. No surrounding inflammation. Adrenals: Unremarkable. Kidneys: No urolithiasis. No hydronephrosis. Bladder: Underdistended, limiting evaluation. Reproductive Organs: Gravid uterus. Bowel: No bowel obstruction. Appendix: Normal. Lymph nodes: Unremarkable. Vasculature: The abdominal aorta and IVC contours are normal. Noncontrast technique limits evaluation. Peritoneum / Retroperitoneum: No free fluid or air. Bones: Unremarkable. No acute fractures. CT/Abdomen/Pelvis without Cont IMPRESSION: 1. No acute findings. 2. No renal calculi. 3. Mild hepatomegaly. 4. Gravid uterus. Reading Location: [facility] CC: Dr. Mariely Neal MD; Dr. 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, 2024 12:40pm Depression acute August 28 12:40pm History of delivery, currently acute August 28, 2024 12:40pm acute August 28 12:40pm Supervision of high-risk acute August 28, 2024 12:40pm [facility] Work Phone: 1(632) 885-378006-19-2025 Evaluation note* Diagnosis Onset Date Resolution Status Admit Date Anxiety acute August 28 12:40pm 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, 2024 12:40pm Depression acute August 28 12:40pm History of delivery , currently acute August 28 12:40pm acute August 28 12:40pm Supervision of high-risk acute August 28, 2024 12:40pm Anxiety acute September 25 1:52pm Cephalopelvic disproportion acute September 25, 2024 1:52pm Depression acute September 25 1:52pm History of delivery , currently acute September 25 1:52pm acute September 25 1:52pm Supervision of high-risk acute September 25, 2024 1:52pm [facility] Work Phone: 1(278) 406-608406-19-2025 Evaluation note* Diagnosis Onset Date Resolution Status Admit Date Anxiety acute August 28 12:40pm 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, 2024 12:40pm Depression acute August 28 12:40pm History of delivery , currently acute August 28 12:40pm acute August 28 12:40pm Supervision of high-risk acute August 28, 2024 12:40pm Anxiety acute September 25 1:52pm Cephalopelvic disproportion acute September 25, 2024 1:52pm Depression acute September 25 1:52pm History of delivery , currently acute September 25 1:52pm acute September 25 1:52pm Supervision of high-risk acute September 25, 2024 1:52pm Anxiety acute October 20, 2 025 9:35am Cephalopelvic disproportion acute October 20, 2024 9:35am Depression acute October 20, 2 025 9:35am History of delivery , currently acute October 20, 2024 9:35am acute October 20, 2 025 9:35am Supervision of high-risk acute October 20 9:35am [facility] Work Phone: 1(856) 286-789206-19-2025 Evaluation note* Diagnosis Onset Date Resolution Status Admit Date Anxiety acute August 28 12:40pm 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, 2024 12:40pm Depression acute August 28 12:40pm History of delivery , currently acute August 28 12:40pm acute August 28 12:40pm Supervision of high-risk acute August 28, 2024 12:40pm Anxiety acute September 25 1:52pm Cephalopelvic disproportion acute September 25, 2024 1:52pm Depression acute September 25 1:52pm History of delivery , currently acute September 25 1:52pm acute September 25 1:52pm Supervision of high-risk acute September 25, 2024 1:52pm Anxiety acute October 20, 2 025 9:35am Cephalopelvic disproportion acute October 20, 2024 9:35am Depression acute October 20, 2 025 9:35am History of delivery , currently acute October 20, 2024 9:35am acute October 20, 2 025 9:35am Supervision of high-risk acute October 20 9:35am Anxiety acute November 13, 2024 3:30pm Cephalopelvic disproportion acute November 13, 2024 3:30pm Depression acute November 13, 2024 3:30pm History of delivery , currently acute November 3:30pm Placenta adherent to previou s uterine scar, antepartum acute Septemb er 2024 3:30pm acute November 13, 2024 3:30pm Supervision of high-risk acute November 13 025 3:30pm [facility] Work Phone: 1(579) 341-487406-19-2025 Evaluation note* Diagnosis Onset Date Resolution Status Admit Date Anxiety acute August 28 12:40pm 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, 2024 12:40pm Depression acute August 28 12:40pm History of delivery , currently acute August 28 12:40pm acute August 28 12:40pm Supervision of high-risk acute August 28, 2024 12:40pm Anxiety acute September 25 1:52pm Cephalopelvic disproportion acute September 25, 2024 1:52pm Depression acute September 25 1:52pm History of delivery , currently acute September 25 1:52pm acute September 25 1:52pm Supervision of high-risk acute September 25, 2024 1:52pm Anxiety acute October 20, 2 025 9:35am Cephalopelvic disproportion acute October 20, 2024 9:35am Depression acute October 20, 2 025 9:35am History of delivery , currently acute October 20, 2024 9:35am acute October 20, 2 025 9:35am Supervision of high-risk acute October 20 9:35am Anxiety acute November 13, 2024 3:30pm Cephalopelvic disproportion acute November 13, 2024 3:30pm Depression acute November 13, 2024 3:30pm History of delivery , currently acute November 3:30pm Placenta adherent to previou s uterine scar, antepartum acute Septemb er 2024 3:30pm acute November 13, 2024 3:30pm Supervision of high-risk acute November 13 2 025 3:30pm Anxiety acute November 17, 2024 9:15am Cephalopelvic disproportion acute November 17, 2024 9:15am Depression acute November 17, 2024 9:15am History of delivery , currently acute November 9:15am Nephrolithiasis acute November 17, 2024 9:15am Placenta adherent to previou s uterine scar, antepartum acute Septemb 2024 9:15am acute November 17, 2024 9:15am Supervision of high-risk acute November 17 2 025 9:15am [facility] Work Phone: 1(941) 704-242806-19-2025 Progress [facility] [address] [place] [address], [address] [place] [address] OFFICE VISIT Date of Service: 08/28/24 MR#: [id number] Acct: [id number] Name: MELANIE LEIJA Rep #: [id number] : 2000 Provider: MICHELLE Michael Age/Sex: 24/F Location: [facility] [place] Status: Signed Intake Vital Signs 09/19/23 14:48 08/28/24 13:01 08/28/24 13:05 Height 5 ft 6 in 5 ft 6 in 5 ft 6 in Weight: 155 lb 4 oz BMI 25.0 BP 135/71 H Intake Visit Reasons: *EST* NOB LMP 06/21, DESTIN 03/28 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 Is patient in pain?: No Allergies No Known Allergies Allergy (Verified 08/28/24 13:00) Medications ?Medication ?Instructions ?Recorded ?Confirmed ?Type ascorbic acid (vitamin C) 500 mg mg PO 08/16/23 History capsule cholecalciferol (vitamin D3) 50 50 mcg PO DAILY 08/28/24 History mcg (2,000 unit) capsule docosahexaenoic acid 200 mg mg PO 08/20/23 08/28/24 Hi story capsule ( DHA) Last Menstrual Period: 06/21/24 Zika: Zika virus screening: Negative : Yes PFSH PFSH Medical History Cephalopelvic disproportion Depression Anxiety Migraines Surgical History delivery delivered History of tonsillectomy Family History Grandmother Breast cancer, Onset Age: 80 Paternal Social History adopted: No household members: significant other and children number of children: 1 current occupational status: employed current occupation: [employer] current occupational exposures/hazards: No pets and animals: Yes pets and animals: dog(s) history of recent travel: No sexually active: Yes Smoking Status: Never smoker second hand exposure: No alcohol intake: current alcohol intake frequency: holidays/special occasions only details: Not while substance use type: does not use well-balanced diet: about half the time caffeine: Yes Type: coffee Number of servings: 1 eating out: rarely or never during the past year weight has: remained stable what type of physical activity do you participate in: none frequency: 1-2 times per week duration: > 90 minutes/day dana/jew: None seatbelt use: always do you feel safe at home: Yes 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 Date Name GA/Weeks Outcome Route Bth Weight Gen Labor Lgth Anesthesia Del Locatn Provider FOB 08/08/23 Rafia 39 live - full term 8lbs 5oz Female epidural [facility] Sunilhugh Hugh Delivery Date: 08/08/23 Last Updated by: Autumn Guerra cpd pushed for 3.5 hours direct OP HPI *EST* NOB LMP 06/21, DESTIN 03/28 Details: MELANIE LEIJA is a 24 year old who presents for New OB visit. OB Visit DESTIN Calculator Estimated Delivery Date Method Current WG Current Estimate 03/28/25 Ultrasound #1 9w 5d Other Estimates 03/28/25 LMP (Certain) 9w 5d Estimated Due Date: 03/28/25 Expected Delivery Route/Plan Desired repeat c/s Specific Issue/Plans Covid status: [] Flu vaccine: [] Tdap vaccine: [] Rhogam: [] LARC form signed: [] Problem list reviewed and updated with the most current plan of care details and appropriate ordersplaced. Relevant counseling for the gestational age provided. Continue routine care and follow up unless otherwise noted in visit notes/problem list details Initial Weight: 155 lb Date -?-?-?-?-?-?-?-?-?-?-?-?- EGA Weight BP Urine Prot -?-?-?-?-?-?-?-?-?-?-?-?- Glucose FHR FuHt Pres Dilation -?-?-?-?-?-?-?-?-?-?-?-?- Effaced St Visit Note 08/28/24 -?-?-?-?-?-?-?-?-?-?-?-?- 9w 5d 155 lb 4 oz (+4 oz) 135/71 -?-?-?-?-?-?-?-?-?-?-?-?- 167 -?-?-?-?-?-?-?-?-?-?-?-?- KW- CRL 2.87cm a nd cons with dates. accepts NIPT Menstrual History Last Menstrual Period: 06/21/24 Reported LMP: definite Normal amount/duration: Yes Frequency in days: 28 On hormonal BC at conception: No hCG+: 07/18/24 Antepartum Record Genetic Screening: Congenital Heart Defect: Other, Neural Tube Defect: Other, Hemoglobinopathy Or Carrier: Other, Cystic Fibrosis: Other, Chromosome Abnormality: Other, Juan F-Sachs: Other, Hemophilia: Other, Intellectual Disability/Autism: Other, Recurrent Loss/Stillbirth: Other, Other Structural Defect: Other, Other Genetic Disease: Other and Maternal Metabolic Disorder: Other Infection History: Live with someone with TB or Exposed to TB: No, Patient or Partner has history of Genital Herpes: No, Rash or Viral illness since last mentrual period: No, Prior GBS-Infected child: No, History of STD: No, HIV Infection: No, History of Hepatitis: No, Recent travel outside of [place]: No, Concern for hepatitis exposure: No, Varicella immune: Yes (Had vaccine) and Covid Vaccinated: No Medical History Medical History: Positive: Psychiatric (Anxiety - no meds, stable), Depression/ depression (Depression - no meds, stable) and Operations/hospitalizations (See surg hx) and Negative: Diabetes, Hypertension, Heart disease, Auto-immune disorder, Kidney disease/UTI, Neurologic/epilepsy, Hepatitis/liver disease, Varicosities/phlebitis, Thyroid dysfunction, Trauma/domestic violence, History of blood transfusions, D (Rh) Sensitized, Pulmonary (e.g.,TB,Asthma), Seasonal allergies, Drug/latex allergies/reactions, Breast, Toll Collector Supervisor surgery, Anesthetic complications, History of abnormal pap, Uterine anomaly/payton, Infertility, Anti-retroviral treatment, Relevant family history and Other ACOG First Trimester First Trimester: Desire for , Alcohol, Tobacco Cessation, Illicit/Recreational Drug/Substance Use, Intimate Partner Violence, Barriers to care, Unstable Housing, Communication Barriers, Environmental/Work Hazards, Anticipated Course of Care, Toxoplasmosis Precations, Use of Any med ications, Sexual activity, Exercise, Dental Care, Sauna/Hot tub use, Seat Belt use, Childbirth classes/Hospital facilities, , Travel, Indications for Ultrasound and Screening for Aneuploidy Second Trimester Second Trimester: Signs and Symptoms of Labor, Selecting a care provider, Reproductive Life Planning & Contreception, Care Planning, Depression/Anxiety and Intimate Partner Violence; Discussed Tobacco Cessation Third Trimester Third Trimester: Pain Management Plans, Labor support person(s), Immediate Larc, Movement Monitoring, Signs and Symptoms of Preeclampsia, Feeding Yes , Education and Family Medical Leave or Disability Forms ROS Const Reports system reviewed and no additional complaints, except as documented, Denies fatigue, Denies headache(s) and Denies lethargy ENT Denies headache(s) Card Reports system reviewed and no additional complaints, except as documented Resp Reports system reviewed and no additional complaints, except as documented GI Reports system reviewed and no additional complaints, except as documented, Denies abdominal pain, Denies constipation, Denies cramping, Denies diarrhea and Denies dyspepsia Reports system reviewed and no additional complaints, except as documented, Denies abnormal vaginalbleeding, Denies difficulty voiding, Denies dyspareunia and Denies dysuria Musc Reports system reviewed and no additional complaints, except as documented Skin/Breast Reports system reviewed and no additional complaints, except as documented Neuro Yes system reviewed and no additional complaints, except as documented and No headache(s) Psych Reports system reviewed and no additional complaints, except as documented, Denies anhedonia and Denies anxiety Endo Reports system reviewed and no additional complaints, except as documented and Denies fatigue Exam Const General: cooperative, healthy appearing and comfortable Neck Neck: normal visual inspection and full ROM Chest Chest palpation & inspection: normal inspection of the chest Breast inspection: normal inspection of the breasts and normal inspection of the axillae Breast palpation: normal palpation of the breasts and normal palpation of the axillae Resp Effort & Inspection: normal respiratory effort and able to speak in complete sentences GI Inspection: normal to inspection Palpation: soft External Female Exam: normal external appearance and normal appearance of the urethra Urethra: normal appearance of the urethra Skin General: no rashes or lesions noted Neuro General: patient alert, patient awake and patient oriented x3 Extrem General: normal to inspection and full ROM Psych Appearance: grossly normal and well kempt Mental Status: mental status grossly normal Mood: congruent mood Affect: normal affect Speech and Movement: speech and movement normal Thought Process: normal Thought Content: normal Coding Level of Care Code Off vis,est,level 4 Diagnoses Supervision of high-risk O09.90 Z34.90 History of delivery, currently O34.219 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 stable (6) Anxiety: Status: Acute Comment: no meds. Stable Comments Comments: Patient oriented to practice and discussed care expectations and screenings. ACOG book offered to patient. Discussed routine and specially indicated labs if needed- patient consents to testing. See problem list details for plan information. Optional screening including maternal carrier screenings, neural tube defect screening, genetic screening options including quad screen, nuchal translucency, sequential screening, and NIPT screening offered to patient and patient chose: nipt 08/28/24 1325 s MICHELLE> Date _ Yomaira Michael CNM Cosigner Signature: Date (if applicable) CC: [facility] Diagnosis Onset Date Resolution Status acute Supervision of normal first [facility] Work Phone: Evaluation note* Diagnosis Onset Date Resolution Status acute Supervision of normal first acute acute Supervision of normal first acute acute Supervision of normal first acute acute Supervision of normal first acute Acute sinusitis resolved Anxiety acute Depression acute acute Supervision of normal first [facility] Work Phone: Evaluation note* Diagnosis Onset Date Resolution Status acute Supervision of normal first acute acute Supervision of normal first acute Acute sinusitis resolved Anxiety acute Depression acute acute Supervision of normal first acute Anxiety acute Depression acute acute Supervision of normal first acute Anxiety acute Depression acute acute Supervision of normal first acute Anxiety acute Depression acute acute Supervision of normal first acute Decreased movement acu [facility] Work Phone: Evaluation note* Diagnosis Onset Date Resolution Status Admit Date Anxiety acute August 28 12:40pm 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, 2024 12:40pm Depression acute August 28 12:40pm History of delivery , currently acute August 28 12:40pm acute August 28 12:40pm Supervision of high-risk acute August 28, 2024 12:40pm [facility] Work Phone: History and physical note Author Alejandra Cason [facility] July 09, 2023 6:09pm Note Date/Time July 09, 2023 6:0 9pm [facility] Medical Records Department [address] [place] [address] OB Triage Physician Note 07/09/23 1807 MR#: [id number] Acct: [id number] Name: MELANIE LEIJA Rep #:[id number] : 2000 22 From: Alejandra Cason CNChidi PCP: Dr. Mariely Neal MD Status:REG CLI Y Location: [place] [address] HPI - General General Date of Service: 07/09/23 Chief Complaint: dec fm HPI Narrative MELANIE LEIJA, is a 22 F who presents at 35.6 with decreased movement. has felt 7 movements in 1 hour. denies lof/vb/ctx. Maternal Data Information DESTIN Calculator Estimated Delivery Date Method Current WG Current Estimate 08/10/23 Ultrasound #1 35w 3d Other Estimates 08/07/23 Ultrasound #2 35w 6d PFSH PFSH Medical History Anxiety Depression Migraines Home Medications multivit-min no.71-iron fum 28 mg-folate no.1 1 mg-dha 300 mg capsule (PNV- [place]) 1 cap PO DAILY 01/05/23 [History Last Taken 07/09/23 09:00] calcium carbonate 500 mg-simethicone 20 mg chewable tablet 2 tab PO PRN PRN heartburn 07/09/23 [History Last Taken 07/09/23 13:45] Allergy/AdvReac Type Severity Reaction Status Date / Time No Known Allergies Allergy Verified 07/09/23 17:50 Family History Grandmother Breast cancer, Onset Age: 80 Paternal Surgical History History of tonsillectomy Social History adopted: No household members: significant other current occupational status: employed current occupation: [employer] current occupational exposures/hazards: No pets and animals: Yes pets and animals: dog(s) history of recent travel: No sexually active: Yes Smoking Status: Never smoker alcohol intake: never substance use type: does not use well-balanced diet: daily or most days caffeine: Yes Type: coffee Number of servings: 1 eating out: 1-3 times/week during the past year weight has: remained stable what type of physical activity do you participate in: weight training and otherdetails: cardio frequency: 1-2 times per week duration: > 90 minutes/day dana/jew: Muslim seatbelt use: always do you feel safe at home: Yes 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 1 Elective abortions Hx Para 0 Spontaneous abortions Hx # Term Pregnancies Ectopic pregnancies Hx # Pregnancies Multiple births # of living children Visit Details Expected Delivery Route/Plan Labor Preferences- CB/BF classes: encouraged labor support person: BARB Veloz labor intervention preferences: [] pain management options preferred: epidural cut cord/dad catch: yes : yes PP control planned: discussed discussed possible routes of delivery and associated risks: [] special requests: [] Plans Covid status: no Flu vaccine: no, not interested Tdap vaccine: declines Rhogam: na LARC form signed: yes Problem list reviewed and updated with the most current plan of care details and appropriate orders placed. Relevant counseling for the gestational age provided. Continue routine care and follow up unless otherwise noted in visit notes/problem list details OB Flowsheet Initial Weight: Not Recorded Date -?-?-?-?-?-?-?-?-?-?-?-?- EGA Weight BP Urine Prot -?-?-?-?-?-?-?-?-?-?-?-?- Glucose FHR FuHt Pres Dilation -?-?-?-?-?-?-?-?-?-?-?-?- Effaced St Visit Note 01/09/23 -?-?-?-?-?-?-?--?-?-?-?-?- 9w 4d 142 lb 4 oz 125/78 -?-?-?-?-?-?-?-?-?-?-?-?- 186 -?-?-?-?-?-?-?-?-?-?-?-?- JV- CRL consiste nt with LMP. undecided about NIPT (gutierrez pay) 02/09/23 -?-?-?-?-?-?-?-?-?-?-?-?- 14w 0d 142 lb 2 oz 116/74 Nega tive -?-?-?-?-?-?-?-?-?-?-?-?- Negative 160 -?-?-?-?-?--?-?-?-?-?-?-?- LC- no vb/crampi ng. its a girl! discussed and declines afp. anatomy scheduled. 03/08/23 -?-?-?-?-?-?-?-?-?-?-?-?- 17w 6d 150 lb 125/74 Negative -?-?-?-?-?-?-?-?-?-?-?-?- Negative 149 -?-?-?-?-?-?-?-?-?-?-?-?- -No VB, crampi ng. Has felt flutters. US next week 04/05/23 -?-?-?-?-?-?-?--?-?-?-?-?- 21w 6d 161 lb 2 oz 114/64 Nega tive -?-?-?-?-?-?-?-?-?-?-?-?- Negative 145 22 -?-?-?-?-?-?-?-?-?-?-?-?- - no vb lof go od fm no regular ctx, fu anatomy scan to evaluate feet, declined ntd screen. encouraged classes 05/16/23 -?-?-?-?-?-?-?-?-?-?-?-?- 27w 5d 172 lb 6 oz 126/74 Nega tive -?-?-?-?-?-?-?-?-?-?-?-?- Negative 146 27 -?-?-?-?-?-?-?-?-?-?-?-?- -No VB, LOF. g ood FM. 28 wk labs pending. Larc. 05/31/23 -?-?-?-?-?-?-?-?-?-?-?--?- 29w 6d 178 lb 122/78 Negative -?-?-?-?-?-?-?-?-?-?-?-?- Negative 145 31 -?-?-?-?-?-?-?-?-?-?-?-?- KW- no vb/lof/ct x. good fm. Labs normal. 06/13/23 -?-?-?-?-?-?-?-?-?-?-?-?- 31w 5d 184 lb 2 oz 126/77 Nega tive -?-?-?-?-?-?-?-?-?-?-?-?- Negative 161 32 -?-?-?-?-?-?-?-?-?--?-?-?- MH-No VB, LOF. G ood Fm. Some RL pain-reassured 06/27/23 -?-?-?-?-?-?-?-?-?-?-?-?- 33w 5d 185 lb 115/71 Negative -?-?-?-?-?-?-?-?-?-?-?-?- Negative 130 34 -?-?-?-?-?-?-?-?-?-?-?-?- LC- no vb/ctx/lo f. good fm. no concerns today. Physical Exam Const alert, oriented x3 and no apparent distress Resp normal respiratory effort, normal air movement, no retractions and no use of accessory muscles Cardio regular rate and regular rhythm GI soft to palpation and non-tender Inspection: Palpation: soft Rectal Exam: deferred no CVA tenderness and external exam normal Bimanual Exam - Vag & Uterus: uterus non-tender and other gravid uterus, normal for gestational age OB / External & Speculum: Negative for herpetic lesions Manual OB Exam: estimated gestational size appropriate and presentation cephalic Amniotic Fluid: no amniotic fluid noted Extremity normal to inspection and full ROM Neuro Motor Exam: strength 5/5 throughout and muscle tone normal throughout Deep Tendon Reflexes: Rt Patellar (L4): 2+ and Lt Patellar (L4): 2+ NST FHR Rate Baby A Baseline: 140 Variability:: Moderate Accelerations:: 15 x 15 Decelerations:: None NST Reactive:: Yes FHR Category:: Category I Uterine Activity:: irregular, non painful Assessment & Plan (1) Decreased movement: COMMENT: reactive NST, movement now safe for d/c PLAN: Plan Patient presents for triage evaluation secondary to decreased movement FHT: Moderate variability reactive no decelerations category I tracing [place]: irreg non painful Contractions Assessment and plan: Reactive NST, reassuring maternal and status patient discharged to home to follow-up in office. See problem list details for additional plan information. Charges/Coding Visit Charges Office Visits / Consults: 59668 OP Consult L3 Procedures Urinary/Genital 52xxx-59xxx: 21275-94 non-stress test Interp Multi Select Codes Urinary/Genital Urinary/Genital CPT Codes: 23889-72 non-stress test Interp 07/09/23 1809 <Electronically signed by Alejandra lovell CNM> Date _ Alejandra Cason CNM Cosigner Signature (if applicable): Date CC: MICHELLE Cason; Dr. Mariely Neal MD ~ Signed [facility] Work Phone: Progress note Author Yomaira Michael [facility] Note Date/Time August 28, 2024 1:[address] 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 Is patient in pain?: No Allergies No Known Allergies Allergy (Verified 08/28/24 13:00) Medications ?Medication ?Instructions ?Recorded ?Confirmed ?Type ascorbic acid (vitamin C) 500 mg mg PO 08/16/23 History capsule cholecalciferol (vitamin D3) 50 50 mcg PO DAILY 08/28/24 History mcg (2,000 unit) capsule docosahexaenoic acid 200 mg mg PO 08/20/23 08/28/24 Hi story capsule ( DHA) Last Menstrual Period: 06/21/24 Zika: Zika virus screening: Negative : Yes PFSH PFSH Medical History Cephalopelvic disproportion Depression Anxiety Migraines Surgical History delivery delivered History of tonsillectomy Family History Grandmother Breast cancer, Onset Age: 80 Paternal Social History adopted: No household members: significant other and children number of children: 1 current occupational status: employed current occupation: [employer] current occupational exposures/hazards: No pets and animals: Yes pets and animals: dog(s) history of recent travel: No sexually active: Yes Smoking Status: Never smoker second hand exposure: No alcohol intake: current alcohol intake frequency: holidays/special occasions only details: Not while substance use type: does not use well-balanced diet: about half the time caffeine: Yes Type: coffee Number of servings: 1 eating out: rarely or never during the past year weight has: remained stable what type of physical activity do you participate in: none frequency: 1-2 times per week duration: > 90 minutes/day dana/jew: None seatbelt use: always do you feel safe at home: Yes 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 Date Name GA/Weeks Outcome Route Bth Weight Gen Labor Lgth Anesthesia Del Locatn Provider FOB 08/08/23 Rafia 39 live - full term 8lbs 5oz Female epidural [facility] Luz Veloz Delivery Date: 08/08/23 Last Updated by: Autumn Guerra cpd pushed for 3.5 hours direct OP HPI *EST* NOB LMP 06/21, DESTIN 03/28 Details: MELANIE LEIJA is a 24 year old who presents for New OB visit. OB Visit DESTIN Calculator Estimated Delivery Date Method Current WG Current Estimate 03/28/25 Ultrasound #1 9w 5d Other Estimates 03/28/25 LMP (Certain) 9w 5d Estimated Due Date: 03/28/25 Expected Delivery Route/Plan Desired repeat c/s Specific Issue/Plans Covid status: [] Flu vaccine: [] Tdap vaccine: [] Rhogam: [] LARC form signed: [] Problem list reviewed and updated with the most current plan of care details and appropriate orders placed. Relevant counseling for the gestational age provided. Continue routine care and follow up unless otherwise noted in visit notes/problem list details Initial Weight: 155 lb Date -?-?-?-?-?-?-?-?-?-?-?-?- EGA Weight BP Urine Prot -?-?-?-?-?-?-?-?-?-?-?-?- Glucose FHR FuHt Pres Dilation -?-?-?-?-?-?-?-?-?-?-?-?- Effaced St Visit Note 08/28/24 -?-?-?-?-?-?-?-?-?-?-?-?- 9w 5d 155 lb 4 oz (+4 oz) 135/71 -?-?-?-?-?-?-?-?-?-?-?-?- 167 -?-?-?-?-?-?-?-?-?-?-?-?- KW- CRL 2.87cm a nd cons with dates. accepts NIPT Menstrual History Last Menstrual Period: 06/21/24 Reported LMP: definite Normal amount/duration: Yes Frequency in days: 28 On hormonal BC at conception: No hCG+: 07/18/24 Antepartum Record Genetic Screening: Congenital Heart Defect: Other, Neural Tube Defect: Other, Hemoglobinopathy Or Carrier: Other, Cystic Fibrosis: Other, Chromosome Abnormality: Other, Juan F-Sachs: Other, Hemophilia: Other, Intellectual Disability/Autism: Other, Recurrent Loss/Stillbirth: Other, Other Structural Defect: Other, Other Genetic Disease: Other and Maternal Metabolic Disorder: Other Infection History: Live with someone with TB or Exposed to TB: No, Patient or Partner has history of Genital Herpes: No, Rash or Viral illness since last mentrual period: No, Prior GBS-Infected child: No, History of STD: No, HIV Infection: No, History of Hepatitis: No, Recent travel outside of [place]: No, Concern for hepatitis exposure: No, Varicella immune: Yes (Had vaccine) and Covid Vaccinated: No Medical History Medical History: Positive: Psychiatric (Anxiety - no meds, stable), Depression/ depression (Depression - no meds, stable) and Operations/hospitalizations (See surg hx) and Negative: Diabetes, Hypertension, Heart disease, Auto-immune disorder, Kidney disease/UTI, Neurologic/epilepsy, Hepatitis/liver disease, Varicosities/phlebitis, Thyroid dysfunction, Trauma/domestic violence, History of blood transfusions, D (Rh) Sensitized, Pulmonary (e.g.,TB,Asthma), Seasonal allergies, Drug/latex allergies/reactions, Breast, Toll Collector Supervisor surgery, Anesthetic complications, History of abnormal pap, Uterine anomaly/payton, Infertility, Anti-retroviral treatment, Relevant family history and Other ACOG First Trimester First Trimester: Desire for , Alcohol, Tobacco Cessation, Illicit/Recreational Drug/Substance Use, Intimate Partner Violence, Barriers to care, Unstable Housing, Communication Barriers, Environmental/Work Hazards, Anticipated Course of Care, Toxoplasmosis Precations, Use of Any medications, Sexual activity, Exercise, Dental Care, Sauna/Hot tub use, Seat Belt use, Childbirth classes/Hospital facilities, , Travel, Indications for Ultrasound and Screening for Aneuploidy Second Trimester Second Trimester: Signs and Symptoms of Labor, Selecting a care provider, Reproductive Life Planning & Contreception, Care Planning, Depression/Anxiety and Intimate Partner Violence; Discussed Tobacco Cessation Third Trimester Third Trimester: Pain Management Plans, Labor support person(s), Immediate Larc, Movement Monitoring, Signs and Symptoms of Preeclampsia, Feeding Yes , Education and Family Medical Leave or Disability Forms ROS Const Reports system reviewed and no additional complaints, except as documented, Denies fatigue, Denies headache(s) and Denies lethargy ENT Denies headache(s) Card Reports system reviewed and no additional complaints, except as documented Resp Reports system reviewed and no additional complaints, except as documented GI Reports system reviewed and no additional complaints, except as documented, Denies abdominal pain, Denies constipation, Denies cramping, Denies diarrhea and Denies dyspepsia Reports system reviewed and no additional complaints, except as documented, Denies abnormal vaginal bleeding, Denies difficulty voiding, Denies dyspareunia and Denies dysuria Musc Reports system reviewed and no additional complaints, except as documented Skin/Breast Reports system reviewed and no additional complaints, except as documented Neuro Yes system reviewed and no additional complaints, except as documented and No headache(s) Psych Reports system reviewed and no additional complaints, except as documented, Denies anhedonia and Denies anxiety Endo Reports system reviewed and no additional complaints, except as documented and Denies fatigue Exam Const General: cooperative, healthy appearing and comfortable Neck Neck: normal visual inspection and full ROM Chest Chest palpation & inspection: normal inspection of the chest Breast inspection: normal inspection of the breasts and normal inspection of the axillae Breast palpation: normal palpation of the breasts and normal palpation of the axillae Resp Effort & Inspection: normal respiratory effort and able to speak in complete sentences GI Inspection: normal to inspection Palpation: soft External Female Exam: normal external appearance and normal appearance of the urethra Urethra: normal appearance of the urethra Skin General: no rashes or lesions noted Neuro General: patient alert, patient awake and patient oriented x3 Extrem General: normal to inspection and full ROM Psych Appearance: grossly normal and well kempt Mental Status: mental status grossly normal Mood: congruent mood Affect: normal affect Speech and Movement: speech and movement normal Thought Process: normal Thought Content: normal Coding Level of Care Code Off vis,est,level 4 Diagnoses Supervision of high-risk O09.90 Z34.90 History of delivery, currently O34.219 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 stable (6) Anxiety: Status: Acute Comment: no meds. Stable Comments Comments: Patient oriented to practice and discussed care expectations and screenings. ACOG book offered to patient. Discussed routine and specially indicated labs if needed- patient consents to testing. See problem list details for plan information. Optional screening including maternal carrier screenings, neural tube defect screening, genetic screening options including quad screen, nuchal translucency, sequential screening, and NIPT screening offered to patient and patient chose: nipt 08/28/24 1325 <Electronically signed by Yomaira castro CNM> Date _ Yomaira Michael CNM Cosigner Signature: Date (if applicable) CC: ~ [facility] Work Phone: Progress note Author Sujata Barbosa [facility] Note Date/Time October 20, 2024 9: 49am [facility] [address] [place] [address], [address] [place] [address] OFFICE VISIT Date of Service: 10/20/24 MR#: [id number] Acct: [id number] Name: MELANIE LEIJA Rep #: [id number] : 2000 Provider: MANJU Barbosa Age/Sex: 24/F [place] [facility] [place] Status: Signed Intake Vital Signs 08/28/24 13:05 09/25/24 13:54 10/20/24 09:38 Height 5 ft 6 in 5 ft 6 in 5 ft 6 in Weight: 162 lb 3 oz BMI 26.2 BP 139/69 H Intake Visit 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: 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 Is patient in pain?: No Allergies No Known Allergies Allergy (Verified 10/20/24 09:39) Medications ?Medication ?Instructions ?Recorded ?Confirmed ?Type ascorbic acid (vitamin C) 500 mg mg PO 08/16/23 History capsule cholecalciferol (vitamin D3) 50 50 mcg PO DAILY 10/20/24 History mcg (2,000 unit) capsule docosahexaenoic acid 200 mg mg PO 08/20/23 10/20/24 Hi story capsule ( DHA) Last Menstrual Period: 06/21/24 Zika: Zika virus screening: Negative : Yes Have you fallen in the past year?: No PFSH PFSH Medical History Cephalopelvic disproportion Depression Anxiety Migraines Surgical History delivery delivered History of tonsillectomy Family History Grandmother Breast cancer, Onset Age: 80 Paternal Social History adopted: No household members: significant other and children number of children: 1 current occupational status: employed current occupation: [employer] current occupational exposures/hazards: No pets and animals: Yes pets and animals: dog(s) history of recent travel: No sexually active: Yes Smoking Status: Never smoker second hand exposure: No alcohol intake: current alcohol intake frequency: holidays/special occasions only details: Not while substance use type: does not use well-balanced diet: about half the time caffeine: Yes Type: coffee Number of servings: 1 eating out: rarely or never during the past year weight has: remained stable what type of physical activity do you participate in: none frequency: 1-2 times per week duration: > 90 minutes/day dana/jew: None seatbelt use: always do you feel safe at home: Yes 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 Date Name GA/Weeks Outcome Route Bth Weight Infant Gen Labor Lgth Anesthesia Del Locatn Provider FOB 08/08/23 Rafia 39 live - full term 8lbs 5oz Female epidural [facility] Luz Veloz Delivery Date: 08/08/23 Last Updated by: Autumn Guerra cpd pushed for 3.5 hours direct OP HPI 18wk ob Details: MELANIE LEIJA is a 24 year old who presents for routine OB visit. OB Visit DESTIN Calculator Estimated Delivery Date Method Current WG Current Estimate 03/28/25 LMP (Certain) 17w 2d Other Estimates 03/28/25 Ultrasound #1 17w 2d Expected Delivery Route/Plan Desired repeat c/s Specific Issue/Plans Covid status: [] Flu vaccine: [] Tdap vaccine: [] Rhogam: [] LARC form signed: [] Problem list reviewed and updated with the most current plan of care details and appropriate orders placed. Relevant counseling for the gestational age provided. Continue routine care and follow up unless otherwise noted in visit notes/problem list details Initial Weight: 155 lb Date -?-?-?-?-?-?-?-?-?-?-?-?- EGA Weight BP Urine Prot -?-?-?-?-?-?-?-?-?-?-?-?- Glucose FHR FuHt Pres Dilation -?-?-?-?-?-?-?-?-?-?-?-?- Effaced St Visit Note 08/28/24 -?-?-?-?-?-?-?-?-?-?-?-?- 9w 5d 155 lb 4 oz (+4 oz) 135/71 -?-?--?-?-?-?-?-?-?-?-?-?- 167 -?-?-?-?-?-?-?-?-?-?-?-?- KW- CRL 2.87cm a nd cons with dates. accepts NIPT 09/25/24 -?-?-?-?-?-?-?-?-?-?-?-?- 13w 5d 157 lb 4 oz (+2 lb 4 oz) 133/81 Negative -?-?-?-?-?-?-?-?-?-?-?-?- Negative 156 -?-?-?-?-?-?-?-?-?-?-?-?- JV CRL still con sistent with LMp. low risk NIPT girl! no complaints today. anatomy scan ordered. planning repeat section. 10/20/24 -?-?-?-?-?-?-?-?-?-?-?-?- 17w 2d 162 lb 3 oz (+7 lb 3 oz) 139/69 Negative -?-?-?-?-?-?-?-?-?-?-?-?- Negative 145 -?-?-?-?-?-?-?-?-?-?-?-?- MH-No VB. No Flu tters yet. Has had episodes of dizziness. Discussed standing slowly, force fluids, freq meals. ACOG First Trimester First Trimester: Desire for , Alcohol, Tobacco Cessation, Illicit/Recreational Drug/Substance Use, Intimate Partner Violence, Barriers to care, Unstable Housing, Communication Barriers, Environmental/Work Hazards, Anticipated Course of Care, Toxoplasmosis Precations, Use of Any medications, Sexual activity, Exercise, Dental Care, Sauna/Hot tub use, Seat Belt use, Childbirth classes/Hospital facilities, , Travel, Indications for Ultrasound and Screening for Aneuploidy Second Trimester Second Trimester: Signs and Symptoms of Labor, Selecting a care provider, Reproductive Life Planning & Contreception, Care Planning, Depression/Anxiety and Intimate Partner Violence; Discussed Tobacco Cessation Third Trimester Third Trimester: Pain Management Plans, Labor support person(s), Immediate Larc, Movement Monitoring, Signs and Symptoms of Preeclampsia, Infant Feeding Yes , Education and Family Medical Leave or Disability Forms ROS Const Reports system reviewed and no additional complaints, except as documented GI Denies abdominal pain, Denies nausea and Denies vomiting Exam Const General: cooperative Nutritional Appearance: well nourished GI Palpation: soft, nontender and other (gravid) Results POC Urinalysis 2 Dip (Clinic) Office Urine Glucose Negative Last Edit by Erica Mcgowan on 10/20/24 09:45 Office Urine Protein Negative Last Edit by Erica Mcgowan on 10/20/24 09:45 Coding Level of Care Code Off vis,est,level 3 Diagnoses Supervision of high risk in second trimester O09.92 Trimester: second trimester 17 weeks gestation of Z3A.17 Weeks of gestation: 17 weeks History of delivery, currently O34.219 Cephalopelvic disproportion, due to unspecified factor O33.9 Cephalopelvic disproportion type: due to unspecified factor Depression, unspecified depression type F32.A Depression Type: unspecified Anxiety F41.9 Assessment and Plan Assessment and Plan (1) Supervision of high-risk : Status: Acute Qualifiers: Trimester: second trimester Qualified Code(s): O09.92 - Supervision of high risk , unspecified, second trimester Comment: [id number], DESTIN 03/28, PC: Mary Jo Morataya?: Hugh (2) : Status: Acute Qualifiers: Weeks of gestation: 17 weeks Qualified Code(s): Z3A.17 - 17 weeks gestation of Comment: NIPT: low risk, female (3) History of delivery, currently : Status: Acute Comment: x1, Desires rpt csec d/t cephalopelvic disproportion (4) Cephalopelvic disproportion: Status: Acute Qualifiers: Cephalopelvic disproportion type: due to unspecified factor Qualified Code(s): O33.9 - Maternal care for disproportion, unspecified Comment: recommend only RLTCS SM (5) Depression: Status: Acute Qualifiers: Depression Type: unspecified Qualified Code(s): F32.A - Depression, unspecified Comment: no meds. stable (6) Anxiety: Status: Acute Comment: no meds. Stable Orders: Orders POC Urinalysis 2 Dip (Clinic) Today Plan problem list reviewed and updated for most current plan of care and appropriate orders placed. Relevant counseling for the gestational age appropriate provided and ACOG education checklist updated. Continue routine care and follow up. Clinical Quality Measures Falls Risk Screening/Assistive Devices Have you fallen in the past year?: No 10/20/24 0952 <Electronically signed by Sujata castro MANAGEMENT INFORMATION SYSTEMS DIRECTOR MANAGEMENT INFORMATION SYSTEMS DIRECTOR-C> Date _ Sujata Barbosa MANAGEMENT INFORMATION SYSTEMS DIRECTOR MANAGEMENT INFORMATION SYSTEMS DIRECTOR-C Cosigner Signature: Date (if applicable) CC: ~ [facility] Work Phone: Reason for referral (narrative)No reason for referral information availableLos [facility] Center Work Phone: Summary Purpose Family History No Family History Records Found Relationship Condition Age at Onset Recorded Date/T jil grandmother Malignant neoplasm of breast 80 Advance Directives No Advanced Directives Records Found Advance Directive Response Recorded Date/ Time Living Will No April 06 3:14pm Power of Lead Portfolio Manager No April 06, 2021 3:14pm Advance Directive Response Recorded Date/ Time Living Will No April 06 4:14pm Power of Lead Portfolio Manager No April 06, 2021 4:14pm Hospital Course Note Send Summary: Discharge Summ [place] Providers: Provider RoleProvider Name ReferringYajaira Hagan AttendingUte Olmos PrimaryRequired, No Pcp Note Recipients: Yajaira Hagan MD Required, No Pcp, MAYKEL CRANDALL M - [phone] [] Discharge: Summary: Admission Date: .13-May-2019 17:56:00 Discharge Date: 17-May-2019 Attending Physician at Discharge: Ute Olmos Admission Reason: Suicidal Ideation(1) Final Discharge Diagnoses: Cervicitis, Current severe episode of major depressive disorder without psychotic features without prior episode, PTSD (post-traumatic stress disorder), Recurrent major depressive disorder, Procedures: none Condition at Discharge: Satisfactory Disposition at Discharge: .Home Vital Signs: T PRBPSpO2 [id number]/8498% Date/Time05/16 9:023/ 9:023/7 9:023 9:023 9:02 Range(36.5C - 36.8C ) (72 - 74 ) (18 - 18 ) (109 - 119 )/ (74 - 84 ) (98% - 98% ) Physical Exam: General: Well appearing teenage female Appearance: In hospital gown, with long dark montoya (more content not included)... Chief Complaint and Reason for Visit Chief Complaint LMP 11/04 Reason for Visit Supervision of normal first Chief Complaint 14 WK OB 18 WK OB 22 WK OB 26 WK OB COUGH/SINUS PRESSURE/MONTOYA 28 WK OB/GLUCOSE Reason for Visit Supervision of normal first Supervision of normal first Supervision of normal first Supervision of normal first Acute sinusitis Anxiety Depression Supervision of normal first Chief Complaint 22 WK OB 26 WK OB COUGH/SINUS PRESSURE/MONTOYA 28 WK OB/GLUCOSE 30 WK OB 32 WK OB 34 WK OB DECREASED MOVEMENT DECREASED MOVEMENT Reason for Visit Supervision of normal first Supervision of normal first Acute sinusitis Anxiety Depression Supervision of normal first Anxiety Depression Supervision of normal first Anxiety Depression Supervision of normal first Anxiety Depression Supervision of normal first Decreased movement Chief Complaint Admit Date Amb Documentation August 08, 2024 10:53 am *EST* NOB LMP 06/21, DESTIN 03/28August 28, 2024 12:40pm Reason for Visit Admit Date Anxiety August 28, 2024 12:4 0pm Cephalopelvic disproportion August 28, 025 12:40pm Depression August 28, 2024 12:4 0pm History of delivery, currently August 28, 2024 12:40pm August 28, 2024 12:4 0pm Supervision of high-risk August 28, 2024 12:40pm Chief Complaint Admit Date Amb Documentation August 08, 2024 10:53 am *EST* NOB LMP 06/21, DESTIN 03/28August 28, 2024 12:40pm 14wk ob September 25, 2024 1:52 pm Reason for Visit Admit Date Anxiety August 28, 2024 12:4 0pm Cephalopelvic disproportion August 28 025 12:40pm Depression August 28, 2024 12:4 0pm History of delivery, currently August 28, 2024 12:40pm August 28, 2024 12:4 0pm Supervision of high-risk August 28, 2024 12:40pm Anxiety September 25, 2024 1:52 pm Cephalopelvic disproportion September 25, 2 025 1:52pm Depression September 25, 2024 1:52 pm History of delivery, currently September 25, 2024 1:52pm September 25, 2024 1:52 pm Supervision of high-risk September 25, 2024 1:52pm Chief Complaint Admit Date Amb Documentation August 08, 2024 10:53 am *EST* NOB LMP 06/21, DESTIN 03/28August 28, 2024 12:40pm 14wk ob September 25, 2024 1:52 pm 18wk ob October 20, 2024 9: 35am Reason for Visit Admit Date Anxiety August 28, 2024 12:4 0pm Cephalopelvic disproportion August 28, 2 025 12:40pm Depression August 28, 2024 12:4 0pm History of delivery, currently August 28, 2024 12:40pm August 28, 2024 12:4 0pm Supervision of high-risk August 28, 2024 12:40pm Anxiety September 25, 2024 1:52 pm Cephalopelvic disproportion September 25, 2 025 1:52pm Depression September 25, 2024 1:52 pm History of delivery, currently September 25, 2024 1:52pm September 25, 2024 1:52 pm Supervision of high-risk September 25, 2024 1:52pm Anxiety October 20, 2024 9: 35am Cephalopelvic disproportion October 20, 2024 9:35am Depression October 20, 2024 9: 35am History of delivery, currently October 20, 2024 9:35am October 20, 2024 9: 35am Supervision of high-risk Augus t 2024 9:35am Chief Complaint Admit Date Amb Documentation August 08, 2024 10:53 am *EST* NOB LMP 06/21, DESTIN 03/28August 28, 2024 12:40pm 14wk ob September 25, 2024 1:52 pm 18wk ob October 20, 2024 9: 35am OB bleeding November 13, 2024 3:30pm Reason for Visit Admit Date Anxiety August 28, 2024 12:4 0pm Cephalopelvic disproportion August 28, 2 025 12:40pm Depression August 28, 2024 12:4 0pm History of delivery, currently August 28, 2024 12:40pm August 28, 2024 12:4 0pm Supervision of high-risk August 28, 2024 12:40pm Anxiety September 25, 2024 1:52 pm Cephalopelvic disproportion September 25, 2 025 1:52pm Depression September 25, 2024 1:52 pm History of delivery, currently September 25, 2024 1:52pm September 25, 2024 1:52 pm Supervision of high-risk September 25, 2024 1:52pm Anxiety October 20, 2024 9: 35am Cephalopelvic disproportion October 20, 2024 9:35am Depression October 20, 2024 9: 35am History of delivery, currently October 20, 2024 9:35am October 20, 2024 9: 35am Supervision of high-risk Augus t 2024 9:35am Anxiety November 13, 2024 3:30pm Cephalopelvic disproportion November 3:30pm Depression November 13, 2024 3:30pm History of delivery, currently November 13, 2024 3:30pm Placenta adherent to previous uterine sc ar, antepartum November 13, 2024 3:30pm November 13, 2024 3:30pm Supervision of high-risk Septe [email or web address] 3:30pm Chief Complaint Admit Date Amb Documentation August 08, 2024 10:53 am *EST* NOB LMP 06/21, DESTIN 03/28August 28, 2024 12:40pm 14wk ob September 25, 2024 1:52 pm 18wk ob October 20, 2024 9: 35am OB bleeding November 13, 2024 3:30pm R/O UTI November 13, 2024 4:10pm Chief Complaint Admit Date Amb Documentation August 08, 2024 10:53 am *EST* NOB LMP 06/21, DESTIN 03/28August 28, 2024 12:40pm 14wk ob September 25, 2024 1:52 pm 18wk ob October 20, 2024 9: 35am OB bleeding November 13, 2024 3:30pm R/O UTI November 13, 2024 4:10pm 22wk ob November 17, 2024 9:15am Reason for Visit Admit Date Anxiety August 28, 2024 12:4 0pm Cephalopelvic disproportion August 28, 2 025 12:40pm Depression August 28, 2024 12:4 0pm History of delivery, currently August 28, 2024 12:40pm August 28, 2024 12:4 0pm Supervision of high-risk August 28, 2024 12:40pm Anxiety September 25, 2024 1:52 pm Cephalopelvic disproportion September 25, 2 025 1:52pm Depression September 25, 2024 1:52 pm History of delivery, currently September 25, 2024 1:52pm September 25, 2024 1:52 pm Supervision of high-risk September 25, 2024 1:52pm Anxiety October 20, 2024 9: 35am Cephalopelvic disproportion October 20, 2024 9:35am Depression October 20, 2024 9: 35am History of delivery, currently October 20, 2024 9:35am October 20, 2024 9: 35am Supervision of high-risk Augus t 2024 9:35am Anxiety November 13, 2024 3:30pm Cephalopelvic disproportion November 42024 3:30pm Depression November 13, 2024 3:30pm History of delivery, currently November 13, 2024 3:30pm Placenta adherent to previous uterine sc ar, antepartum November 13, 2024 3:30pm November 13, 2024 3:30pm Supervision of high-risk Septe mber 2024 3:30pm Anxiety November 17, 2024 9:15am Cephalopelvic disproportion November 8t [email or web address] 9:15am Depression November 17, 2024 9:15am History of delivery, currently November 17, 2024 9:15am Nephrolithiasis November 17, 2024 9:15am Placenta adherent to previous uterine sc ar, antepartum November 17, 2024 9:15am November 17, 2024 9:15am Supervision of high-risk Septyair [email or web address] 2024 9:15am Additional Source Comments INFORMATION SOURCE (unrecogn ized section and content) DATE CREATED AUTHOR 05/14/2019 [facility] DATE CREATED AUTHOR AUTHOR'S ORGANIZ ATION 05/17/2019 [facility] DATE CREATED AUTHOR AUTHOR'S ORGANIZ ATION 05/20/2019 [facility] DATE CREATED AUTHOR AUTHOR'S ORGANIZ ATION 12/16/2022 [facility] DATE CREATED AUTHOR AUTHOR'S ORGANIZ ATION 11/09/2024 [facility] DATE CREATED AUTHOR AUTHOR'S ORGANIZ ATION 11/23/2024 [facility] Care Teams (unrecognized sec tion and content) Team Status: Active Member Role Status Dates Dr. Mariely Neal MD Family Provider Active Dr. Mariely Neal MD Primary Care Provider Active Team Status: Inactive Member Role Status Dates Dr. Mariely Neal MD Primary Care Provider, Referrin g Provider Active Dr. Mary Canales DO Attending Provider Activ e Team Status: Inactive Member Role Status Dates Dr. Mariely Neal MD Primary Care Provider Active Dr. Mary Canales DO Attending Provider, Refe rring Provider Active Team Status: Active Member Role Status Dates Dr. Mariely Neal MD Primary Care Provider Active Dr. Mary Canales DO Attending Provider, Refe rring Provider Active Team Status: Inactive Member Role Status Dates Dr. Mariely Neal MD Primary Care Provider, Referrin g Provider Active Alejandra Cason CNM Attending Provider Active Team Status: Inactive Member Role Status Dates Dr. Mariely Neal MD Primary Care Provider, Referrin g Provider Active Sujata Barbosa MANAGEMENT INFORMATION SYSTEMS DIRECTOR, MANAGEMENT INFORMATION SYSTEMS DIRECTOR-C Attending Provider Active Team Status: Inactive Member Role Status Dates Dr. Mariely Neal MD Primary Care Provider, Referrin g Provider Active Dr. Diana Escobar MD Attending Provider Active Team Status: Inactive Member Role Status Dates Dr. Mariely Neal MD Primary Care Provider, Referrin g Provider Active Lan WALKER, PA Attending Provider Active Team Status: Inactive Member Role Status Dates Dr. Mariely Neal MD Primary Care Provider, Referrin g Provider Active Yomaira Michael CNM Attending Provider Active Team Status: Active Member Role Status Dates Dr. Mariely Neal MD Primary Care Provider Active Alejandra Cason CNM Attending Provider , Referring Provider, Other Provider Active Team Status: Inactive Member Role Status Dates Dr. Mariely Neal MD Primary Care Provider Active Alejandra Cason CNM Attending Provider, Referring Pr ovider Active Team Status: Active Member Role Status Dates Dr. Mariely Neal MD Primary Care Provider Active Start: August 08, 2024 Jonna Bernabe RN Attending Provider Active St art: August 08, 2024 Team Status: Inactive Member Role Status Dates Dr. Mariely Neal MD Primary Care Provider Active Start: August 28, 2024 End: August 28, 2024 Dr. Mariely Neal MD Referring Provider Active Start: August 28, 2024 End: August 28, 2024 Yomaira Michael CNM Attending Provider Active S tart: August 28, 2024 End: August 28, 2024 Team Status: Inactive Member Role Status Dates Dr. Mariely Neal MD Primary Care Provider Active Start: August 28, 2024 End: August 28, 2024 Yomaira Michael CNM Attending Provider Active S tart: August 28, 2024 End: August 28, 2024 Yomaira Michael CNM Referring Provider Active S tart: August 28, 2024 End: August 28, 2024 Team Status: Active Member Role Status Dates Dr. Mariely Neal MD Primary Care Provider Active Start: September 01, 2024 Yomaira Michael CNM Attending Provider Active S tart: September 01, 2024 Yomaira Michael CNM Referring Provider Active S tart: September 01, 2024 Team Status: Inactive Member Role Status Dates Dr. Mariely Neal MD Primary Care Provider Active Start: September 01, 2024 End: September 01, 2024 Yomaira Michael CNM Attending Provider Active S tart: September 01, 2024 End: September 01, 2024 Yomaira Michael CNM Referring Provider Active S tart: September 01, 2024 End: September 01, 2024 Team Status: Active Member Role/Relationship Status Dates Dr. Mariely Neal MD Family Provider Active Dr. Mariely Neal MD Primary Care Provider Active Team Status: Active Member Role/Relationship Status Dates Dr. Mariely Neal MD Primary Care Provider Active Start: August 08, 2024 Jonna Bernabe RN Attending Provider Active St art: August 08, 2024 Team Status: Inactive Member Role/Relationship Status Dates Dr. Mariely Neal MD Primary Care Provider Active Start: August 28, 2024 End: August 28, 2024 Dr. Mariely Neal MD Referring Provider Active Start: August 28, 2024 End: August 28, 2024 Yomaira Michael CNM Attending Provider Active S tart: August 28, 2024 End: August 28, 2024 Team Status: Inactive Member Role/Relationship Status Dates Dr. Mariely Neal MD Primary Care Provider Active Start: August 28, 2024 End: August 28, 2024 Yomaira Michael CNM Attending Provider Active S tart: August 28, 2024 End: August 28, 2024 Yomaira Michael CNM Referring Provider Active S tart: August 28, 2024 End: August 28, 2024 Team Status: Inactive Member Role/Relationship Status Dates Dr. Mariely Neal MD Primary Care Provider Active Start: September 01, 2024 End: September 01, 2024 Yomaira Michael CNM Attending Provider Active S tart: September 01, 2024 End: September 01, 2024 Yomaira Michael CNM Referring Provider Active S tart: September 01, 2024 End: September 01, 2024 Team Status: Inactive Member Role/Relationship Status Dates Dr. Mariely Neal MD Primary Care Provider Active Start: September 25, 2024 End: September 25, 2024 Dr. Mariely Neal MD Referring Provider Active Start: September 25, 2024 End: September 25, 2024 Dr. Mary Canales DO Attending Provider Activ e Start: September 25, 2024 End: September 25, 2024 Team Status: Inactive Member Role/Relationship Status Dates Dr. Mariely Neal MD Primary Care Provider Active Start: October 20, 2024 End: October 20, 2024 Dr. Mariely Neal MD Referring Provider Active Start: October 20, 2024 End: October 20, 2024 Sujata Barbosa NP, MANAGEMENT INFORMATION SYSTEMS DIRECTOR-C Attending Provider Active Start: October 20, 2024 End: October 20, 2024 Team Status: Inactive Member Role/Relationship Status Dates Dr. Mariely Neal MD Primary Care Provider Active Start: November 13, 2024 End: November 13, 2024 Dr. Mariely Neal MD Referring Provider Active Start: November 13, 2024 End: November 13, 2024 Dr. Mary Canales DO Attending Provider Activ e Start: November 13, 2024 End: November 13, 2024 Team Status: Inactive Member Role/Relationship Status Dates Dr. Mariely Neal MD Primary Care Provider Active Start: November 13, 2024 End: November 13, 2024 Dr. Diana Escobar MD Attending Provider Active Start: November 13, 2024 End: November 13, 2024 Dr. Diana Escobar MD Referring Provider Active Start: November 13, 2024 End: November 13, 2024 Team Status: Inactive Member Role/Relationship Status Dates Dr. Mariely Neal MD Primary Care Provider Active Start: November 17, 2024 End: November 17, 2024 Dr. Mariely Neal MD Referring Provider Active Start: November 17, 2024 End: November 17, 2024 Dr. Diana Escobar MD Attending Provider Active Start: November 17, 2024 End: November 17, 2024 Goals (unrecognized section and content) Goals may be documented in a n alternate sectionGoals may be documented in an alternate sectionGoals may be documented in an alternate sectionGoals may be documented in an alternate sectionGoals may be documented in an alternate sectionGoals may be documented in an alternate sectionGoals may be documented in an alternate sectionGoals may be documented in an alternate sectionGoals may be documented in an alternate sectionGoals may be documented in an alternate sectionGoals may be documented in an alternate sectionGoals may be documented in an alternate section FOR RECORDS PERTAINING TO PATIENTS WHO ARE [...] BE BASED ON THE PRIMARY CLINICAL RECORDS. [facility] [employer] [facility]. provides no warranty or guarantee of the accuracy or completeness of information in this document.
[2024-12-12 10:01] VITALS: RESP 16; TEMP 36.7
[2024-12-12 10:10] VITALS: BP 129/72; PULSE 108
[2024-12-12 10:24] VITALS: BP 128/70; PULSE 116
[2024-12-12 10:39] VITALS: BP 130/67; PULSE 113
[2024-12-12 10:48] LABS: Hematocrit 36.9 % (37-47); Hemoglobin 12.6 g/dL (12.0-15.0); Mean Corp Hgb Conc 34.1 g/dL (32-36); Mean Corpuscular Volume 93.9 fL (81-99); Mean Platelet Vol. 10.9 fl (6.2-12.0); Platelet Count 167 K/mm3 (150-450); RBC Distribution Width CV 12.8 % (11.6-14.6); RBC Distribution Width SD 44.5 fl (35.1-43.9); Red Blood Count 3.93 M/mm3 (4.2-5.4); White Blood Count 10.2 K/mm3 (4.4-11.0)
[2024-12-12 11:14] LABS: AST(SGOT) 19 U/L (<=31); Alanine Aminotransfer ALT/SGPT 12 U/L (<=34); Albumin, Serum 3.5 g/dL (3.5-5.0); Alkaline Phosphatase 69 U/L (35-104); Anion Gap 11 (5-15); BUN 7 mg/dL (4-19); BUN/Creat Ratio 15.4 RATIO (10-20); Calcium,Total 8.8 mg/dL (7.6-11.0); Carbon Dioxide 20.5 mmol/L (21.0-32.0); Chloride 104 mmol/L (98-108); Estimated Creatinine Clearance 199.73 ml/min (50-250); Globulin 2.8 g/dL (2.2-4.2); Glucose 104 mg/dL (70-99); Potassium 3.7 mmol/L (3.3-5.1)
[2024-12-12 11:16] LABS: Creatinine, Urine (random) 69.50 mg/dL (28.00-217.00); Protein, Urine (Random) 7.6 mg/dL (0.0-12.0); Protein:Creat Ratio 109 mg/g CRE (0-200)
[2024-12-12 11:28] VITALS: PULSE 98; RESP 16
--- NOTE | 2024-12-17 16:57 | OB.TRI.PN ---
Progress Notes Date of Service: 12/12/24 Progress Note: Patient presents for triage evaluation secondary to headache FHT: 140 Moderate variability reactive no decelerations [place]: n regular ctx Contractions Assessment and plan: 24 weeks headache reslving with treatent normal labs normal bps reassuring maternal and status patient discharged to home to follow-up as scheculed. See problem list details for additional plan information. Laboratory Studies: Laboratory Tests 12/12/24 Range/Units 10:40 WBC 10.2 (4.4-11.0) K/mm3 RBC 3.93 L (4.2-5.4) M/mm3 Hgb 12.6 (12.0-15.0) g/dL Hct 36.9 L (37-47) % MCV 93.9 (81-99) fL MCH 32.1 H (27.0-32.0) pg MCHC 34.1 (32-36) g/dL RDW Std Deviation 44.5 H (35.1-43.9) fl RDW Coeff of Francesco 12.8 (11.6-14.6) % Plt Count 167 (150-450) K/mm3 MPV 10.9 (6.2-12.0) fl Sodium 136 (133-145) mmol/L Potassium 3.7 (3.3-5.1) mmol/L Chloride 104 (98-108) mmol/L Carbon Dioxide 20.5 L (21.0-32.0) mmol/L Anion Gap 11 (5-15) BUN 7 (4-19) mg/dL Creatinine 0.48 L (0.70-1.20) mg/dL Estim Creat Clear Calc 199.73 (50-250) ml/min Est GFR (MDRD) Non-Af 137 (>60) BUN/Creatinine Ratio 15.4 (10-20) RATIO Glucose 104 H (70-99) mg/dL Calcium 8.8 (7.6-11.0) mg/dL Total Bilirubin 0.51 (0.00-1.30) mg/dL AST 19 (<=31) U/L ALT 12 (<=34) U/L Alkaline Phosphatase 69 (35-104) U/L Total Protein 6.4 (5.9-8.4) g/dL Albumin 3.5 (3.5-5.0) g/dL Globulin 2.8 (2.2-4.2) g/dL Albumin/Globulin Ratio 1.3 (0.9-2.4) RATIO U Random Total Protein 7.6 (0.0-12.0) mg/dL Urine Creatinine 69.50 (28.00-217.00) mg/dL Protein/Creatinin Ratio 109 (0-200) mg/g CRE Charges/Coding Procedures Urinary/Genital 52xxx-59xxx: No Charge
== END 2024-12-12 11:38 | disposition home or self-care (01) ==
LOC: WPOUT 09:21 → WP 09:22
PROVIDERS: PCP Pediatrics; Referring Provider Obstetrics & Gynecology; Visit Provider Obstetrics & Gynecology
DX: O26.892 Other specified pregnancy related conditions, second trimester (principal); R51.9 Headache, unspecified; Z3A.24 24 weeks gestation of pregnancy
CPT/HCPCS: 36415; 59025; 59050; 80053; 82570; 84156; 85027; 99221; G0378

== ENCOUNTER 2024-12-22 09:06 | Emergency (ER) | payer MEDICAID, SELFPAY ==
[2024-12-22 09:07] VITALS: BP 146/75; PULSE 92; RESP 16; TEMP 36.9; O2SAT 100
--- NOTE | 2024-12-22 09:10 | ED.RN ---
CONSULTED DR LINDER. PT DOES NOT HAVE A FEVER CURRENTLY. SENT TO OB FOR EVALUATION.
== END 2024-12-22 10:18 | disposition left against medical advice (07) ==
LOC: ED 10:18
PROVIDERS: PCP Pediatrics
DX: R50.9 Fever, unspecified (principal); R06.02 Shortness of breath; R00.0 Tachycardia, unspecified; R51.9 Headache, unspecified; Z53.21 Procedure and treatment not carried out due to patient leaving prior to being seen by health care provider

== ENCOUNTER 2024-12-22 09:17 | Outpatient (CLI) | payer MEDICAID, SELFPAY ==
[2024-12-22] VITALS (22 sets, daily range): BP systolic 119–134; BP diastolic 62–73; PULSE 85–114; O2SAT 98–100; BMI 29.4
--- NOTE | 2024-12-22 09:44 | US_ITS ---
PROCEDURE: ABDOMEN LIMITED 12/22/2024 REASON FOR EXAM: R/O PRE-E TECHNIQUE: Procedure Code: USABDL Modality: US Procedure: ABDOMEN LIMITED COMPARISON: 11/13/2024. FINDINGS: Liver: Measures 15.0 cm in craniocaudal dimension. Echogenicity within normal limits. No focal hepatic lesion identified. Portal venous flow is hepatopetal. Gallbladder and Biliary System: Gallbladder length 7.7 cm. Normal wall thickness measuring 1.2 mm. No gallstones, sludge, or pericholecystic fluid. Common bile duct measures 2.9 mm. Negative sonographic Simmons sign. Pancreas: Normal in echogenicity and contour. No focal abnormality. Right Kidney: Measures 10.9 x 6.8 x 5.1 cm. Cortical thickness 1.4 cm. Mild hydronephrosis present with "bear claw" configuration of the calyces and a mildly dilated renal pelvis measuring 2.0 x 2.0 x 3.0 cm. No calculus identified. US/Abdomen Limited IMPRESSION: Mild right hydronephrosis with "bear claw" appearance suggesting possible urete ropelvic junction obstruction or transient obstruction. Reading Location: [id number]
--- NOTE | 2024-12-22 09:49 | CT_ITS ---
PROCEDURE: CTA CHEST W/WO CONTRAST 12/22/2024 REASON FOR EXAM: RULE OUT P.E. Fever and shortness of breath. TECHNIQUE: Procedure Code: [id number] Modality: CT Procedure: CTA CHEST W/WO CONTRAST Multiplanar Sagittal and Coronal images were obtained. 3D post processing was performed CONTRAST: Isovue-300 VOLUME: 100 mL One or more dose reduction techniques were used (e.g., Automated exposure control, adjustment of the mA and/or kV according to patient size, use of iterative reconstruction technique). RADIATION DOSE SUMMARY: CTDlvol: 8.8 mGy DLP: 3169.12 mGycm COMPARISON: None FINDINGS: Hardware: None Lymph nodes: No significant lymph node seen. Heart: The heart is nonenlarged. Thoracic Aorta: No thoracic aortic aneurysm or dissection. Pulmonary Vessels: The pulmonary vessels are well opacified. No pulmonary embolism is seen. Lungs and Airways: Heterogeneous airspace disease in the right upper lobe suggestive of pneumonitis. Radiographic follow-up recommended. Pleura: No pleural effusion. No pneumothorax. Upper Abdomen: Right hydronephrosis. Bones: Bone windows are unremarkable. CT/CTA Chest W/WO Contrast IMPRESSION: No evidence of pulmonary embolism. Heterogeneous airspace disease in the right upper lobe. Radiographic follow-up recommended. Right hydronephrosis. Reading Location: [place] [id number]
[2024-12-22 10:25] LABS: Hematocrit 33.9 % (37-47); Hemoglobin 11.7 g/dL (12.0-15.0); Mean Corp Hgb Conc 34.5 g/dL (32-36); Mean Corpuscular Volume 92.6 fL (81-99); Mean Platelet Vol. 10.3 fl (6.2-12.0); Platelet Count 162 K/mm3 (150-450); RBC Distribution Width CV 12.6 % (11.6-14.6); RBC Distribution Width SD 43.4 fl (35.1-43.9); Red Blood Count 3.66 M/mm3 (4.2-5.4); White Blood Count 10.2 K/mm3 (4.4-11.0)
[2024-12-22 11:02] LABS: Creatinine, Urine (random) 77.10 mg/dL (28.00-217.00); Protein, Urine (Random) 15.4 mg/dL (0.0-12.0); Protein:Creat Ratio 200 mg/g CRE (0-200)
[2024-12-22 11:04] LABS: AST(SGOT) 21 U/L (<=31); Alanine Aminotransfer ALT/SGPT 18 U/L (<=34)
[2024-12-22 12:13] LABS: Uric Acid 3.9 mg/dL (2.6-6.0)
--- NOTE | 2024-12-22 14:23 | OB.TRI.HP_ITS ---
HPI - General HPI Narrative BERENICE LEIJA, is a 24 y/o @ 26 weeks 2 days who presents to L&D with chest pressure, epigastric pain, tachycardia and headache. PIH work up ordered and was negative. CTA ordered and was negative for PE. She denies sick contacts but we discussed testing for covid, flu, and RSV and to order a urine culture. Maternal Data Information DESTIN Calculator Estimated Delivery Date Method Current WG Current Estimate 03/28/25 LMP (Certain) 26w 2d Other Estimates 03/28/25 Ultrasound #1 26w 2d PFSH PFSH Medical History Cephalopelvic disproportion Depression Anxiety Migraines Home Medications Medication Instructions Recorded Last Taken Type docosahexaenoic acid 200 mg mg PO 08/20/23 Unknown His tory capsule ( DHA) multivitamin-ferrous 1 tab PO QAM 12/08/24 Unknow n History fumarate-folic acid 18 mg-400 mcg tablet (Women's Daily Multivitamin) famotidine 10 mg tablet (Pepcid AC) 10 mg PO BID #60 t abs 12/15/24 Unknown Rx Allergy/AdvReac Type Severity Reaction Status Date / Time No Known Allergies Allergy Verified 12/22/24 09:07 Family History Grandmother Breast cancer, Onset Age: 80 Paternal Other Autoimmune disorder Cancer Surgical History delivery delivered History of tonsillectomy Social History adopted: No household members: significant other and children number of children: 1 current occupational status: employed current occupation: [employer] current occupational exposures/hazards: No pets and animals: Yes pets and animals: dog(s) history of recent travel: No sexually active: Yes Smoking Status: Never smoker second hand exposure: No alcohol intake: current alcohol intake frequency: holidays/special occasions only details: Not while substance use type: does not use well-balanced diet: about half the time caffeine: Yes Type: coffee Number of servings: 1 eating out: rarely or never during the past year weight has: remained stable what type of physical activity do you participate in: none frequency: 1-2 times per week duration: > 90 minutes/day dana/zoroastrianism: None seatbelt use: always do you feel safe at home: Yes additional social history: Fiancé: Magdiel - [employer] History 2 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 Date Name GA/Weeks Outcome Route Bth Weight Gen Labor Lgth Anesthesia Del Locatn Provider FOB 08/08/23 Rafia 39 live - full term 8lbs 5oz Female epidural [facility] Luz Veloz Delivery Date: 08/08/23 Last Updated by: Autumn Guerra cpd pushed for 3.5 hours direct OP Visit Details Expected Delivery Route/Plan Desired repeat c/s Plans Covid status: [] Flu vaccine: [] Tdap vaccine: [] Rhogam: [] LARC form signed: [] Problem list reviewed and updated with the most current plan of care details and appropriate orders placed. Relevant counseling for the gestational age provided. Continue routine care and follow up unless otherwise noted in visit notes/problem list details OB Flowsheet Initial Weight: 155 lb Date - - - - - - - - - - - - - EGA Weight BP Urine Prot - - - - - - - - - - - - - Glucose FHR FuHt Pres Dilation - - - - - - - - - - - - - Effaced St Visit Note 08/28/24 - - - - - - - - - - - - - 9w 5d 155 lb 4 oz (+4 oz) 135/71 - - - - - - - - - - - - - 167 - - - - - - - - - - - - - KW- CRL 2.87cm a nd cons with dates. accepts NIPT 09/25/24 - - - - - - -- - - - - - - 13w 5d 157 lb 4 oz (+2 lb 4 oz) 133/81 Negative - - - - - - - - - - - - - Negative 156 - - - - - - - - - - - - - JV CRL still con sistent with LMp. low risk NIPT girl! no complaints today. anatomy scan ordered. planning repeat section. 10/20/24 - - - - - - - - - - - - - 17w 2d 162 lb 3 oz (+7 lb 3 oz) 139/69 Negative - - - - - - - - - - - - - Negative 145 - - - - - - - - - - - - - MH-No VB. No Flu tters yet. Has had episodes of dizziness. Discussed standing slowly, force fluids, freq meals. 11/13/24 - - - - - - - - - - - - - 20w 5d 170 lb 7 oz (+15 lb 7 oz) 129/84 Negative - - - - - - - - - - - - - Negative 145 - - - - - - - - - - - - - JV- patient is danny jorgensen seen urgently for peeing bright red blood. She has some right lower quadrant tenderness she thinks it is cramping. on exam there is no blood in the vagina. THe cervix is closed and thick. Ultrasound shows a viable fetus and uterus is non-tender. sending to l&d for a CT and urine culture. 11/17/24 - - - - - - - - - - - - - 21w 2d 174 lb 5 oz (+19 lb 5 oz) 128/73 Negative - - - - - - - - - - - - - Negative 140 - - - - - - - - - - - - - SM- no vb lof go od fm no reuglar ctx SM- no vb lof good fm no reu glar ctx. patient passed 13 kidney stones! still taking kelfex 12/15/24 - - - - - - - - - - - - - 25w 2d 180 lb (+25 lb) 115/74 Negative - - - - - - - - - - - - - Negative 150 25 - - - - - - - - - - - - - KW- no vb/lof/ct x. good fm. pepcid for heartburn. ROS Constitutional Constitutional: Reports systems reviewed and no addt'l complaints, except as documented Gastrointestinal Gastrointestinal: Denies bloating, constipation, cramping, diarrhea, nausea or vomiting Genitourinary Genitourinary: Reports other Details: Denies vaginal odor, vaginal bleeding, or vaginal discharge ; Denies difficulty urinating or flank pain Physical Exam HEENT normocephalic Resp normal respiratory effort and normal air movement no CVA tenderness Extremity normal to inspection General Extremity: edema bilateral (trace ) NST FHR Rate Baby A Baseline: 140 Variability:: Moderate Accelerations:: 10 x 10 Decelerations:: None NST Reactive:: Yes FHR Category:: Category I Assessment & Plan (1) Chest pain: (2) Epigastric pain: (3) Indigestion: (4) Gross hematuria: (5) Nephrolithiasis: COMMENT: 20 weeks . fu with urogyn (6) Placenta adherent to previous uterine scar, antepartum: COMMENT: possible on anatomy US. Rpt US 4 wk (7) Supervision of high-risk : QUALIFIERS: Trimester: second trimester Qualified Code(s): O09.92 - Supervision of high risk , unspecified, second trimester COMMENT: [id number], DESTIN 03/28, PC: Kassandra Morataya: Magdiel (8) : QUALIFIERS: Weeks of gestation: 25 weeks Qualified Code(s): Z3A.25 - 25 weeks gestation of COMMENT: NIPT: low risk, female (9) History of delivery, currently : COMMENT: x1, Desires rpt csec d/t cephalopelvic disproportion; growth US 28 wk (10) Cephalopelvic disproportion: QUALIFIERS: Cephalopelvic disproportion type: due to unspecified factor Qualified Code(s): O33.9 - Maternal care for disproportion, unspecified COMMENT: recommend only RLTCS SM (11) Depression: QUALIFIERS: Depression Type: unspecified Qualified Code(s): F32.A - Depression, unspecified COMMENT: no meds. stable (12) Anxiety: COMMENT: no meds. Stable PLAN: Plan CTA and RUQ ultrasound normal with exception of "Bear claw sign" of the right kidney. Dr. Maisha miller consult just now and she states that this is likely chronic findings. will order covid,flu, rsv and urine culture. tylenol now and if all negative will dc to home with a muscle relaxer for the discomfort. Charges/Coding Multi Select Codes Visit Charges Office Visit/Consults: 23633 OV L3 Est 20min Urinary/Genital Urinary/Genital CPT Codes: 92110-96 non-stress test Interp
== END 2024-12-22 15:30 | disposition home or self-care (01) ==
LOC: WPOUT 09:22 → WP 09:22
PROVIDERS: PCP Pediatrics; Referring Provider Advanced Practice Midwife; Visit Provider Advanced Practice Midwife
DX: O99.891 Other specified diseases and conditions complicating pregnancy (principal); N28.89 Other specified disorders of kidney and ureter; O26.892 Other specified pregnancy related conditions, second trimester; R07.89 Other chest pain; O34.211 Maternal care for low transverse scar from previous cesarean delivery; Z3A.25 25 weeks gestation of pregnancy; Z87.442 Personal history of urinary calculi; Z87.59 Personal history of other complications of pregnancy, childbirth and the puerperium
CPT/HCPCS: 36415; 59025; 59050; 71275; 76705; 82565; 82570; 84156; 84450; 84460; 84550; 85027; 87086; 87088; 87631; 99221; Q9967; A4216; G0378

== ENCOUNTER → 2025-01-05 | Outpatient (CLI) | payer MEDICAID, SELFPAY ==
[2025-01-05 17:27] LABS: Hematocrit 32.7 % (37-47); Hemoglobin 10.9 g/dL (12.0-15.0); Immature Granulocytes Count 0.040 X10^3/uL (0.0-0.0); Mean Corp Hgb Conc 33.3 g/dL (32-36); Mean Corpuscular Volume 94.0 fL (81-99); Mean Platelet Vol. 10.9 fl (6.2-12.0); NRBC Flagged by Analyzer 0 % (0-5); Platelet Count 180 K/mm3 (150-450); RBC Distribution Width CV 12.8 % (11.6-14.6); RBC Distribution Width SD 43.8 fl (35.1-43.9); Red Blood Count 3.48 M/mm3 (4.2-5.4); White Blood Count 8.5 K/mm3 (4.4-11.0)
[2025-01-05 17:55] LABS: Glucose Challenge Gest 1H 50g 114 mg/dL (70-140); HIV Nonreactive (Nonreactive); Syphilis Antibodies Nonreactive (Nonreactive)
== END | disposition home or self-care (01) ==
LOC: BWCLAB 12:52
PROVIDERS: PCP Pediatrics; Visit Provider Nurse Practitioner Women's Health
DX: O09.92 Supervision of high risk pregnancy, unspecified, second trimester (principal); Z3A.00 Weeks of gestation of pregnancy not specified; Z13.1 Encounter for screening for diabetes mellitus
CPT/HCPCS: 36415; 82950; 85025; 86703; 86780

== ENCOUNTER → 2025-02-09 | Outpatient (CLI) | payer MEDICAID, SELFPAY ==
[2025-02-09 17:35] LABS: AST(SGOT) 26 U/L (<=31); Alanine Aminotransfer ALT/SGPT 17 U/L (<=34); Albumin, Serum 3.4 g/dL (3.5-5.0); Alkaline Phosphatase 93 U/L (35-104); Bilirubin, Direct 0.15 mg/dL (0.00-0.30); Globulin 2.9 g/dL (2.2-4.2)
== END | disposition home or self-care (01) ==
PROVIDERS: PCP Pediatrics; Visit Provider Student in an Organized Health Care Education/Training Program
DX: L29.9 Pruritus, unspecified (principal)
CPT/HCPCS: 36415; 80076

== ENCOUNTER → 2025-03-02 | Outpatient (CLI) | payer MEDICAID, SELFPAY ==
--- OUTSIDE RECORDS SUMMARY | 2025-03-02 19:45 | XMS RPT_ITS | CCD ---
Author Organization [facility] Care Team Providers Care Campground Hand Name Role Phone MARIELY NEAL Primary Care Unavailable Dr. Mariely Neal Primary Care Provider Dr. Mariely Neal Referring Provider Dr. Mary Canales Attending Provider Dr. Mariely Neal Primary Care Provider Dr. Mariely Neal Referring Provider MICHELLE Cason Attending Provider Chelsey HOT HEADER OPERATOR, JAM-Haris Ernst Attending Provider Dr. Diana Escobar Attending Provider Dr. Mary Canales Attending Provider DENISE Singer Attending Provider Dr. Mariely Neal Primary Care Provider Dr. Mariely Neal Referring Provider Chelsey POLK, MANJU Ernst Attending Provider MICHELLE Michael Attending Provider MICHELLE Cason Attending Provider MICHELLE Cason Referring Provider MICHELLE Cason Other Provider Dr. Mariely Neal MD Primary Care Provider Jonna Bernabe RN Attending Provider UnavailDr. Mariely Gayle MD Referring Provider Yomaira Michael CNM Attending Provider [phone] Alec MARTINEZ, Yomaira Referring Provider [phone] Jg Perez DO, Dr. Hernandez Attending Provider Chelsey HOT HEADER OPERATOR-C, Pedro Attending Provider [phone] Luz NINO, Dr. Ortiz Attending Provider Luz NINO, Dr. Ortiz Referring Provider Julio NINO, Dr. Schuster Primary Care Physician Yomaira Michael CNM Attending Physician [phone] Jg Perez DO, Dr. Hernandez Attending Physician Pedro Goodwin Attending Physician [phone] Luz NINO, Dr. Ortiz Attending Physician Luz NINO, Dr. Ortiz Nurse Practitioner Maisha NINO, Dr. Diop Attending Physician MARLENE IRIZARRY Attending Unavailable MARY HUDSON Referring Unavailab MARIELY Kay Primary Care Unavailable NAM HARRIS Attending Unavailable MARIELY NEAL Primary Care Unavailable REFERRED, SELF Referring Unavailable MARLENE IRIZARRY Attending Unavailable MARIELY NEAL Primary Care Unavailable PEDRO BARBOSA Referring Unavailable Julio NINO, Dr. Schuster Primary Care Physician [phone] Dr. Mariely Neal MD Referring Provider Yomaira Michael CNM Attending Physician [phone] Provider, Ed Physician Attending Physician Unava ilable Provider, Ed Physician Emergency Department Phys ician Unavailable Yomaira Michael CNM Referring Provider [phone] Yomaira Michael CNM Nurse Practitioner [phone] Provider, Ed Physician Attending Unavailab Maged Kaye Primary Care Unavailable Yomaira Michael Referring Unavailable Yomaira Michael Attending Unavailable Julio, Mariely Primary Care Unavailable Yomaira Michael Referring Unavailable Yomaira Michael Attending Unavailable Mariely Neal Primary Care Unavailable Mary Canales Attending Unavailabl e Mariely Neal Referring Unavailable Julio, Mariely Primary Care Unavailable Mariely Neal Referring Unavailable Chikis Ferrera Attending Unavailable Neal, Mariely Primary Care Unavailable Neal, Mariely Primary Care Unavailable Neal, Mariely Referring Unavailable Yomaira Michael Attending Unavailable Chelsey HOT HEADER OPERATOR, Pedro Attending Unavailable Neal, Mariely Primary Care Unavailable MarcanthonyDiana Referring Unavailable Neal, Mariely Primary Care Unavailable Marckarunaony, Diana Attending Unavailable Neal, Mariely Referring Unavailable Yomaira Michael Attending Unavailable Neal, Mariely Primary Care Unavailable Neal, Mariely Primary Care Unavailable Neal, Mariely Referring Unavailable Chelsey HOT HEADER OPERATOR, Pedro Attending Unavailable CandaceonyDiana Admitting Unavailable Neal, Mariely Primary Care Unavailable Marcanthony, Diana Attending Unavailable Neal, Mariely Primary Care Unavailable Marcanthony, Diana Attending Unavailable Marcanthony, Diana Referring Unavailable Yomaira Michael Attending Unavailable Alec, Yomaira Referring Unavailable Neal, Mariely Primary Care Unavailable Mary Canales Attending Unavailabl e Neal, Mariely Referring Unavailable Neal, Mariely Primary Care Unavailable Chelsey HOT HEADER OPERATOR, Pedro Attending Unavailable Neal, Mariely Referring Unavailable Neal, Mariely Primary Care Unavailable Neal, Mariely Referring Unavailable Neal, Mariely Primary Care Unavailable Diana Escobar Attending Unavailable Mary Canales Attending Unavailabl e Neal, Mariely Referring Unavailable Neal, Mariely Primary Care Unavailable Neal, Mariely Primary Care Unavailable Luz, Diana Attending Unavailable Diana Escobar Consulting Unavailable Luz, Diana Referring Unavailable Mary Canales Attending Unavailritchie e Yomaira Michael Consulting Unavailable Yomaira Michael Referring Unavailable Neal, Mariely Primary Care Unavailable Luz, Diana Attending Unavailable Sunilanthpooja, Diana Consulting Unavailable Marckarunaony, Diana Referring Unavailable Neal, Mariely Primary Care Unavailable Jonna Bernabe Attending Unavailable Neal, Mariely Primary Care Unavailable Medications Current Medications Medication Drug Class(es) Dates Sig (Normalized) Sig (Original) cyclobenzaprine hydrochloride 5 mg oral tablet (2 sources) Muscle Relaxant Start: 12-22-2024 take 1 tablet by mouth twice daily as needed for pain docosahexaenoic acid 200 mg oral capsule (13 sources) Start: 2023 famotidine 20 mg oral tablet (18 sources) Histamine-2 Receptor Antagonist Start: 01-05-2025 take 1 tablet by mouth twice daily Start: 01-05-2025 take 1 tablet by amparo th twice daily Start: 12-15-2024 End: 01-05-2025 take 1 tablet by mouth twice daily before mealtime Famotidine (Pepcid Ac) 10 mg tablet Discontinued 10 mg PO TWICE A DAY 60 3 December 15, 2024 12:00am January 05, 2025 1:20pm Indigestion Functional dyspepsia Start: 07-18-2023 End: 08-16-2023 take 1 tablet by mouth twice daily Famotidine (Pepcid) 20 mg tablet Discontinued 20 mg PO TWICE A DAY 60 3 July 18, 2023 12:00am August 16, 2023 1:37pm Lcduixonnwkn-Syox-Ddtdk Acid (Women's Daily Multivitamin) 18-400 mg-mcg tablet (5 sources) Start: 12-08-2024 Start: 12-08-2024 Multivitamin-I yung-Folic Acid (Women's Daily Multivitamin) 18- 400 mg-mcg tablet Active 1 {tbl} PO EVERY MORNING December 08, 2024 12:00am Complies with drug therapy Completed/Discontinued Medications Medication Drug Class(es) Dates Sig (Normalized) Sig (Original) acetaminophen 325 mg / oxyCODONE hydrochloride 5 mg oral tablet (13 sources) Opioid Agonist Start: 08-08-2023 End: 08-16-2023 Oxycodone-Acetamino phen (Percocet) 5-325 mg tablet Discontinued 1 {tbl} PO EVERY 6 HOURS as needed for pain 20 7 0 August 08, 2023 August 16, 2023 1:38pm delivery delivered Encounter for delivery without indication amoxicillin 80 mg/ml oral suspension (17 sources) Penicillin-class Antibacterial Start: 07-24-2022 End: 01-05-2023 take 1000 mg by mouth twice daily Amoxicillin 400 mg/5 mL suspension for reconstitution Discontinued 1000 mg PO TWICE A DAY 250 0 July 24, 2022 12:00am January 05, 2023 2:32pm ascorbic acid 500 mg oral capsule (13 sources) Vitamin C Start: 08-16-2023 End: 12-08-2024 Ascorbic Acid (Vitamin C) 500 mg capsule Discontinued mg PO August 16, 2023 12:00am December 08, 2024 8:01am Calcium Carbonate / Simethicone (14 sources) Start: 07-09-2023 End: 08-16-2023 Calcium Carbonate-Simethico ne 500-20 mg tablet,chewable Discontinued 2 {tbl} PO NEEDED as needed for heartburn July 09, 2023 12:00am August 16, 2023 1:38pm Start: 07-09-2023 Calcium Carbon ate-Simethicone Active 2 TABLET PO NEEDED July 09, 2023 12:00am cephalexin 500 mg oral capsule (7 sources) Cephalosporin Antibacterial Start: 11-13-2024 End: 12-08-2024 take 1 capsule by mouth three times daily Cephalexin 500 mg capsule Discontinued 500 mg PO THREE TIMES A DAY 30 0 November 13, 2024 12:00am December 08, 2024 8:01am cholecalciferol 0.05 mg oral capsule (13 sources) Vitamin D Start: 08-16-2023 End: 12-08-2024 take 1 capsule by mouth once daily Cholecalciferol (Vitamin D3) 50 mcg (2,000 unit) capsule Discontinued 50 ug PO DAILY August 16, 2023 12:00am December 08, 2024 8:01am ciprofloxacin 2 mg/ml / hydrocortisone 10 mg/ml otic suspension (17 sources) Corticosteroid, Quinolone Antimicrobial Start: 10-14-2016 End: 07-18-2017 Ciprofloxacin-Hydroc ortisone 10 ML drops,suspension Discontinued 4 NMA LEFT EAR TWICE A DAY 7 0 October 14, 2016 12:00am July 18, 2017 10:28am Start: 10-14-2016 End: 07-18-2017 Ciprofloxacin-Hydrocortisone Discontinued 4 DRP LEFT EAR TWICE A DAY 7 October 14, 2016 12:00am July 18, 2017 10:28am clindamycin 15 mg/ml oral solution (17 sources) Lincosamide Antibacterial Start: 07-18-2017 End: 07-28-2017 take 300 mg by mouth three times daily Clindamycin Palmitate Hcl (Clindamycin Pediatric) 75 mg/5 mL recon soln Discontinued 300 mg PO THREE TIMES A DAY 600 10 0 July 18, 2017 12:00am July 27, 2017 12:00am July 28, 2017 12:07am hydrOXYzine pamoate 25 mg oral capsule (17 sources) Antihistamine Start: 04-06-2021 End: 07-24-2022 take 1 capsule by mouth three times daily as needed for anxiety Hydroxyzine Pamoate 25 MG capsule Discontinued 25 mg PO 3 TIMES DAILY NEEDED as needed for Anxiety 20 0 April 06th, 2022 1:00am July 24, 2022 2:23pm Mv-Mins 48-Qxte-Qvaxn No.1-Dha (Pnv-Gillette) 28-1-300 mg capsule (17 sources) Start: 01-05-2023 End: 08-16-2023 Mv-Mins 44-Kliw-Jcxpt No.1-Dha (Pnv-Gillette) 28-1-300 mg capsule Discontinued 1 NMA PO DAILY January 05, 2023 12:00am August 16, 2023 1:37pm Start: 01-05-2023 End: 08-16-2023 Mv-Mins 02-Mkqg-Jzjwp No.1-D montoya (Pnv-Gillette) 28-1-300 mg capsule Discontinued 1 NMA PO DAILY January 05, 2023 12:00am August 16, 2023 1:37pm Start: 01-05-2023 take 1 capsule by mo ut once daily Mv-Mins 83-Uhhl-Cqghz No.1-Dha (Pnv-Gillette) 28-1-300 mg capsule Active 1 CAP PO DAILY January 05, 2023 12:00am Start: 01-05-2023 take 1 capsule by mouth once M v-Mins 93-Ucea-Ixscn No.1-Dha (Pnv-Gillette) 28-1-300 mg capsule Active CAP PO January 05, 2023 12:00am Start: 01-05-2023 take 1 capsule by mouth once M v-Mins 97-Gchk-Lavwh No.1-Dha (Pnv-Gillette) 28-1-300 mg capsule Active CAP PO January [...] penicillin v potassium 500 mg oral tablet (17 sources) Start: 04-15-2018 End: 05-01-2019 take 1 tablet by mouth four times daily Penicillin V Potassium 500 MG tablet Discontinued 500 mg PO 4 TIMES DAILY 40 0 April 15, 2018 1:00am May 01, 2019 11:23am prednisoLONE 3 mg/ml oral solution (17 sources) Corticosteroid Start: 02-23-2022 End: 07-24-2022 take 15 mg by mouth twice daily Prednisolone 15 mg/5 mL solution Discontinued 15 mg PO TWICE A DAY 50 0 February 23, 2022 1:00am July 24, 2022 2:23pm Start: 02-23-2022 End: 07-24-2022 take 15 mg by mouth twice daily Prednisolone 15 mg/5 mL solution Discontinued 15 mg PO TWICE A DAY 50 0 February 23, 2022 1:00am July 24, 2022 2:23pm sulfamethoxazole 800 mg / trimethoprim 160 mg oral tablet (17 sources) Dihydrofolate Reductase Inhibitor Antibacterial, Sulfonamide Antimicrobial Start: 05-01-2019 End: 10-08-2019 Sulfamethoxazole-Trimethopri m 1 TABLET tablet Discontinued 1 {tbl} PO TWICE A DAY 14 May 01, 2019 1:00am October 08, 2019 11:31am Start: 05-01-2019 End: 10-08-2019 take 1 tablet by mouth twice daily Sulfamethoxazole-Trimethoprim Discontinu ed 1 TABLET PO TWICE A DAY May 01, 2019 1:00am October 08, 2019 11:31am Problems Active Problems Problem Classification Problem Date Documented Date Episodic/Chronic Abdominal pain (5 sources) Epigastric pain; Translations: [Epigastric pain] Onset: 01-07-2025 01-05-2025 Episodic Comment on above: Rx pepcid Anxiety disorders (20 sources) Anxiety; Translations: [Anxiety disorder, unspecified] Onset: 12-15-2024 04-14-2021 Chronic Comment on above: no meds. Stable Calculus of urinary tract (20 sources) Kidney stone; Translations: [Calculus of kidney] Onset: 12-15-2024 11-17-2024 Episodic Comment on above: 20 weeks . fu with urogyn Deficiency and other anemia (13 sources) Anemia; Translations: [Anemia, unspecified] 08-08-2024 Episodic Disorders of teeth and jaw (17 sources) Toothache; Translations: [Other specified disorders of teeth and supporting structures] 04-16-2018 Episodic distress and abnormal forces of labor (13 sources) Arrested active phase of labor; Translations: [Secondary uterine inertia] 08-08-2023 Episodic Fetopelvic disproportion; obstruction (20 sources) Direct occipitoposterior position; Translations: [Obstructed labor due to incomplete rotation of head, not applicable or unspecified] Onset: 12-15-2024 08-08-2023 Episodic Comment on above: recommend only RLTCS recommend only RLTCS SM recommend only RLTCS SM; growth US 32 wk Fever of unknown origin (1 source) Fever, unspecified; Translations: [Fever, unspecified] Onset: 12-30-2024 Episodic Genitourinary symptoms and ill-defined conditions (17 sources) Cristo hematuria; Translations: [Gross hematuria] Onset: 12-15-2024 12-08-2024 Episodic Immunizations and screening for infectious disease (1 source) Encounter for immunization; Translations: [Encounter for immunization] Onset: 01-05-2025 Episodic Mood disorders (20 sources) Depressive disorder; Translations: [Depression] 05-16-2023 Chronic Comment on above: no meds. stable Mood disorders (2 sources) Mood disorders; Translations: [Depression, unspecified] Onset: 12-15-2024 Nausea and vomiting (17 sources) Nausea and vomiting; Translations: [Nausea with vomiting, unspecified] 04-14-2021 Episodic Nonspecific chest pain (5 sources) Chest pain; Translations: [Chest pain, unspecified] Onset: 01-07-2025 12-22-2024 Episodic Other complications of ; puerperium affecting management of mother (13 sources) Deliveries by ; Translations: [Encounter for delivery without indication] 08-08-2024 Episodic Comment on above: SM LTCS pushed 3 1/2 hours OP CPD 8lb 2 ounces girl Rafia 39 Other complications of (14 sources) Reduced movement; Translations: [Decreased movements, unspecified [...] 03/28, PC: Mary Jo Morataya : Hugh [id number], DESTIN 03/28, P C: Mary Jo Morataya : Hugh Other complications of (13 sources) Headache; Translations: [Other specified related conditions, unspecified trimester] 08-08-2023 Episodic Other complications of (20 sources) Placenta adherent to previous uterine scar; Translations: [Other placental disorders, unspecified trimester] 11-03-2024 Episodic Comment on above: possible on anatomy US. Rpt US 4 wk possible on anatomy US. Rpt US 4 wk RESOLVED Other complications of (2 sources) Supervision of high risk , unspecified, second trimester; Translations: [Supervision of high risk , unspecified, second trimester] Onset: 01-07-2025 Episodic Other complications of (2 sources) Other placental disorders, unspecified trimester; Translations: [Other placental disorders, unspecified trimester] Onset: 12-15-2024 Episodic Other complications of (1 source) Other specified related conditions, second trimester; Translations: [Other specified related conditions, second trimester] Onset: 01-07-2025 Episodic Other disorders of stomach and duodenum (3 sources) Indigestion; Translations: [Functional dyspepsia] 12-15-2024 Episodic Other disorders of stomach and duodenum (2 sources) Functional dyspepsia; Translations: [Functional dyspepsia] Onset: 12-15-2024 Episodic Other upper respiratory infections (20 sources) Viral upper respiratory tract infection; Translations: [Acute upper respiratory infection, unspecified] 09-02-2014 Episodic Otitis media and related conditions (17 sources) Otitis media of left ear; Translations: [Otitis media, unspecified, left ear] 09-02-2014 Episodic Polyhydramnios and other problems of amniotic cavity (13 sources) Spontaneous rupture of membranes 08-08-2023 Episodic Previous (2 sources) Maternal care for unspecified type scar from previous delivery; Translations: [Maternal care for unspecified type scar from previous delivery] Onset: 12-15-2024 Episodic Residual codes; unclassified (13 sources) Gestation period, 38 weeks; Translations: [38 weeks gestation of ] 08-08-2024 Episodic Residual codes; unclassified (2 sources) 25 weeks gestation of ; Translations: [25 weeks gestation of ] Onset: 12-15-2024 Episodic Unclassified (5 sources) N20.0 - Calculus of kidney Unclassified (1 source) Other specified diseases and conditions complicating ; Translations: [Other specified diseases and conditions complicating ] Onset: 11-21-2024 Urinary tract infections (17 sources) Urinary tract infectious disease; Translations: [Urinary tract infection, site not specified] 05-02-2019 Episodic Past or Other Problems Problem Classification Problem Date Documented Da te Episodic/Chronic Other complications of (1 source) Supervision of high risk , unspecified, unspecified trimester; Translations: [Supervision of high risk , unspecified, unspecified trimester] Onset: 09-03-2024 Episodic Other and delivery including normal (20 sources) Normal ; Translations: [Encounter for supervision of normal first , unspecified trimester] Onset: 08-28-2024 01-10-2023 Episodic Comment on above: PRR, , DESTIN girl Rafia BARB Hugh accepts NIPT GBS Negative, NIPT l ow risk,declined carrier testing, nl anatomy. declined ntd screening. NIPT: low risk, fema le Results Test Name Value Interpretation Reference Range Facility Absolute lymphocyte countOrd ered By: Pedro Barbosa on 01-05-2025 Lymphocytes Auto (Unsp spec) [#/Vol] 1.42 10*3/uL 0.83-4.51 [facility] Absolute neutrophil countOrd ered By: Pedro Barbosa on 01-05-2025 Neutrophils (Bld) [#/Vol] 6.3 10*3/uL 2.0-7.7 [facility] Automated lymphocyte count a s percentage of total leukocytesOrdered By: Pedro Barbosa on 01-05-2025 Lymphocytes/100 WBC Auto (Unsp spec) 16.7 % Low 19-41 [facility] Basophil percentageOrdered B y: Pedro Barbosa on 01-05-2025 Basophils/100 WBC (Bld) 0.1 % 0-1 [facility] CBC W/Diff, Automatedon 12-11 Absolute Lymph 1.42 X10 3/uL Normal 0.83-4.51 [facility] Comment on above: Performed By: #### L 3890.6301, L509.8002, L3890.6102, BTS, L100.0100, L509.4006, L3890.6006 #### [facility] [address] [place], [address] Absolute Neut 6.3 X10 3/uL Normal 2.0-7.7 [facility] Comment on above: Performed By: #### L 3890.6301, L509.8002, L3890.6102, BTS, L100.0100, L509.4006, L3890.6006 #### [facility] [address] [place], [address] Basophils/100 WBC (Bld) 0.1 % Normal 0-1 [facility] Comment on above: Performed By: #### L 3890.6301, L509.8002, L3890.6102, BTS, L100.0100, L509.4006, L3890.6006 #### [facility] [address] [place], [address] Eosinophils/100 WBC (Bld) 0.9 % Normal 0-5 [facility] Comment on above: Performed By: #### L 3890.6301, L509.8002, L3890.6102, BTS, L100.0100, L509.4006, L3890.6006 #### [facility] [address] [place], [address] Erythrocyte distribution width (RBC) [Ratio] 12.8 % Normal 11.6-14.6 [facility] Comment on above: Performed By: #### L 3890.6301, L509.8002, L3890.6102, BTS, L100.0100, L509.4006, L3890.6006 #### [facility] [address] [place], [address] Hematocrit (Bld) [Volume fraction] 32.7 % Low 37-47 [facility] Comment on above: Performed By: #### L 3890.6301, L509.8002, L3890.6102, BTS, L100.0100, L509.4006, L3890.6006 #### [facility] [address] [place], [address] Hemoglobin (Bld) [Mass/Vol] 10.9 g/dL Low 12.0-15.0 [facility] Comment on above: Performed By: #### L 3890.6301, L509.8002, L3890.6102, BTS, L100.0100, L509.4006, L3890.6006 #### [facility] [address] [place], [address] IG% 0.500 Normal 0.0-0.9 [facility] Comment on above: Result Comment: IG% - Immature Granulocytes (promyelocytes, myelocytes and metamyelocytes) > 1% indicates that a LEFT SHIFT is Present. Performed By: #### L 3890.6301, L509.8002, L3890.6102, BTS, L100.0100, L509.4006, L3890.6006 #### [facility] [address] [place], [address] Lymphocytes/100 WBC (Bld) 16.7 % Low 19-41 [facility] Comment on above: Performed By: #### L 3890.6301, L509.8002, L3890.6102, BTS, L100.0100, L509.4006, L3890.6006 #### [facility] [address] [place], [address] MCH (RBC) [Entitic mass] 31.3 pg Normal 27.0-32.0 [facility] Comment on above: Performed By: #### L 3890.6301, L509.8002, L3890.6102, BTS, L100.0100, L509.4006, L3890.6006 #### [facility] [address] [place], [address] MCHC (RBC) [Mass/Vol] 33.3 g/dL Normal 32-36 [facility] Comment on above: Performed By: #### L 3890.6301, L509.8002, L3890.6102, BTS, L100.0100, L509.4006, L3890.6006 #### [facility] [address] [place], [address] MCV (RBC) [Entitic vol] 94.0 fL Normal 81-99 [facility] Comment on above: Performed By: #### L 3890.6301, L509.8002, L3890.6102, BTS, L100.0100, L509.4006, L3890.6006 #### [facility] [address] [place], [address] Monocytes/100 WBC (Bld) 7.5 % Normal 0-10 [facility] Comment on above: Performed By: #### L 3890.6301, L509.8002, L3890.6102, BTS, L100.0100, L509.4006, L3890.6006 #### [facility] [address] [place], [address] Neutrophils/100 WBC (Bld) 74.3 % High 47-70 [facility] Comment on above: Performed By: #### L 3890.6301, L509.8002, L3890.6102, BTS, L100.0100, L509.4006, L3890.6006 #### [facility] [address] [place], [address] Nucleated RBC (Bld) [#/Vol] 0 10*3/uL Normal 0-5 [facility] Comment on above: Performed By: #### L 3890.6301, L509.8002, L3890.6102, BTS, L100.0100, L509.4006, L3890.6006 #### [facility] [address] [place], [address] Platelet mean volume (Bld) [Entitic vol] 10.9 fL Normal 6.2-12.0 [facility] Comment on above: Performed By: #### L 3890.6301, L509.8002, L3890.6102, BTS, L100.0100, L509.4006, L3890.6006 #### [facility] [address] [place], [address] Platelets (Bld) [#/Vol] 180 10*3/uL Normal 150-450 [facility] Comment on above: Performed By: #### L 3890.6301, L509.8002, L3890.6102, BTS, L100.0100, L509.4006, L3890.6006 #### [facility] [address] [place], [address] RBC (Bld) [#/Vol] 3.48 10*6/uL Low 4.2-5.4 [facility] Comment on above: Performed By: #### L 3890.6301, L509.8002, L3890.6102, BTS, L100.0100, L509.4006, L3890.6006 #### [facility] [address] [place], [address] RDW SD 43.8 fl Normal 35.1-43.9 [facility] Comment on above: Performed By: #### L 3890.6301, L509.8002, L3890.6102, BTS, L100.0100, L509.4006, L3890.6006 #### [facility] [address] [place], [address] WBC (Bld) [#/Vol] 8.5 10*3/uL Normal 4.4-11.0 [facility] Comment on above: Performed By: #### L 3890.6301, L509.8002, L3890.6102, BTS, L100.0100, L509.4006, L3890.6006 #### [facility] [address] [place], [address] Eosinophil percentageOrdered By: Pedro Barbosa on 01-05-2025 Eosinophils/100 WBC (Bld) 0.9 % 0-5 [facility] Erythrocyte distribution wid th ratioOrdered By: Pedro Barbosa on 01-05-2025 Erythrocyte distribution width (RBC) [Ratio] 12.8 % 11.6-14.6 [facility] Erythrocyte distribution wid th standard deviationOrdered By: Pedro Barbosa on 01-05-2025 Erythrocyte distribution width (RBC) [Ratio] 43.8 fl 35.1-43.9 [facility] Glucose Challenge Gest 1H 50 pipo 10-27-2025 GLU GEST 50g 1H 114 mg/dL Normal 70-140 [facility] Comment on above: Performed By: #### L 3890.6301, L509.8002, L3890.6102, BTS, L100.0100, L509.4006, L3890.6006 #### [facility] [address] [place], [place], [id number] Glucose measurement at 2 froy rs post-dose gestational glucose tolerance testOrdered By: Pedro Barbosa on 01-05-2025 Glucose [Mass/Vol] 114 mg/dL 70-140 [facility] HIVon 01-05-2025 HIV Non-Reactive Normal Nonreactive [facility] Comment on above: Result Comment: Non- Reactive Reactive Repeatedly reactive samples must be confirmed according to CDC recommended confirmatory algorithms. The subresults for either HIVAG or AHIV can be used as an aid in the selection of the confirmation algorithm for reactive samples. Send out specimens with Reactive results to [facility] for confirmation. Order the HIV antibody detection and differentiation: lc#[id number] Performed By: #### L 3890.6301, L509.8002, L3890.6102, BTS, L100.0100, L509.4006, L3890.6006 #### [facility] [address] [facility]. [place], [place], [id number] Hematocrit Auto (Bld) [Volum e fraction]Ordered By: Pedro Barbosa on 01-05-2025 Hematocrit (Bld) [Volume fraction] 32.7 % Low 37-47 [facility] Hemoglobin measurementOrdere d By: Pedro Barbosa on 01-05-2025 Hemoglobin (Bld) [Mass/Vol] 10.9 g/dL Low 12.0-15.0 [facility] Immature granulocytes/100 WB C Auto (Bld)Ordered By: Pedro Barbosa on 01-05-2025 Immature granulocytes/100 WBC (Bld) 0.500 % 0.0-0.9 [facility] Comment on above: IG% - Immature Granu locytes (promyelocytes, myelocytes and metamyelocytes) > 1% indicates that a LEFT SHIFT is Present. Laboratory - Chemistry and C hemistry - challengeOrdered By: Pedro Barbosa on 01-05-2025 Glucose Ql (U) Negative [facility] - UrinalysisOrder ed By: Pedro Barbosa on 01-05-2025 Protein Ql (U) Negative [facility] MCV (mean corpuscular volume ) determinationOrdered By: Pedro Barbosa on 01-05-2025 MCV (RBC) [Entitic vol] 94.0 fL 81-99 [facility] Mean corpuscular hemoglobin (MCH) determinationOrdered By: Pedro Barbosa on 01-05-2025 MCH (RBC) [Entitic mass] 31.3 pg 27.0-32.0 [facility] Mean corpuscular hemoglobin concentration (MCHC) determinationOrdered By: Pedro Barbosa on 01-05-2025 MCHC (RBC) [Mass/Vol] 33.3 g/dL 32-36 [facility] Mean platelet volume determi nationOrdered By: Pedro Barbosa on 01-05-2025 Platelet mean volume (Bld) [Entitic vol] 10.9 fL 6.2-12.0 [facility] Monocyte percentageOrdered B y: Pedro Barbosa on 01-05-2025 Monocytes/100 WBC (Bld) 7.5 % 0-10 [facility] Neutrophil percentageOrdered By: Pedro Barbosa on 01-05-2025 Neutrophils/100 WBC (Bld) 74.3 % High 47-70 [facility] No Panel InformationOrdered By: Pedro Barbosa on 01-05-2025 HIV (1&2) Antibody Non-Reactive Nonreactive [facility] Comment on above: Non-ReactiveReactive Repeatedly reactive samples must be confirmed according to CDC recommended confirmatory algorithms. The subresults for either HIVAG or AHIV can be used as an aid in the selection of the confirmation algorithm for reactive samples.Send out specimens with Reactive results to [facility] for confirmation.Order the HIV antibody detection and differentiation: #[id number] Nucleated red blood cell per centageOrdered By: Pedro Barbosa on 01-05-2025 Nucleated RBC/100 WBC (Bld) [Ratio] 0 % 0-5 [facility] Data Management Associate Office Visit Reporton 01-05-2025 Data Management Associate Office Visit Report [facility] [address], [address] [place] [address] OFFICE VISIT Date of Service: 01/05/25 MR#: [id number] Acct: [id number] Name: MELANIE LEIJA Rep #: [id number] : 2000 Provider: MANJU de los santos Age/Sex: 24/F Location[place] [facility] [place] Status: Signed Intake Vital Signs 11/17/24 09:33 12/22/24 13:11 01/05/25 12:55 Height 5 ft 6 in 5 ft 6.5 in 5 ft 6.5 in Weight: 192 lb BMI 30.5 BP 117/74 Intake Visit Reasons: 28wk2d ob/glucose Shell Trim Tool Setter Required: No Is patient in pain?: No Allergies No Known Allergies Allergy (Verified 01/05/25 12:54) Medications ???Medication ???Instructions ???Recorded ???Confirmed ???Type docosahexaenoic acid 200 mg mg PO 08/20/23 01/05/25 History capsule ( DHA) multivitamin-ferrous 1 tab PO QAM 12/08/24 01/05/25 His tory fumarate-folic acid 18 mg-400 mcg tablet (Women's Daily Multivitamin) cyclobenzaprine 5 mg tablet 5 mg PO BID PRN pain (scale score 12/22/24 01/05/25 Rx 4-6) #6 tabs famotidine 20 mg tablet (Pepcid) 20 mg PO BID #60 tabs 01/05/25 Rx Last Menstrual Period: 06/21/24 Zika: Zika virus screening: Negative : Yes PFSH PFSH Medical History (Updated 01/05/25 @ 13:23 by Pedro Barbosa NP, MANJU) Cephalopelvic disproportion Depression Anxiety Migraines Surgical History delivery delivered History of tonsillectomy Family History Grandmother Breast cancer, Onset Age: 80 Paternal Other Autoimmune disorder Cancer Social History adopted: No household members: significant other and children number of children: 1 current occupational status: employed current occupation: [employer] current occupational exposures/hazards: No pets and animals: [...] times per week duration: > 90 minutes/day dana/adventist: None seatbelt use: always do you feel safe at home: Yes 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 Date Name GA/Weeks Outcome Route Bth Weight Infant Gen Labor Lgth Anesthesia Del Locatn Provider FOB 08/08/23 Rafia 39 live - full term 8lbs 5oz Female epidural [facility] Luz Veloz Delivery Date: 08/08/23 Last Updated by: Autumn Guerra cpd pushed for 3.5 hours direct OP HPI 28wk2d ob/glucose Details: MELANIE LEIJA is a 24 year old who presents for routine OB visit. OB Visit DESTIN Calculator Estimated Delivery Date Method Current WG Current Estimate 03/28/25 LMP (Certain) 28w 2d Other Estimates 03/28/25 Ultrasound #1 28w 2d Expected Delivery Route/Plan Desired repeat c/s Specific Issue/Plans Covid status: [] Flu vaccine: declines Tdap vaccine: given Rhogam: [NA LARC form signed: yes Problem list reviewed [...] LMp. low risk NIPT girl! no complaints (more content not included)... Normal [facility] Platelet countOrdered By: Julio ashlyn Barbosa on 01-05-2025 Platelets (Bld) [#/Vol] 180 10*3/uL 150-450 [facility] RBC Auto (Bld) [#/Vol]Ordere d By: Pedro Barbosa on 01-05-2025 RBC (Bld) [#/Vol] 3.48 10*6/uL Low 4.2-5.4 [facility] Syphilis Antibodieson 2024 Syphilis Abs Non-Reactive Normal Nonreactive [facility] Comment on above: Performed By: #### L 3890.6301, L509.8002, L3890.6102, BTS, L100.0100, L509.4006, L3890.6006 #### [facility] [address] [place], [address] White blood cell (WBC) count Ordered By: Pedro Barbosa on 01-05-2025 WBC (Bld) [#/Vol] 8.5 10*3/uL 4.4-11.0 [facility] Urine Cultureon 12-24-2024 URC Below infection leve l. Mixed Gram Positive Organisms [place] Count 1000-10,000 MIXC Mixed contaminants. Submit a new specimen if indicated. Normal [facility] Comment on above: Performed By: #### L 3890.6301, L509.8002, L3890.6102, BTS, L100.0100, L509.4006, L3890.6006 #### [facility] [address] [place], [address] AST(SGOT)on 12-22-2024 AST [Catalytic activity/Vol] 21 U/L Normal <=31 [facility] Comment on above: Performed By: #### M 100.678 #### [facility] [address] [place], [address] Abdomen Limitedon 12-22-2024 Abdomen Limited [facility] Imaging Services [address] [place], [place] [address] Abdomen Limited MR#: [id number] Acct: [id number] Name: MELANIE LEIJA Rep #: [id number] : 2000 F 24 From: Dung Zhou MD PCP: Dr. Mariely Neal MD Status: REG CLI Study: Abdomen Limited Date of Exam: 12/22/24 Exam# [id number] Ordering Dr: Mary Canales DO PROCEDURE: ABDOMEN LIMITED 12/22/2024 REASON FOR EXAM: R/O PRE-E TECHNIQUE: Procedure Code: USABDL Modality: US Procedure: ABDOMEN LIMITED COMPARISON: 11/13/2024. FINDINGS: Liver: Measures 15.0 cm in craniocaudal dimension. Echogenicity within normal limits. No focal hepatic lesion identified. Portal venous flow is hepatopetal. Gallbladder and Biliary System: Gallbladder length 7.7 cm. Normal wall thickness measuring 1.2 mm. No gallstones, sludge, or pericholecystic fluid. Common bile duct measures 2.9 mm. Negative sonographic Simmons sign. Pancreas: Normal in echogenicity and contour. No focal abnormality. Right Kidney: Measures 10.9 x 6.8 x 5.1 cm. Cortical thickness 1.4 cm. Mild hydronephrosis present with bear claw configuration of the calyces and a mildly dilated renal pelvis measuring 2.0 x 2.0 x 3.0 cm. No calculus identified. US/Abdomen Limited IMPRESSION: Mild right hydronephrosis with bear claw appearance suggesting possible ureteropelvic junction obstruction or transient obstruction. Reading Location: [address] CC: Dr. Mary Canales DO; Dr. Mariely Neal MD Apartment Maintenance Supervisor: Signed Normal [facility] Alanine Aminotransferas (SGP T)on 12-22-2024 ALT [Catalytic activity/Vol] 18 U/L Normal <=34 [facility] Comment on above: Performed By: #### M [id number] #### [facility] [address] [place], [address] CBC-Complete Blood Cnt No Di ffon 12-22-2024 Erythrocyte distribution width (RBC) [Ratio] 12.6 % Normal 11.6-14.6 [facility] Comment on above: Performed By: #### M 100.678 #### [facility] [address] [place], [address] Hematocrit (Bld) [Volume fraction] 33.9 % Low 37-47 [facility] Comment on above: Performed By: #### M 100.678 #### [facility] [address] [place], [address] Hemoglobin (Bld) [Mass/Vol] 11.7 g/dL Low 12.0-15.0 [facility] Comment on above: Performed By: #### M 100.678 #### [facility] [address] [place], [address] MCH (RBC) [Entitic mass] 32.0 pg Normal 27.0-32.0 [facility] Comment on above: Performed By: #### M 100.678 #### [facility] [address] [place], [address] MCHC (RBC) [Mass/Vol] 34.5 g/dL Normal 32-36 [facility] Comment on above: Performed By: #### M 100.678 #### [facility] [address] [place], [address] MCV (RBC) [Entitic vol] 92.6 fL Normal 81-99 [facility] Comment on above: Performed By: #### M 100.678 #### [facility] [address] [place], [address] Platelet mean volume (Bld) [Entitic vol] 10.3 fL Normal 6.2-12.0 [facility] Comment on above: Performed By: #### M 100.678 #### [facility] [address] [place], [address] Platelets (Bld) [#/Vol] 162 10*3/uL Normal 150-450 [facility] Comment on above: Performed By: #### M 100.678 #### [facility] [address] [place], [address] RBC (Bld) [#/Vol] 3.66 10*6/uL Low 4.2-5.4 [facility] Comment on above: Performed By: #### M 100.678 #### [facility] [address] [place], [address] RDW SD 43.4 fl Normal 35.1-43.9 [facility] Comment on above: Performed By: #### M 100.678 #### [facility] [address] [place], [address] WBC (Bld) [#/Vol] 10.2 10*3/uL Normal 4.4-11.0 [facility] Comment on above: Performed By: #### M 100.678 #### [facility] [address] [place], [address] CTA Chest W/WO Contraston CTA Chest W/WO Contrast [facility] Imaging Services [address] [place] [address] CTA Chest W/WO Contrast MR#: [id number] Acct: [id number] Name: MELANIE LEIJA Rep #: [id number] : 2000 F 24 From: Joe alejo MD PCP: Dr. Mariely Neal MD Status: REG CLI Study: CTA Chest W/WO Contrast Date of Exam: 12/22/24 Exam# [id number] Ordering Dr: Mary Canales DO PROCEDURE: CTA CHEST W/WO CONTRAST 12/22/2024 REASON FOR EXAM: RULE OUT P.E. Fever and shortness of breath. TECHNIQUE: Procedure Code: CTCTACHWW Modality: CT Procedure: CTA CHEST W/WO CONTRAST Multiplanar Sagittal and Coronal images were obtained. 3D post processing was performed CONTRAST: Isovue-300 VOLUME: 100 mL One or more dose reduction techniques were used (e.g., Automated exposure control, adjustment of the mA and/or kV according to patient size, use of iterative reconstruction technique). RADIATION DOSE SUMMARY: CTDlvol: 8.8 mGy DLP: 3169.12 mGycm COMPARISON: None FINDINGS: Hardware: None Lymph nodes: No significant lymph node seen. Heart: The heart is nonenlarged. Thoracic Aorta: No thoracic aortic aneurysm or dissection. Pulmonary Vessels: The pulmonary vessels are well opacified. No pulmonary embolism is seen. Lungs and Airways: Heterogeneous airspace disease in the right upper lobe suggestive of pneumonitis. Radiographic follow-up recommended. Pleura: No pleural effusion. No pneumothorax. Upper Abdomen: Right hydronephrosis. Bones: Bone windows are unremarkable. CT/CTA Chest W/WO Contrast IMPRESSION: No evidence of pulmonary embolism. Heterogeneous airspace disease in the right upper lobe. Radiographic follow-up recommended. Right hydronephrosis. Reading Location: [place] [address] CC: Dr. Mary Canales DO; Dr. Mariely Neal MD Apartment Maintenance Supervisor: Signed Normal [facility] Erythrocyte distribution wid th ratioOrdered By: Yomaira Michael on 12-22-2024 Erythrocyte distribution width (RBC) [Ratio] 12.6 % 11.6-14.6 [facility] Erythrocyte distribution wid th standard deviationOrdered By: Yomaira Michael on 12-22-2024 Erythrocyte distribution width (RBC) [Ratio] 43.4 fl 35.1-43.9 [facility] Glomerular filtration rate ( GFR) estimation/1.73 sq m using serum, plasma, or whole bOrdered By: Yomaira Michael on 12-22-2024 GFR/1.73 sq M.predicted among non-blacks MDRD (S/P/Bld) [Vol rate/Area] 139 mL/min/{1.73_m2} >60 [facility] Comment on above: mL/min/1.73m2 CKD-EP I Creatinine Equation (2020) Hematocrit Auto (Bld) [Volum e fraction]Ordered By: Yomaira Michael on 12-22-2024 Hematocrit (Bld) [Volume fraction] 33.9 % Low 37-47 [facility] Hemoglobin measurementOrdere d By: Yomaira Michael on 12-22-2024 Hemoglobin (Bld) [Mass/Vol] 11.7 g/dL Low 12.0-15.0 [facility] Influenza virus A and B and SARS-CoV-2 (COVID-19) and Respiratory syncytial virus RNAOrdered By: Mary Perez on 12-22-2024 SARS-CoV-2 (COVID-19) RNA CHULA+probe Ql (Unsp spec) [facility] - Chemistry and C hemistry - challengeOrdered By: Yomaira Michael on 12-22-2024 AST [Catalytic activity/Vol] 21 U/L <32 [facility] M100.678on 12-22-2024 M100.678 Pending SARS-CoV-2 (COVID 19) Negative INFLUENZA A Negative INFLUENZA B Negative RSV PCR Negative Normal [facility] Comment on above: Performed By: #### M 100.678 #### [facility] [address] [place] [address]. [place], [address] MCV (mean corpuscular volume ) determinationOrdered By: Yomaira Michael on 12-22-2024 MCV (RBC) [Entitic vol] 92.6 fL 81-99 [facility] Mean corpuscular hemoglobin (MCH) determinationOrdered By: Yomaira Michael on 12-22-2024 MCH (RBC) [Entitic mass] 32.0 pg 27.0-32.0 [facility] Mean corpuscular hemoglobin concentration (MCHC) determinationOrdered By: Yomaira Michael on 12-22-2024 MCHC (RBC) [Mass/Vol] 34.5 g/dL 32-36 [facility] Mean platelet volume determi nationOrdered By: Yomaira Michael on 12-22-2024 Platelet mean volume (Bld) [Entitic vol] 10.3 fL 6.2-12.0 [facility] OB Triage Physician Noteon 1 OB Triage Physician Note [facility] Medical Records Department [address] [place] [address] OB Triage Physician Note 12/22/24 1423 MR#: [id number] Acct: [id number] Name: MELANIE LEIJA Rep #: [id number] : 2000 24 From: Mary Canales DO PCP: Dr. Mariely Neal MD Status:REG CLI Y Location: [place] [id number] HPI - General HPI Narrative MELANIE LEIJA, is a 24 y/o @ 26 weeks 2 days who presents to [facility] with chest pressure, epigastric pain, tachycardia and headache. PIH work up ordered and was negative. CTA ordered and was negative for PE. She denies sick contacts but we discussed testing for covid, flu, and RSV and to order a urine culture. Maternal Data Information DESTIN Calculator Estimated Delivery Date Method Current WG Current Estimate 03/28/25 LMP (Certain) 26w 2d Other Estimates 03/28/25 Ultrasound #1 26w 2d PFSH PFSH Medical History Cephalopelvic disproportion Depression Anxiety Migraines Home Medications ???Medication ???Instructions ???Recorded ???Last Taken ???Type docosahexaenoic acid 200 mg mg PO 08/20/23 Unknown History capsule ( DHA) multivitamin-ferrous 1 tab PO QAM 12/08/24 Unknown Hist ory fumarate-folic acid 18 mg-400 mcg tablet (Women's Daily Multivitamin) famotidine 10 mg tablet (Pepcid AC) 10 mg PO BID #60 tabs 12/15/24 Unknown Rx Allergy/AdvReac Type Severity Reaction Status Date / Time No Known Allergies Allergy Verified 12/22/24 09:07 Family History Grandmother Breast cancer, Onset Age: 80 Paternal Other Autoimmune disorder Cancer Surgical History delivery delivered History of tonsillectomy Social History adopted: No household members: significant other and children number of children: 1 current occupational status: employed current occupation: [employer] current occupational exposures/hazards: No pets and animals: [...] times per week duration: > 90 minutes/day dana/adventist: None seatbelt use: always do you feel safe at home: Yes 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 Date Name GA/Weeks Outcome Route Bth Weight [facility] Rafia 39 live - full term 8lbs 5oz Female epidural [facility] Luz Hugh Delivery Date: 08/08/23 Last Updated by: Autumn Guerra cpd pushed for 3.5 hours direct OP Visit Details Expected Delivery Route/Plan Desired repeat c/s Plans Covid status: [] Flu vaccine: [] Tdap vaccine: [] Rhogam: [] LARC form signed: [] Problem list reviewed and updated with the most current plan of care details and appropriate orders placed. Relevant counseling for the gestational age provided. Continue routine care and follow up unless otherwise noted in visit notes/problem list details OB Flowsheet Initial Weight: 155 lb Date -???-???-???-???-???-?? ?-???-???-???-???-???-? [...] oz (+7 lb 3 oz) 139/69 Negative -???-???-? (more content not included)... Normal [facility] Platelet countOrdered By: Hima Michael on 12-22-2024 Platelets (Bld) [#/Vol] 162 10*3/uL 150-450 [facility] Protein+Creatinine Ratio,Uri neon 12-22-2024 PROT:CRE RATIO 200 mg/g CRE Normal 0-200 [facility] Comment on above: Performed By: #### M 100.678 #### [facility] [address] [place], [address] Protein (U) [Mass/Vol] 15.4 mg/dL High 0.0-12.0 [facility] Comment on above: Performed By: #### M 100.678 #### [facility] [address] [place], [address] UR CREAT 77.10 mg/dL Normal 28.00-217.00 [facility] Comment on above: Performed By: #### M 100.678 #### [facility] [address] [place], [address] RBC Auto (Bld) [#/Vol]Ordere d By: Yomaira Michael on 12-22-2024 RBC (Bld) [#/Vol] 3.66 10*6/uL Low 4.2-5.4 [facility] Random urine creatinine beni urement (mass/volume)Ordered By: Yomaira Michael on 12-22-2024 Creatinine Unsp time (U) [Mass/Vol] 77.10 mg/dL 28.00-217.00 [facility] Serum Creatinine AND GFRon 1 Creatinine [Mass/Vol] 0.45 mg/dL Low 0.70-1.20 [facility] Comment on above: Performed By: #### M 100.678 #### [facility] [address] [place], [address] GFR/1.73 sq M.predicted among non-blacks MDRD (S/P/Bld) [Vol rate/Area] 139 mL/min/{1.73_m2} Normal >60 [facility] Comment on above: Result Comment: mL/m in/1.73m2 CKD-EPI Creatinine Equation (2020) Performed By: #### M 100.678 #### [facility] [address] [place], [address] Serum creatinine measurement (mass/volume)Ordered By: Yomaira Michael on 12-22-2024 Creatinine [Mass/Vol] 0.45 mg/dL Low 0.70-1.20 [facility] Serum or plasma alanine rincon otransferase (ALT) measurementOrdered By: Yomaira Michael on 12-22-2024 ALT [Catalytic activity/Vol] 18 U/L <35 [facility] Serum or plasma uric acid me asurement (mass/volume)Ordered By: Yomaira Michael on 12-22-2024 Urate [Mass/Vol] 3.9 mg/dL 2.6-6.0 [facility] Comment on above: The drugs N-Acetylcy steine and Metamizole may falsely depress this assay. Uric Acidon 12-22-2024 URIC 3.9 mg/dL Normal 2.6-6.0 [facility] Comment on above: Result Comment: The drugs N-Acetylcysteine and Metamizole may falsely depress this assay. Performed By: #### M 100.678 #### [facility] [address] [facility] [place], [address] Urine cultureOrdered By: Staci Perez on 12-22-2024 Bacteria identified Cx Nom (U) Positive Abnormal [facility] Urine protein measurement (m ass/volume)Ordered By: Yomaira Michael on 12-22-2024 Protein (U) [Mass/Vol] 15.4 mg/dL High 0.0-12.0 [facility] Urine protein/creatinine mas s ratioOrdered By: Yomaira Michael on 12-22-2024 Protein/Creatinine (U) [Mass ratio] 200 mg/g CRE 0-200 [facility] White blood cell (WBC) count Ordered By: Yomaira Michael on 12-22-2024 WBC (Bld) [#/Vol] 10.2 10*3/uL 4.4-11.0 [facility] OB Triage Progress Noteon OB Triage Progress Note [facility] Medical Records Department [address] [place] [address] OB Triage Progress Note 12/17/24 1657 MR#: [id number] Acct: [id number] Name: MELANIE LEIJA Rep #: [id number] : 2000 24 From: Diana Escobar MD PCP: Dr. Mariely Neal MD Status:DEP CLI Y DOS: Location: WPOUT Progress Notes Date of Service: 12/12/24 Progress Note: Patient presents for triage evaluation secondary to headache FHT: 140 Moderate variability reactive no decelerations [place]: n regular ctx Contractions Assessment and plan: 24 weeks headache reslving with treatent normal labs normal bps reassuring maternal and status patient discharged to home to follow-up as scheculed. See problem list details for additional plan information. Laboratory Studies: Laboratory Tests 12/12/24 Range/Units 10:40 WBC 10.2 (4.4-11.0) K/mm3 RBC 3.93 L (4.2-5.4) M/mm3 Hgb 12.6 (12.0-15.0) g/dL Hct 36.9 L (37-47) % MCV 93.9 (81-99) fL MCH 32.1 H (27.0-32.0) pg MCHC 34.1 (32-36) g/dL RDW Std Deviation 44.5 H (35.1-43.9) fl RDW Coeff of Francesco 12.8 (11.6-14.6) % Plt Count 167 (150-450) K/mm3 MPV 10.9 (6.2-12.0) fl Sodium 136 (133-145) mmol/L Potassium 3.7 (3.3-5.1) mmol/L Chloride 104 (98-108) mmol/L Carbon Dioxide 20.5 L (21.0-32.0) mmol/L Anion Gap 11 (5-15) BUN 7 (4-19) mg/dL Creatinine 0.48 L (0.70-1.20) mg/dL Estim Creat Clear Calc 199.73 (50-250) ml/min Est GFR (MDRD) Non-Af 137 (>60) BUN/Creatinine Ratio 15.4 (10-20) RATIO Glucose 104 H (70-99) mg/dL Calcium 8.8 (7.6-11.0) mg/dL Total Bilirubin 0.51 (0.00-1.30) mg/dL AST 19 (<=31) U/L ALT 12 (<=34) U/L Alkaline Phosphatase 69 (35-104) U/L Total Protein 6.4 (5.9-8.4) g/dL Albumin 3.5 (3.5-5.0) g/dL Globulin 2.8 (2.2-4.2) g/dL Albumin/Globulin Ratio 1.3 (0.9-2.4) RATIO U Random Total Protein 7.6 (0.0-12.0) mg/dL Urine Creatinine 69.50 (28.00-217.00) mg/dL Protein/Creatinin Ratio 109 (0-200) mg/g CRE Charges/Coding Procedures Urinary/Genital 52xxx-59xxx: No Charge 12/17/24 1700 Date Diana Escobar MD Cosigner Signature (if applicable): Date CC: Dr. Mariely Neal MD; Dr. Diana Escobar MD Signed Normal [facility] Laboratory - Chemistry and C hemistry - challengeOrdered By: Yomaira Michael on 12-15-2024 Glucose Ql (U) Negative [facility] - UrinalysisOrder ed By: Yomaira Michael on 12-15-2024 Protein Ql (U) Negative [facility] Data Management Associate Office Visit Reporton 12-15-2024 Data Management Associate Office Visit Report [facility]'[address], [address] [place] [address] OFFICE VISIT Date of Service: 12/15/24 MR#: [id number] Acct: [id number] Name: MELANIE LEIJA Rep #: [id number] : 2000 Provider: MICHELLE Interiano ams Age/Sex: 24/F Location[place] [facility] [place]: Signed Intake Vital Signs 10/20/24 09:38 12/12/24 09:46 12/15/24 13:11 Height 5 ft 6 in 5 ft 6 in 5 ft 6 in Weight: 180 lb BMI 29.0 BP 115/74 Intake Visit Reasons: 25wk2d ob Chief Complaint: 25wk OB Shell Trim Tool Setter Required: No Is patient in pain?: No Allergies No Known Allergies Allergy (Verified 12/15/24 13:10) Medications ???Medication ???Instructions ???Recorded ???Confirmed ???Type docosahexaenoic acid 200 mg mg PO 08/20/23 12/15/24 History capsule ( DHA) multivitamin-ferrous 1 tab PO QAM 12/08/24 12/15/24 His tory fumarate-folic acid 18 mg-400 mcg tablet (Women's Daily Multivitamin) famotidine 10 mg tablet (Pepcid AC) 10 mg PO BID #60 tabs 12/15/24 12/15/24 Rx Last Menstrual Period: 06/21/24 : No Have you fallen in the past year?: No PFSH PFSH Medical History Cephalopelvic disproportion Depression Anxiety Migraines Surgical History delivery delivered History of tonsillectomy Family History Grandmother Breast cancer, Onset Age: 80 Paternal Other Autoimmune disorder Cancer Social History adopted: No household members: significant other and children number of children: 1 current occupational status: employed current occupation: [employer] - [employer] current occupational exposures/hazards: No pets and animals: [...] times per week duration: > 90 minutes/day dana/adventist: None seatbelt use: always do you feel safe at home: Yes 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 Date Name GA/Weeks Outcome Route Bth Weight Infant Gen Labor Lgth Anesthesia Del Locatn Provider FOB 08/08/23 Rafia 39 live - full term 8lbs 5oz Female epidural [facility] Luz Veloz Delivery Date: 08/08/23 Last Updated by: Autumn Guerra cpd pushed for 3.5 hours direct OP HPI 25wk2d ob Details: MELANIE LEIJA is a 24 year old who presents for routine OB visit. OB Visit DESTIN Calculator Estimated Delivery Date Method Current WG Current Estimate 03/28/25 LMP (Certain) 25w 2d Other Estimates 03/28/25 Ultrasound #1 25w 2d Expected Delivery Route/Plan Desired repeat c/s [...] section. 10/20/24 -???-???-???-???-???-?? ?-???-???-???-???-???-? ??- 17w 2d (more content not included)... Normal [facility] Anion gap in Serum or Plasma Ordered By: Diana Escobar on 12-12-2024 Anion gap [Moles/Vol] 11 mmol/L - [facility] BUN/creatinine ratioOrdered By: Diana Escobar on 12-12-2024 Urea nitrogen/Creatinine [Mass ratio] 15.4 mg/mg - [facility] Bilirubin, totalOrdered By: Diana Escobar on 12-12-2024 Bilirubin [Mass/Vol] 0.51 mg/dL 0.00-1.30 [facility] CBC-Complete Blood Cnt No Di ffon 12-12-2024 Erythrocyte distribution width (RBC) [Ratio] 12.8 % Normal 11.6-14.6 [facility] Comment on above: Performed By: #### M 100.678 #### [facility] [address] [place], [address] Hematocrit (Bld) [Volume fraction] 36.9 % Low 37-47 [facility] Comment on above: Performed By: #### M 100.678 #### [facility] [address] [place], [address] Hemoglobin (Bld) [Mass/Vol] 12.6 g/dL Normal 12.0-15.0 [facility] Comment on above: Performed By: #### M 100.678 #### [facility] [address] [place], [address] MCH (RBC) [Entitic mass] 32.1 pg High 27.0-32.0 [facility] Comment on above: Performed By: #### M 100.678 #### [facility] [address] [place], [address] MCHC (RBC) [Mass/Vol] 34.1 g/dL Normal 32-36 [facility] Comment on above: Performed By: #### M 100.678 #### [facility] [address] [place], [address] MCV (RBC) [Entitic vol] 93.9 fL Normal 81-99 [facility] Comment on above: Performed By: #### M 100.678 #### [facility] [address] [place], [address] Platelet mean volume (Bld) [Entitic vol] 10.9 fL Normal 6.2-12.0 [facility] Comment on above: Performed By: #### M 100.678 #### [facility] [address] [place], [address] Platelets (Bld) [#/Vol] 167 10*3/uL Normal 150-450 [facility] Comment on above: Performed By: #### M 100.678 #### [facility] [address] [place], [address] RBC (Bld) [#/Vol] 3.93 10*6/uL Low 4.2-5.4 [facility] Comment on above: Performed By: #### M 100.678 #### [facility] [address] [place], [address] RDW SD 44.5 fl High 35.1-43.9 [facility] Comment on above: Performed By: #### M 100.678 #### [facility] [address] [place], [address] WBC (Bld) [#/Vol] 10.2 10*3/uL Normal 4.4-11.0 [facility] Comment on above: Performed By: #### M 100.678 #### [facility] [address] [place], [address] Carbon dioxide, total [Moles /volume] in Central venous bloodOrdered By: Diana Escobar on 12-12-2024 CO2 [Moles/Vol] 20.5 mmol/L Low 21.0-32.0 [facility] Chloride assayOrdered By: Cy Escobar on 12-12-2024 Chloride [Moles/Vol] 104 mmol/L 98-108 [facility] Comprehensive Metabolic Prof ilon 12-12-2024 Albumin [Mass/Vol] 3.5 g/dL Normal 3.5-5.0 [facility] Comment on above: Performed By: #### L 3890.6301, L509.8002, L3890.6102, BTS, L100.0100, L509.4006, L3890.6006 #### [facility] [address] [place], [address] Albumin/Globulin [Mass ratio] 1.3 {ratio} Normal 0.9-2.4 [facility] Comment on above: Performed By: #### L 3890.6301, L509.8002, L3890.6102, BTS, L100.0100, L509.4006, L3890.6006 #### [facility] [address] [place], [address] ALK PHOS 69 U/L Normal 35-104 [facility] Comment on above: Performed By: #### L 3890.6301, L509.8002, L3890.6102, BTS, L100.0100, L509.4006, L3890.6006 #### [facility] [address] [place], [address] ALT [Catalytic activity/Vol] 12 U/L Normal <=34 [facility] Comment on above: Performed By: #### L 3890.6301, L509.8002, L3890.6102, BTS, L100.0100, L509.4006, L3890.6006 #### [facility] [address] [place], [address] AST [Catalytic activity/Vol] 19 U/L Normal <=31 [facility] Comment on above: Performed By: #### L 3890.6301, L509.8002, L3890.6102, BTS, L100.0100, L509.4006, L3890.6006 #### [facility] [address] [place], [address] Bilirubin [Mass/Vol] 0.51 mg/dL Normal 0.00-1.30 [facility] Comment on above: Performed By: #### L 3890.6301, L509.8002, L3890.6102, BTS, L100.0100, L509.4006, L3890.6006 #### [facility] [address] [place], [address] BUN/CRE 15.4 RATIO Normal 10-20 [facility] Comment on above: Performed By: #### L 3890.6301, L509.8002, L3890.6102, BTS, L100.0100, L509.4006, L3890.6006 #### [facility] [address] [place], [address] Calcium [Mass/Vol] 8.8 mg/dL Normal 7.6-11.0 [facility] Comment on above: Performed By: #### L 3890.6301, L509.8002, L3890.6102, BTS, L100.0100, L509.4006, L3890.6006 #### [facility] [address] [place], [address] Chloride [Moles/Vol] 104 mmol/L Normal 98-108 [facility] Comment on above: Performed By: #### L 3890.6301, L509.8002, L3890.6102, BTS, L100.0100, L509.4006, L3890.6006 #### [facility] [address] [place], [address] CO2 [Moles/Vol] 20.5 mmol/L Low 21.0-32.0 [facility] Comment on above: Performed By: #### L 3890.6301, L509.8002, L3890.6102, BTS, L100.0100, L509.4006, L3890.6006 #### [facility] [address] [place], [address] Creatinine [Mass/Vol] 0.48 mg/dL Low 0.70-1.20 [facility] Comment on above: Performed By: #### L 3890.6301, L509.8002, L3890.6102, BTS, L100.0100, L509.4006, L3890.6006 #### [facility] [address] [place], [address] ECRCL 199.73 ml/min Normal 50-250 [facility] Comment on above: Performed By: #### L 3890.6301, L509.8002, L3890.6102, BTS, L100.0100, L509.4006, L3890.6006 #### [facility] [address] [place], [address] GAP 11 Normal 5-15 [facility] Comment on above: Performed By: #### L 3890.6301, L509.8002, L3890.6102, BTS, L100.0100, L509.4006, L3890.6006 #### [facility] [address] [place], [address] GFR/1.73 sq M.predicted among non-blacks MDRD (S/P/Bld) [Vol rate/Area] 137 mL/min/{1.73_m2} Normal >60 [facility] Comment on above: Result Comment: mL/m in/1.73m2 CKD-EPI Creatinine Equation (2020) Performed By: #### L 3890.6301, L509.8002, L3890.6102, BTS, L100.0100, L509.4006, L3890.6006 #### [facility] [address] [place], [address] Globulin (S) [Mass/Vol] 2.8 g/dL Normal 2.2-4.2 [facility] Comment on above: Performed By: #### L 3890.6301, L509.8002, L3890.6102, BTS, L100.0100, L509.4006, L3890.6006 #### [facility] [address] [place], [address] Glucose [Mass/Vol] 104 mg/dL High 70-99 [facility] Comment on above: Performed By: #### L 3890.6301, L509.8002, L3890.6102, BTS, L100.0100, L509.4006, L3890.6006 #### [facility] [address] [place], [address] Potassium [Moles/Vol] 3.7 mmol/L Normal 3.3-5.1 [facility] Comment on above: Performed By: #### L 3890.6301, L509.8002, L3890.6102, BTS, L100.0100, L509.4006, L3890.6006 #### [facility] [address] [place], [address] Sodium [Moles/Vol] 136 mmol/L Normal 133-145 [facility] Comment on above: Performed By: #### L 3890.6301, L509.8002, L3890.6102, BTS, L100.0100, L509.4006, L3890.6006 #### [facility] [address] [place], [address] T PROT 6.4 g/dL Normal 5.9-8.4 [facility] Comment on above: Performed By: #### L 3890.6301, L509.8002, L3890.6102, BTS, L100.0100, L509.4006, L3890.6006 #### [facility] [address] [place], [address] Urea nitrogen [Mass/Vol] 7 mg/dL Normal 4-19 [facility] Comment on above: Performed By: #### L 3890.6301, L509.8002, L3890.6102, BTS, L100.0100, L509.4006, L3890.6006 #### [facility] [address] [place], [address] Erythrocyte distribution wid th ratioOrdered By: Diana Escobar on 12-12-2024 Erythrocyte distribution width (RBC) [Ratio] 12.8 % 11.6-14.6 [facility] Erythrocyte distribution wid th standard deviationOrdered By: Diana Escobar on 12-12-2024 Erythrocyte distribution width (RBC) [Ratio] 44.5 fl High 35.1-43.9 [facility] Glomerular filtration rate ( GFR) estimation/1.73 sq m using serum, plasma, or whole bOrdered By: Diana Escobar on 12-12-2024 GFR/1.73 sq M.predicted among non-blacks MDRD (S/P/Bld) [Vol rate/Area] 137 mL/min/{1.73_m2} >60 [facility] Comment on above: mL/min/1.73m2 CKD-EP I Creatinine Equation (2020) Hematocrit Auto (Bld) [Volum e fraction]Ordered By: Diana Escobar on 12-12-2024 Hematocrit (Bld) [Volume fraction] 36.9 % Low 37-47 [facility] Hemoglobin measurementOrdere d By: Diana Escobar on 12-12-2024 Hemoglobin (Bld) [Mass/Vol] 12.6 g/dL 12.0-15.0 [facility] - Chemistry and C hemistry - challengeOrdered By: Diana Escobar on 12-12-2024 AST [Catalytic activity/Vol] 19 U/L <32 [facility] MCV (mean corpuscular volume ) determinationOrdered By: Diana Escobar on 12-12-2024 MCV (RBC) [Entitic vol] 93.9 fL 81-99 [facility] Mean corpuscular hemoglobin (MCH) determinationOrdered By: Diana Escobar on 12-12-2024 MCH (RBC) [Entitic mass] 32.1 pg High 27.0-32.0 [facility] Mean corpuscular hemoglobin concentration (MCHC) determinationOrdered By: Diana Escobar on 12-12-2024 MCHC (RBC) [Mass/Vol] 34.1 g/dL 32-36 [facility] Mean platelet volume determi nationOrdered By: Diana Escobar on 12-12-2024 Platelet mean volume (Bld) [Entitic vol] 10.9 fL 6.2-12.0 [facility] Platelet countOrdered By: Cy Escobar on 12-12-2024 Platelets (Bld) [#/Vol] 167 10*3/uL 150-450 [facility] Potassium measurement (mass/ volume)Ordered By: Diana Escobar on 12-12-2024 Potassium (Unsp spec) [Mass/Vol] 3.7 mmol/L 3.3-5.1 [facility] Protein+Creatinine Ratio,Uri neon 12-12-2024 PROT:CRE RATIO 109 mg/g CRE Normal 0-200 [facility] Comment on above: Performed By: #### M [id number] #### [facility] [address] [place], [address] Protein (U) [Mass/Vol] 7.6 mg/dL Normal 0.0-12.0 [facility] Comment on above: Performed By: #### M 100.678 #### [facility] [address] [place], [address] UR CREAT 69.50 mg/dL Normal 28.00-217.00 [facility] Comment on above: Performed By: #### M 100.678 #### [facility] [address] [facility], [address] RBC Auto (Bld) [#/Vol]Ordere d By: Diana Escobar on 12-12-2024 RBC (Bld) [#/Vol] 3.93 10*6/uL Low 4.2-5.4 [facility] Random urine creatinine beni urement (mass/volume)Ordered By: Diana Escobar on 12-12-2024 Creatinine Unsp time (U) [Mass/Vol] 69.50 mg/dL 28.00-217.00 [facility] Serum creatinine measurement (mass/volume)Ordered By: Diana Escobar on 12-12-2024 Creatinine [Mass/Vol] 0.48 mg/dL Low 0.70-1.20 [facility] Serum globulin measurementOr dered By: Diana Escobar on 12-12-2024 Globulin (S) [Mass/Vol] 2.8 g/dL 2.2-4.2 [facility] Serum glucose measurement (m ass/volume)Ordered By: Diana Escobar on 12-12-2024 Glucose [Mass/Vol] 104 mg/dL High 70-99 [facility] Serum or plasma alanine rincon otransferase (ALT) measurementOrdered By: Diana Escobar on 12-12-2024 ALT [Catalytic activity/Vol] 12 U/L <35 [facility] Serum or plasma albumin beni urement (mass/volume)Ordered By: Diana Escobar on 12-12-2024 Albumin [Mass/Vol] 3.5 g/dL 3.5-5.0 [facility] Serum or plasma albumin/glob ulin mass ratioOrdered By: Diana Escobar on 12-12-2024 Albumin/Globulin [Mass ratio] 1.3 {ratio} 0.9-2.4 [facility] Serum or plasma alkaline whit sphatase measurementOrdered By: Diana Escobar on 12-12-2024 ALP [Catalytic activity/Vol] 69 U/L 35-104 [facility] Serum or plasma calcium beni urement (mass/volume)Ordered By: Diana Escobar on 12-12-2024 Calcium [Mass/Vol] 8.8 mg/dL 7.6-11.0 [facility] Serum or plasma urea nitroge n measurement (mass/volume)Ordered By: Diana Escobar on 12-12-2024 Urea nitrogen [Mass/Vol] 7 mg/dL 4-19 [facility] Sodium levelOrdered By: Vincenzo Escobar on 12-12-2024 Sodium [Moles/Vol] 136 mmol/L 133-145 [facility] Total proteinOrdered By: Orlando Escobar on 12-12-2024 Protein [Mass/Vol] 6.4 g/dL 5.9-8.4 [facility] Urine protein measurement (m ass/volume)Ordered By: Diana Escobar on 12-12-2024 Protein (U) [Mass/Vol] 7.6 mg/dL 0.0-12.0 [facility] Urine protein/creatinine mas s ratioOrdered By: Diana Escobar on 12-12-2024 Protein/Creatinine (U) [Mass ratio] 109 mg/g CRE 0-200 [facility] White blood cell (WBC) count Ordered By: Diana Escobar on 12-12-2024 WBC (Bld) [#/Vol] 10.2 10*3/uL 4.4-11.0 [facility] Laboratory - Chemistry and C hemistry - challengeOrdered By: Chikis Ferrera on 12-08-2024 Bilirubin Ql (U) Negative [facility] Glucose Ql (U) Negative [facility] Ketones Ql (U) Negative [facility] pH (U) 7 [pH] [facility] Specific gravity (U) [Rel density] 1.010 [facility] Urobilinogen (U) [Mass/Vol] 1 mg/dL [facility] - Hematology and Cell countsOrdered By: Chikis Ferrera on 12-08-2024 Hemoglobin Ql (U) Negative [facility] - UrinalysisOrder ed By: Chikis Ferrera on 12-08-2024 Nitrite Ql (U) Negative [facility] Protein Ql (U) Trace [facility] MR/Deniz 12-08-2024 MR/UYEN [facility] [address], [address] [place] [address] OFFICE VISIT Date of Service: 12/08/24 MR#: [id number] Acct: [id number] Name: MELANIE LEIJA Rep #: [id number] : 2000 Provider: Dr. 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 [facility] Medical History (Updated 12/08/24 @ 08:[address] Chikis Ferrera MD) Cephalopelvic disproportion Depression Anxiety Migraines Surgical History delivery delivered History of tonsillectomy Family History Grandmother Breast cancer, Onset Age: 80 Paternal Other Autoimmune disorder Cancer Social History adopted: No household members: significant other and children number of children: 1 current occupational status: employed current occupation: [employer] current occupational exposures/hazards: No pets and animals: [...] times per week duration: > 90 minutes/day dana/adventist: None seatbelt use: always do you feel safe at home: Yes 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 She is here for evaluation and management of urolithiasis. She is currently. She had a significant amount of gross hematuria about a month ago. She has never had a urinary tract infection. She was treated for a urinary tract infection. When she got home she was unable to void. She passed 3 large stones at home, and the bleeding stopped. Two days later the hematuria recurred. She passed 6-7 tiny stones and the bleeding again stopped. The pain she had was on the right wrapping around her side. She has never had stones previously. No urinary tract infections. She has no other urologic symptoms when she is not . ROS Const Constitutional: No chills, fatigue, fever(s), headache(s), night sweats, weakness, weight change, abnormal sleep pattern or change in appetite Eyes Eyes: No change in vision ENT ENT: No headache(s) or dry mouth Resp Respiratory: No cough, chest congestion, shortness of breath or wheezing Cardio Cardiology: Positive for other (No chest pain.); No shortness of breath, irregular heart rhythm or lightheadedness Gastro GI: Positive for other (No nausea.); No abdominal pain, change in bowel habits, constipation, diarrhea or vomiting Musc Musculoskeletal: No abnormal gait Skin Skin: No yellowing of the eye, lesions, itchy eyes, rash or skin ulcer Neuro Neurology: No abnormal gait, confusion, dizziness, weakness, headache(s) or memory loss Psych Psychiatric: No abnormal sleep pattern, No change in appetite, No confusion and No memory loss Endo Endocrine: No fatigue, increased thirst/drinking or weight change Aller/Imm Allergy/Immunologic: No itchy eyes or wheezing Roland/Lymp Hematologic/Lymphatic: No easy bleeding, easy bruising or enlarged lymph nodes Exam Const General: cooperative, healthy appearing, comfortable and no acute distress [facility] Head: normocephalic and atraumatic Ears: hearing grossly normal bilaterally and external ears normal Nose: external nose normal Eyes General: appearance normal, both eyes and all related structures Neck Neck: normal visual inspection and trachea midline Chest Chest palpation inspection: normal inspection of the chest Resp Effort (more content not included)... Normal [facility] No Panel InformationOrdered By: Chikis Ferrera on 12-08-2024 Urine Leukocytes Positive [facility] Urine Non-Hemolyzed Blood Negative [facility] Laboratory - Chemistry and C hemistry - challengeOrdered By: Diana Escobar on 11-17-2024 Glucose Ql (U) Negative [facility] - UrinalysisOrder ed By: Diana Escobar on 11-17-2024 Protein Ql (U) Negative [facility] Data Management Associate Office Visit Reporton 11-17-2024 Data Management Associate Office Visit Report [facility] [address], [address] [place] [address] OFFICE VISIT Date of Service: 11/17/24 MR#: [id number] Acct: [id number] Name: MELANIE LEIJA Rep #: [id number] : 2000 Provider: Dr. 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 Date Name GA/Weeks Outcome Route Bth Weight Gen Labor Lgth Anesthesia Del Locatn Provider FOB 08/08/23 Rafia 39 live - full term 8lbs 5oz Female epidural [facility] Sunilkarunapooja Veloz Delivery Date: 08/08/23 Last Updated by: Autumn Gurera cpd pushed for 3.5 hours direct OP [...] 162 lb (more content not included)... Normal [facility] Urine Cultureon 11-16-2024 URC Below infection leve l. Mixed Gram Positive Organisms [place] Count <1000 MIX[facility] Mixed contaminants. Submit a new specimen if indicated. Normal [facility] Comment on above: Performed By: #### M 100.2206 #### [facility] [address] [place], [place], [address] Abdomen/Pelvis without Conto n 11-13-2024 Abdomen/Pelvis without Cont [facility] [address] [place], [place] [address] Abdomen/Pelvis without Cont MR#: [id number] Acct: [id number] Name: MELANIE LEIJA Rep #: [id number] : 2000 F 24 From: Rashaun Aldana MD PCP: Dr. Mariely Neal MD Status: REG CLI Study: Abdomen/Pelvis without Cont Date of Exam: 07/04 Exam# [id number] Ordering Dr: Diana Escobar PROCEDURE: ABDOMEN/PELVIS WITHOUT [...] Mild hepatomegaly. 4. Gravid uterus. Reading Location: [facility] CC: Dr. Mariely Neal MD; Dr. 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: Signed Normal [facility] Absolute lymphocyte countOrd ered By: Diana Escobar on 11-13-2024 Lymphocytes Auto (Unsp spec) [#/Vol] 2.10 10*3/uL 0.83-4.51 [facility] Absolute neutrophil countOrd ered By: Diana Escobar on 11-13-2024 Neutrophils (Bld) [#/Vol] 9.5 10*3/uL High 2.0-7.7 [facility] Anion gap in Serum or Plasma Ordered By: Diana Escobar on 11-13-2024 Anion gap [Moles/Vol] 12 mmol/L 5-15 [facility] Automated lymphocyte count a s percentage of total leukocytesOrdered By: Diana Escobar on 11-13-2024 Lymphocytes/100 WBC Auto (Unsp spec) 16.9 % Low 19-41 [facility] BUN/creatinine ratioOrdered By: Diana Escobar on 11-13-2024 Urea nitrogen/Creatinine [Mass ratio] 12.7 mg/mg 10-20 [facility] Basophil percentageOrdered B y: Diana Escobar on 11-13-2024 Basophils/100 WBC (Bld) 0.2 % 0-1 [facility] Bilirubin Test strip Ql (U)O rdered By: Mary Perez on 11-13-2024 Bilirubin Ql (U) Negative Negative [facility] Bilirubin, totalOrdered By: Diana Barberhugh on 11-13-2024 Bilirubin [Mass/Vol] 0.58 mg/dL 0.00-1.30 [facility] CBC W/Diff, Automatedon Absolute Lymph 2.10 X10 3/uL Normal 0.83-4.51 [facility] Comment on above: Performed By: #### L 100.0100 #### [facility] [address] [place], [address] Absolute Neut 9.5 X10 3/uL High 2.0-7.7 [facility] Comment on above: Performed By: #### L 100.0100 #### [facility] [address] [place], [address] Basophils/100 WBC (Bld) 0.2 % Normal 0-1 [facility] Comment on above: Performed By: #### L 100.0100 #### [facility] [address] [place], [address] Eosinophils/100 WBC (Bld) 0.7 % Normal 0-5 [facility] Comment on above: Performed By: #### L 100.0100 #### [facility] [address] [place], [address] Erythrocyte distribution width (RBC) [Ratio] 13.3 % Normal 11.6-14.6 [facility] Comment on above: Performed By: #### L 100.0100 #### [facility] [address] [place], [address] Hematocrit (Bld) [Volume fraction] 37.1 % Normal 37-47 [facility] Comment on above: Performed By: #### L 100.0100 #### [facility] [address] [place], [address] Hemoglobin (Bld) [Mass/Vol] 12.9 g/dL Normal 12.0-15.0 [facility] Comment on above: Performed By: #### L 100.0100 #### [facility] [address] [place], [address] IG% 0.600 Normal 0.0-0.9 [facility] Comment on above: Result Comment: IG% - Immature Granulocytes (promyelocytes, myelocytes and metamyelocytes) > 1% indicates that a LEFT SHIFT is Present. Performed By: #### L 100.0100 #### [facility] [address] [place], [address] Lymphocytes/100 WBC (Bld) 16.9 % Low 19-41 [facility] Comment on above: Performed By: #### L 100.0100 #### [facility] [address] [place], [address] MCH (RBC) [Entitic mass] 32.2 pg High 27.0-32.0 [facility] Comment on above: Performed By: #### L 100.0100 #### [facility] [address] [place], [address] MCHC (RBC) [Mass/Vol] 34.8 g/dL Normal 32-36 [facility] Comment on above: Performed By: #### L 100.0100 #### [facility] [address] [place], [address] MCV (RBC) [Entitic vol] 92.5 fL Normal 81-99 [facility] Comment on above: Performed By: #### L 100.0100 #### [facility] [address] [place], [address] Monocytes/100 WBC (Bld) 4.8 % Normal 0-10 [facility] Comment on above: Performed By: #### L 100.0100 #### [facility] [address] [place], [address] Neutrophils/100 WBC (Bld) 76.8 % High 47-70 [facility] Comment on above: Performed By: #### L 100.0100 #### [facility] [address] [place], [address] Nucleated RBC (Bld) [#/Vol] 0 10*3/uL Normal 0-5 [facility] Comment on above: Performed By: #### L 100.0100 #### [facility] [address] [place], [address] Platelet mean volume (Bld) [Entitic vol] 11.0 fL Normal 6.2-12.0 [facility] Comment on above: Performed By: #### L 100.0100 #### [facility] [address] [place], [address] Platelets (Bld) [#/Vol] 170 10*3/uL Normal 150-450 [facility] Comment on above: Performed By: #### L 100.0100 #### [facility] [address] [place], [address] RBC (Bld) [#/Vol] 4.01 10*6/uL Low 4.2-5.4 [facility] Comment on above: Performed By: #### L 100.0100 #### [facility] [address] [place], [address] RDW SD 44.9 fl High 35.1-43.9 [facility] Comment on above: Performed By: #### L 100.0100 #### [facility] [address] [place], [address] WBC (Bld) [#/Vol] 12.4 10*3/uL High 4.4-11.0 [facility] Comment on above: Performed By: #### L 100.0100 #### [facility] [address] [place], [address] Carbon dioxide, total [Moles /volume] in Central venous bloodOrdered By: Diana Escobar on 11-13-2024 CO2 [Moles/Vol] 21.5 mmol/L 21.0-32.0 [facility] Chloride assayOrdered By: Cy Escobar on 11-13-2024 Chloride [Moles/Vol] 103 mmol/L 98-108 [facility] Comprehensive Metabolic Prof ilon 11-13-2024 Albumin [Mass/Vol] 3.7 g/dL Normal 3.5-5.0 [facility] Comment on above: Performed By: #### M 100.678 #### [facility] [address] [place], [address] Albumin/Globulin [Mass ratio] 1.3 {ratio} Normal 0.9-2.4 [facility] Comment on above: Performed By: #### M 100.678 #### [facility] [address] [place], [address] ALK PHOS 67 U/L Normal 35-104 [facility] Comment on above: Performed By: #### M 100.678 #### [facility] [address] [place], [address] ALT [Catalytic activity/Vol] 11 U/L Normal <=34 [facility] Comment on above: Performed By: #### M 100.678 #### [facility] [address] [place], [address] AST [Catalytic activity/Vol] 19 U/L Normal <=31 [facility] Comment on above: Performed By: #### M 100.678 #### [facility] [address] [place], [address] Bilirubin [Mass/Vol] 0.58 mg/dL Normal 0.00-1.30 [facility] Comment on above: Performed By: #### M 100.678 #### [facility] [address] [place], [address] BUN/CRE 12.7 RATIO Normal 10-20 [facility] Comment on above: Performed By: #### M 100.678 #### [facility] [address] [place], [address] Calcium [Mass/Vol] 9.0 mg/dL Normal 7.6-11.0 [facility] Comment on above: Performed By: #### M 100.678 #### [facility] [address] [place], [address] Chloride [Moles/Vol] 103 mmol/L Normal 98-108 [facility] Comment on above: Performed By: #### M 100.678 #### [facility] [address] [place], [address] CO2 [Moles/Vol] 21.5 mmol/L Normal 21.0-32.0 [facility] Comment on above: Performed By: #### M 100.678 #### [facility] [address] [place], [address] Creatinine [Mass/Vol] 0.58 mg/dL Low 0.70-1.20 [facility] Comment on above: Performed By: #### M 100.678 #### [facility] [address] [place], [address] ECRCL 159.10 ml/min Normal 50-250 [facility] Comment on above: Performed By: #### M 100.678 #### [facility] [address] [place], [address] GAP 12 Normal 5-15 [facility] Comment on above: Performed By: #### M 100.678 #### [facility] [address] [place], [address] GFR/1.73 sq M.predicted among non-blacks MDRD (S/P/Bld) [Vol rate/Area] 131 mL/min/{1.73_m2} Normal >60 [facility] Comment on above: Result Comment: mL/m in/1.73m2 CKD-EPI Creatinine Equation (2020) Performed By: #### M 100.678 #### [facility] [address] [place], [address] Globulin (S) [Mass/Vol] 2.8 g/dL Normal 2.2-4.2 [facility] Comment on above: Performed By: #### M 100.678 #### [facility] [address] [place], [address] Glucose [Mass/Vol] 87 mg/dL Normal 70-99 [facility] Comment on above: Performed By: #### M 100.678 #### [facility] [address] [place], [address] Potassium [Moles/Vol] 3.8 mmol/L Normal 3.3-5.1 [facility] Comment on above: Performed By: #### M 100.678 #### [facility] [address] [place], [address] Sodium [Moles/Vol] 136 mmol/L Normal 133-145 [facility] Comment on above: Performed By: #### M 100.678 #### [facility] [address] [place], [place], [address] T PROT 6.5 g/dL Normal 5.9-8.4 [facility] Comment on above: Performed By: #### M 100.678 #### [facility] [address] [place], [place], [address] Urea nitrogen [Mass/Vol] 7 mg/dL Normal 4-19 [facility] Comment on above: Performed By: #### M 100.678 #### [facility] [address] [place], [place], [address] Eosinophil percentageOrdered By: Diana Escobar on 11-13-2024 Eosinophils/100 WBC (Bld) 0.7 % 0-5 [facility] Erythrocyte distribution wid th ratioOrdered By: Diana Escobar on 11-13-2024 Erythrocyte distribution width (RBC) [Ratio] 13.3 % 11.6-14.6 [facility] Erythrocyte distribution wid th standard deviationOrdered By: Diana Escobar on 11-13-2024 Erythrocyte distribution width (RBC) [Ratio] 44.9 fl High 35.1-43.9 [facility] Glomerular filtration rate ( GFR) estimation/1.73 sq m using serum, plasma, or whole bOrdered By: Diana Escobar on 11-13-2024 GFR/1.73 sq M.predicted among non-blacks MDRD (S/P/Bld) [Vol rate/Area] 131 mL/min/{1.73_m2} >60 [facility] Comment on above: mL/min/1.73m2 CKD-EP I Creatinine Equation (2020) Hematocrit Auto (Bld) [Volum e fraction]Ordered By: Diana Escobar on 11-13-2024 Hematocrit (Bld) [Volume fraction] 37.1 % 37-47 [facility] Hemoglobin measurementOrdere d By: Diana Escobar on 11-13-2024 Hemoglobin (Bld) [Mass/Vol] 12.9 g/dL 12.0-15.0 [facility] Immature granulocytes/100 WB C Auto (Bld)Ordered By: Diana Escobar on 11-13-2024 Immature granulocytes/100 WBC (Bld) 0.600 % 0.0-0.9 [facility] Comment on above: IG% - Immature Granu locytes (promyelocytes, myelocytes and metamyelocytes) > 1% indicates that a LEFT SHIFT is Present. Ketones Test strip Ql (U)Ord ered By: Mary Perez on 11-13-2024 Ketones Ql (U) Negative Negative [facility] - Chemistry and C hemistry - challengeOrdered By: Diana Escobar on 11-13-2024 AST [Catalytic activity/Vol] 19 U/L <32 [facility] Glucose Ql (U) Negative [facility] - UrinalysisOrder ed By: Diana Escobar on 11-13-2024 Protein Ql (U) Negative [facility] MCV (mean corpuscular volume ) determinationOrdered By: Diana Escobar on 11-13-2024 MCV (RBC) [Entitic vol] 92.5 fL 81-99 [facility] Mean corpuscular hemoglobin (MCH) determinationOrdered By: Diana Escobar on 11-13-2024 MCH (RBC) [Entitic mass] 32.2 pg High 27.0-32.0 [facility] Mean corpuscular hemoglobin concentration (MCHC) determinationOrdered By: Diana Escobar on 11-13-2024 MCHC (RBC) [Mass/Vol] 34.8 g/dL 32-36 [facility] Mean platelet volume determi nationOrdered By: Diana Escobar on 11-13-2024 Platelet mean volume (Bld) [Entitic vol] 11.0 fL 6.2-12.0 [facility] Monocyte percentageOrdered B y: Diana Escobar on 11-13-2024 Monocytes/100 WBC (Bld) 4.8 % 0-10 [facility] Neutrophil percentageOrdered By: Diana Escobar on 11-13-2024 Neutrophils/100 WBC (Bld) 76.8 % High 47-70 [facility] Nitrite Test strip Ql (U)Ord ered By: Mary Perez on 11-13-2024 Nitrite Ql (U) Negative Negative [facility] Nucleated red blood cell per centageOrdered By: Diana Escobar on 11-13-2024 Nucleated RBC/100 WBC (Bld) [Ratio] 0 % 0-5 [facility] OB Triage Progress Noteon OB Triage Progress Note [facility] Medical Records Department [address] [place] [address] OB Triage Progress Note 11/13/24 1757 MR#: [id number] Acct: [id number] Name: MELANIE LEIJA Rep #: [id number] : 2000 24 From: Diana Escobar MD [...] pH 7.0 (5.0 - 8.0) Ur Specific [place] 1.010 (1.002-1.030) Urine Protein 100 H (Negative) [...] MD; Dr. Diana Escobar MD Signed Normal [facility] Data Management Associate Office Visit Reporton 11-13-2024 Data Management Associate Office Visit Report [facility] [address], [address] [place] [address] OFFICE VISIT Date of Service: 11/13/24 MR#: [id number] Acct: [id number] Name: MELANIE LEIJA Rep #: [id number] : 2000 Provider: Dr. 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 Date Name GA/Weeks Outcome Route Bth Weight Gen Labor Lgth Anesthesia Del Locatn Provider FOB 08/08/23 Rafia 39 live - full term 8lbs 5oz Female epidural [facility] Luz Veloz Delivery Date: 08/08/23 Last [...] Negative -???-? (more content not included)... Normal [facility] Platelet countOrdered By: Cy Escobar on 11-13-2024 Platelets (Bld) [#/Vol] 170 10*3/uL 150-450 [facility] Potassium measurement (mass/ volume)Ordered By: Diana Escobar on 11-13-2024 Potassium (Unsp spec) [Mass/Vol] 3.8 mmol/L 3.3-5.1 [facility] Protein Test strip Ql (U)Ord ered By: Mary Perez on 11-13-2024 Protein Ql (U) 100 mg/dl High Negative [facility] RBC Auto (Bld) [#/Vol]Ordere d By: Diana Escobar on 11-13-2024 RBC (Bld) [#/Vol] 4.01 10*6/uL Low 4.2-5.4 [facility] Serum creatinine measurement (mass/volume)Ordered By: Diana Escobar on 11-13-2024 Creatinine [Mass/Vol] 0.58 mg/dL Low 0.70-1.20 [facility] Serum globulin measurementOr dered By: Diana Escobar on 11-13-2024 Globulin (S) [Mass/Vol] 2.8 g/dL 2.2-4.2 [facility] Serum glucose measurement (m ass/volume)Ordered By: Diana Escobar on 11-13-2024 Glucose [Mass/Vol] 87 mg/dL 70-99 [facility] Serum or plasma alanine rincon otransferase (ALT) measurementOrdered By: Diana Escobar on 11-13-2024 ALT [Catalytic activity/Vol] 11 U/L <35 [facility] Serum or plasma albumin beni urement (mass/volume)Ordered By: Diana Escobar on 11-13-2024 Albumin [Mass/Vol] 3.7 g/dL 3.5-5.0 [facility] Serum or plasma albumin/glob ulin mass ratioOrdered By: Diana Escobar on 11-13-2024 Albumin/Globulin [Mass ratio] 1.3 {ratio} 0.9-2.4 [facility] Serum or plasma alkaline whit sphatase measurementOrdered By: Diana Escobar on 11-13-2024 ALP [Catalytic activity/Vol] 67 U/L 35-104 [facility] Serum or plasma calcium beni urement (mass/volume)Ordered By: Diana Escobar on 11-13-2024 Calcium [Mass/Vol] 9.0 mg/dL 7.6-11.0 [facility] Serum or plasma urea nitroge n measurement (mass/volume)Ordered By: Diana Escobar on 11-13-2024 Urea nitrogen [Mass/Vol] 7 mg/dL 4-19 [facility] Sodium levelOrdered By: Vincenzo Escobar on 11-13-2024 Sodium [Moles/Vol] 136 mmol/L 133-145 [facility] Total proteinOrdered By: Orlando Escobar on 11-13-2024 Protein [Mass/Vol] 6.5 g/dL 5.9-8.4 [facility] Urinalysis, Routine (Dipstic k)on 11-13-2024 BILIRUBIN URINE Negative Normal Negative [facility] Comment on above: Order Comment: COLOR OF URINE MAY AFFECT DIPSTICK RESULTS.PRODUCTION SUPPORT ENGINEER TO SPECIFY Performed By: #### M 100.678 #### [facility] [address] [place], [place], [address] Clarity (U) Turbid Normal Clear [facility] Comment on above: Order Comment: COLOR OF URINE MAY AFFECT DIPSTICK RESULTS.PRODUCTION SUPPORT ENGINEER TO SPECIFY Performed By: #### M 100.678 #### [facility] [address] [place], [place], [address] Color (U) Nadege Normal Yellow [facility] Comment on above: Order Comment: COLOR OF URINE MAY AFFECT DIPSTICK RESULTS.PRODUCTION SUPPORT ENGINEER TO SPECIFY Performed By: #### M 100.678 #### [facility] [address] [place], [place], [id number] GLUCOSE, UR Normal Normal Normal [facility] Comment on above: Order Comment: COLOR OF URINE MAY AFFECT DIPSTICK RESULTS.PRODUCTION SUPPORT ENGINEER TO SPECIFY Performed By: #### M 100.678 #### [facility] [address] [place], [address] KETONE UR Negative Normal Negative [facility] Comment on above: Order Comment: COLOR OF URINE MAY AFFECT DIPSTICK RESULTS.PRODUCTION SUPPORT ENGINEER TO SPECIFY Performed By: #### M 100.678 #### [facility] [address] [place], [address] LEUK ESTERASE 500 /ul Abnormal Negative [facility] Comment on above: Order Comment: COLOR OF URINE MAY AFFECT DIPSTICK RESULTS.PRODUCTION SUPPORT ENGINEER TO SPECIFY Performed By: #### M 100.678 #### [facility] [address] [place], [address] Nitrite Ql (U) Negative Normal Negative [facility] Comment on above: Order Comment: COLOR OF URINE MAY AFFECT DIPSTICK RESULTS.PRODUCTION SUPPORT ENGINEER TO SPECIFY Performed By: #### M 100.678 #### [facility] [address] [place], [address] OCCULT BLOOD-UR 250 /ul Abnormal Negative [facility] Comment on above: Order Comment: COLOR OF URINE MAY AFFECT DIPSTICK RESULTS.PRODUCTION SUPPORT ENGINEER TO SPECIFY Performed By: #### M 100.678 #### [facility] [address] [place], [address] pH UR 7.0 Normal 5.0 - 8.0 [facility] Comment on above: Order Comment: COLOR OF URINE MAY AFFECT DIPSTICK RESULTS.PRODUCTION SUPPORT ENGINEER TO SPECIFY Performed By: #### M 100.678 #### [facility] [address] [place], [address] PROT DIPSTX 100 mg/dl Abnormal Negative [facility] Comment on above: Order Comment: COLOR OF URINE MAY AFFECT DIPSTICK RESULTS.PRODUCTION SUPPORT ENGINEER TO SPECIFY Performed By: #### M 100.678 #### [facility] [address] [place], [address] SP.GR. DIPSTX 1.010 Normal 1.002-1.030 [facility] Comment on above: Order Comment: COLOR OF URINE MAY AFFECT DIPSTICK RESULTS.PRODUCTION SUPPORT ENGINEER TO SPECIFY Performed By: #### M 100.678 #### [facility] [address] [place], [place], [address] UROBILI Normal Normal Normal [facility] Comment on above: Order Comment: COLOR OF URINE MAY AFFECT DIPSTICK RESULTS.PRODUCTION SUPPORT ENGINEER TO SPECIFY Performed By: #### M 100.678 #### [facility] [address] [place], [place], [address] Urine clarityOrdered By: Staci Perez on 11-13-2024 Clarity (U) Turbid Clear [facility] Urine color determinationOrd ered By: Mary Perez on 11-13-2024 Color (U) Nadege Yellow [facility] Urine cultureOrdered By: Staci Perez on 11-13-2024 Bacteria identified Cx Nom (U) Positive Abnormal [facility] Urine glucose detectionOrder ed By: Mary Perez on 11-13-2024 Glucose Ql (U) Normal mg/dl Normal [facility] Urine leukocyte esterase det ection by dipstickOrdered By: Mary Perez on 11-13-2024 Leukocyte esterase Test strip Ql (U) 500 /ul High Negative [facility] Urine pHOrdered By: Mary Perez on 11-13-2024 pH (U) 7.0 [pH] 5.0 - 8.0 [facility] Urine specific gravity measu rementOrdered By: Mary Perez on 11-13-2024 Specific gravity (U) [Rel density] 1.010 1.002-1.030 [facility] Urine urobilinogen measureme ntOrdered By: Mary Perez on 11-13-2024 Urobilinogen Ql (U) Normal mg/dl Normal [facility] White blood cell (WBC) count Ordered By: Diana Escobar on 11-13-2024 WBC (Bld) [#/Vol] 12.4 10*3/uL High 4.4-11.0 [facility] Progress Noteon 11-07-2024 Supervisor Final Authentication Interface Message Text [facility] Ultrasound Consult Note Today we discussed the [...] history Social history Medication prescriptions Family History Financial Underwriter History Review of Systems - negative unless [...] has not resolved then a consult with [facility] at 32 weeks should be considered for delivery planning and further imaging review. Patient hemoglobin should be optimized, patient given pelvic and vaginal bleeding precautions. All questions and concerns addressed. My final recommendations will be communicated back to the requesting physician by way of shared medical record or fax. Nam Harris MD [facility] Laboratory - Chemistry and C hemistry - challengeOrdered By: Pedro Barbosa on 10-20-2024 Glucose Ql (U) Negative [facility] - UrinalysisOrder ed By: Pedro Barbosa on 10-20-2024 Protein Ql (U) Negative [facility] Data Management Associate Office Visit Reporton 10-20-2024 Data Management Associate Office Visit Report [facility] [address], [address] [place] [address] OFFICE VISIT Date of Service: 10/20/24 MR#: [id number] Acct: [id number] Name: MELANIE LEIJA Rep #: [id number] : 2000 Provider: MANJU de los asntos Age/Sex: 24/F Location[place] [facility] [place] Status: Signed Intake Vital Signs 08/28/24 13:05 09/25/24 13:54 10/20/24 09:38 Height 5 ft 6 in 5 ft 6 in 5 ft 6 in Weight: 162 lb 3 oz BMI 26.2 BP 139/69 H Intake Visit Reasons: 18wk ob 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 Date Name GA/Weeks Outcome Route Bth Weight Gen Labor Lgth Anesthesia Del Locatn Provider FOB 08/08/23 Rafia 39 live - full term 8lbs 5oz Female epidural [facility] Luz Veloz Delivery Date: 08/08/23 Last [...] Negative -???-???-??? (more content not included)... Normal [facility] Laboratory - Chemistry and C hemistry - challengeOrdered By: Mary Perez on 09-25-2024 Glucose Ql (U) Negative [facility] Laboratory - UrinalysisOrder ed By: Mary Perez on 09-25-2024 Protein Ql (U) Negative [facility] Data Management Associate Office Visit Reporton 09-25-2024 Data Management Associate Office Visit Report [facility] [address], [address] [place] [address] OFFICE VISIT Date of Service: 09/25/24 MR#: [id number] Acct: [id number] Name: MELANIE LEIJA Rep #: [id number] : 2000 Provider: Dr. 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 Date Name GA/Weeks Outcome Route Bth Weight Gen Labor Lgth Anesthesia Del Locatn Provider FOB 08/08/23 Rafia 39 live - full term 8lbs 5oz Female epidural [facility] Luz Veloz Delivery Date: 08/08/23 Last [...] Unstable Ho (more content not included)... Normal [facility] Absolute lymphocyte countOrd ered By: Yomaira Michael on 09-01-2024 Lymphocytes Auto (Unsp spec) [#/Vol] 2.28 10*3/uL 0.83-4.51 [facility] Absolute neutrophil countOrd ered By: Yomaira Michael on 09-01-2024 Neutrophils (Bld) [#/Vol] 6.9 10*3/uL 2.0-7.7 [facility] Automated lymphocyte count a s percentage of total leukocytesOrdered By: Yomaira Michael on 09-01-2024 Lymphocytes/100 WBC Auto (Unsp spec) 23.0 % 19-41 [facility] Basophil percentageOrdered B y: Yomaira Michael on 09-01-2024 Basophils/100 WBC (Bld) 0.2 % 0-1 [facility] CBC W/Diff, Automatedon 08-11 Absolute Lymph 2.28 X10 3/uL Normal 0.83-4.51 [facility] Comment on above: Performed By: #### L 3890.1971, L509.8002, L3890.6102, BTS, L100.0100, L509.4006, L3890.6006 #### [facility] [address] [place], [address] Absolute Neut 6.9 X10 3/uL Normal 2.0-7.7 [facility] Comment on above: Performed By: #### L 3890.6301, L509.8002, L3890.6102, BTS, L100.0100, L509.4006, L3890.6006 #### [facility] [address] [place], [address] Basophils/100 WBC (Bld) 0.2 % Normal 0-1 [facility] Comment on above: Performed By: #### L 3890.6301, L509.8002, L3890.6102, BTS, L100.0100, L509.4006, L3890.6006 #### [facility] [address] [place], [address] Eosinophils/100 WBC (Bld) 0.8 % Normal 0-5 [facility] Comment on above: Performed By: #### L 3890.6301, L509.8002, L3890.6102, BTS, L100.0100, L509.4006, L3890.6006 #### [facility] [address] [place], [address] Erythrocyte distribution width (RBC) [Ratio] 13.1 % Normal 11.6-14.6 [facility] Comment on above: Performed By: #### L 3890.6301, L509.8002, L3890.6102, BTS, L100.0100, L509.4006, L3890.6006 #### [facility] [address] [place], [address] Hematocrit (Bld) [Volume fraction] 39.0 % Normal 37-47 [facility] Comment on above: Performed By: #### L 3890.6301, L509.8002, L3890.6102, BTS, L100.0100, L509.4006, L3890.6006 #### [facility] [address] [place], [address] Hemoglobin (Bld) [Mass/Vol] 13.5 g/dL Normal 12.0-15.0 [facility] Comment on above: Performed By: #### L 3890.6301, L509.8002, L3890.6102, BTS, L100.0100, L509.4006, L3890.6006 #### [facility] [address] [place], [address] IG% 0.100 Normal 0.0-0.9 [facility] Comment on above: Result Comment: IG% - Immature Granulocytes (promyelocytes, myelocytes and metamyelocytes) > 1% indicates that a LEFT SHIFT is Present. Performed By: #### L 3890.6301, L509.8002, L3890.6102, BTS, L100.0100, L509.4006, L3890.6006 #### [facility] [address] [facility] [place], [address] Lymphocytes/100 WBC (Bld) 23.0 % Normal 19-41 [facility] Comment on above: Performed By: #### L 3890.6301, L509.8002, L3890.6102, BTS, L100.0100, L509.4006, L3890.6006 #### [facility] [address] [place], [address] MCH (RBC) [Entitic mass] 31.8 pg Normal 27.0-32.0 [facility] Comment on above: Performed By: #### L 3890.6301, L509.8002, L3890.6102, BTS, L100.0100, L509.4006, L3890.6006 #### [facility] [address] [place], [address] MCHC (RBC) [Mass/Vol] 34.6 g/dL Normal 32-36 [facility] Comment on above: Performed By: #### L 3890.6301, L509.8002, L3890.6102, BTS, L100.0100, L509.4006, L3890.6006 #### [facility] [address] [place], [address] MCV (RBC) [Entitic vol] 92.0 fL Normal 81-99 [facility] Comment on above: Performed By: #### L 3890.6301, L509.8002, L3890.6102, BTS, L100.0100, L509.4006, L3890.6006 #### [facility] [address] [place], [address] Monocytes/100 WBC (Bld) 6.1 % Normal 0-10 [facility] Comment on above: Performed By: #### L 3890.6301, L509.8002, L3890.6102, BTS, L100.0100, L509.4006, L3890.6006 #### [facility] [address] [place], [address] Neutrophils/100 WBC (Bld) 69.8 % Normal 47-70 [facility] Comment on above: Performed By: #### L 3890.6301, L509.8002, L3890.6102, BTS, L100.0100, L509.4006, L3890.6006 #### [facility] [address] [place], [address] Nucleated RBC (Bld) [#/Vol] 0 10*3/uL Normal 0-5 [facility] Comment on above: Performed By: #### L 3890.6301, L509.8002, L3890.6102, BTS, L100.0100, L509.4006, L3890.6006 #### [facility] [address] [place], [address] Platelet mean volume (Bld) [Entitic vol] 12.5 fL High 6.2-12.0 [facility] Comment on above: Performed By: #### L 3890.6301, L509.8002, L3890.6102, BTS, L100.0100, L509.4006, L3890.6006 #### [facility] [address] [place], [address] Platelets (Bld) [#/Vol] 164 10*3/uL Normal 150-450 [facility] Comment on above: Performed By: #### L 3890.6301, L509.8002, L3890.6102, BTS, L100.0100, L509.4006, L3890.6006 #### [facility] [address] [place], [address] RBC (Bld) [#/Vol] 4.24 10*6/uL Normal 4.2-5.4 [facility] Comment on above: Performed By: #### L 3890.6301, L509.8002, L3890.6102, BTS, L100.0100, L509.4006, L3890.6006 #### [facility] [address] [place], [address] RDW SD 44.3 fl High 35.1-43.9 [facility] Comment on above: Performed By: #### L 3890.6301, L509.8002, L3890.6102, BTS, L100.0100, L509.4006, L3890.6006 #### [facility] [address] [place], [address] WBC (Bld) [#/Vol] 9.9 10*3/uL Normal 4.4-11.0 [facility] Comment on above: Performed By: #### L 3890.6301, L509.8002, L3890.6102, BTS, L100.0100, L509.4006, L3890.6006 #### [facility] [address] [place], [address] Chlamydia/GC CHULA aptimaon CHLAMY,NUC ACID Negative Normal Negative [facility] Comment on above: Performed By: #### L 3890.6301, L509.8002, L3890.6102, BTS, L100.0100, L509.4006, L3890.6006 #### [facility] [address] [place], [place], [id number] GC BY NUC ACID Negative Normal Negative [facility] Comment on above: Result Comment: Perf ormed at: =G - [facility] [address] [id number] Tomb Maker Helper: Giselle Gallego MD, Phone: [phone] Performed By: #### L 3890.6301, L509.8002, L3890.6102, BTS, L100.0100, L509.4006, L3890.6006 #### [facility] [address] [place], [address] Eosinophil percentageOrdered By: Yomaira Michael on 09-01-2024 Eosinophils/100 WBC (Bld) 0.8 % 0-5 [facility] Erythrocyte distribution wid th ratioOrdered By: Yomaira Michael on 09-01-2024 Erythrocyte distribution width (RBC) [Ratio] 13.1 % 11.6-14.6 [facility] Erythrocyte distribution wid th standard deviationOrdered By: Yomaira Michael on 09-01-2024 Erythrocyte distribution width (RBC) [Ratio] 44.3 fl High 35.1-43.9 [facility] HIVon 09-01-2024 HIV Non-Reactive Normal Nonreactive [facility] Comment on above: Result Comment: Non- Reactive Reactive Repeatedly reactive samples must be confirmed according to CDC recommended confirmatory algorithms. The subresults for either HIVAG or AHIV can be used as an aid in the selection of the confirmation algorithm for reactive samples. Send out specimens with Reactive results to [facility] for confirmation. Order the HIV antibody detection and differentiation: lc#[id number] Performed By: #### L 3890.6301, L509.8002, L3890.6102, BTS, L100.0100, L509.4006, L3890.6006 #### [facility] [address] [place], [place], [address] Hematocrit Auto (Bld) [Volum e fraction]Ordered By: Yomaira Michael on 09-01-2024 Hematocrit (Bld) [Volume fraction] 39.0 % 37-47 [facility] Hemoglobin measurementOrdere d By: Yomaira Michael on 09-01-2024 Hemoglobin (Bld) [Mass/Vol] 13.5 g/dL 12.0-15.0 [facility] Hepatitis C Antibodyon 09-01 Hepatitis C Ab Non-Reactive Normal Nonreactive [facility] Comment on above: Result Comment: Reac tive: Presumptive evidence of antibodies to HCV. Follow CDC recommendations for supplemental testing. Non-Reactive: Antibodies to HCV were not detected; does not exclude the possibility of exposure to HCV Reactive Results are presumptive evidence of antibodies to HCV. Follow CDC recommendations for supplemental testing. Order confirmation testing: HCV Quant by PCR testing - HCVPCR #[id number] Non Reactive: < 0.8 Equivocal: >/= 0.8 to < 1.0 Reactive: >/= 1.0 The CDC requires that a reactive/equivocal HCV antibody result be sent out for confirmation. HCV Quant by PCR testing. Performed By: #### L 3890.6301, L509.8002, L3890.6102, BTS, L100.0100, L509.4006, L3890.6006 #### [facility] [address] [place], [address] Immature granulocytes/100 WB C Auto (Bld)Ordered By: Yomaira Michael on 09-01-2024 Immature granulocytes/100 WBC (Bld) 0.100 % 0.0-0.9 [facility] Comment on above: IG% - Immature Granu locytes (promyelocytes, myelocytes and metamyelocytes) > 1% indicates that a LEFT SHIFT is Present. L3890.6102on 09-01-2024 HEP B Surf Ag Non-Reactive Normal Nonreactive [facility] Comment on above: Result Comment: Reac tive: Presumptive evidence of HBV. Repeatedly reactive samples must be confirmed using a neutralization test ([employer]ys HBsAg Confirmatory Test) Non-Reactive: HBsAg not detected; does not exclude the possibility of exposure to HBV Performed By: #### L 3890.6301, L509.8002, L3890.6102, BTS, L100.0100, L509.4006, L3890.6006 #### [facility] [address] [facility] [place], [place], [address] L509.4006on 09-01-2024 Rubella IgG REAC Normal Nonreactive [facility] Comment on above: Result Comment: Anti body Result: Interpretation Non-Reactive: Non-Immune Reactive: Immune The following results were obtained with the [employer] Rubella IgG assay. Results from assays of other manufacturers cannot be used interchangeably. Performed By: #### L 3890.6301, L509.8002, L3890.6102, BTS, L100.0100, L509.4006, L3890.6006 #### [facility] [address] [place], [place], [id number] Laboratory - Microbiology an d Antimicrobial susceptibilityOrdered By: Yomaira Michael on 09-01-2024 HBV surface Ag Ql (S) Non-Reactive Nonreactive [facility] Comment on above: Reactive: Presumptiv e evidence of HBV. Repeatedly reactive samples must be confirmed using a neutralization test ([employer] HBsAg Confirmatory Test)Non-Reactive: HBsAg not detected; does not exclude the possibility of exposure to HBV MCV (mean corpuscular volume ) determinationOrdered By: Yomaira Michael on 09-01-2024 MCV (RBC) [Entitic vol] 92.0 fL 81-99 [facility] Mean corpuscular hemoglobin (MCH) determinationOrdered By: Yomaira Michael on 09-01-2024 MCH (RBC) [Entitic mass] 31.8 pg 27.0-32.0 [facility] Mean corpuscular hemoglobin concentration (MCHC) determinationOrdered By: Yomaira Michael on 09-01-2024 MCHC (RBC) [Mass/Vol] 34.6 g/dL 32-36 [facility] Mean platelet volume determi nationOrdered By: Yomaira Michael on 09-01-2024 Platelet mean volume (Bld) [Entitic vol] 12.5 fL High 6.2-12.0 [facility] Monocyte percentageOrdered B y: Yomaira Michael on 09-01-2024 Monocytes/100 WBC (Bld) 6.1 % 0-10 [facility] NATERAon 09-01-2024 NATURA SEE SCANNED REPORT Normal [facility] Comment on above: Performed By: #### L 3890.6301, L509.8002, L3890.6102, BTS, L100.0100, L509.4006, L3890.6006 #### [facility] [address] [place], [address] Neutrophil percentageOrdered By: Yomaira Michael on 09-01-2024 Neutrophils/100 WBC (Bld) 69.8 % 47-70 [facility] No Panel InformationOrdered By: Yomaira Michael on 09-01-2024 HIV (1&2) Antibody Non-Reactive Nonreactive [facility] Comment on above: Non-ReactiveReactive Repeatedly reactive samples must be confirmed according to CDC recommended confirmatory algorithms. The subresults for either HIVAG or AHIV can be used as an aid in the selection of the confirmation algorithm for reactive samples.Send out specimens with Reactive results to [facility] for confirmation.Order the HIV antibody detection and differentiation: lc#[id number] Nucleated red blood cell per centageOrdered By: Yomaira Michael on 09-01-2024 Nucleated RBC/100 WBC (Bld) [Ratio] 0 % 0-5 [facility] Platelet countOrdered By: Hima Michael on 09-01-2024 Platelets (Bld) [#/Vol] 164 10*3/uL 150-450 [facility] RBC Auto (Bld) [#/Vol]Ordere d By: Yomaira Michael on 09-01-2024 RBC (Bld) [#/Vol] 4.24 10*6/uL 4.2-5.4 [facility] Syphilis Antibodieson 2024 Syphilis Abs Non-Reactive Normal Nonreactive [facility] Comment on above: Performed By: #### L 3890.6301, L509.8002, L3890.6102, BTS, L100.0100, L509.4006, L3890.6006 #### [facility] [address] [place], [address] Type AND Screenon 09-01-2024 Ab SCREEN GEL Negative Normal [facility] Comment on above: Order Comment: PN Performed By: #### L 3890.6301, L509.8002, L3890.6102, BTS, L100.0100, L509.4006, L3890.6006 #### [facility] [address] [place], [address] White blood cell (WBC) count Ordered By: Yomaira Michael on 09-01-2024 WBC (Bld) [#/Vol] 9.9 10*3/uL 4.4-11.0 [facility] Urine Cultureon 08-31-2024 [facility] Mixed Gram Positive Organisms [place] Count 11,000-25,000 [facility]IX[facility] Mixed contaminants. Submit a new specimen if indicated. Normal [facility] Comment on above: Performed By: #### L 3890.6301, L509.8002, L3890.6102, BTS, L100.0100, L509.4006, L3890.6006 #### [facility] [address] [place], [address] Chlamydia trachomatis rRNA d etection by probe and target amplification methodOrdered By: Yomaira Michael on 08-28-2024 C. trachomatis rRNA CHULA+probe Ql (Unsp spec) Negative Negative [facility] Neisseria gonorrhoeae nuclei c acid detection by amplified probe techniqueOrdered By: Yomaira Michael on 08-28-2024 N. gonorrhoeae DNA CHULA+probe Ql (Unsp spec) Negative Negative [facility] Comment on above: Performed at: =[facility] Tre[id number] [place] [id number] Director: Giselle Gallego MD, Phone: [phone] Data Management Associate Office Visit Reporton 08-28-2024 Data Management Associate Office Visit Report [facility] [address], [address] [place] [address] OFFICE VISIT Date of Service: 08/28/24 MR#: [id number] Acct: [id number] Name: MELANIE LEIJA Rep #: [id number] : 2000 Provider: MICHELLE Interiano ams Age/Sex: 24/F [place] [facility] [place] Status: Signed Intake Vital Signs 09/19/23 14:48 08/28/24 13:01 08/28/24 13:05 Height 5 ft 6 in 5 ft 6 in 5 ft 6 in Weight: 155 lb 4 oz BMI 25.0 BP 135/71 H Intake Visit Reasons: *EST* NOB LMP 06/21, DESTIN 03/28 Chief Complaint: 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 Date Name GA/Weeks Outcome Route Bth Weight Gen Labor Lgth Anesthesia Del Locatn Provider FOB 08/08/23 Rafia 39 live - full term 8lbs 5oz Female epidural [facility] Luz Veloz Delivery Date: 08/08/23 Last [...] Intellectual D (more content not included)... Normal [facility] Urine cultureOrdered By: Moises Michael on 08-28-2024 Bacteria identified Cx Nom (U) Positive Abnormal [facility] Laboratory - Chemistry and C hemistry - challengeon 06-27-2023 Glucose Ql (U) Negative [facility] Laboratory - Urinalysison Protein Ql (U) Negative [facility] Laboratory - Chemistry and C hemistry - challengeon 06-13-2023 Glucose Ql (U) Negative [facility] Laboratory - Urinalysison Protein Ql (U) Negative [facility] Laboratory - Chemistry and C hemistry - challengeon 05-31-2023 Glucose Ql (U) Negative [facility] Laboratory - Urinalysison Protein Ql (U) Negative [facility] Absolute lymphocyte countOrd ered By: Mary Perez on 05-16-2023 Lymphocytes Auto (Unsp spec) [#/Vol] 1.79 10*3/uL 0.83-4.51 [facility] Automated lymphocyte count a s percentage of total leukocytesOrdered By: Mary Perez on 05-16-2023 Lymphocytes/100 WBC Auto (Unsp spec) 16.0 % 19-41 [facility] Basophil percentageOrdered B y: Mary Perez on 05-16-2023 Basophils/100 WBC (Bld) 0.3 % 0-1 [facility] Eosinophils/100 WBC (Bld) 0.8 % 0-5 [facility] Hemoglobin (Bld) [Mass/Vol] 12.0 g/dL 12.0-15.0 [facility] Monocytes/100 WBC (Bld) 6.7 % 0-10 [facility] Neutrophils (Bld) [#/Vol] 8.4 10*3/uL 2.0-7.7 [facility] Neutrophils/100 WBC (Bld) 75.0 % 47-70 [facility] WBC (Bld) [#/Vol] 11.2 10*3/uL 4.4-11.0 [facility] Determination of erythrocyte mean corpuscular volume (MCV)Ordered By: Mary Perez on 05-16-2023 MCV (RBC) [Entitic vol] 93.4 fL 81-99 [facility] Erythrocyte distribution wid th ratioOrdered By: Mary Perez on 05-16-2023 Erythrocyte distribution width (RBC) [Ratio] 12.5 % 11.6-14.6 [facility] Erythrocyte distribution wid th standard deviationOrdered By: Mary Perez on 05-16-2023 Erythrocyte distribution width (RBC) [Entitic vol] 43.0 fL 35.1-43.9 [facility] Gestational diabetes screen 1-hour screen with 50g oral glucose loadOrdered By: Mary Perez on 05-16-2023 Glucose 1 Hr post 50 g glucose PO [Mass/Vol] 111 mg/dL 70-140 [facility] HIV 1 and HIV-2 antibody ass ay with HIV-1 p24 antigen detectionOrdered By: Mary Perez on 05-16-2023 HIV 1+2 Ab+HIV1 p24 Ag IA Ql Non-Reactive Nonreactive [facility] Hematocrit Auto (Bld) [Volum e fraction]Ordered By: Mary Perez on 05-16-2023 Hematocrit (Bld) [Volume fraction] 35.3 % 37-47 [facility] Immature granulocytes/100 WB C Auto (Bld)Ordered By: Mary Perez on 05-16-2023 Immature granulocytes/100 WBC (Bld) 1.200 % 0.0-0.9 [facility] Comment on above: IG% - Immature Granu locytes (promyelocytes, myelocytes and metamyelocytes) > 1% indicates that a LEFT SHIFT is Present. Laboratory - Chemistry and C hemistry - challengeon 05-16-2023 Glucose Ql (U) Negative [facility] Laboratory - Hematology and Cell countsOrdered By: Mary Perez on 05-16-2023 MCH (RBC) [Entitic mass] 31.7 pg 27.0-32.0 [facility] MCHC (RBC) [Mass/Vol] 34.0 g/dL 32-36 [facility] Nucleated RBC/100 WBC (Bld) [Ratio] 0 % 0-5 [facility] Platelet mean volume (Bld) [Entitic vol] 10.7 fL 6.2-12.0 [facility] Platelets (Bld) [#/Vol] 205 10*3/uL 150-450 [facility] Laboratory - Urinalysison Protein Ql (U) Negative [facility] RBC Auto (Bld) [#/Vol]Ordere d By: Mary Perez on 05-16-2023 RBC (Bld) [#/Vol] 3.78 10*6/uL 4.2-5.4 [facility] Serum Treponema species anti body detectionOrdered By: Mary Perez on 05-16-2023 Treponema sp Ab Ql (S) Non-Reactive [facility] Laboratory - Chemistry and C hemistry - challengeon 05-02-2023 Glucose Ql (U) Negative [facility] Laboratory - Urinalysison Protein Ql (U) Negative [facility] Laboratory - Chemistry and C hemistry - challengeon 04-05-2023 Glucose Ql (U) Negative [facility] Laboratory - Urinalysison Protein Ql (U) Negative [facility] Laboratory - Chemistry and C hemistry - challengeon 03-08-2023 Glucose Ql (U) Negative [facility] Laboratory - Urinalysison Protein Ql (U) Negative [facility] Laboratory - Chemistry and C hemistry - challengeon 02-09-2023 Glucose Ql (U) Negative [facility] Laboratory - Urinalysison Protein Ql (U) Negative [facility] Absolute lymphocyte countOrd ered By: Mary Perez on 01-10-2023 Lymphocytes Auto (Unsp spec) [#/Vol] 2.27 10*3/uL 0.83-4.51 [facility] Basophil percentageOrdered B y: Mary Perez on 01-10-2023 Basophils/100 WBC (Bld) 0.5 % 0-1 [facility] [facility] Eosinophils/100 WBC (Bld) 1.8 % 0-5 [facility] Neutrophils (Bld) [#/Vol] 9.3 10*3/uL 2.0-7.7 [facility] Neutrophils/100 WBC (Bld) 73.4 % 47-70 [facility] WBC (Bld) [#/Vol] 12.6 10*3/uL 4.4-11.0 [facility] Blood erythrocytes count (nu mber/volume)Ordered By: Mary Perez on 01-10-2023 RBC (Bld) [#/Vol] 4.23 10*6/uL 4.2-5.4 [facility] Blood hemoglobin measurement (mass/volume)Ordered By: Mary Perez on 01-10-2023 Hemoglobin (Bld) [Mass/Vol] 13.3 g/dL 12.0-15.0 [facility] Blood lymphocytes/100 leukoc ytesOrdered By: Mary Perez on 01-10-2023 Lymphocytes/100 WBC (Bld) 18.0 % 19-41 [facility] Blood monocytes/100 leukocyt esOrdered By: Mary Perez on 01-10-2023 Monocytes/100 WBC (Bld) 5.9 % 0-10 [facility] Blood platelet mean volumeOr dered By: Mary Perez on 01-10-2023 Platelet mean volume (Bld) [Entitic vol] 11.2 fL 6.2-12.0 [facility] Determination of erythrocyte mean corpuscular volume (MCV)Ordered By: Mary Perez on 01-10-2023 MCV (RBC) [Entitic vol] 92.7 fL 81-99 [facility] HIV 1 and HIV-2 antibody ass ay with HIV-1 p24 antigen detectionOrdered By: Mary Perez on 01-10-2023 HIV 1+2 Ab+HIV1 p24 Ag IA Ql Non-Reactive Nonreactive [facility] Hematocrit Auto (Bld) [Volum e fraction]Ordered By: Mary Perez on 01-10-2023 Hematocrit (Bld) [Volume fraction] 39.2 % 37-47 [facility] Laboratory - Hematology and Cell countsOrdered By: Mary Perez on 01-10-2023 Erythrocyte distribution width (RBC) [Entitic vol] 42.5 fL 35.1-43.9 [facility] Erythrocyte distribution width (RBC) [Ratio] 12.4 % 11.6-14.6 [facility] Immature granulocytes/100 WBC (Bld) 0.400 % 0.0-0.9 [facility] Comment on above: IG% - Immature Granu locytes (promyelocytes, myelocytes and metamyelocytes) > 1% indicates that a LEFT SHIFT is Present. MCH (RBC) [Entitic mass] 31.4 pg 27.0-32.0 [facility] Nucleated RBC/100 WBC (Bld) [Ratio] 0 % 0-5 [facility] MCHC Auto (RBC) [Mass/Vol]Or dered By: Mary Perez on 01-10-2023 MCHC (RBC) [Mass/Vol] 33.9 g/dL 32-36 [facility] No Panel InformationOrdered By: Mary Perez on 01-10-2023 Hepatitis B Surface Antigen Non-Reactive Nonreactive [facility] Hepatitis C Antibody Non-Reactive Nonreactive [facility] Comment on above: Non Reactive: < 0.8 Equivocal: >/= 0.8 to < 1.0 Reactive: >/= 1.0The CDC recommends that a reactive/equivocal HCV antibody result be followed up by the HCV Nucleic Acid Amplificationtest (228977) Miscellaneous Test Comment MAILED SPECIMEN [facility] Rubella IgG Antibody Reactive Nonreactive [facility] Comment on above: Antibody Results Int erpretation of Immune Status Non Reactive Presumed Non-Immune Equivocal Equivocal Reactive Presumed Immune Platelets bldOrdered By: Staci Perez on 01-10-2023 Platelets (Bld) [#/Vol] 186 10*3/uL 150-450 [facility] Serum Treponema species anti body detectionOrdered By: Mary Perez on 01-10-2023 Treponema sp Ab Ql (S) Non-Reactive [facility] Chlamydia trachomatis rRNA d etection by probe and target amplification methodOrdered By: Mary Perez on 01-09-2023 C. trachomatis rRNA CHULA+probe Ql (Unsp spec) Negative Negative [facility] Culture, urineOrdered By: Eddie Perez on 01-09-2023 Bacteria identified Cx Nom (U) Culture exhibits no growth. [facility] Laboratory - Microbiology an d Antimicrobial susceptibilityOrdered By: Mary Perez on 01-09-2023 N. gonorrhoeae DNA CHULA+probe Ql (Unsp spec) Negative Negative [facility] Comment on above: Performed at: =[address] [id number] Director: Giselle Gallego MD, Phone: [phone] Daily Progress Note - Child Psychiatryon 05-17-2019 Daily Progress Note - Child Psychiatry This report has been cancelled. Normal [facility] Discharge Planning [id number] 0 05-17-2019 Discharge Planning Note2 Discharge Planning: Planned Dispositionhome PCP/Next Provider Follow Up Scheduledyes Anticipated Discharge [id number] [place] of Choice Explainedyes Assessment: Discharge Planning Assessment [id number] Lives Withparent(s); sibling(s)(1) Living Arrangementshouse(1) Nursing Checklist: Discharge Med Rec Reconciled with Kimo Patient has Prescriptionsyes Transportation for Discharge Confirmedyes Follow up Reviewedyes Discharge Instructions Reviewed WithParent(s) Discharge Instructions Outcomeverbalize recall/understanding Discharge Instructions Review Completed with Patient/Family (diet, activity, pt instructions)yes Discharge Documentation: Discharge/Transfer Date/[id number]-[id number]-6706 14:37 Discharge Modeambulatory Discharged Accompanied Byparent Transportation Methodprivate car Valuables/Medications/B elongings Returnedyes Security Envelope Returnedyes Final DispositionHome Electronic Signatures: Noah Cervantes (CRISTHIAN) (Signed 17-May-2019 14:45) Authored: Discharge Planning Note2 Last Updated: 17-May-2019 14:45 by Noah Cervantes (CRISTHIAN) References: 1. Data Referenced From Psychiatric Assessment - Social Work-Inpatient 14-May-2019 15:48 Normal [facility] Clinical Event Note-Unable t o contact patienton 05-16-2019 Clinical Event Note-Unable to contact patient Event: Topic: Unable to contact parent Details: Phone call made to patient's legal guardian to discuss patient's progress, treatment plan and discharge planning, unable to reach her. Left voicemail message requesting return call to [facility] at [phone]. Electronic Signatures: Dayna Bee (Fellow)) (Signed 16-May-2019 18:08) Authored: Event Last Updated: 16-May-2019 18:08 by Dayna Bee (Fellow)) Normal [facility] Daily Progress Note - Child Psychiatryon 05-16-2019 [...] some prompting. Objective: Objective Information: T PRBPSpO2 Value36.52139326/7696% Date/Time05/15 8: 8: 8: 8: 8:00 Range(36.3C [...] reviewed these laboratory results: Urinalysis Trending View [id number] 11:55:00 14-May-2019 18:04:00 Color, UrineYELLOW Reference Range: STRAW,YELLOW YELLOW Reference Range: STRAW,YELLOW Appearance, UrineHAZY HAZY Specific [place], Urine1.024 1.015 pH, Urine8.0 5.0 Protein, Urine30 (1+) A NEGATIVE Glucose, UrineNEGATIVE NEGATIVE Blood, UrineNEGATIVE SMALL (1+) A Ketones, UrineNEGATIVE NEGATIVE Bilirubin, UrineNEGATIVE NEGATIVE Urobilinogen, Urine2.0 H <2.0 Nitrite, UrineNEGATIVE NEGATIVE Leukocyte Esterase, UrineMODERATE (2+) A LARGE (3+) A Urinalysis, Microscopic Trending View [id number] 11:55:00 14-May-2019 18:04:00 White [id number] A 182 A Red Blood Cells36 A 10 A Epithelial Cells, Cndsncal17 5 Bacteria, Urine1+ A 1+ A Mucous2+ [...] grandfather, who she saw most recently at [place]. During hospitalization, patient was started on prozac to target mood. She also received treatment with ceftriaxone/azithromyci n. Labs: Vaginal swab negative for trichomonas, clue cells, and yeast. Urine culture no growth to date. Gonorrhea/chlamydia negative. Urinalysis with persistent pyuria (WBC 173), 2.0 urobilinogen, 2+ leukocyte esterase. 6: Mood is improved, she is more reactive [...] evaluation, stabilization, and treatment. - Restrict to wofle and continue precautions as deemed appropriate by [...] attending physician, resident, charge nurse, nurse, social sciences instructor and recreational therapy. The following topics were discussed during rounds activity, discharge planning, medications and plan of care. Medication Consent: No medication changes requiring review. Signature/Cosignature/A ttestation: Note Completion: I am a: Medical Student/Acting Sales Order Processor Medical Student AttAric, or a resident under my supervision, was [...] this note. I personally evaluated the patient [id number] Comments/ Additional Findings Patient seen with student; [...] Last Updated: 16-May-2019 21:22 by Yajaira Hagan) [facility] Daily Progress Note - Peds-G eneral Pediatricson [...] 01:13 Objective Data: Objective Information: T PRBPSpO2 Value36.11644178/7696% Date/Time05/15 8:003 8: 8: 8:003 8:00 Range(36.3C - 36.7C ) (75 - 76 ) (18 - 18 ) (114 - 117 )/ (76 - 81 ) (96% - 100% ) Last 6 Weights 05/13 0:24: 78.6 kg ---- Intake and Output ----- Mn/Dy/Year TimeIntakeOutputNet May 15, 2019 10:00 [id number] May 15, 2019 2:00 [id number] The Intake and Output Totals for the [...] follow until cultures result. Soraya Cobb team ([id number]) with further questions. Patient discussed with Dr. [...] residents note I personally evaluated the patient [id number] Electronic Signatures: Norm Cruz (Resident)) (Signed 16-May-2019 14:18) Authored: Service, Subjective Data, Nutrition, Objective Data, Assessment/Plan, Signature/Cosignature/A ttestation Tiffanie Matthews) (Signed 20-May-2019 13:40) Authored: Signature/Cosignature/A ttestation Co-Signer: Service, Subjective Data, Nutrition, Objective Data, Assessment/Plan, Signature/Cosignature/A ttestation Last Updated: 20-May-2019 13:40 by Tiffanie Matthews) Normal [facility] GC + CHLAMYDIA BY AMPLIFIED DETECTIONon 05-16-2019 CHLAMYDIA TRACH.,AMPLIFIED Negative Normal Negative [facility] Comment on above: Performed By: #### G [facility] ####[id number] [place] [address] N.GONORRHEA,AMPLIFIED Negative Normal Negative [facility] Comment on above: Performed By: #### G CCHA ####[id number] [place] [address] TRICHOMONAS,NUCLEIC ACID DET ECTIONon 05-16-2019 TRICHOMONAS VAGINALIS Canceled Normal [facility] Comment on above: Order Comment: TEST TRICHOMONAS,NUCLEIC ACID DETECTION WAS CANCELLED, 05/16/2019 13:54DUPLICATE ORDER. see [id number]. Performed By: #### T GISEL ####[id number] [place] [address] TRICHOMONAS VAGINALIS Negative Normal Negative [facility] Comment on above: Performed By: #### T GISEL ####[id number] [place] [address] UA MICROSCOPICon 05-16-2019 BACTERIA 1+ /HPF Abnormal [facility] Comment on above: Performed By: #### U AMIC ####[id number] [place] [address] MUCUS 2+ /LPF Normal [facility] Comment on above: Performed By: #### U AMIC ####[id number] [place] [address] RBC 36 /HPF Abnormal 0-5 [facility] Comment on above: Performed By: #### U AMIC ####[id number] [place] [address] SQUAMOUS EPITH. CELLS 23 /HPF Normal [facility] Comment on above: Performed By: #### U AMIC ####[id number] [place] [address] WBC 173 /HPF Abnormal 0-5 [facility] Comment on above: Performed By: #### U AMIC ####[id number] [place] [address] URINALYSISon 05-16-2019 Appearance (U) HAZY Normal CLEAR [facility] Comment on above: Performed By: #### U A ####[id number] [place] [address] Bilirubin (U) [Mass/Vol] Negative Normal NEGATIVE [facility] Comment on above: Performed By: #### U A ####[id number] [place] [address] BLOOD Negative Normal NEGATIVE [facility] Comment on above: Performed By: #### U A ####[id number] [place] [address] Color (U) YELLOW Normal STRAW,YELLOW [facility] Comment on above: Performed By: #### U A ####[id number] [place] [address] Glucose [Mass/Vol] Negative Normal NEGATIVE [facility] Comment on above: Performed By: #### U A ####[id number] [place] [address] Ketones Ql (U) Negative Normal NEGATIVE [facility] Comment on above: Performed By: #### U A ####[id number] [place] [address] Leukocyte esterase Test strip Ql (U) MODERATE (2+) Abnormal NEGATIVE [facility] Comment on above: Performed By: #### U A ####[id number] [place] [address] Nitrite Ql (U) Negative Normal NEGATIVE [facility] Comment on above: Performed By: #### U A ####[id number] [place] [address] pH (Bld) 8.0 Normal 5.0 - 8.0 [facility] Comment on above: Performed By: #### U A ####[id number] [place] [address] Protein (U) [Mass/Vol] 30 (1+) Abnormal NEGATIVE [facility] Comment on above: Performed By: #### U A ####[id number] [place] [address] Specific gravity (U) [Rel density] 1.024 Normal 1.005 - 1.035 [facility] Comment on above: Performed By: #### U A ####[id number] [place] [address] Urobilinogen Qn (U) 2.0 mg/dL High 0.0 - 1.9 [facility] Comment on above: Result Comment: Due to [...] positive urobilinogen. Performed By: #### U A ####[id number] [place] [address] Clinical Event Note-Attempt to contact patient's motheron 05-15-2019 aPTT Coag (Bld) [Time] Event: Topic: Attempt to contact patient's mother Details: Phone call made to patient's mother (Carlotta Duarte [phone]) to discuss patient's progress, unable to reach her. Left voicemail with phone number for [facility] at [phone]. Electronic Signatures: Dayna Bee ( (Fellow)) (Signed 15-May-2019 18:09) Authored: Event Last Updated: 15-May-2019 18:09 by Dayna Bee ( (Fellow)) Normal [facility] Consult - Peds-General Pedia angela 05-15-2019 Consult [...] PMN OSH Record review: 05/01: seen at [facility] UA: High LE, neg nitrites [...] 05/14/2019 01:13 Objective: Objective Information: T PRBPSpO2 Value36.02094098/39846% Date/Time05/14 9: 9: 9: 9: 9:00 Range(36.1C - 36.6C ) (81 - 81 ) (16 - 16 ) (107 - 113 )/ (72 - 83 ) (97% - 100% ) Last 6 Weights 05/13 0:24: 78.6 kg ---- Intake and Output ----- Mn/Dy/Year TimeIntakeOutputNet May 14, 2019 10:00 [id number] May 14, 2019 2:00 [id number] The Intake and Output Totals for the [...] Reference Range: STRAW,YELLOW Appearance, Urine HAZY Specific [place], Urine 1.015 pH, Urine 5.0 Protein, Urine [...] compliance with prescribed medication. Contact the performing [facility] laboratory to add-on definitive confirmatory testing [...] NEGATIVE CUTOFF LEVEL: 150 NG/ML The metabolite N-gxkxb-esmfyytyanshug (LAAM) is not detected by this method [...] Will continue to follow. Soraya Cobb team ([id number]) with further questions. Patient discussed with Dr. [...] residents note I personally evaluated the patient [id number] Electronic Signatures: Norm Cruz (Resident)) (Signed 16-May-2019 06:55) Authored: Service, History of Present Illness, Allergies, Nutrition, Objective, Assessment/Recommendati ons, Signature/Cosignature/A ttestation Tiffanie Matthews) (Signed 20-May-2019 13:39) Authored: Signature/Cosignature/A ttestation Co-Signer: Objective, Assessment/Recommendati ons, Signature/Cosignature/A ttestation Last Updated: 20-May-2019 13:39 by Tiffanie Matthews) Normal [facility] Daily Progress Note - Child Psychiatryon 05-15-2019 Daily Progress Note - Child Psychiatry Subjective Data: MELANIE LEIJA is a 18 year old Female who is Hospital Day # 3. Mel[facility]. She stated she was tired this morning, [...] put the phone up to her cat David, and she enjoyed this. Her mom asked [...] 12 hours. Objective: Objective Information: T PRBPSpO2 Value36.50783638/38878% Date/Time05/14 9: 9: 9: 9: 9:00 Range(36.1C [...] Reference Range: STRAW,YELLOW Appearance, Urine HAZY Specific [place], Urine 1.015 pH, Urine 5.0 Protein, Urine [...] grandfather, who she saw most recently at [place]. She also reports seeing a shadow figure over the past two weeks which have told her to end her life. She has a history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 5.0 - 8.0 [facility] Comment on above: Performed By: #### Benjy RUG3 #### [facility] [address] [place] [address] Protein (U) [Mass/Vol] Negative Normal NEGATIVE [facility] Comment on above: Performed By: #### D RUG3 #### [facility] [address] [place] [address] Specific gravity (U) [Rel density] 1.015 Normal 1.005 - 1.035 [facility] Comment on above: Performed By: #### D RUG3 #### [facility] [address] [place] [address] Urobilinogen Qn (U) <2.0 Normal 0.0 - 1.9 [facility] Comment on above: Performed By: #### D RUG3 #### [facility] [address] [place] [address] URINE CULTURE,BACTERIALon URINE CULTURE,BACTERIAL PATIENT: MELANIE LEIJA LOCATION: [place] [address] BILL#: [id number] : [birth year] AGE: SEX: F ORDERED BY: LARRY BEE SOURCE: URINE COLLECTED: 05/14/19 21:05 ANTIBIOTICS AT DARIELA.: RECEIVED : 05/14/19 21:05 SITE: Clean Catch/Voided R E S U L T S URINE CULTURE,BACTERIAL FINAL 05/15/19 14:00 NO SIGNIFICANT GROWTH. Normal [facility] Comment on above: Performed By: #### D RUG3 #### [facility] [address] [place] [address] URINE CULTURE,BACTERIAL TEST URINE CULTURE,BACTERIAL WAS CANCELLED, 05/15/2019 22:52 DUPLICATE ORDER. See [id number] for results. 05/15/2019 22:52. PATIENT: MELANIE LEIJA LOCATION: [place] [address] BILL#: [id number] : [birth year] AGE: SEX: F ORDERED BY: LARRY BEE SOURCE: URINE COLLECTED: 05/14/19 18:04 ANTIBIOTICS AT DARIELA.: RECEIVED : SITE: Clean Catch/Voided R E S U L T S URINE CULTURE,BACTERIAL CANCELLED 05/15/19 22:52 Normal [facility] Comment on above: Performed By: #### U RINC ####[id number] [place] [address] VITAMIN D, 25-HYDROXYon VITAMIN D, 25-HYDROXY 27 ng/mL Abnormal [facility] Comment on above: Result Comment: . DEFICIENCY: < 20 NG/ML INSUFFICIENCY: 20-29 NG/ML SUFFICIENCY: 30-100 NG/ML THIS ASSAY ACCURATELY QUANTIFIES THE SUM OF VITAMIN D3, 25-HYDROXY AND VIT D2,25-HYDROXY. { Performed By: #### V TDOH #### [facility] [address] [place] [address] Comprehensive Panelon 2019 ALP [Catalytic activity/Vol] 93 U/L Normal 45-117 [facility] Comment on above: Result Comment: Refe rence ranges for this patient`s age group have not been established. These reference ranges reflect verified or established ranges for the adult population. Interpret ranges with caution using the clinical context and additional reference resources. Performed By: #### P 14 #### [address] [address] Bilirubin [Mass/Vol] 0.5 mg/dL Normal 0.2-1.0 [facility] Comment on above: Result Comment: Use of this assay is not recommended for patients undergoing treatment with eltrombopag due to the potential for falsely elevated results. Performed By: #### P 14 #### [facility] [address] [place], [place] [address] Protein [Mass/Vol] 8.0 g/dL Normal 6.4-8.2 [facility] Comment on above: Result Comment: Refe rence ranges for this patient`s age group have not been established. These reference ranges reflect verified or established ranges for the adult population. Interpret ranges with caution using the clinical context and additional reference resources. Performed By: #### P 14 #### [facility] [facility] [address] [place], [place] [address] ALT [Catalytic activity/Vol] 20 U/L Normal 12-78 [facility] Comment on above: Result Comment: Refe rence ranges for this patient`s age group have not been established. These reference ranges reflect verified or established ranges for the adult population. Interpret ranges with caution using the clinical context and additional reference resources. Performed By: #### P 14 #### [facility] [address] [place] [address] AST [Catalytic activity/Vol] 16 U/L Normal 15-37 [facility] Comment on above: Result Comment: Refe rence ranges for this patient`s age group have not been established. These reference ranges reflect verified or established ranges for the adult population. Interpret ranges with caution using the clinical context and additional reference resources. Performed By: #### P 14 #### [facility] [address] [place] [address] Creatinine [Mass/Vol] 0.67 mg/dL Normal 0.51-0.95 [facility] Comment on above: Result Comment: Refe [...] results. Performed By: #### P 14 #### [facility] [address] [place] [address] Albumin [Mass/Vol] 4.2 g/dL Normal 3.4-5.0 [facility] Comment on above: Result Comment: Refe rence ranges for this patient`s age group have not been established. These reference ranges reflect verified or established ranges for the adult population. Interpret ranges with caution using the clinical context and additional reference resources. Performed By: #### P 14 #### [facility] [address] [place] [address] Anion gap [Moles/Vol] 7 mmol/L Low 8-16 [facility] Comment on above: Performed By: #### P 14 #### [facility] [address] [place] [address] Calcium [Mass/Vol] 9.2 mg/dL Normal 8.5-10.1 [facility] Comment on above: Result Comment: Refe rence ranges for this patient`s age group have not been established. These reference ranges reflect verified or established ranges for the adult population. Interpret ranges with caution using the clinical context and additional reference resources. Performed By: #### P 14 #### [facility] [address] [place], [place] [address] CO2 [Moles/Vol] 28 mmol/L Normal 21-32 [facility] Comment on above: Result Comment: Refe rence ranges for this patient`s age group have not been established. These reference ranges reflect verified or established ranges for the adult population. Interpret ranges with caution using the clinical context and additional reference resources. Performed By: #### P 14 #### [facility] [address] [place], [place] [address] Glucose [Mass/Vol] 97 mg/dL Normal 70-99 [facility] Comment on above: Result Comment: Refe rence ranges for this patient`s age group have not been established. These reference ranges reflect verified or established ranges for the adult population. Interpret ranges with caution using the clinical context and additional reference resources. Performed By: #### P 14 #### [facility] [address] [place], [place] [address] Urea nitrogen [Mass/Vol] 9 mg/dL Normal 7-18 [facility] Comment on above: Result Comment: Refe rence ranges for this patient`s age group have not been established. These reference ranges reflect verified or established ranges for the adult population. Interpret ranges with caution using the clinical context and additional reference resources. Performed By: #### P 14 #### [facility] [address] [place], [place] [address] Chloride [Moles/Vol] 108 mmol/L High 98-107 [facility] Comment on above: Result Comment: Refe rence ranges for this patient`s age group have not been established. These reference ranges reflect verified or established ranges for the adult population. Interpret ranges with caution using the clinical context and additional reference resources. Performed By: #### P 14 #### [facility] [address] [place], [place] [address] Potassium [Moles/Vol] 3.6 mmol/L Normal 3.5-5.1 [facility] Comment on above: Result Comment: Refe rence ranges for this patient`s age group have not been established. These reference ranges reflect verified or established ranges for the adult population. Interpret ranges with caution using the clinical context and additional reference resources. Performed By: #### P 14 #### [facility] [address] [place], [place] [address] Sodium [Moles/Vol] 139 mmol/L Normal 136-145 [facility] Comment on above: Result Comment: Refe rence ranges for this patient`s age group have not been established. These reference ranges reflect verified or established ranges for the adult population. Interpret ranges with caution using the clinical context and additional reference resources. Performed By: #### P 14 #### [facility] [address] [place], [place] [address] DRUG SCREEN,URINEon 05-13-19 20 AMPHETAMINE SCREEN,U Negative Normal NEGATIVE [facility] Comment on above: Result Comment: CUTO FF LEVEL: 500 NG/ML Cross-reactivity has been reported with high concentrations of the following drugs: buproprion, chloroquine, chlorpromazine, ephedrine, mephentermine, fenfluramine, phentermine, phenylpropanolamine, pseudoephedrine, and propranolol. Performed By: #### D RUG3 #### [facility] [address] [place] [address] BARBITURATES SCREEN,U Negative Normal NEGATIVE [facility] Comment on above: Result Comment: CUTO FF LEVEL: 200 NG/ML Performed By: #### D RUG3 #### [facility] [address] [place] [address] BENZODIAZEPINES SCREEN,U Negative Normal NEGATIVE [facility] Comment on above: Result Comment: CUTO FF LEVEL: 200 NG/ML Performed By: #### D RUG3 #### [facility] [address] [place] [address] CANNABINOIDS SCREEN,U Negative Normal NEGATIVE [facility] Comment on above: Result Comment: CUTO FF LEVEL: 50 NG/ML Performed By: #### D RUG3 #### [facility] [address] [place] [address] COCAINE METABOLITE SCREEN,U Negative Normal NEGATIVE [facility] Comment on above: Result Comment: CUTO FF LEVEL: 150 NG/ML Performed By: #### D RUG3 #### [facility] [address] [place] [address] DRUG SCREEN COMMENT SEE BELOW Normal [facility] Comment on above: Result Comment: Drug screen results are presumptive and should not be used to assess compliance with prescribed medication. Contact the performing [facility] laboratory to add-on definitive confirmatory testing [...] directors. Performed By: #### D RUG3 #### [facility] [address] [place] [address] METHADONE SCREEN,U Negative Normal NEGATIVE [facility] Comment on above: Result Comment: CUTO FF LEVEL: 150 NG/ML The metabolite L-hofbk-upkkyrjkenxxkf (LAAM) is not detected by this method in concentrations that would be found in the urine of patients on LAAM therapy. Performed By: #### D RUG3 #### [facility] [address] [place] [id number] OPIATES SCREEN,U Negative Normal NEGATIVE [facility] Comment on above: Result Comment: CUTO FF LEVEL: 300 NG/ML The opiate screen does not detect fentanyl, meperidine, or tramadol. Oxycodone is not consistently detected (refer to Oxycodone Screen, Urine result). Performed By: #### D RUG3 #### [facility] [address] [place] [id number] OXYCODONE SCREEN,U Negative Normal NEGATIVE [facility] Comment on above: Result Comment: CUTO FF LEVEL: 100 NG/ML This test will accurately detect both oxycodone and oxymorphone. Performed By: #### D RUG3 #### [facility] [address] [place] [id number] PCP SCREEN,U Negative Normal NEGATIVE [facility] Comment on above: Result Comment: CUTO FF LEVEL: 25 NG/ML Cross-reactivity has been reported with dextromethorphan. Performed By: #### D RUG3 #### [facility] [address] [place] [address] ECU Troponin Ion 05-13-2019 Troponin I.cardiac [Mass/Vol] ng/mL Normal 0.015-0.045 [facility] Comment on above: Result Comment: Refe rence ranges for this patient`s age group have not been established. These reference ranges reflect verified or established ranges for the adult population. Interpret ranges with caution using the clinical context and additional reference resources. Performed By: #### E RTRP #### [facility] [address] [place], [place] [address] ED NOTEon 05-13-2019 ED NOTE HNO ID: [id number] Author: Tabitha WagnerRn) CRISTHIAN Roth Service: Emergency Medicine Author Type: Registered Nurse Type: ED Notes Filed: 05/13/2019 4:42 PM Note Text: Box lunch to pt [facility] ED NOTE HNO ID: [id number] Author: Tabitha John) CRISTHIAN Roth Service: Emergency Medicine Author Type: Registered Nurse Type: ED Notes Filed: 05/13/2019 4:25 PM Note Text: Pt made aware per ed that she will not be able to have cell phone/pt verbalized understanding [facility] ED NOTE HNO ID: [id number] Author: Tabitha John) CRISTHIAN Roth Service: Emergency Medicine Author Type: Registered Nurse Type: ED Notes Filed: 05/13/2019 4:24 PM Note Text: Visitor at bedside. [facility] ED NOTE HNO ID: [id number] Author: Vivienne John) [place], RN Service: Emergency Medicine Author Type: Registered Nurse Type: ED Notes Filed: 05/13/2019 4:15 PM Note Text: REPORT GIVEN OFF UNIT FOR LUNCH [facility] ED NOTE HNO ID: [id number] Author: Vivienne Rose, RN Service: Emergency Medicine Author Type: Registered Nurse Type: ED Notes Filed: 05/13/2019 4:08 PM Note Text: Report given to Christie MORROW [phone] at [facility]. [facility] ED NOTE HNO ID: [id number] Author: Viviennejuan carlos Rose RN Service: Emergency Medicine Author Type: Registered Nurse Type: ED Notes Filed: 05/13/2019 4:04 PM Note Text: Mother at bedside taking selfies with daughter. Mothers behavior seems inappropriate [facility] ED NOTE HNO ID: [id number] Author: Kesha Rincon (Tech) Funzio Service: Emergency Medicine Author Type: State Pilot Type: ED Notes Filed: 05/13/2019 3:49 PM Note Text: Labs were drawn and sent. [facility] ED NOTE HNO ID: [id number] Author: Kesha WagnerFunzioRoxy [place], Funzio Service: Emergency Medicine Author Type: State Pilot Type: ED Notes Filed: 05/13/2019 3:49 PM Note Text: Clean catch urine specimen obtained and sent. [facility] ED NOTE HNO ID: [id number] Author: Vivienne Rsoe RN Service: Emergency Medicine Author Type: Registered Nurse Type: ED Notes Filed: 05/13/2019 3:32 PM Note Text: recv call back from [facility] peds psych unit is full [facility] ED NOTE HNO ID: [id number] Author: Nicole WagnerRnRoxy Rubio RN Service: Emergency Medicine Author Type: Registered Nurse Type: ED Notes Filed: 05/13/2019 3:06 PM Note Text: Per Dr. Hess, patient to be placed in psych room at this time. [facility] ED NOTE HNO ID: [id number] Author: Vivienne Rose RN Service: ? Author Type: Registered Nurse Type: ED Notes Filed: 05/13/2019 2:58 PM Note Text: Bed: [facility] Expected date: Expected time: Means of arrival: Comments: SI CIA1?? [facility] ED NOTE HNO ID: [id number] Author: Nicole WagnerRnRoxy Rubio RN Service: Emergency Medicine Author Type: Registered Nurse Type: ED Notes Filed: 05/13/2019 2:11 PM Note Text: Dr. Hess aware of patient and states will come evaluate. [facility] ED NOTE HNO ID: [id number] Author: Nicole WagnerRnRoxy Rubio RN Service: Emergency Medicine Author Type: Registered Nurse Type: ED Notes Filed: 05/13/2019 2:06 PM Note Text: Clean catch urine specimen obtained and sent. Normal [facility] ED NOTE HNO ID: [id number] Author: Nicole (Rn) CRISTHIAN Rubio Service: Emergency [...] Denies drug or ETOH use today. Normal [facility] ED PROV NOTEon 05-13-2019 ED PROV NOTE HNO ID: [id number] Author: Yari Hess MD Service: Emergency Medicine [...] 05/10/2019 she got drunk, went to the [facility], and attempted to hang herself on a [...] her to the ED. Patient arrives to [facility]. with her mother and stepfather No past [...] Lymph 2.00 1.00 - 4.00 thou/cmm Abs. [place] 0.32 0.00 - 0.86 thou/cmm Abs. Eosin [...] NEGATIVE Negative Bilirubin, Urine NEGATIVE Negative Specific [place], Ur 1.010 1.005 - 1.030 pH, Urine [...] Non-detected Non-Detected EKG Result Value Ref Range Supervisor Final NAME : MELANIE LEIJA PID : [id number] : 2000 Gender : Female Race : [...] ms QTC Calculation(Bazett) : 399 ms P [place] : 53 degrees R [place] : 19 degrees T [place] : 22 degrees Test Reason : Location : 4 : [place] [address] Overread By : , Edited By : [...] ? Family history: of suicide, attempts, or [place] 1 psychiatric disorders requiring hospitalization ? Precipitants/Stressors/ Interpersonal: triggering events leading to humiliation, shame or despair (e.g; loss of relationship, financial or Health status-real or anticipated). Ongoing medical illness (denis. PREPRESS STRIPPER disorders, pain). Intoxication. Family turmoil/chaos. History of Physical or sexual abuse. Social isolation. ? Change in treatment: discharge from psychiatric hospital, provider or treatment change ? Access to firearms 2. PROTECTIVE FACTORS protective factors, even if present, may not counteract significant acute risk ? Internal: ability to cope with stress, mormonism beliefs, frustration tolerance ? External: responsibility to [...] www.sprc.org/library/alesia safetygoals.pdf ? SAFE-T marilyn upon the [place] Psychiatric Association Practice Guidelines for the Assessment and Treatment of Patients with Suicidal Behaviors www.psychiatryonline.co m/Kimberly/KimberlyTo pic_14.aspx ? Practice Parameter for the Assessment and Treatment of Children and Adolescents with Suicidal Behavior. Journal of the [place] Academy of Child and Adolescent Psychiatry, 2001, 40 (7 Supplement): 24s-51s ACKNOWLEDGEMENTS ? Originally conceived by Kofi Gaines MD, and developed as a collaboration Between [employer] and the Suicide Prevention Resource Center. ? This material is based upon work supported by the Substance Abuse and Mental Health, Services Administration (SAMA) under Emigdio No. 9I94AN04873. Any opinions/findings Conclusions/recommendat ions expressed in this material are those of the author and do Not necessarily reflect the views [facility]. National Suicide Prevention Lifeline 1.800.273.TALK (6054) MDM / Disposition / Plan No evidence of neck trauma, airway compromise. No Evidence of focal neurologic findings. Hcg negative. We called [facility] for transfer however they do not have any beds available. Screening labs ordered while we attempted to find accepting pediatric facility. Patient was accepted at [facility]. I spoke with Dr. De La Torre from ED who accepted patient. CBC without significant findings. Remainder of lab work is pending. Patient to be sent via EMS. Patient, mother, step father aware of transfer. The patient was TRANSFERRED to: ED Condition at time of disposition: stable SIGNATURE: MD Yari Alegria MD 05/16/19 1153 Normal [facility] ED Triage Noteon 05-13-2019 ED Triage Note HNO ID: [id number] Author: DENISE Murcia Pa-C Service: Emergency Medicine Author Type: Physician Rheostat Assembler Type: ED Triage Notes Filed: 05/13/2019 1:56 [...] WORKUP: Test SIGNATURE: Noreen Anne PA-C Normal [facility] Hemogram/Diffon 05-13-2019 Abs Immature Grans 0.03 thou/cmm Normal 0.00-0.05 [facility] Comment on above: Performed By: #### C BCD1 #### [place] [address] Abs Neut (ANC) 6.38 thou/cmm Normal 1.45-7.50 [facility] Comment on above: Performed By: #### C BCD1 #### [place] [address] Abs. Baso 0.03 thou/cmm Normal 0.00-0.10 [facility] Comment on above: Performed By: #### C BCD1 #### [facility] [address] [place], [place] [address] Abs. [place] 0.32 thou/cmm Normal 0.00-0.86 [facility] Comment on above: Performed By: #### C BCD1 #### [facility] [address] [place], [place] [address] Basophils/100 WBC (Bld) 0.3 % Normal [facility] Comment on above: Performed By: #### C BCD1 #### [facility] [address] [place], [place] [address] Eosinophils (Bld) [#/Vol] 0.05 thou/cmm Normal 0.00-0.45 [facility] Comment on above: Performed By: #### C BCD1 #### [facility] [address] [place], [place] [address] Eosinophils/100 WBC (Bld) 0.6 % Normal [facility] Comment on above: Performed By: #### C BCD1 #### [facility] [address] [place], [place] [address] Erythrocyte distribution width (RBC) [Ratio] 12.0 % Normal 11.5-15.0 [facility] Comment on above: Performed By: #### C BCD1 #### [facility] [address] [place], [place] [address] Hematocrit (Bld) [Volume fraction] 44.6 % Normal 34.1-44.9 [facility] Comment on above: Performed By: #### C BCD1 #### [facility] [address] [place], [place] [address] Hemoglobin (Bld) [Mass/Vol] 15.0 g/dL Normal 11.5-15.5 [facility] Comment on above: Performed By: #### C BCD1 #### [facility] [address] [place], [place] [address] Immature Grans 0.30 % Normal [facility] Comment on above: Performed By: #### C BCD1 #### [facility] [address] [place], [place] [address] Lymphocytes (Bld) [#/Vol] 2.00 thou/cmm Normal 1.00-4.00 [facility] Comment on above: Performed By: #### C BCD1 #### [facility] [address] [place], [place] [address] Lymphocytes/100 WBC (Bld) 22.7 % Normal [facility] Comment on above: Performed By: #### C BCD1 #### [facility] [address] [place], [place] [address] MCH (RBC) [Entitic mass] 30.8 pg Normal 26.0-34.0 [facility] Comment on above: Performed By: #### C BCD1 #### [facility] [address] [place], [place] [address] MCHC (RBC) [Mass/Vol] 33.6 % Normal 30.5-36.0 [facility] Comment on above: Performed By: #### C BCD1 #### [facility] [address] [place], [place] [address] MCV (RBC) [Entitic vol] 91.6 fL Normal 80.0-100.0 [facility] Comment on above: Performed By: #### C BCD1 #### [facility] [address] [place], [place] [address] Monocytes/100 WBC (Bld) 3.6 % Normal [facility] Comment on above: Performed By: #### C BCD1 #### [facility] [address] [place], [place] [address] Platelet mean volume (Bld) [Entitic vol] 11.4 fL Normal 9.0-12.7 [facility] Comment on above: Performed By: #### C BCD1 #### [facility] [address] [place], [place] [address] Platelets (Bld) [#/Vol] 235 thou/cmm Normal 150-400 [facility] Comment on above: Performed By: #### C BCD1 #### [facility] [address] [place], [place] [address] RBC (Bld) [#/Vol] 4.87 mil/cmm Normal 3.90-5.20 [facility] Comment on above: Performed By: #### C BCD1 #### [facility] [address] [place], [place] [address] RDW SD 40.4 fl Normal 37.0-50.0 [facility] Comment on above: Performed By: #### C BCD1 #### [facility] [address] [place], [place] [address] Seg Neutrophil 72.5 % Normal [facility] Comment on above: Performed By: #### C BCD1 #### [facility] [address] [place], [place] [address] WBC (Bld) [#/Vol] 8.80 thou/cmm Normal 3.70-11.00 [facility] Comment on above: Performed By: #### C BCD1 #### [facility] [address] [place], [place] [address] Provider Note - ED [facility] Provider Note - ED Peds Time Seen: Time [id number] 18:25 History of Presenting Illness and Social History: /Lactating: Are You no (1) Are You Currently Breastfeedingno (1) Patient Complaint: This 18 year old Female presents with complaint(s) of psychiatric evaluation. History of Presenting Illness and Social History: HPI: HPI: Patient is a 18-year-old female who presents to the emergency department from [facility] as a transfer for psychiatric evaluation. [...] Patient has no formal psychiatric diagnoses. Patient's content developer did start her on Prozac several months [...] who presents to the emergency department from [facility] as a transfer for psychiatric evaluation [...] dictated by speech recognition. Minor errors in bundle tier may be present. Please DocHalo if questions. UPDATE Received signout from Dr. Seth at 1999. At the time of signout, patient undergoing psychiatric evaluation by social sciences instructor. After evaluation by Deisy line assembly utility worker, decision for inpatient admission to the [...] Information T PRBP SpO2O2(LPM) %FiO2 Method 13-May-2019 18:02:[id number] 98 room air, no respiratory support Shift [...] Physical Exam, Vital Signs, Shift Change/Handoff, Rx Switching Operator, ED Diagnosis (REQUIRED), Attestation Gricelda Seth ( (Resident)) (Signed 13-May-2019 20:44) Authored: Time Seen, History of Presenting Illness and Social History, Allergies and Home Medications, History Attestation, Physical Exam, Vital Signs, Shift Change/Handoff, Rx Switching Operator, ED Diagnosis (REQUIRED), Attestation Clem Lomeli) (Signed 14-May-2019 01:22) Authored: History of Presenting Illness and Social History, Disposition, Attestation Co-Signer: History of Presenting Illness and Social History Last Updated: 14-May-2019 01:22 by Clem Lomeli) References: 1. Data Referenced From Triage - ED Peds 13-May-2019 18:02 Normal [facility] Triage - ED [place] 0 Triage - [...] (8 yrs & older) VAS Pain Ratin [place] Coma Scale Peds (2yrs to Adult): [place] Coma Scale Score: 15 Cough Lasting Greater than 2 Weeks: no Allergies: no Patient has Homicidal Thoughts: no Acuity Level: 1 Peds Complaint Code ([facility]): 11 ABCD PRIMARY ASSESSMENT MELANIE LEIJA's primary assessment is Within Defined Limits. The airway is open and patent. Breathing spontaneous and unlabored with clear breath sounds bilaterally. Circulation is normal with good peripheral pulses. Skin is warm and dry and color is normal for race. Alert and appropriate for age. RISK SCREEN [place] Suicide Risk Screen Risk Screen Not Applicable/Able [...] this within the past 3 months yes [place] Risk Level: icon high Interventions: Low Risk [...] 13-May-2019 18:04 by Lucy Marrero (CRISTHIAN) Normal [facility] Ur/Serum Drug Screenon 05-12 Urine Amphetamine Non-detected Normal Non-Detected [facility] Comment on above: Performed By: #### D RUG3 #### [place] [address] Urine Barbiturates Non-detected Normal Non-Detected [facility] Comment on above: Performed By: #### D RUG3 #### [place] [address] Urine Benzodiazepine Non-detected Normal Non-Detected [facility] Comment on above: Performed By: #### D RUG3 #### [address] [address] Urine Opiate Non-detected Normal Non-Detected [facility] Comment on above: Performed By: #### D RUG3 #### [address] [address] Urine PCP Non-detected Normal Non-Detected [facility] Comment on above: Performed By: #### D RUG3 #### [place] [address] Urine THC Non-detected Normal Non-Detected [facility] Comment on above: Result Comment: Urin e [...] only. Performed By: #### D RUG3 #### [place] [address] Urine Cocaine Metab Non-detected Normal Non-Detected [facility] Comment on above: Performed By: #### D RUG3 #### [place] [address] Acetaminophen [Mass/Vol] <2.0 Low 10.0-30.0 [facility] Comment on above: Performed By: #### D RUG3 #### [place] [address] Serum Salicylate < 1.7 Low 2.8-20.0 [facility] Comment on above: Performed By: #### D RUG3 #### [place] [address] Serum Alcohol < 3 Normal [facility] Comment on above: Performed By: #### D RUG3 #### [place] [address] Urinalysis Routineon 020 Bacteria LM.HPF (Urine sed) [#/Area] NONE Normal None [facility] Comment on above: Performed By: #### U RIN2 #### [place] [address] Ep Cells Urine 5.6 /hpf High 0.0-5.0 [facility] Comment on above: Performed By: #### U RIN2 #### [facility] [address] [place] [address] Hyaline Cast 2.2 /lpf High 0.0-1.0 [facility] Comment on above: Performed By: #### U RIN2 #### [facility] [address] [place] [address] WBC LM.HPF (Urine sed) [#/Area] 179.6 /[HPF] High 0.0-5.0 [facility] Comment on above: Performed By: #### U RIN2 #### [facility] [address] [address] Appearance (U) 2+ (SLT CLOUDY) Normal [facility] Comment on above: Performed By: #### U RIN2 #### [place] [address] Color (U) YELLOW Normal [facility] Comment on above: Performed By: #### U RIN2 #### [facility] [address] [address] RBC LM.HPF (Urine sed) [#/Area] 0.0-3 Normal 0.0-5.0 [facility] Comment on above: Performed By: #### U RIN2 #### [place] [address] Bilirubin (U) [Mass/Vol] Negative Normal Negative [facility] Comment on above: Performed By: #### U RIN2 #### [place] [address] Glucose Ql (U) Negative Normal Negative [facility] Comment on above: Performed By: #### U RIN2 #### [place] [address] Hemoglobin,Urine MODERATE Abnormal Negative [facility] Comment on above: Performed By: #### U RIN2 #### [place] [address] Ketone Urine Negative Normal Negative [facility] Comment on above: Performed By: #### U RIN2 #### [address] [address] Leukocytes Esterase LARGE Abnormal Negative [facility] Comment on above: Performed By: #### U RIN2 #### [facility] [address] [place], [place] [address] Nitrites Urine Negative Normal Negative [facility] Comment on above: Performed By: #### U RIN2 #### [facility] [address] [place], [place] [address] pH (U) 6.5 [pH] Normal 5.0-8.0 [facility] Comment on above: Performed By: #### U RIN2 #### [facility] [address] [place], [place] [address] Protein (U) [Mass/Vol] Negative Normal Negative [facility] Comment on above: Performed By: #### U RIN2 #### [facility] [address] [place] [address] Specific [place], Ur 1.010 Normal 1.005-1.030 [facility] Comment on above: Performed By: #### U RIN2 #### [facility] [address] [address] Urobilinogen,Ur 0.2 EU/dL Normal 0.2-1.0 [facility] Comment on above: Performed By: #### U RIN2 #### [facility] [address] [place], [place] [address] Vital Signs Date Time Vital Sign Value Performing Clinician Faci lity 01-05-2025 12:55-0400 Body height 168.[address] Mariely Neal MD Work Phone: [facility] 01-05-2025 12:55-0400 Body mass index (BMI) [Ratio] 30.5 kg/m2 Dr. Mariely Neal MD Work Phone: [facility] 01-05-2025 12:55-0400 Body weight 87.[address] Mariely Neal MD Work Phone: [facility] 01-05-2025 12:55-0400 Diastolic blood pressure 74 mm[Hg] Dr. Mariely Neal MD Work Phone: [facility] 01-05-2025 12:55-0400 Systolic blood pressure 117 mm[Hg] Dr. Mariely Neal MD Work Phone: 8(112)586-033962 [place] [address] 12-22-2024 15:02-0400 Diastolic blood pressure 64 mm[Hg] Dr. Mariely Neal MD Work Phone: 6(783)337-947184 [place] [address] 12-22-2024 15:02-0400 Heart rate 87 /min Dr. Mariely Neal MD Work Phone: 7(516)759-103284 [place] [address] 12-22-2024 15:02-0400 Systolic blood pressure 124 mm[Hg] Dr. Mariely Neal MD Work Phone: 9(146)269-682384 [place] [address] 12-22-2024 13:11-0400 Body mass index (BMI) [Ratio] 29.4 kg/m2 Dr. Mariely eNal MD Work Phone: 5(068)174-288584 [place] [address] 12-22-2024 13:11-0400 Body weight 83.[address] Mariely Neal MD Work Phone: 9(087)623-080784 [place] [address] 12-22-2024 12:10-0400 SaO2% (BldA) [Mass fraction] 99 % Dr. Mariely Neal MD Work Phone: 1(496)820-133284 [place] [address] 12-22-2024 09:07-0400 Body temperature 98.4 [degF] Dr. Mariely Neal MD Work Phone: 2(198)307-513284 [place] [address] 12-22-2024 09:07-0400 Diastolic blood pressure 75 mm[Hg] Dr. Mariely Neal MD Work Phone: 5(401)641-221184 [place] [address] 12-22-2024 09:07-0400 Heart rate 92 /min Dr. Mariely Neal MD Work Phone: 8(832)424-370084 [place] [address] 12-22-2024 09:07-0400 Respiratory rate 16 /min Dr. Mariely Neal MD Work Phone: 1(273)776-301384 [place] [address] 12-22-2024 09:07-0400 SaO2% (BldA) [Mass fraction] 100 % Dr. Mariely Neal MD Work Phone: 4(684)059-249684 [place] [address] 12-22-2024 09:07-0400 Systolic blood pressure 146 mm[Hg] Dr. Mariely Neal MD Work Phone: 9(465)169-398984 [place] [address] 12-15-2024 13:11-0400 Body height 167.[address] Mariely Neal MD Work Phone: 3(993)989-221484 [place] [address] 12-15-2024 13:11-0400 Body mass index (BMI) [Ratio] 29 kg/m2 Dr. Mariely Neal MD Work Phone: 6(445)614-504584 [place] [address] 12-15-2024 13:11-0400 Body weight 81.[address] Mariely Neal MD Work Phone: 6(734)966-404284 [place] [address] 12-15-2024 13:11-0400 Diastolic blood pressure 74 mm[Hg] Dr. Mariely Neal MD Work Phone: 7(372)446-812584 [place] [address] 12-15-2024 13:11-0400 Systolic blood pressure 115 mm[Hg] Dr. Mariely Neal MD Work Phone: 0(219)960-085484 [place] [address] 12-12-2024 11:28-0400 Heart rate 98 /min Dr. Mariely Neal MD Work Phone: 8(686)074-288584 [place] [address] 12-12-2024 11:28-0400 Respiratory rate 16 /min Dr. Mariely Neal MD Work Phone: 9(443)036-129284 [place] [address] 12-12-2024 10:39-0400 Diastolic blood pressure 67 mm[Hg] Dr. Mariely Neal MD Work Phone: 5(386)784-118784 [place] [address] 12-12-2024 10:39-0400 Systolic blood pressure 130 mm[Hg] Dr. Mariely Neal MD Work Phone: 9(995)591-614784 [place] [address] 12-12-2024 10:01-0400 Body temperature 98.1 [degF] Dr. Mariely Neal MD Work Phone: 0(242)270-034484 [place] [address] 12-12-2024 09:46-0400 Body height 167.[address] Mariely Neal MD Work Phone: 5(522)363-881584 [place] [address] 12-12-2024 09:46-0400 Body mass index (BMI) [Ratio] 29.5 kg/m2 Dr. Mariely Neal MD Work Phone: 6(019)891-812884 [place] [address] 12-12-2024 09:46-0400 Body weight 83.[address] Mariely Neal MD Work Phone: 3(253)617-175484 [place] [address] 12-08-2024 08:04-0400 Body height 167.[address] Mariely Neal MD Work Phone: 1(398)832-518284 [place] [address] 12-08-2024 08:04-0400 Body mass index (BMI) [Ratio] 28.1 kg/m2 Dr. Mariely Neal MD Work Phone: 7(327)255-218584 [place] [address] 12-08-2024 08:04-0400 Body weight 79.[address] Mariely Neal MD Work Phone: 7(448)228-046184 [place] [address] 12-08-2024 08:04-0400 Diastolic blood pressure 84 mm[Hg] Dr. Mariely Neal MD Work Phone: 5(071)099-652984 [place] [address] 12-08-2024 08:04-0400 Heart rate 102 /min Dr. Mariely Neal MD Work Phone: 6(822)600-662484 [place] [address] 12-08-2024 08:04-0400 Systolic blood pressure 129 mm[Hg] Dr. Mariely Neal MD Work Phone: 5(412)267-313584 [place] [address] 11-17-2024 09:33-0400 Body height 167.[address] Mariely Neal MD Work Phone: 5(733)085-391784 [place] [address] 11-17-2024 09:33-0400 Body mass index (BMI) [Ratio] 28.1 kg/m2 Dr. Mariely Neal MD Work Phone: 5(393)482-722384 [place] [address] 11-17-2024 09:33-0400 Body weight 79.[address] Mariely Neal MD Work Phone: 7(505)354-883284 [place] [address] 11-17-2024 09:33-0400 Diastolic blood pressure 73 mm[Hg] Dr. Mariely Neal MD Work Phone: 5(401)185-240784 [place] [address] 11-17-2024 09:33-0400 Systolic blood pressure 128 mm[Hg] Dr. Mariely Neal MD Work Phone: 4(043)480-369884 [place] [address] 11-13-2024 16:30-0400 Body height 167.[address] Mariely Neal MD Work Phone: 4(455)176-880384 [place] [address] 11-13-2024 16:30-0400 Body mass index (BMI) [Ratio] 27.2 kg/m2 Dr. Mariely Neal MD Work Phone: 0(471)085-442884 [place] [address] 11-13-2024 16:30-0400 Body weight 76.[address] Mariely Neal MD Work Phone: 5(852)521-770084 [place] [address] 11-13-2024 16:29-0400 Body temperature 98.2 [degF] Dr. Mariely Neal MD Work Phone: 8(504)724-294484 [place] [address] 11-13-2024 16:29-0400 Diastolic blood pressure 64 mm[Hg] Dr. Mariely Neal MD Work Phone: 9(520)509-767184 [place] [address] 11-13-2024 16:29-0400 Heart rate 93 /min Dr. Mariely Neal MD Work Phone: 4(636)881-548384 [place] [address] 11-13-2024 16:29-0400 Respiratory rate 14 /min Dr. Mariely Neal MD Work Phone: 4(108)915-913184 [place] [address] 11-13-2024 16:29-0400 Systolic blood pressure 114 mm[Hg] Dr. Mariely Neal MD Work Phone: 9(595)564-597984 [place] [address] 11-13-2024 15:28-0400 Body height 167.[address] Mariely Neal MD Work Phone: 2(441)006-726884 [place] [address] 11-13-2024 15:28-0400 Body mass index (BMI) [Ratio] 27.5 kg/m2 Dr. Mariely Neal MD Work Phone: 7(821)828-012684 [place] [address] 11-13-2024 15:28-0400 Body weight 77.[address] Mariely Neal MD Work Phone: 8(715)081-654584 [place] [address] 11-13-2024 15:28-0400 Diastolic blood pressure 84 mm[Hg] Dr. Mariely Neal MD Work Phone: 9(826)273-338384 [place] [address] 11-13-2024 15:28-0400 Systolic blood pressure 129 mm[Hg] Dr. Mariely Neal MD Work Phone: 8(179)709-691484 [place] [address] 10-20-2024 09:38-0400 Body height 167.[address] Mariely Neal MD Work Phone: 8(716)190-110784 [place] [address] 10-20-2024 09:38-0400 Body mass index (BMI) [Ratio] 26.2 kg/m2 Dr. Mariely Neal MD Work Phone: 5(478)637-903384 [place] [address] 10-20-2024 09:38-0400 Body weight 73.[address] Mariely Neal MD Work Phone: 9(694)565-727384 [place] [address] 10-20-2024 09:38-0400 Diastolic blood pressure 69 mm[Hg] Dr. Mariely Neal MD Work Phone: 8(761)333-365284 [place] [address] 10-20-2024 09:38-0400 Systolic blood pressure 139 mm[Hg] Dr. Mariely Neal MD Work Phone: 8(327)659-799284 [place] [address] 09-25-2024 13:54-0400 Body height 167.[address] Mariely Neal MD Work Phone: 9(155)140-323084 [place] [address] 09-25-2024 13:54-0400 Body mass index (BMI) [Ratio] 25.3 kg/m2 Dr. Mariely Neal MD Work Phone: 7(727)415-827784 [place] [address] 09-25-2024 13:54-0400 Body weight 71.[address] Mariely Neal MD Work Phone: 3(813)527-420484 [place] [address] 09-25-2024 13:54-0400 Diastolic blood pressure 81 mm[Hg] Dr. Mariely Neal MD Work Phone: 3(930)462-365284 [place] [address] 09-25-2024 13:54-0400 Systolic blood pressure 133 mm[Hg] Dr. Mariely Neal MD Work Phone: 9(231)547-403084 [place] [address] 08-28-2024 13:05-0400 Body height 167.[address] Mariely Neal MD Work Phone: 0(127)795-707284 [place] [address] 08-28-2024 13:01-0400 Body mass index (BMI) [Ratio] 25 kg/m2 Dr. Mariely Neal MD Work Phone: 0(002)581-219184 [place] [address] 08-28-2024 13:01-0400 Body weight 70.[address] Mariely Neal MD Work Phone: 2(145)373-516484 [place] [address] 08-28-2024 13:01-0400 Diastolic blood pressure 71 mm[Hg] Dr. Mariely Neal MD Work Phone: 8(714)626-585184 [place] [address] 08-28-2024 13:01-0400 Systolic blood pressure 135 mm[Hg] Dr. Mariely Neal MD Work Phone: 4(073)546-229784 [place] [address] 07-09-2023 18:44-0400 Diastolic blood pressure 84 mm[Hg] Dr. Mariely Neal Work Phone: 3(771)515-917984 [place] [address] 07-09-2023 18:44-0400 Heart rate 85 /min Dr. Mariely Neal Work Phone: 3(228)051-687984 [place] [address] 07-09-2023 18:44-0400 Systolic blood pressure 138 mm[Hg] Dr. Mariely Neal Work Phone: 3(863)832-829284 [place] [address] 07-09-2023 18:10-0400 SaO2% (BldA) [Mass fraction] 99 % Dr. Mariely Neal Work Phone: 4(343)657-265984 [place] [address] 07-09-2023 18:09-0400 Body temperature 99.8 [degF] Dr. Mariely Neal Work Phone: 6(049)600-004084 [place] [address] 07-09-2023 17:54-0400 Respiratory rate 20 /min Dr. Mariely Neal Work Phone: 8(334)651-705184 [place] [address] 07-09-2023 17:50-0400 Body height 168.[address] Mariely Neal Work Phone: 5(584)701-301584 [place] [address] 07-09-2023 17:50-0400 Body mass index (BMI) [Ratio] 29.7 kg/m2 Dr. Mariely Neal Work Phone: 1(427)039-097084 [place] [address] 07-09-2023 17:50-0400 Body weight 84.[address] Mariely Neal Work Phone: 8(671)802-567984 [place] [address] 06-27-2023 10:28-0400 Body mass index (BMI) [Ratio] 29.8 kg/m2 Dr. Mariely Neal Work Phone: 8(281)113-425562 [place] [address] 06-27-2023 10:28-0400 Body weight 83.[address] Mariely Neal Work Phone: 8(603)964-552884 [place] [address] 06-27-2023 10:28-0400 Diastolic blood pressure 71 mm[Hg] Dr. Mariely Neal Work Phone: 3(155)191-896684 [place] [address] 06-27-2023 10:28-0400 Systolic blood pressure 115 mm[Hg] Dr. Mariely Neal Work Phone: 4(416)094-198284 [place] [address] 06-13-2023 13:28-0400 Body mass index (BMI) [Ratio] 29.7 kg/m2 Dr. Mariely Neal Work Phone: 4(118)167-177284 [place] [address] 06-13-2023 13:28-0400 Body weight 83.[address] Mariely Neal Work Phone: 9(233)599-984784 [place] [address] 06-13-2023 13:28-0400 Diastolic blood pressure 77 mm[Hg] Dr. Mariely Neal Work Phone: 0(492)256-352884 [place] [address] 06-13-2023 13:28-0400 Systolic blood pressure 126 mm[Hg] Dr. Mariely Neal Work Phone: 3(665)818-733684 [place] [address] 05-31-2023 14:11-0400 Body mass index (BMI) [Ratio] 28.7 kg/m2 Dr. Mariely Neal Work Phone: 7(859)950-658584 [place] [address] 05-31-2023 14:11-0400 Body weight 80.[address] Mariely Neal Work Phone: 1(586)118-795084 [place] [address] 05-31-2023 14:11-0400 Diastolic blood pressure 78 mm[Hg] Dr. Mariely Neal Work Phone: 9(729)658-669984 [place] [address] 05-31-2023 14:11-0400 Systolic blood pressure 122 mm[Hg] Dr. Mariely Neal Work Phone: 5(580)885-645284 [place] [address] 05-16-2023 13:14-0500 Body height 167.[address] Mariely Neal Work Phone: 1(752)364-774884 [place] [address] 05-16-2023 13:14-0500 Body mass index (BMI) [Ratio] 27.8 kg/m2 Dr. Mariely Neal Work Phone: 9(206)140-375962 [place] [address] 05-16-2023 13:14-0500 Body weight 78.[address] Mariely Neal Work Phone: 8(896)959-499384 [place] [address] 05-16-2023 13:14-0500 Diastolic blood pressure 74 mm[Hg] Dr. Mariely Neal Work Phone: 7(105)373-145884 [place] [address] 05-16-2023 13:14-0500 Systolic blood pressure 126 mm[Hg] Dr. Mariely Neal Work Phone: 5(336)428-346984 [place] [address] 05-09-2023 14:41-0500 Body mass index (BMI) [Ratio] 27.4 kg/m2 Dr. Mariely Neal Work Phone: 2(548)361-420184 [place] [address] 05-09-2023 14:41-0500 Body temperature 98.7 [degF] Dr. Mariely Neal Work Phone: 8(696)292-293208 [address] 05-09-2023 14:41-0500 Body weight 77.[address] Mariely Neal Work Phone: 7(907)351-344108 [address] 05-09-2023 14:41-0500 Diastolic blood pressure 86 mm[Hg] Dr. Mariely Neal Work Phone: 8(432)378-381784 [place] [address] 05-09-2023 14:41-0500 Heart rate 107 /min Dr. Mariely Neal Work Phone: 6(398)789-022508 [address] 05-09-2023 14:41-0500 Respiratory rate 16 /min Dr. Mariely Neal Work Phone: 7(754)185-425108 [address] 05-09-2023 14:41-0500 SaO2% (BldA) [Mass fraction] 98 % Dr. Mariely Neal Work Phone: 8(713)425-956108 [address] 05-09-2023 14:41-0500 Systolic blood pressure 134 mm[Hg] Dr. Mariely Neal Work Phone: 5(583)792-802308 [address] 05-02-2023 10:14-0500 Body mass index (BMI) [Ratio] 27.6 kg/m2 Dr. Mariely Neal Work Phone: 8(974)983-108908 [address] 05-02-2023 10:14-0500 Body weight 77.[address] Mariely Neal Work Phone: 3(761)670-297284 [place] [address] 05-02-2023 10:14-0500 Diastolic blood pressure 73 mm[Hg] Dr. Mariely Neal Work Phone: 9(251)742-226184 [place] [address] 05-02-2023 10:14-0500 Systolic blood pressure 124 mm[Hg] Dr. Mariely Neal Work Phone: 5(725)970-435184 [place] [address] 04-05-2023 09:48-0500 Body mass index (BMI) [Ratio] 25.9 kg/m2 Dr. Mariely Neal Work Phone: 2(185)938-901984 [place] [address] 04-05-2023 09:48-0500 Body weight 73.[address] Mariely Neal Work Phone: 2(948)645-781484 [place] [address] 04-05-2023 09:48-0500 Diastolic blood pressure 64 mm[Hg] Dr. Mariely Neal Work Phone: 4(231)133-856884 [place] [address] 04-05-2023 09:48-0500 Systolic blood pressure 114 mm[Hg] Dr. Mariely Neal Work Phone: 3(423)434-764384 [place] [address] 03-08-2023 09:18-0500 Body mass index (BMI) [Ratio] 24.2 kg/m2 Dr. Mariely Neal Work Phone: 8(408)179-176284 [place] [address] 03-08-2023 09:18-0500 Body weight 68.[address] Mariely Neal Work Phone: 8(984)686-880584 [place] [address] 03-08-2023 09:18-0500 Diastolic blood pressure 74 mm[Hg] Dr. Mariely Neal Work Phone: 4(290)417-540684 [place] [address] 03-08-2023 09:18-0500 Systolic blood pressure 125 mm[Hg] Dr. Mariely Neal Work Phone: 4(425)946-725184 [place] [address] 02-09-2023 09:26-0500 Body mass index (BMI) [Ratio] 22.9 kg/m2 Dr. Mariely Neal Work Phone: 2(393)635-070384 [place] [address] 02-09-2023 09:26-0500 Body weight 64.[address] Mariely Neal Work Phone: [facility] 02-09-2023 09:26-0500 Diastolic blood pressure 74 mm[Hg] Dr. Mariely Neal Work Phone: 3(295)657-170462 [place] [address] 02-09-2023 09:26-0500 Systolic blood pressure 116 mm[Hg] Dr. Mariely Neal Work Phone: 9(361)855-801562 [place] [address] 01-09-2023 10:12-0400 Body height 167.[address] Mariely Neal Work Phone: 2(582)265-037462 [place] [address] 01-09-2023 10:12-0400 Body mass index (BMI) [Ratio] 22.9 kg/m2 Dr. Mariely Neal Work Phone: 2(940)227-871062 [place] [address] 01-09-2023 10:12-0400 Body weight 64.[address] Mariely Neal Work Phone: 7(528)194-775562 [place] [address] 01-09-2023 10:12-0400 Diastolic blood pressure 78 mm[Hg] Dr. Mariely Neal Work Phone: 6(640)708-580462 [place] [address] 01-09-2023 10:12-0400 Systolic blood pressure 125 mm[Hg] Dr. Mariely Neal Work Phone: 1(124)505-056708 [address] Encounters Encounter Date Encounter Type Care Provider Facility Start: 03-23-2025 ambulatory Diana Lisa lity:[facility] Start: 01-22-2025 ambulatory Mary Ordoñez cility:[facility] Start: 01-05-2025 End: 01-05-2025 ambulatory Mariely Neal Facility:[facility] Start: 01-05-2025 End: 01-05-2025 ambulatory [facility] Start: 01-05-2025 End: 01-05-2025 ambulatory Pedro Barbosa NP Facility:[facility] Start: 12-22-2024 ambulatory Mary Ordoñez cility:[facility] Start: 12-22-2024 Non-patient / Non-visit Dr. Mary Canales DO -[facility] Start: 12-22-2024 End: 12-22-[address] Mariely Neal MD Work Phone: [facility] Start: 12-22-2024 End: 12-22-2024 Patient encounter procedure Yomaira Michael CNM -[facility] Work Phone: Start: 12-22-2024 End: 12-22-2024 Emergency department patient visit ED PHYSICIAN PROVIDER -Emergency Department Work Phone: Start: 12-17-2024 ambulatory Mariely Neal Facility: [facility] Start: 12-17-2024 Non-patient / Non-visit Dr. Diana Escobar MD -[facility] Start: 12-15-2024 End: 12-15-2024 Patient encounter procedure Yomaira Michael CNM -[facility] Work Phone: Start: 12-15-2024 End: 12-15-[address] Mariely Neal MD Work Phone: -[facility] Start: 12-12-2024 End: 12-12-[address] Diana Escobar MD -[facility] Work Phone: Start: 12-12-2024 End: 12-12-[address] Mariely Neal MD Work Phone: -[facility] Start: 12-08-2024 End: 12-08-[address] Chikis Ferrera MD -[facility] Work Phone: Start: 12-08-2024 End: 12-08-[address] Mariely Neal MD Work Phone: -[facility] Start: 11-17-2024 End: 11-17-[address] Diana Escobar MD -[facility] Work Phone: Start: 11-17-2024 End: 11-17-[address] Mariely Neal MD Work Phone: -[facility] Start: 11-13-2024 ambulatory Diana Lisa lity:[facility] Start: 11-13-2024 Non-patient / Non-visit Dr. Diana Escobar MD -[facility] Start: 11-13-2024 End: 11-13-[address] Mary Canales DO [facility] Work Phone: Start: 11-13-2024 End: 11-13-[address] Mariely Neal MD Work Phone: [facility] Start: 11-07-2024 End: 11-07-2024 ambulatory NAM D [facility] Start: 11-03-2024 End: 11-03-2024 [facility] Start: 10-20-2024 End: 10-20-2024 Patient encounter procedure Pedro Barbosa HOT HEADER OPERATOR-C [facility] Work Phone: Start: 10-20-2024 End: 10-20-[address] Mariely Neal MD Work Phone: [facility] Start: 09-25-2024 End: 09-25-[address] Mariely Neal MD Work Phone: [facility] Start: 09-25-2024 End: 09-25-[address] Mary Canales DO [facility] Work Phone: Start: 09-01-2024 End: 09-01-[address] Mariely Neal MD Work Phone: [facility] Work Phone: Start: 09-01-2024 End: 09-01-2024 Patient encounter procedure Yomaira Michael CN -Lab [facility] Start: 09-01-2024 End: 09-01-2024 ambulatory Yomaira Michael Facility:[facility] Start: 08-28-2024 End: 08-28-[address] Mariely Neal MD Work Phone: [facility] Work Phone: Start: 08-28-2024 End: 08-28-2024 Patient encounter procedure Yomaira Michael CNM -Laboratory Specimen Work Phone: Start: 08-28-2024 End: 08-28-2024 Patient encounter procedure Yomaira Michael CNM -[facility] Work Phone: Start: 08-28-2024 End: 08-28-[address] Mariely Neal MD Work Phone: [facility] Work Phone: Start: 08-28-2024 End: 08-28-2024 ambulatory Yomaira Michael Facility:[facility] Start: 08-08-2024 Non-patient / Non-visit Jonna Bernabe RN -[facility] Work Phone: Start: 08-08-2024 ambulatory Jonna Bernabe Facility :[facility] Start: 07-09-2023 Non-patient / Non-visit Dr. Mariely Neal Work Phone: [facility] Start: 07-09-2023 End: 07-09-[address] Mariely Neal Work Phone: [facility] Work Phone: Start: 07-09-2023 End: 07-09-[address] Mariely Neal Work Phone: [facility] Work Phone: Start: 06-27-2023 End: 06-27-[address] Mariely Neal Work Phone: [facility] Work Phone: Start: 06-13-2023 End: 06-13-[address] Mariely Neal Work Phone: [facility] Work Phone: Start: 05-31-2023 End: 05-31-[address] Mariely Neal Work Phone: [facility] Work Phone: Start: 05-16-2023 End: 05-16-[address] Mariely Neal Work Phone: [facility] Work Phone: Start: 05-16-2023 End: 05-16-[address] Mariely Neal Work Phone: [facility] Work Phone: Start: 05-09-2023 End: 05-09-[address] Mariely Neal Work Phone: [facility] [facility] Work Phone: Start: 05-02-2023 End: 05-02-[address] Mariely Neal Work Phone: [facility] Work Phone: Start: 04-05-2023 End: 04-05-[address] Mariely Neal Work Phone: [facility] Work Phone: Start: 03-08-2023 End: 03-08-[address] Mariely Neal Work Phone: [facility] Work Phone: Start: 02-09-2023 End: 02-09-[address] Mariely Neal Work Phone: [facility] Work Phone: Start: 01-10-2023 End: 01-10-[address] Mariely Neal Work Phone: [facility] Work Phone: Start: 01-10-2023 End: 01-10-[address] Mariely Neal Work Phone: [facility] Start: 01-09-2023 End: 01-09-[address] Mariely Neal Work Phone: [facility] Work Phone: Start: 01-09-2023 End: 01-09-[address] Mariely Neal Work Phone: [facility] Work Phone: Start: 01-09-2023 End: 01-09-[address] Mariely Neal Work Phone: [facility] Work Phone: Start: 12-11-2022 ambulatory MARIELY Jerome ity:[facility] Procedures Date Procedure Procedure Detail Performing Clinician Start: 01-05-2025 Serologic test for syphilis Dr. Mariely Neal MD Work Phone: Start: 12-22-2024 Polymerase chain lenard ction analysis Dr. Mariely Nael MD Work Phone: Start: 12-22-2024 SARS-CoV-2, Influenz a & RSV (PCR) Dr. Mariely Neal MD Work Phone: Start: 12-22-[address] Maged Neal MD Work Phone: Start: 12-22-[address] Mariely Neal MD Work Phone: Start: 12-22-2024 CT angiography of ch est with contrast Dr. Mariely Neal MD Work Phone: Start: 12-22-[address] Mariely Neal MD Work Phone: Start: 12-12-[address] Mariely Neal MD Work Phone: Start: 11-13-[address] Mariely [...] HCV Quant by PCR testing - HCVPCR #[id number] Non Reactive: < 0.8 Equivocal: >/= 0.8 [...] section History of delivery, currently Yomaira Michael CNChidi H/O: section History of delivery, currently Dr. 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 Mary Canales DO H/O: section History of delivery, currently Dr. 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 Plan of Treatment Date Care Activity Detail Author Start: 01-05-2025 End: 01-05-2025 Patient encounter [facility] Work Phone: Start: 12-22-2024 Nonstress test [facility] Start: 12-22-2024 Obstetric monitoring [facility] Start: 12-22-2024 [facility] Start: 12-22-2024 Vital signs measurements [facility] Start: 12-22-2024 Patient discharge [facility] Start: 12-12-2024 Nonstress test [facility] Start: 12-12-2024 Obstetric monitoring [facility] Start: 12-12-2024 Vital signs measurements [facility] Start: 12-12-2024 [facility] Start: 11-13-2024 Nonstress test [facility] Start: 11-13-2024 Obstetric monitoring [facility] Start: 11-13-2024 Vital signs measurements [facility] Start: 11-13-2024 End: 11-13-2024 [facility] Start: 11-13-2024 Bacteria identified in Urine by Culture Urine Culture [facility] Start: 11-13-2024 Patient discharge [facility] Start: 07-09-2023 Nonstress test [facility] Start: 07-09-2023 Obstetric monitoring [facility] Start: 07-09-2023 Vital signs measurements [facility] Start: 07-09-2023 [facility] Start: 07-09-2023 Patient discharge [facility] CBC W Auto Different ial panel - Blood [facility] Chlamydia deoxyribon ucleic acid detection [facility] Hepatitis C antibody measurement [facility] Patient Education [facility] ED False Labor OB Triage: Return to Hospital or Notify Physician if you Experience: [facility] Work Phone: Patient referral [facility] Work Phone: Rubella IgG measurement [facility] Serologic test for syphilis [facility] Urine culture General acute hospital Immunizations Immunization Date Immunization Notes Care Provider Fa cility 01-05-2025 tetanus toxoid, redu rossana diphtheria toxoid, and acellular pertussis vaccine, adsorbed Dr. Mariely Neal MD Work Phone: [facility] Payers Date Payer Category Payer Self-pay [id number] 2022 Medicaid [id number] 2000 Unknown [id number] 2.16. [id number] 2002 Unknown [id number] 2.16. 840.1.307846.3.579.2.479 2002 Unknown [id number] 2.16. 840.1.875252.3.579.2.479 Unknown [facility] [id number] Unknown [facility] PACKAGE PLAN [id number] Unknown [id number] 2.16.8 40.1.541131.3.579.2.462 Unknown [id number] 2.16.8 40.1.445986.3.579.2.462 Unknown [id number] 2.16.8 40.1.918149.3.579.2.462 Unknown [id number] 2.16.8 40.1.644054.3.579.2.462 Unknown [id number] 2.16.8 40.1.780297.3.579.2.462 Unknown [id number] 2.16.8 40.1.452659.3.579.2.462 Unknown [id number] 2.16.8 40.1.449144.3.579.2.462 Unknown [id number] 2.16.8 40.1.095263.3.579.2.462 Unknown [id number] 2.16.8 40.1.609888.3.579.2.462 Unknown [id number] 2.16.8 40.1.634661.3.579.2.462 Unknown [id number] 2.16.8 40.1.441871.3.579.2.462 Unknown [id number] 2.16.8 40.1.837113.3.579.2.462 Unknown [id number] 2.16.8 40.1.366214.3.579.2.462 Unknown [id number] 2.16.8 40.1.119809.3.579.2.462 Unknown [id number] 2.16.8 40.1.914897.3.579.2.462 Unknown [id number] 2.16.8 40.1.122780.3.579.2.462 Unknown [id number] 2.16.8 40.1.903369.3.579.2.462 Unknown [id number] 2.16.8 40.1.419191.3.579.2.462 Unknown [id number] 2.16.8 40.1.649530.3.579.2.462 Unknown [id number] 2.16.8 40.1.655120.3.579.2.462 Unknown [id number] 2.16.8 40.1.031144.3.579.2.462 Social History Date Type Detail Facility Start: 01-09-2023 End: 06-27-2023 Tobacco smoking status KSIS Unknown if ever smoked [facility] Start: 09-01-2014 With Family [facility] Start: 07-22-2020 Non-smoker [facility] Start: 2000 Sex Assigned At Female W [facility] Start: 08-08-2024 Tobacco smoking stat us NHIS Never smoked tobacco (finding) [facility] Sex Female [facility] Clinical Notes 08-28-2024 to 12-22-2024 Note Date & Type Note Facility 12-22-2024 History and physi angus note [facility] 12-22-2024 Radiology Diagnostic study note [facility] Imaging Services [address] [place] [address] CTA Chest W/WO Contrast MR#: [id number] Acct: [id number] Name: MELANIE LEIJA Rep #: [id number] : 2000 F 24 From: Donavan Correa MD PCP: Dr. Mariely Neal MD Status: REG CLI Study:CTA Chest W/WO Contrast Date of Exam: 12/22/24 Exam# [id number] Ordering Dr: Mary Mims DO PROCEDURE: CTA CHEST W/WO CONTRAST 12/22/2024 REASON FOR EXAM: RULE OUT P.E. Fever and shortness of breath. TECHNIQUE: Procedure Code: CTCTACHWW Modality: CT Procedure: CTA CHEST W/WO CONTRAST Multiplanar Sagittal and Coronal images were obtained. 3D post processing was performed CONTRAST: Isovue-300 VOLUME: 100 mL One or more dose reduction techniques were used (e.g., Automated exposure control, adjustment of the mA and/or kV according to patient size, use of iterative reconstruction technique). RADIATION DOSE SUMMARY: CTDlvol: 8.8 mGy DLP: 3169.12 mGycm COMPARISON: None FINDINGS: Hardware: None Lymph nodes: No significant lymph node seen. Heart: The heart is nonenlarged. Thoracic Aorta: No thoracic aortic aneurysm or dissection. Pulmonary Vessels: The pulmonary vessels are well opacified. No pulmonary embolism is seen. Lungs and Airways: Heterogeneous airspace disease in the right upper lobe suggestive of pneumonitis. Radiographic follow-up recommended. Pleura: No pleural effusion. No pneumothorax. Upper Abdomen: Right hydronephrosis. Bones: Bone windows are unremarkable. CT/CTA Chest W/WO Contrast IMPRESSION: No evidence of pulmonary embolism. Heterogeneous airspace disease in the right upper lobe. Radiographic follow-up recommended. Right hydronephrosis. Reading Location: [facility] CC: Dr. Mary Canales DO; Dr. 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 Mariely Neal MD Status: REG CLI Study:Abdomen Limited Date of Exam: 12/10 06/03 Exam# [id number] Ordering Dr: Mary Mims DO PROCEDURE: ABDOMEN LIMITED 12/22/2024 REASON FOR EXAM: R/O PRE-E TECHNIQUE: Procedure Code: USABDL Modality: US Procedure: ABDOMEN LIMITED COMPARISON: 11/13/2024. FINDINGS: Liver: Measures 15.0 cm in craniocaudal dimension. Echogenicity within normal limits. No focal hepatic lesion identified. Portal venous flow is hepatopetal. Gallbladder and Biliary System: Gallbladder length 7.7 cm. Normal wall thicknessmeasuring 1.2 mm. No gallstones, sludge, or pericholecystic fluid. Common bile duct measures 2.9 mm. Negative sonographic Simmons sign. Pancreas: Normal in echogenicity and contour. No focal abnormality. Right Kidney: Measures 10.9 x 6.8 x 5.1 cm. Cortical thickness 1.4 cm. Mild hydronephrosis present with bear claw configuration of the calyces and a mildly dilated renal pelvis measuring 2.0 x 2.0 x 3.0 cm. No calculus identified. US/Abdomen Limited IMPRESSION: Mild right hydronephrosis with bear claw appearance suggesting possible ureteropelvic junction obstruction or transient obstruction. Reading Location: [address] CC: Dr. Mary Canales DO; Dr. 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 Mariely Neal MD Status: REG CLI Study:Abdomen/Pelvis without Cont Date of Exa m: 11/13/24 Exam# [id number] Ordering Dr: Diana Ruffin MD PROCEDURE: ABDOMEN/PELVIS [...] Mild hepatomegaly. 4. Gravid uterus. Reading Location: [facility]: Dr. Mariely Neal MD; Dr. 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: Signed [facility] 10-20-2024 Progress note [facility] 09-25-2024 Evaluation note Diagnosis Onset Date Resolution Anxiety acute September 25 1:52pm Cephalopelvic disproportion acute September 25, 2024 1:52pm Depression acute September 25 1:52pm History of delivery, currently acute September 25, 2024 1:52pm acute September 25 1:52pm Supervision of high-risk acute September 25, 2024 1:52pm Anxiety acute October 20, 2 025 9:35am Cephalopelvic disproportion acute October 20 9:35am Depression acute October 20, 2 025 9:35am History of delivery, currently acute October 20 9:35am acute October 20, 2 025 9:35am Supervision of high-risk acute October 20 9:35am Anxiety acute November 13, 2024 3:30pm Cephalopelvic disproportion acute November 13, 2 025 3:30pm Depression acute November 13, 2024 3:30pm History of delivery, currently acute November 13, 2 025 3:30pm acute November 13, 2024 3:30pm Supervision of high-risk acute November 13, 2 025 3:30pm Placenta adherent to previous uterine scar, antepartum resolved November 13, 2 025 3:30pm Anxiety acute November 17, 2024 9:15am Cephalopelvic disproportion acute November 17, 2 025 9:15am Depression acute November 17, 2024 9:15am History of delivery, currently acute November 17, 2 025 9:15am Nephrolithiasis acute November 17, 2024 9:15am acute November 17, 2024 9:15am Supervision of high-risk acute November 17, 2 025 9:15am Placenta adherent to previous uterine scar, antepartum resolved November 17, 2 025 9:15am Nephrolithiasis acute December 08, 2024 7:57am Gross hematuria resolved December 08, 2024 7:57am Anxiety acute December 15, 2 025 1:06pm Cephalopelvic disproportion acute December 15 1:06pm Depression acute December 15 1:06pm History of delivery, currently acute December 15 1:06pm Nephrolithiasis acute December 152024 1:06pm acute December 15 1:06pm Supervision of high-risk acute December 15 1:06pm Gross hematuria resolved December 152024 1:06pm Placenta adherent to previous uterine scar, antepartum resolved December 15 1:06pm Anxiety acute December 22, 2024 9:17am Cephalopelvic disproportion acute December 22 9:17am Chest pain acute December 22, 2024 9:17am Depression acute December 22, 2024 9:17am Epigastric pain acute December 102024 9:17am History of delivery, currently acute December 22 9:17am Nephrolithiasis acute December 102024 9:17am acute December 22, 2024 9:17am Supervision of high-risk acute December 22 9:17am Gross hematuria resolved December 102024 9:17am Placenta adherent to previous uterine scar, antepartum resolved December 22 9:17am Indigestion deleted December 22, 2024 9:17am Anxiety acute January 05, 2025 12:38pm Cephalopelvic disproportion acute January 05 12:38pm Depression acute January 05, 2025 12:38pm History of delivery, currently acute January 05 12:38pm acute January 05, 2025 12:38pm Supervision of high-risk acute January 05 12:38pm [facility] Work Phone: 1(777) 830-774306-19-2025 Evaluation note* Diagnosis Onset Date Resolution Status Admit Date Anxiety acute August 28 12:40pm 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, 2024 12:40pm Depression acute August 28 12:40pm History of delivery , currently acute August 28 12:40pm acute August 28 12:40pm Supervision of high-risk acute August 28, 2024 12:40pm [facility] Work Phone: 1(670) 728-696306-19-2025 Evaluation note* Diagnosis Onset Date Resolution Status [...] of high-risk acute September 25, 2024 1:52pm [facility] [employer] Work Phone: 1(215) 890-781706-19-2025 Evaluation note* Diagnosis Onset Date Resolution Status [...] Supervision of high-risk acute October 20 9:35am [facility] Work Phone: 1(121) 565-246406-19-2025 Evaluation note* Diagnosis Onset Date Resolution Status [...] to previou s uterine scar, antepartum acute 2024 3:30pm acute November 13, 2024 3:30pm Supervision of high-risk acute November 13, 2 025 3:30pm [facility] Work Phone: 1(553) 323-676306-19-2025 Evaluation note* Diagnosis Onset Date Resolution Status [...] 2024 3:30pm Supervision of high-risk acute November 13, 025 3:30pm Anxiety acute November 17, 2024 9:15am Cephalopelvic disproportion acute November 17, 2024 9:15am Depression acute November 17, 2024 9:15am History of delivery , currently acute November 9:15am Nephrolithiasis acute November 17, 2024 9:15am Placenta adherent to previou s uterine scar, antepartum acute Septemb er 2024 9:15am acute November 17, 2024 9:15am Supervision of high-risk acute November 17 9:15am [facility] Work Phone: 1(824) 121-285806-19-2025 Evaluation note* Diagnosis Onset Date Resolution Status [...] of high-risk acute November 13 025 3:30pm Anxiety acute November 17, 2024 9:15am Cephalopelvic disproportion acute November 17, 2024 9:15am Depression acute November 17, 2024 9:15am History of delivery , currently acute November 9:15am Nephrolithiasis acute November 17, 2024 9:15am Placenta adherent to previou s uterine scar, antepartum acute Septemb er 2024 9:15am acute November 17, 2024 9:15am Supervision of high-risk acute November 17 9:15am Gross hematuria acute December 08, 2024 7:57am Nephrolithiasis acute December 08, 2024 7:57am [facility] Work Phone: 1(380) 938-724506-19-2025 Evaluation note* Diagnosis Onset Date Resolution Status [...] 2024 3:30pm Supervision of high-risk acute November 13, 025 3:30pm Anxiety acute November 17, 2024 9:15am Cephalopelvic disproportion acute November 17, 2024 9:15am Depression acute November 17, 2024 9:15am History of delivery , currently acute November 9:15am Nephrolithiasis acute November 17, 2024 9:15am Placenta adherent to previou s uterine scar, antepartum acute Septemb er 2024 9:15am acute November 17, 2024 9:15am Supervision of high-risk acute November 17, 025 9:15am Gross hematuria acute December 08, 2024 7:57am Nephrolithiasis acute December 08, 2024 7:57am Anxiety acute December 15, 2 025 1:06pm Cephalopelvic disproportion acute December 15, 2024 1:06pm Depression acute December 15 025 1:06pm Gross hematuria acute December 152024 1:06pm History of delivery , currently acute December 15, 2024 1:06pm Nephrolithiasis acute December 152024 1:06pm Placenta adherent to previou s uterine scar, antepartum acute December 15, 2024 1:06pm acute December 15 025 1:06pm Supervision of high-risk acute December 15 1:06pm [facility] Work Phone: 1(212) 821-988806-19-[address] 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 Date Name GA/Weeks Outcome Route Bth Weight Gen Labor Lgth Anesthesia Del Locatn Provider FOB 08/08/23 Rafia 39 live - full term 8lbs 5oz Female epidural [facility] Luz Veloz Delivery Date: 08/08/23 Last [...] Pulmonary (e.g.,TB,Asthma), Seasonal allergies, Drug/latex allergies/reactions, Breast, Financial Underwriter surgery, Anesthetic complications, History of abnormal pap, [...] and patient chose: nipt 08/28/24 1325 s CNM> Date _ Yomaira Michael CNM Cosigner Signature: Date (if applicable) [facility]: [facility] Onset Date Resolution Status acute Supervision of normal first [facility] Work Phone: Evaluation note* Diagnosis Onset Date Resolution Status acute Supervision of normal first acute acute Supervision of normal first acute acute Supervision of normal first acute acute Supervision of normal first acute Acute sinusitis resolved Anxiety acute Depression acute acute Supervision of normal first [facility] Work Phone: Evaluation note* Diagnosis Onset Date [...] of normal first acute Decreased movement acu te [facility] Work Phone: Evaluation note* Diagnosis Onset Date Resolution Status Admit Date Anxiety acute August 28 12:40pm 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, 2024 12:40pm Depression acute August 28 12:40pm History of delivery , currently acute August 28 12:40pm acute August 28 12:40pm Supervision of high-risk acute August 28, 2024 12:40pm [facility] Work Phone: History and physical note Author Alejandra Cason [facility] July 09, 2023 6:09pm Note Date/Time July 09, 2023 6:0 9pm [facility] Records Department [address] [place] [address] OB Triage Physician Note 07/09/23 1807 MR#: [id number] Acct: [id number] Name: MELANIE LEIJA Rep #:[id number] : 2000 22 From: Alejandra Cason CNM PCP: Dr. 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 its a girl! discussed and declines afp. anatomy scheduled. 03/08/23 -?-?-?-?-?-?-?-?-?-?-?-?- 17w 6d 150 lb 125/74 Negative -?-?-?-?-?-?-?-?-?-?-?-?- Negative 149 -?-?-?-?-?-?-?-?-?-?-?-?- MH-No VB, chris ng. Has felt flutters. US next week 04/05/23 -?-?-?-?-?-?-?--?-?-?-?-?- 21w 6d 161 lb 2 oz 114/64 Nega tive -?-?-?-?-?-?-?-?-?-?-?-?- Negative 145 22 -?-?-?-?-?-?-?-?-?-?-?-?- SM- no vb lof go od fm no regular ctx, fu anatomy scan to evaluate feet, declined ntd screen. encouraged classes 05/16/23 -?-?-?-?-?-?-?-?-?-?-?-?- 27w 5d 172 lb 6 oz 126/74 Nega tive -?-?-?-?-?-?-?-?-?-?-?-?- Negative 146 27 -?-?-?-?-?-?-?-?-?-?-?-?- MH-No VB, LOF. g ood FM. 28 wk [...] variability reactive no decelerations category I tracing [place]: irreg non painful Contractions Assessment and plan: Reactive NST, reassuring maternal and status patient discharged to home to follow-up in office. See problem list details for additional plan information. Charges/Coding Visit Charges Office Visits / Consults: 93254 OP Consult L3 Procedures Urinary/Genital 52xxx-59xxx: 19856-42 non-stress test Interp Multi Select Codes Urinary/Genital Urinary/Genital CPT Codes: 37432-58 non-stress test Interp 07/09/23 1809 <Electronically signed by Alejandra lovell CNM> Date _ Alejandra Cason CNM Cosigner Signature (if applicable): Date CC: MICHELLE Cason; Dr. Mariely Neal MD ~ Signed [facility] Work Phone: History and physical note Author Mary Perez [facility] Note Date/Time December 22, 2024 2 :28pm [facility] Medical Records Department [address] [place] [address] OB Triage Physician Note 12/22/24 1423 MR#: [id number] Acct: [id number] Name: MELANIE LEIJA Rep #:[id number] : 2000 24 From: Mary Canales DO PCP: Dr. Mariely Neal MD Status:REG CLI Y Location: [facility]-3 HPI - General HPI Narrative MELANIE LEIJA, is a 24 y/o @ 26 weeks 2 days who presents to L&D with chestpressure, epigastric pain, tachycardia and headache. PIH work up ordered and wasnegative. CTA ordered and was negative for PE. She denies sick contacts but we discussed testing for covid, flu, and RSV and to order a urine culture. Maternal Data Information DESTIN Calculator Estimated Delivery Date Method Current WG Current Estimate 03/28/25 LMP (Certain) 26w 2d Other Estimates 03/28/25 Ultrasound #1 26w 2d PFSH PFSH Medical History Cephalopelvic disproportion Depression Anxiety Migraines Home Medications ?Medication ?Instructions ?Recorded ?Last Taken ?Type docosahexaenoic acid 200 mg mg PO 08/20/23 Unknown His tory capsule ( DHA) multivitamin-ferrous 1 tab PO QAM 12/08/24 Unknow n History fumarate-folic acid 18 mg-400 mcg tablet (Women's Daily Multivitamin) famotidine 10 mg tablet (Pepcid AC) 10 mg PO BID #60 t abs 12/15/24 Unknown Rx Allergy/AdvReac Type Severity Reaction Status Date / Time No Known Allergies Allergy Verified 12/22/24 09:07 Family History Grandmother Breast cancer, Onset Age: 80 Paternal Other Autoimmune disorder Cancer Surgical History delivery delivered History of tonsillectomy Social History adopted: No household members: significant other and children number of children: 1 current occupational status: employed current occupation: [employer] current occupational exposures/hazards: No pets and animals: [...] times per week duration: > 90 minutes/day dana/adventist: None seatbelt use: always do you feel safe at home: Yes 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 Date Name GA/Weeks Outcome Route Bth Weight Gen Labor Lgth Anesthesia Del Locatn Provider FOB 08/08/23 Rafia 39 live - full term 8lbs 5oz Female epidural [facility] Luz Veloz Delivery Date: 08/08/23 Last Updated by: Autumn Guerra cpd pushed for 3.5 hours direct OP Visit Details Expected Delivery Route/Plan Desired repeat c/s Plans Covid status: [] Flu vaccine: [] Tdap vaccine: [] Rhogam: [] LARC form signed: [] Problem list reviewed and updated with the most current plan of care details and appropriate orders placed. Relevant counseling for the gestational age provided. Continue routine care and follow up unless otherwise noted in visit notes/problem list details OB Flowsheet Initial Weight: 155 lb Date -?-?-?-?-?-?-?-?-?-?-?-?- EGA [...] Discussed standing slowly, force fluids, freq meals. 11/13/24 -?-?-?-?-?-?-?-?-?-?-?-?- 20w 5d 170 lb 7 oz (+15 lb 7 oz) 129/84 Negative -?-?-?-?-?-?-?-?-?-?-?-?- Negative 145 -?-?-?-?-?-?-?-?-?-?-?-?- JV- patient is danny jorgensen seen urgently for peeing bright red blood. She has some right lower quadrant tenderness she thinks it is cramping. on exam there is no blood in the vagina. THe cervix is closed and thick. Ultrasound shows a viable fetus and uterus is non-tender. sending to l&d for a CT and urine culture. 11/17/24 -?-?-?-?-?-?-?-?-?-?-?-?- 21w 2d 174 lb 5 oz (+19 lb 5 oz) 128/73 Negative -?-?-?-?-?-?-?-?-?-?-?-?- Negative 140 -?-?-?-?-?-?-?-?-?-?-?-?- SM- no vb lof go od fm no reuglar ctx SM- no vb lof good fm no reu glar ctx. patient passed 13 kidney stones! still taking kelfex 12/15/24 -?-?-?-?-?-?-?-?-?-?-?-?- 25w 2d 180 lb (+25 lb) 115/74 Negative -?-?-?-?-?-?-?-?-?-?-?-?- Negative 150 25 -?-?-?-?-?-?-?-?-?-?-?-?- KW- no vb/lof/ct x. good fm. pepcid for heartburn. ROS Constitutional Constitutional: Reports systems reviewed and no addt'l complaints, except as documented Gastrointestinal Gastrointestinal: Denies bloating, constipation, cramping, diarrhea, nausea or vomiting Genitourinary Genitourinary: Reports other Details: Denies vaginal odor, vaginal bleeding, or vaginal discharge ; Denies difficulty urinating or flank pain Physical Exam HEENT normocephalic Resp normal respiratory effort and normal air movement no CVA tenderness Extremity normal to inspection General Extremity: edema bilateral (trace ) NST FHR Rate Baby A Baseline: 140 Variability:: Moderate Accelerations:: 10 x 10 Decelerations:: None NST Reactive:: Yes FHR Category:: Category I Assessment & Plan (1) Chest pain: (2) Epigastric pain: (3) Indigestion: (4) Gross hematuria: (5) Nephrolithiasis: COMMENT: 20 weeks . fu with urogyn (6) Placenta adherent to previous uterine scar, antepartum: COMMENT: possible on anatomy US. Rpt US 4 wk (7) Supervision of high-risk : QUALIFIERS: Trimester: second trimester Qualified Code(s): O09.92 - Supervision of high risk , unspecified, second trimester COMMENT: [id number], DESTIN 03/28, PC: Mary Jo Morataya?: Hugh (8) : QUALIFIERS: Weeks of gestation: 25 weeks Qualified Code(s): Z3A.25 - 25 weeks gestation of COMMENT: NIPT: low risk, female (9) History of delivery, currently : COMMENT: x1, Desires rpt csec d/t cephalopelvic disproportion; growth US 28 wk (10) Cephalopelvic disproportion: QUALIFIERS: Cephalopelvic disproportion type: due to unspecified factor Qualified Code(s): O33.9 - Maternal care for disproportion, unspecified COMMENT: recommend only RLTCS SM (11) Depression: QUALIFIERS: Depression Type: unspecified Qualified Code(s): F32.A - Depression, unspecified COMMENT: no meds. stable (12) Anxiety: COMMENT: no meds. Stable PLAN: Plan CTA and RUQ ultrasound normal with exception of Bear claw sign of the right kidney. Dr. Maisha miller consult just now and she states that this is likely chronic findings. will order covid,flu, rsv and urine culture. tylenol now and if all negative will dc to home with a muscle relaxer for the discomfort. Charges/Coding Multi Select Codes Visit Charges Office Visit/Consults: 10141 OV L3 Est 20min Urinary/Genital Urinary/Genital CPT Codes: 54040-91 non-stress test Interp 12/22/24 1428 <Electronically signed by Mary Larson DO> Date _ Mary Canales DO Cosigner Signature (if applicable): Date CC: Dr. Mary Canales DO; Dr. Mariely Neal MD ~ Signed [facility] Work Phone: Hospital Discharge instructionsAdditional Instructions medical records supervisor [facility] Work Phone: Progress note Author Yomaira Michael [facility] Note Date/Time August 28, 2024 1:25 pm [facility] [address] [place] [address], [address] [place] [address] OFFICE VISIT Date of Service: 08/28/24 MR#: [id number] Acct: [id number] Name: MELANIE LEIJA Rep #: [id number] : 2000 Provider: MICHELLE Michael Age/Sex: 24/F Location[place] [facility] [place] Status: Signed Intake Vital Signs 09/19/23 14:48 08/28/24 13:01 08/28/24 13:05 Height 5 ft 6 in 5 ft 6 in 5 ft 6 in Weight: 155 lb 4 oz BMI 25.0 BP 135/71 H Intake Visit Reasons: *EST* NOB LMP 06/21, DESTIN 03/28 Chief Complaint: NOB Shell Trim Tool Setter Required: No Is patient in pain?: No [...] 1 current occupational status: employed current occupation: [employer] current occupational exposures/hazards: No pets and animals: [...] times per week duration: > 90 minutes/day dana/adventist: None seatbelt use: always do you feel safe at home: Yes 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 Date Name GA/Weeks Outcome Route Bth Weight Infant Gen Labor Lgth Anesthesia Del Locatn Provider FOB 08/08/23 Rafia 39 live - full term 8lbs 5oz Female epidural [facility] Luz Veloz Delivery Date: 08/08/23 Last [...] Pulmonary (e.g.,TB,Asthma), Seasonal allergies, Drug/latex allergies/reactions, Breast, Financial Underwriter surgery, Anesthetic complications, History of abnormal pap, [...] to patient and patient chose: nipt 08/28/24 2285 <Electronically signed by Yomaira castro CNM> Date _ Yomaira Michael CNM Cosigner Signature: Date (if applicable) CC: ~ [facility] Work Phone: Progress note Author Pedro Barbosa [facility] Note Date/Time October 20, 2024 9: 49am [facility] [address] [place] [address], [address] [place] [address] OFFICE VISIT Date of Service: 10/20/24 MR#: [id number] Acct: [id number] Name: MELANIE LEIJA Rep #: [id number] : 2000 Provider: MANJU Barbosa Age/Sex: 24/F Location[place] [facility] [place] Status: Signed Intake Vital Signs 08/28/24 13:05 09/25/24 13:54 10/20/24 09:38 Height 5 ft 6 in 5 ft 6 in 5 ft 6 in Weight: 162 lb 3 oz BMI 26.2 BP 139/69 H Intake Visit Reasons: 18wk ob Shell Trim Tool Setter Required: No Is patient in pain?: No [...] 1 current occupational status: employed current occupation: [employer] current occupational exposures/hazards: No pets and animals: [...] times per week duration: > 90 minutes/day dana/adventist: None seatbelt use: always do you feel safe at home: Yes 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 Date Name GA/Weeks Outcome Route Bth Weight Gen Labor Lgth Anesthesia Del Locatn Provider FOB 08/08/23 Rafia 39 live - full term 8lbs 5oz Female epidural [facility] Luz Veloz Delivery Date: 08/08/23 Last [...] high risk , unspecified, second trimester Comment: [id number], DESTIN 03/28, PC: Mary Jo Morataya?: Hugh [...] year?: No 10/20/24 0952 <Electronically signed by Pedro castro HOT HEADER OPERATOR HOT HEADER OPERATOR-C> Date _ Pedro Barbosa NP HOT HEADER OPERATOR-C Cosigner Signature: Date (if applicable) CC: ~ [facility] Work Phone: Progress note Author Chikis Ferrera [facility] Note Date/Time December 08, 2024 8:25am [facility] [address] [place] [address], [address] [place] [address] OFFICE VISIT Date of Service: 12/08/24 MR#: [id number] Acct: [id number] Name: MELANIE LEIJA Rep #: [id number] : 2000 Provider: Dr. Piper Ferrera MD Age/Sex: 24/F Location: [facility] [place] Status: Signed Intake Vital Signs 11/17/24 09:33 12/08/24 08:04 Height 5 ft 6 in 5 ft 6 in Weight: 174 lb 5 oz 174 lb 5 oz BMI 28.1 28.1 BP 128/73 H 129/84 H Pulse 102 H Intake Visit Reasons: Kidney stones Chief Complaint: new patient for kidney stones Shell Trim Tool Setter Required: No Accompanied by: child Is patient in pain?: No Allergies No Known Allergies Allergy (Verified 12/08/24 08:04) Medications ?Medication ?Instructions ?Recorded ?Confirmed ?Type docosahexaenoic acid 200 mg mg PO 08/20/23 12/08/24 Hi story capsule ( DHA) multivitamin-ferrous 1 tab PO QAM 12/08/24 History fumarate-folic acid 18 mg-400 mcg tablet (Women's Daily Multivitamin) Nurse's Note: bladder scan PVR: 60cc. [facility] Medical History (Updated 12/08/24 @ 08:[address] 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 She is here for evaluation and management of urolithiasis. She is currently. She had a significant amount of gross hematuria about a month ago. She has neverhad a urinary tract infection. She was treated for a urinary tract infection. When she got home she was unable to void. She passed 3 large stones at home, andthe bleeding stopped. Two days later the hematuria recurred. She passed 6-7 tiny stones and the bleeding again stopped. The pain she had was on the right wrapping around her side. She has never had stones previously. No urinary tract infections. She has no other urologic symptoms when she is not . ROS Const Constitutional: No chills, fatigue, fever(s), headache(s), night sweats, weakness, weight change, abnormal sleep pattern or change in appetite Eyes Eyes: No change in vision ENT ENT: No headache(s) or dry mouth Resp Respiratory: No cough, chest congestion, shortness of breath or wheezing Cardio Cardiology: Positive for other (No chest pain.); No shortness of breath, irregular heart rhythm or lightheadedness Gastro GI: Positive for other (No nausea.); No abdominal pain, change in bowel habits, constipation, diarrhea or vomiting Musc Musculoskeletal: No abnormal gait Skin Skin: No yellowing of the eye, lesions, itchy eyes, rash or skin ulcer Neuro Neurology: No abnormal gait, confusion, dizziness, weakness, headache(s) or memory loss Psych Psychiatric: No abnormal sleep pattern, No change in appetite, No confusion and No memory loss Endo Endocrine: No fatigue, increased thirst/drinking or weight change Aller/Imm Allergy/Immunologic: No itchy eyes or wheezing Roland/Lymp Hematologic/Lymphatic: No easy bleeding, easy bruising or enlarged lymph nodes Exam Const General: cooperative, healthy appearing, comfortable and no acute distress [facility] Head: normocephalic and atraumatic Ears: hearing grossly normal bilaterally and external ears normal Nose: external nose normal Eyes General: appearance normal, both eyes and all related structures Neck Neck: normal visual inspection and trachea midline Chest Chest palpation & inspection: normal inspection of the chest Resp Effort & Inspection: normal respiratory effort, able to speak in complete sentences and symmetric chest movement Cardio Rate: regular rate GI Inspection: normal to inspection Palpation: soft and nontender General: No CVA tenderness Other: She is obviously gravid. Skin General: no rashes or lesions noted Neuro General: patient alert, patient awake, patient oriented x3 and CN's II-XI intactbilaterally Extrem General: normal to inspection Psych Appearance: grossly normal and well kempt Mental Status: mental status grossly normal Results POC UA Auto w/o Microscopy Office Urine Color Last Edit by Rose Mary Palma on 12/08/24 08:08 Office Urine Clarity Last Edit by Rose Mary Palma on 12/08/24 08:08 Office Urine Glucose Negative Last Edit by Rose Mary Palma on 12/08/24 08:0 8 Office Urine Ketones Negative Last Edit by Rose Mary Palma on 12/08/24 08:0 8 Office Urine Bilirubin Negative Last Edit by Rose Mary Palma on 12/08/24 08 :08 Office Urine Urobilinogen 1 mg/dL Last Edit by Rose Mary Palma on 12/08/24 08:08 Off Ur Spec [place] 1.010 Last Edit by Rose Mary Palma on 12/08/24 08:08 Office Urine pH 7 Last Edit by Rose Mary Palma on 12/08/24 08:08 Office Urine Protein Trace Last Edit by Rose Mary Palma on 12/08/24 08:08 Office Urine Blood Negative Last Edit by Rose Mary Palma on 12/08/24 08:08 Office Urine Blood Hemolyzed Negative Last Edit by Rose Mary Palma on 12/08 08:08 Office Urine Nitrate Negative Last Edit by Rose Mary Palma on 12/08/24 08:0 8 Off Ur Leukocytes Positive Last Edit by Rose Mary Palma on 12/08/24 08:[address] images and report reviewed. No stones seen. No hydronephrosis. No other source for hematuria. Coding Level of Care Code Off vis,new,level 3 Diagnoses Nephrolithiasis N20.0 Gross hematuria R31.0 Assessment and Plan Assessment and Plan (1) Nephrolithiasis: Status: Acute Comment: 20 weeks . fu with urogyn (2) Gross hematuria: Status: Acute Orders: Orders POC UA Auto w/o Microscopy Today N20.0 - Calculus of kidney Plan no stones identified on the CT, several were passed recommend conservative management with fluid hydration 24 hr UA after recovery from delivery Plan Details Follow Up: after 24hr UA is done 12/08/24828 <Electronically signed by Chikis Ferrera MD> Date _ Chikis Ferrera MD Cosigner Signature: Date (if applicable) CC: ~ [facility] Work Phone: Progress note Author Yomaira Michael [facility] Note Date/Time December 15, 2024 1: 26pm [facility] [address], [address] [place] [address] OFFICE VISIT Date of Service: 12/15/24 MR#: [id number] Acct: [id number] Name: MELANIE LEIJA Rep #: [id number] : 2000 Provider: MICHELLE Michael Age/Sex: 24/F Location[place] [facility] [place] Status: Signed Intake Vital Signs 10/20/24 09:38 12/12/24 09:46 12/15/24 13:11 Height 5 ft 6 in 5 ft 6 in 5 ft 6 in Weight: 180 lb BMI 29.0 BP 115/74 Intake Visit Reasons: 25wk2d ob Chief Complaint: 25wk OB Shell Trim Tool Setter Required: No Is patient in pain?: No Allergies No Known Allergies Allergy (Verified 12/15/24 13:10) Medications ?Medication ?Instructions ?Recorded ?Confirmed ?Type docosahexaenoic acid 200 mg mg PO 08/20/23 12/15/24 Hi story capsule ( DHA) multivitamin-ferrous 1 tab PO QAM 12/08/24 History fumarate-folic acid 18 mg-400 mcg tablet (Women's Daily Multivitamin) famotidine 10 mg tablet (Pepcid AC) 10 mg PO BID #60 t abs 12/15/24 12/15/24 Rx Last Menstrual Period: 06/21/24 : No Have you fallen in the past year?: No PFSH PFSH Medical History Cephalopelvic disproportion Depression Anxiety Migraines Surgical History delivery delivered History of tonsillectomy Family History Grandmother Breast cancer, Onset Age: 80 Paternal Other Autoimmune disorder Cancer Social History adopted: No household members: significant other and children number of children: 1 current occupational status: employed current occupation: [employer] current occupational exposures/hazards: No pets and animals: [...] times per week duration: > 90 minutes/day dana/adventist: None seatbelt use: always do you feel safe at home: Yes 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 Date Name GA/Weeks Outcome Route Bth Weight [facility]ant [facility]/23 Rafia 39 live - full term 8lbs 5oz Female epidural [facility] Luz Veloz Delivery Date: 08/08/23 Last Updated by: Autumn Guerra cpd pushed for 3.5 hours direct OP HPI 25wk2d ob Details: MELANIE LEIJA is a 24 year old who presents for routine OB visit. OB Visit DESTIN Calculator Estimated Delivery Date Method Current WG Current Estimate 03/28/25 LMP (Certain) 25w 2d Other Estimates 03/28/25 Ultrasound #1 25w 2d Expected Delivery Route/Plan Desired repeat c/s [...] Discussed standing slowly, force fluids, freq meals. 11/13/24 -?-?-?-?-?-?-?-?-?-?-?-?- 20w 5d 170 lb 7 oz (+15 lb 7 oz) 129/84 Negative -?-?-?-?-?-?-?-?-?-?-?-?- Negative 145 -?-?-?-?-?-?-?-?-?-?-?-?- JV- patient is b eing seen urgently for peeing bright red blood. She has some right lower quadrant tenderness she thinks it is cramping. on exam there is no blood in the vagina. THe cervix is closed and thick. Ultrasound shows a viable fetus and uterus is non-tender. sending to l&d for a CT and urine culture. 11/17/24 -?-?-?-?-?-?-?-?-?-?-?-?- 21w 2d 174 lb 5 oz (+19 lb 5 oz) 128/73 Negative -?-?-?-?-?-?-?-?-?-?-?-?- Negative 140 -?-?-?-?-?-?-?-?-?-?-?-?- SM- no vb lof go od fm no reuglar ctx SM- no vb lof good fm no reu glar ctx. patient passed 13 kidney stones! still taking kelfex 12/15/24 -?-?-?-?-?-?-?-?-?-?-?-?- 25w 2d 180 lb (+25 lb) 115/74 Negative -?-?-?-?-?-?-?-?-?-?-?-?- Negative 150 25 -?-?-?-?-?-?-?-?-?-?-?-?- KW- no vb/lof/ct x. good fm. pepcid for heartburn. ACOG First Trimester First Trimester: Desire for , Alcohol, Tobacco Cessation, Illicit/Recreational Drug/Substance Use, Intimate Partner Violence, Barriers to care, Unstable Housing, Communication Barriers, Environmental/Work Hazards, Anticipated Course of Care, Toxoplasmosis Precations, Use of Any medications, Sexual activity, Exercise, Dental Care, Sauna/Hot tub use, Seat Belt use, Childbirth classes/Hospital facilities, Travel, Indications for Ultrasound and Screening for Aneuploidy; Discussed Second Trimester Second Trimester: Signs and Symptoms of Labor, Selecting a care provider, Reproductive Life Planning & Contreception, Care Planning, Depression/Anxiety and Intimate Partner Violence; Discussed Tobacco Cessation Third Trimester Third Trimester: Pain Management Plans, Labor support person(s), Immediate Larc, Movement Monitoring, Signs and Symptoms of Preeclampsia, Feeding No , Education and Family Medical Leave or Disability Forms ROS Const Reports system reviewed and no additional complaints, except as documented Eyes Reports system reviewed and no additional complaints, except as documented ENT Reports system reviewed and no additional complaints, except as documented Card Reports system reviewed and no additional complaints, except as documented Resp Reports system reviewed and no additional complaints, except as documented GI Reports system reviewed and no additional complaints, except as documented, Denies nausea and Denies vomiting Reports system reviewed and no additional complaints, except as documented Musc Reports system reviewed and no additional complaints, except as documented Skin/Breast Reports system reviewed and no additional complaints, except as documented Neuro Yes system reviewed and no additional complaints, except as documented Psych Reports system reviewed and no additional complaints, except as documented Endo Reports system reviewed and no additional complaints, except as documented Roland/Lymph Reports system reviewed and no additional complaints, except as documented Aller/Immun Reports system reviewed and no additional complaints, except as documented Exam Const General: cooperative, healthy appearing and no acute distress Orientation: alert, awake and oriented x3 Neck Neck: normal visual inspection and full ROM Resp Effort & Inspection: normal respiratory effort, able to speak in complete sentences and symmetric chest movement GI Inspection: normal to inspection Palpation: soft and other Other: gravid Skin General: no rashes or lesions noted Neuro General: patient alert, patient awake and patient oriented x3 Cognition: normal cognition Speech: speech normal Gait: normal gait Motor: muscle tone normal throughout Extrem General: normal to inspection and full ROM Psych Appearance: grossly normal Mental Status: mental status grossly normal Mood: congruent mood Affect: normal affect Speech and Movement: speech and movement normal Attitude: cooperative Thought Process: normal Thought Content: normal Judgment: judgment good Results POC Urinalysis 2 Dip (Clinic) Office Urine Glucose Negative Last Edit by Puja Schuler on 12/15/24 13:15 Office Urine Protein Negative Last Edit by Puja Schuler on 12/15/24 13:15 Coding Level of Care Code Off vis,est,level 3 Diagnoses Gross hematuria R31.0 Nephrolithiasis N20.0 Placenta adherent to previous uterine scar, antepartum O43.899 Supervision of high risk in second trimester O09.92 Trimester: second trimester 25 weeks gestation of Z3A.25 Weeks of gestation: 25 weeks History of delivery, currently O34.219 Cephalopelvic disproportion, due to unspecified factor O33.9 Cephalopelvic disproportion type: due to unspecified factor Depression, unspecified depression type F32.A Depression Type: unspecified Anxiety F41.9 Assessment and Plan Assessment and Plan (1) Gross hematuria: Status: Acute (2) Nephrolithiasis: Status: Acute Comment: 20 weeks . fu with urogyn (3) Placenta adherent to previous uterine scar, antepartum: Status: Acute Comment: possible on anatomy US. Rpt US 4 wk (4) Supervision of high-risk : Status: Acute Qualifiers: Trimester: second trimester Qualified Code(s): O09.92 - Supervision of high risk , unspecified, second trimester Comment: [id number], DESTIN 03/28, PC: Mary Jo Morataya?: Hugh (5) : Status: Acute Qualifiers: Weeks of gestation: 25 weeks Qualified Code(s): Z3A.25 - 25 weeks gestation of Comment: NIPT: low risk, female (6) History of delivery, currently : Status: Acute Comment: x1, Desires rpt csec d/t cephalopelvic disproportion; growth US 28 wk (7) Cephalopelvic disproportion: Status: Acute Qualifiers: Cephalopelvic disproportion type: due to unspecified factor Qualified Code(s): O33.9 - Maternal care for disproportion, unspecified Comment: recommend only RLTCS SM (8) Depression: Status: Acute Qualifiers: Depression Type: unspecified Qualified Code(s): F32.A - Depression, unspecified Comment: no meds. stable (9) Anxiety: Status: Acute Comment: no meds. Stable Orders: Orders POC Urinalysis 2 Dip (Clinic) Today Medications: New famotidine (Pepcid AC) 10 mg PO BID 60 tabs 3RF K30 - Functional dyspepsia Plan Details Additional Comments: [employer] trimester education reviewed and updated. see problem list details for updated plan management information and see below for orders placed at this visit. [place] appropriate handout given. Clinical Quality Measures Falls Risk Screening/Assistive Devices Have you fallen in the past year?: No 12/15/24 7185 <Electronically signed by Yomaira castro CNM> Date _ Yomaira Michael CNM Cosigner Signature: Date (if applicable) CC: ~ [facility] Work Phone: Reason for referral (narrative)No reason for referral information [facility] Work Phone: Summary Purpose Family History No Family History Records Found Relationship Condition Age at Onset Recorded Date/T jil grandmother Malignant neoplasm of breast 80 Relationship Condition Age at Onset Recorded Date/T jil Not Specified Autoimmune disorder Unknown Malignant neoplasm Unknown grandmother Malignant neoplasm of breast 80 Advance Directives No Advanced Directives Records Found Advance Directive Response Recorded Date/ Time Living Will No April 06 3:14pm Power of Cane Piler No April 06, 2021 3:14pm Advance Directive Response Recorded Date/ Time Living Will No April 06 4:14pm Power of Cane Piler No April 06, 2021 4:14pm Hospital Course Note Send Summary: Discharge Summ [place] Providers: Provider RoleProvider Name ReferringYajaira Hagan AttendingUte Olmos PrimaryRequired, No Pcp Note Recipients: Yajaira Hagan MD Required, No Pcp, MAYKEL CRANDALL M - [phone] [] Discharge: Summary: Admission Date: .13-May-2019 17:56:00 Discharge Date: 17-May-2019 Attending Physician at Discharge: Ute Olmos Admission Reason: Suicidal Ideation(1) Final Discharge Diagnoses: Cervicitis, Current severe episode of major depressive disorder without psychotic features without prior episode, PTSD (post-traumatic stress disorder), Recurrent major depressive disorder, Procedures: none Condition at Discharge: Satisfactory Disposition at Discharge: .Home Vital Signs: T PRBPSpO2 [id number]/8498% Date/Time05/16 9:023 9: 9:023 9: 9:02 Range(36.5C - 36.8C ) (72 [...] 2024 12:4 0pm Cephalopelvic disproportion August 28 12:40pm Depression August 28, 2024 12:4 0pm [...] November 13, 2024 3:30pm Supervision of high-risk [facility] 2024 3:30pm Anxiety November 17, 2024 9:15am Cephalopelvic disproportion November 82024 9:15am Depression November 17, 2024 9:15am History of delivery, currently November 17, 2024 9:15am Nephrolithiasis November 17, 2024 9:15am Placenta adherent to previous uterine sc ar, antepartum November 17, 2024 9:15am November 17, 2024 9:15am Supervision of high-risk Lata poon 2024 9:15am Chief Complaint Admit Date *EST* NOB LMP 06/21, DESTIN 03/28August 28, 2024 12:40pm 14wk ob September 25, 2024 1:52 pm 18wk ob October 20, 2024 9: 35am OB bleeding November 13, 2024 3:30pm R/O UTI November 13, 2024 4:10pm R/O UTI November 13, 2024 5:57pm 22wk ob November 17, 2024 9:15am Kidney stones December 08, 2024 7:57am Reason for Visit Admit Date Anxiety August 28, 2024 12:4 0pm Cephalopelvic disproportion August 28, 2 025 12:40pm Depression August 28, 2024 12:4 0pm History of delivery, currently August 28, 2024 12:40pm August 28, 2024 12:4 0pm Supervision of high-risk August 28, 2024 12:40pm Anxiety September 25, 2024 1:52 pm Cephalopelvic disproportion September 25, 025 1:52pm Depression September 25, 2024 1:52 [...] November 17, 2024 9:15am Cephalopelvic disproportion November 82024 9:15am Depression November 17, 2024 9:15am History of delivery, currently November 17, 2024 9:15am Nephrolithiasis November 17, 2024 9:15am Placenta adherent to previous uterine sc ar, antepartum November 17, 2024 9:15am November 17, 2024 9:15am Supervision of high-risk Lata staufferer 2024 9:15am Gross hematuria December 08, 2024 7:57am Nephrolithiasis December 08, 2024 7:57am Chief Complaint Admit Date *EST* NOB LMP 06/21, DESTIN 03/28August 28, 2024 12:40pm 14wk ob September 25, 2024 1:52 pm 18wk ob October 20, 2024 9: 35am OB bleeding November 13, 2024 3:30pm R/O UTI November 13, 2024 4:10pm R/O UTI November 13, 2024 5:57pm 22wk ob November 17, 2024 9:15am Kidney stones December 08, 2024 7:57am R/O PRE ECLAMPSIA December 12, 2024 9: 20am Chief Complaint Admit Date *EST* NOB LMP 06/21, DESTIN 03/28August 28, 2024 12:40pm 14wk ob September 25, 2024 1:52 pm 18wk ob October 20, 2024 9: 35am OB bleeding November 13, 2024 3:30pm R/O UTI November 13, 2024 4:10pm R/O UTI November 13, 2024 5:57pm 22wk ob November 17, 2024 9:15am Kidney stones December 08, 2024 7:57am R/O PRE ECLAMPSIA December 12, 2024 9: 20am 25wk2d ob December 15, 2024 1: 06pm Reason for Visit Admit Date Anxiety August [...] November 13, 2024 3:30pm Supervision of high-risk Lata stauffer 2024 3:30pm Anxiety November 17, 2024 9:15am Cephalopelvic disproportion November 82024 9:15am Depression November 17, 2024 9:15am History of delivery, currently November 17, 2024 9:15am Nephrolithiasis November 17, 2024 9:15am Placenta adherent to previous uterine sc ar, antepartum November 17, 2024 9:15am November 17, 2024 9:15am Supervision of high-risk Lata stauffer 2024 9:15am Gross hematuria December 08, 2024 7:57am Nephrolithiasis December 08, 2024 7:57am Anxiety December 15, 2024 1: 06pm Cephalopelvic disproportion December 15, 2024 1:06pm Depression December 15, 2024 1: 06pm Gross hematuria December 15, 2024 1: 06pm History of delivery, currently December 15, 2024 1:06pm Nephrolithiasis December 15, 2024 1: 06pm Placenta adherent to previous uterine sc ar, antepartum December 15, 2024 1:06pm December 15, 2024 1: 06pm Supervision of high-risk Octob 2024 1:06pm Chief Complaint Admit Date 14wk ob September 25, 2024 1:52 pm 18wk ob October 20, 2024 9: 35am OB bleeding November 13, 2024 3:30pm R/O UTI November 13, 2024 4:10pm R/O UTI November 13, 2024 5:57pm 22wk ob November 17, 2024 9:15am Kidney stones December 08, 2024 7:57am R/O PRE ECLAMPSIA December 12, 2024 9: 20am 25wk2d ob December 15, 2024 1: 06pm R/O PRE ECLAMPSIA December 17, 2024 4: 57pm FEVER December 22, 2024 9 :06am R/O PRE E December 22, 2024 9 :17am R/O PRE E December 22, 2024 2 :23pm 28wk2d ob/glucose January 05, 2025 1 2:38pm Reason for Visit Admit Date Anxiety September 25, 2024 1:52 pm Cephalopelvic disproportion September 25, 025 1:52pm Depression September 25, 2024 1:52 [...] of delivery, currently November 13, 2024 3:30pm November 13, 2024 3:30pm Supervision of high-risk Septe mber 2024 3:30pm Placenta adherent to previous uterine sc ar, antepartum November 13, 2024 3:30pm Anxiety November 17, 2024 9:15am Cephalopelvic disproportion November 8t h2024 9:15am Depression November 17, 2024 9:15am History of delivery, currently November 17, 2024 9:15am Nephrolithiasis November 17, 2024 9:15am November 17, 2024 9:15am Supervision of high-risk Septe mber 2024 9:15am Placenta adherent to previous uterine sc ar, antepartum November 17, 2024 9:15am Nephrolithiasis December 08, 2024 7:57am Gross hematuria December 08, 2024 7:57am Anxiety December 15, 2024 1: 06pm Cephalopelvic disproportion December 15, 2024 1:06pm Depression December 15, 2024 1: 06pm History of delivery, currently December 15, 2024 1:06pm Nephrolithiasis December 15, 2024 1: 06pm December 15, 2024 1: 06pm Supervision of high-risk Octob er 2024 1:06pm Gross hematuria December 15, 2024 1: 06pm Placenta adherent to previous uterine sc ar, antepartum December 15, 2024 1:06pm Anxiety December 22, 2024 9 :17am Cephalopelvic disproportion December 9:17am Chest pain December 22, 2024 9 :17am Depression December 22, 2024 9 :17am Epigastric pain December 22, 2024 9 :17am History of delivery, currently December 22, 2024 9:17am Nephrolithiasis December 22, 2024 9 :17am December 22, 2024 9 :17am Supervision of high-risk Octob er 2024 9:17am Gross hematuria December 22, 2024 9 :17am Placenta adherent to previous uterine sc ar, antepartum December 22, 2024 9:17am Indigestion December 22, 2024 9 :17am Anxiety January 05, 2025 1 2:38pm Cephalopelvic disproportion December 12:38pm Depression January 05, 2025 1 2:38pm History of delivery, currently January 05, 2025 12:38pm January 05, 2025 1 2:38pm Supervision of high-risk Octob er 2024 12:38pm Additional Source Comments INFORMATION SOURCE (unrecogn ized section and content) DATE CREATED AUTHOR 05/14/2019 [facility] DATE CREATED AUTHOR AUTHOR'S RUTHY BLANCO 05/17/2019 [facility] DATE CREATED AUTHOR AUTHOR'S ORGANIZ ATION 05/20/2019 [facility] DATE CREATED AUTHOR AUTHOR'S ORGANIZ ATION 12/16/2022 [facility] DATE CREATED AUTHOR AUTHOR'S ORGANIZ ATION 01/05/2025 [facility] DATE CREATED AUTHOR AUTHOR'S ORGANIZ ATION [facility] Teams (unrecognized sec tion and content) [...] Primary Care Provider, Referrin g Provider Active Pedro Barbosa HOT HEADER OPERATOR, HOT HEADER OPERATOR-C Attending Provider Active Team Status: Inactive Member Role Status Dates Dr. Mariely Neal MD Primary Care Provider, Referrin g Provider Active Dr. Diana Escobar MD Attending Provider Active Team Status: Inactive Member Role Status Dates Dr. Mariely Neal MD Primary Care Provider, Referrin g Provider Active Lan Tate PA, PA Attending Provider Active Team Status: Inactive [...] 2024 End: September 25, 2024 Dr. Mary aCnales DO Attending Provider Activ e Start: September 25, 2024 End: September 25, 2024 Team Status: Inactive Member Role/Relationship Status Dates Dr. Mariely Neal MD Primary Care Provider Active Start: October 20, 2024 End: October 20, 2024 Dr. Mariely Neal MD Referring Provider Active Start: October 20, 2024 End: October 20, 2024 Pedro Barbosa NP, HOT HEADER OPERATOR-C Attending Provider Active Start: October 20, 2024 [...] November 17, 2024 End: November 17, 2024 Team Status: Active Member Role/Relationship Status Dates Dr. Mariely Neal MD Primary care physician Active Team Status: Inactive Member Role/Relationship Status Dates Dr. Mariely Neal MD Primary care physician Active Start: August 28, 2024 End: August 28, 2024 Dr. Mariely Neal MD Referring Provider Active Start: August 28, 2024 End: August 28, 2024 Yomaira Michael CNM Attending physician Active Start: August 28, 2024 End: August 28, 2024 Team Status: Inactive Member Role/Relationship Status Dates Dr. Mariely Neal MD Primary care physician Active Start: August 28, 2024 End: August 28, 2024 Yomaira Michael CNM Attending physician Active Start: August 28, 2024 End: August 28, 2024 Yomaira Michael CNM Referring Provider Active S tart: August 28, 2024 End: August 28, 2024 Team Status: Inactive Member Role/Relationship Status Dates Dr. Mariely Neal MD Primary care physician Active Start: September 01, 2024 End: September 01, 2024 Yomaira Michael CNM Attending physician Active Start: September 01, 2024 End: September 01, 2024 Yomaira Michael CNM Referring Provider Active S tart: September 01, 2024 End: September 01, 2024 Team Status: Inactive Member Role/Relationship Status Dates Dr. Mariely Neal MD Primary care physician Active Start: September 25, 2024 End: September 25, 2024 Dr. Mariely Neal MD Referring Provider Active Start: September 25, 2024 End: September 25, 2024 Dr. Mary Canales DO Attending physician Acti ve Start: September 25, 2024 End: September 25, 2024 Team Status: Inactive Member Role/Relationship Status Dates Dr. Mariely Neal MD Primary care physician Active Start: October 20, 2024 End: October 20, 2024 Dr. Mariely Neal MD Referring Provider Active Start: October 20, 2024 End: October 20, 2024 Pedro Barbosa HOT HEADER OPERATOR, HOT HEADER OPERATOR-C Attending physician Active Start: October 20, 2024 End: October 20, 2024 Team Status: Inactive Member Role/Relationship Status Dates Dr. Mariely Neal MD Primary care physician Active Start: November 13, 2024 End: November 13, 2024 Dr. Mariely Neal MD Referring Provider Active Start: November 13, 2024 End: November 13, 2024 Dr. Mary Canales DO Attending physician Active Start: November End: November 13, 2024 Team Status: Inactive Member Role/Relationship Status Dates Dr. Mariely Neal MD Primary care physician Active Start: November 13, 2024 End: November 13, 2024 Dr. Diana Escobar MD Attending physician Active Start: November 13, 2024 End: November 13, 2024 Dr. Diana Escobar MD Referring Provider Active Start: November 13, 2024 End: November 13, 2024 Team Status: Active Member Role/Relationship Status Dates Dr. Mariely Neal MD Primary care physician Active Start: November 13, 2024 Dr. Diana Escobar MD Attending physician Active Start: November 13, 2024 Dr. Diana Escobar MD Referring Provider Active Start: November 13, 2024 Dr. Diana Escobar MD Nurse Practitioner Active Start: November 13, 2024 Team Status: Inactive Member Role/Relationship Status Dates Dr. Mariely Neal MD Primary care physician Active Start: November 17, 2024 End: November 17, 2024 Dr. Mariely Neal MD Referring Provider Active Start: November 17, 2024 End: November 17, 2024 Dr. Diana Escobar MD Attending physician Active Start: November 17, 2024 End: November 17, 2024 Team Status: Inactive Member Role/Relationship Status Dates Dr. Mariely Neal MD Primary care physician Active Start: December 08, 2024 End: December 08, 2024 Dr. Mariely Neal MD Referring Provider Active Start: December 08, 2024 End: December 08, 2024 Dr. Chikis Ferrera MD Attending physician Active Start: December 08, 2024 End: December 08, 2024 Team Status: Inactive Member Role/Relationship Status Dates Dr. Mariely Neal MD Primary care physician Active Start: December 12, 2024 End: December 12, 2024 Dr. Diana Escobar MD Attending physician Active Start: December 12, 2024 End: December 12, 2024 Dr. Diana Escobar MD Referring Provider Active Start: December 12, 2024 End: December 12, 2024 Team Status: Inactive Member Role/Relationship Status Dates Dr. Mariely Neal MD Primary care physician Active Start: December 15, 2024 End: December 15, 2024 Dr. Mariely Neal MD Referring Provider Active Start: December 15, 2024 End: December 15, 2024 Yomaira Michael CNM Attending physician Active Start: December 15, 2024 End: December 15, 2024 Team Status: Inactive Member Role/Relationship Status Dates Dr. Mariely Neal MD Primary care physician Active Start: September 25, 2024 End: September 25, 2024 Dr. Mariely Neal MD Referring Provider Active Start: September 25, 2024 End: September 25, 2024 Dr. Mary Canales DO Attending physician Acti ve Start: September 25, 2024 End: September 25, 2024 Team Status: Inactive Member Role/Relationship Status Dates Dr. Mariely Neal MD Primary care physician Active Start: October 20, 2024 End: October 20, 2024 Dr. Mariely Neal MD Referring Provider Active Start: October 20, 2024 End: October 20, 2024 Pedro Barbosa NP, HOT HEADER OPERATOR-C Attending physician Active Start: October 20, 2024 End: October 20, 2024 Team Status: Inactive Member Role/Relationship Status Dates Dr. Mariely Neal MD Primary care physician Active Start: November 13, 2024 End: November 13, 2024 Dr. Mariely Neal MD Referring Provider Active Start: November 13, 2024 End: November 13, 2024 Dr. Mary Canales DO Attending physician Active Start: November End: November 13, 2024 Team Status: Inactive Member Role/Relationship Status Dates Dr. Mariely Neal MD Primary care physician Active Start: November 13, 2024 End: November 13, 2024 Dr. Diana Escobar MD Attending physician Active Start: November 13, 2024 End: November 13, 2024 Dr. Diana Escobar MD Referring Provider Active Start: November 13, 2024 End: November 13, 2024 Team Status: Active Member Role/Relationship Status Dates Dr. Mariely Neal MD Primary care physician Active Start: November 13, 2024 Dr. Diana Escobar MD Attending physician Active Start: November 13, 2024 Dr. Diana Escobar MD Referring Provider Active Start: November 13, 2024 Dr. Diana Escobar MD Nurse Practitioner Active Start: November 13, 2024 Team Status: Inactive Member Role/Relationship Status Dates Dr. Mariely Neal MD Primary care physician Active Start: November 17, 2024 End: November 17, 2024 Dr. Mariely Neal MD Referring Provider Active Start: November 17, 2024 End: November 17, 2024 Dr. Diana Escobar MD Attending physician Active Start: November 17, 2024 End: November 17, 2024 Team Status: Inactive Member Role/Relationship Status Dates Dr. Mariely Neal MD Primary care physician Active Start: December 08, 2024 End: December 08, 2024 Dr. Mariely Neal MD Referring Provider Active Start: December 08, 2024 End: December 08, 2024 Dr. Chikis Ferrera MD Attending physician Active Start: December 08, 2024 End: December 08, 2024 Team Status: Inactive Member Role/Relationship Status Dates Dr. Mariely Neal MD Primary care physician Active Start: December 12, 2024 End: December 12, 2024 Dr. Diana Escobar MD Attending physician Active Start: December 12, 2024 End: December 12, 2024 Dr. Diana Escobar MD Referring Provider Active Start: December 12, 2024 End: December 12, 2024 Team Status: Inactive Member Role/Relationship Status Dates Dr. Mariely Neal MD Primary care physician Active Start: December 15, 2024 End: December 15, 2024 Dr. Mariely Neal MD Referring Provider Active Start: December 15, 2024 End: December 15, 2024 Yomaira Michael CNM Attending physician Active Start: December 15, 2024 End: December 15, 2024 Team Status: Active Member Role/Relationship Status Dates Dr. Mariely Neal MD Primary care physician Active Start: December 17, 2024 Dr. Diana Escobar MD Attending physician Active Start: December 17, 2024 Dr. Diana Escobar MD Referring Provider Active Start: December 17, 2024 Dr. Diana Escobra MD Nurse Practitioner Active Start: December 17, 2024 Team Status: Inactive Member Role/Relationship Status Dates Dr. Mariely Neal MD Primary care physician Active Start: December 22, 2024 End: December 22, 2024 Ed Physician Provider Attending physician Active Start: December 22, 2024 End: December 22, 2024 Ed Physician Provider Emergency Departme nt Physician Active Start: December 22, 2024 End: December 22, 2024 Team Status: Inactive Member Role/Relationship Status Dates Dr. Mariely Neal MD Primary care physician Active Start: December 22, 2024 End: December 22, 2024 Yomaira Michael CNM Attending physician Active Start: December 22, 2024 End: December 22, 2024 Yomaira Michael CNM Referring Provider Active S tart: December 22, 2024 End: December 22, 2024 Team Status: Active Member Role/Relationship Status Dates Dr. Mariely Neal MD Primary care physician Active Start: December 22, 2024 Yomaira Michael CNM Referring Provider Active S tart: December 22, 2024 Yomaira Michael CNM Nurse Practitioner Active S tart: December 22, 2024 Dr. Mary Canales DO Attending physician Acti ve Start: December 22, 2024 Team Status: Inactive Member Role/Relationship Status Dates Dr. Mariely Neal MD Primary care physician Active Start: January 05, 2025 End: January 05, 2025 Dr. Mariely Neal MD Referring Provider Active Start: January 05, 2025 End: January 05, 2025 Pedro Barbosa HOT HEADER OPERATOR, HOT HEADER OPERATOR-C Attending physician Active Start: January 05, 2025 End: January 05, 2025 Team Status: Active Member Role/Relationship Status Dates Dr. Mariely Neal MD Primary care physician Active Start: January 05, 2025 Pedro Seabrook HOT HEADER OPERATOR, HOT HEADER OPERATOR-C Attending physician Active Start: January 05, 2025 Goals (unrecognized section and content) Type Care Experience svdLabor Preferences -CB/BF classes: encouragedlabor support person: BARB Veloz labor intervention preferences: []pain management options preferred: epiduralcut cord/dad catch: yesbreastfeeding: yesPP control planned: discusseddiscussed possible routes of delivery and associated risks: []special requests: [] Care Experience Desired repeat c/s FOR RECORDS PERTAINING TO PATIENTS WHO ARE [...] BE BASED ON THE PRIMARY CLINICAL RECORDS. [employer] [facility]. provides no warranty or guarantee of the accuracy or completeness of information in this document.
== END | disposition home or self-care (01) ==
LOC: LABSPEC 11:59
PROVIDERS: PCP Pediatrics; Visit Provider Student in an Organized Health Care Education/Training Program
DX: O09.93 Supervision of high risk pregnancy, unspecified, third trimester (principal); Z3A.00 Weeks of gestation of pregnancy not specified
CPT/HCPCS: 87081

== ENCOUNTER 2025-03-09 15:00 | Outpatient (CLI) | payer MEDICAID, SELFPAY ==
[2025-03-09] VITALS (21 sets, daily range): BP systolic 131–139; BP diastolic 63–74; PULSE 97–120; RESP 16; TEMP 36.1; O2SAT 97–99; BMI 34.1
[2025-03-09] MEDS: 0.9% Saline Lock 10 ML Syringe IV (15:25)
[2025-03-09 15:54] LABS: Hematocrit 31.6 % (37-47); Hemoglobin 10.3 g/dL (12.0-15.0); Mean Corp Hgb Conc 32.6 g/dL (32-36); Mean Corpuscular Volume 81.2 fL (81-99); Mean Platelet Vol. 10.9 fl (6.2-12.0); Platelet Count 150 K/mm3 (150-450); RBC Distribution Width CV 14.6 % (11.6-14.6); RBC Distribution Width SD 42.9 fl (35.1-43.9); Red Blood Count 3.89 M/mm3 (4.2-5.4); White Blood Count 9.8 K/mm3 (4.4-11.0)
[2025-03-09 16:11] LABS: Creatinine, Urine (random) 109.00 mg/dL (28.00-217.00); Protein, Urine (Random) 28.9 mg/dL (0.0-12.0); Protein:Creat Ratio 265 mg/g CRE (0-200)
[2025-03-09 16:15] LABS: AST(SGOT) 27 U/L (<=31); Alanine Aminotransfer ALT/SGPT 18 U/L (<=34); Estimated Creatinine Clearance 223.91 ml/min (50-250); Uric Acid 4.2 mg/dL (2.6-6.0)
[2025-03-09 19:42] LABS: Syphilis Antibodies Nonreactive (Nonreactive)
--- OUTSIDE RECORDS SUMMARY | 2025-03-09 20:01 | XMS RPT_ITS | CCD ---
Author Organization [facility] Care Team Providers Care [employer] Name Role Phone MARIELY NEAL Primary Care Unavailable Dr. Mariely Neal Primary Care Provider Dr. Mariely Neal Referring Provider Dr. Mary Canales Attending Provider Dr. Mariely Neal Primary Care Provider Dr. Mariely Neal Referring Provider MICHELLE Cason Attending Provider Chelsey HEAD PORTER, JAM-Haris Ernst Attending Provider Dr. Diana Escobar [...] Perez DO, Dr. Hernandez Attending Provider Chelsey HEAD PORTER-C, Pedro Attending Provider [phone] Luz NINO, Dr. Ortiz Attending Provider [phone] Luz NINO, Dr. Ortiz Referring Provider [phone] Julio NINO, Dr. Schuster Primary Care Physician Yomaira Michael CNM Attending Physician [phone] Jg Perez DO, Dr. Hernandez Attending Physician Pedro Goodwin Attending Physician [phone] Luz NINO, Dr. Ortiz Attending Physician Luz NINO, Dr. Ortiz Nurse Practitioner [phone] Maisha NINO, Dr. Diop Attending Physician MARLENE [...] Referring Unavailable Yomaira Michael Attending Unavailable Chelsey HEAD PORTER, Pedro Attending Unavailable Neal, Mariely Primary Care Unavailable MarcanthonyDiana Referring Unavailable Neal, Mariely Primary Care Unavailable Marckarunaony, Diana Attending Unavailable Neal, Mariely Referring Unavailable Yomaira Michael Attending Unavailable Neal, Mariely Primary Care Unavailable Neal, Mariely Primary Care Unavailable Neal, Mariely Referring Unavailable Chelsey HEAD PORTER, Pedro Attending Unavailable CandaceonyDiana Admitting Unavailable Neal, Mariely Primary Care Unavailable Marcanthony, Diana Attending Unavailable Neal, Mariely Primary Care Unavailable Marcanthony, Diana Attending Unavailable Marcanthony, Diana Referring Unavailable Yomaira Michael Attending Unavailable Alec, Yomaira Referring Unavailable Neal, Mariely Primary Care Unavailable Mary Canales Attending Unavailabl e Neal, Mariely Referring Unavailable Neal, Mariely Primary Care Unavailable Chelsey HEAD PORTER, Pedro Attending Unavailable Neal, Mariely Referring Unavailable [...] 18, 2023 12:00am August 16, 2023 1:37pm Pdjdwgfmbmwj-Gnzv-Mrohq Acid (Women's Daily Multivitamin) 18-400 mg-mcg tablet [...] 2022 1:00am July 24, 2022 2:23pm Mv-Mins 03-Tzhw-Stiok No.1-Dha (Pnv-[place]annon) 28-1-300 mg capsule (17 sources) Start: 01-05-2023 End: 08-16-2023 Mv-Mins 25-Gunj-Rrgjg No.1-Dha (Pnv-[place]) 28-1-300 mg capsule Discontinued 1 NMA PO DAILY January 05, 2023 12:00am August 16, 2023 1:37pm Start: 01-05-2023 End: 08-16-2023 Mv-Mins 19-Aprd-Olkdm No.1-D montoya (Pnv-[place]) 28-1-300 mg capsule Discontinued 1 NMA PO DAILY January 05, 2023 12:00am August 16, 2023 1:37pm Start: 01-05-2023 take 1 capsule by mo ut once daily Mv-Mins 87-Qnpx-Hwyuk No.1-Dha (Pnv-[place]) 28-1-300 mg capsule Active 1 CAP PO DAILY January 05, 2023 12:00am Start: 01-05-2023 take 1 capsule by mouth once M v-Mins 21-Inzx-Wxslh No.1-Dha (Pnv-[place]) 28-1-300 mg capsule Active CAP PO January 05, 2023 12:00am Start: 01-05-2023 take 1 capsule by mouth once M v-Mins 49-Calu-Zeryl No.1-Dha (Pnv-[place]) 28-1-300 mg capsule Active CAP PO January [...] 03/28, PC: Mary Jo Morataya : Hugh [id number], DESTIN 03/28, P C: Mary Jo Morataya [...] Auto (Unsp spec) [#/Vol] 1.42 10*3/uL 0.83-4.51 [facility] Absolute neutrophil countOrd ered By: Pedro Barbosa on 01-05-2025 Neutrophils (Bld) [#/Vol] 6.3 10*3/uL 2.0-7.7 [facility] Automated lymphocyte count a s percentage of total leukocytesOrdered By: Pedro Barbosa on 01-05-2025 Lymphocytes/100 WBC Auto (Unsp spec) 16.7 % Low 19-41 [facility] Basophil percentageOrdered B y: Pedro Barbosa on 01-05-2025 Basophils/100 WBC (Bld) 0.1 % 0-1 [facility] CBC W/Diff, Automatedon 12-11 Absolute Lymph 1.42 X10 3/uL Normal 0.83-4.51 [facility] Comment on above: Performed By: #### L 3890.6301, L509.8002, L3890.6102, BTS, L100.0100, L509.4006, L3890.6006 #### [facility] [address] [place], [address] Absolute Neut 6.3 X10 3/uL Normal 2.0-7.7 [facility] Comment on above: Performed By: #### L 3890.6301, L509.8002, L3890.6102, BTS, L100.0100, L509.4006, L3890.6006 #### [facility] [address] [place], [address] Basophils/100 WBC (Bld) 0.1 % Normal 0-1 [facility] Comment on above: Performed By: #### L 3890.6301, L509.8002, L3890.6102, BTS, L100.0100, L509.4006, L3890.6006 #### [facility] [address] [place], [address] Eosinophils/100 WBC (Bld) 0.9 % Normal 0-5 [facility] Comment on above: Performed By: #### L 3890.6301, L509.8002, L3890.6102, BTS, L100.0100, L509.4006, L3890.6006 #### [facility] [address] [place], [address] Erythrocyte distribution width (RBC) [Ratio] 12.8 % Normal 11.6-14.6 [facility] Comment on above: Performed By: #### L 3890.6301, L509.8002, L3890.6102, BTS, L100.0100, L509.4006, L3890.6006 #### [facility] [address] [place], [address] Hematocrit (Bld) [Volume fraction] 32.7 % Low 37-47 [facility] Comment on above: Performed By: #### L 3890.6301, L509.8002, L3890.6102, BTS, L100.0100, L509.4006, L3890.6006 #### [facility] [address] [place], [address] Hemoglobin (Bld) [Mass/Vol] 10.9 g/dL Low 12.0-15.0 [facility] Comment on above: Performed By: #### L 3890.6301, L509.8002, L3890.6102, BTS, L100.0100, L509.4006, L3890.6006 #### [facility] [address] [place], [address] IG% 0.500 Normal 0.0-0.9 [facility] Comment on above: Result Comment: IG% - Immature Granulocytes (promyelocytes, myelocytes and metamyelocytes) > 1% indicates that a LEFT SHIFT is Present. Performed By: #### L 3890.6301, L509.8002, L3890.6102, BTS, L100.0100, L509.4006, L3890.6006 #### [facility] [address] [place], [address] Lymphocytes/100 WBC (Bld) 16.7 % Low 19-41 [facility] Comment on above: Performed By: #### L 3890.6301, L509.8002, L3890.6102, BTS, L100.0100, L509.4006, L3890.6006 #### [facility] [address] [place], [address] MCH (RBC) [Entitic mass] 31.3 pg Normal 27.0-32.0 [facility] Comment on above: Performed By: #### L 3890.6301, L509.8002, L3890.6102, BTS, L100.0100, L509.4006, L3890.6006 #### [facility] [address] [place], [address] MCHC (RBC) [Mass/Vol] 33.3 g/dL Normal 32-36 [facility] Comment on above: Performed By: #### L 3890.6301, L509.8002, L3890.6102, BTS, L100.0100, L509.4006, L3890.6006 #### [facility] [address] [place], [address] MCV (RBC) [Entitic vol] 94.0 fL Normal 81-99 [facility] Comment on above: Performed By: #### L 3890.6301, L509.8002, L3890.6102, BTS, L100.0100, L509.4006, L3890.6006 #### [facility] [address] [place], [address] Monocytes/100 WBC (Bld) 7.5 % Normal 0-10 [facility] Comment on above: Performed By: #### L 3890.6301, L509.8002, L3890.6102, BTS, L100.0100, L509.4006, L3890.6006 #### [facility] [address] [place], [address] Neutrophils/100 WBC (Bld) 74.3 % High 47-70 [facility] Comment on above: Performed By: #### L 3890.6301, L509.8002, L3890.6102, BTS, L100.0100, L509.4006, L3890.6006 #### [facility] [address] [place], [address] Nucleated RBC (Bld) [#/Vol] 0 10*3/uL Normal 0-5 [facility] Comment on above: Performed By: #### L 3890.6301, L509.8002, L3890.6102, BTS, L100.0100, L509.4006, L3890.6006 #### [facility] [address] [place], [address] Platelet mean volume (Bld) [Entitic vol] 10.9 fL Normal 6.2-12.0 [facility] Comment on above: Performed By: #### L 3890.6301, L509.8002, L3890.6102, BTS, L100.0100, L509.4006, L3890.6006 #### [facility] [address] [place], [address] Platelets (Bld) [#/Vol] 180 10*3/uL Normal 150-450 [facility] Comment on above: Performed By: #### L 3890.6301, L509.8002, L3890.6102, BTS, L100.0100, L509.4006, L3890.6006 #### [facility] [address] [place], [address] RBC (Bld) [#/Vol] 3.48 10*6/uL Low 4.2-5.4 [facility] Comment on above: Performed By: #### L 3890.6301, L509.8002, L3890.6102, BTS, L100.0100, L509.4006, L3890.6006 #### [facility] [address] [place], [address] RDW SD 43.8 fl Normal 35.1-43.9 [facility] Comment on above: Performed By: #### L 3890.6301, L509.8002, L3890.6102, BTS, L100.0100, L509.4006, L3890.6006 #### [facility] [address] [place], [address] WBC (Bld) [#/Vol] 8.5 10*3/uL Normal 4.4-11.0 [facility] Comment on above: Performed By: #### L 3890.6301, L509.8002, L3890.6102, BTS, L100.0100, L509.4006, L3890.6006 #### [facility] [address] [place], [address] Eosinophil percentageOrdered By: Pedro Barbosa on 01-05-2025 Eosinophils/100 WBC (Bld) 0.9 % 0-5 [facility] Erythrocyte distribution wid th ratioOrdered By: Pedro Barbosa on 01-05-2025 Erythrocyte distribution width (RBC) [Ratio] 12.8 % 11.6-14.6 [facility] Erythrocyte distribution wid th standard deviationOrdered By: Pedro Barbosa on 01-05-2025 Erythrocyte distribution width (RBC) [Ratio] 43.8 fl 35.1-43.9 [facility] Glucose Challenge Gest 1H 50 pipo 10-27-2025 GLU GEST 50g 1H 114 mg/dL Normal 70-140 [facility] Comment on above: Performed By: #### L 3890.6301, L509.8002, L3890.6102, BTS, L100.0100, L509.4006, L3890.6006 #### [facility] [address] [place], [place], [address] Glucose measurement at 2 froy rs post-dose gestational glucose tolerance testOrdered By: Pedro Barbosa on 01-05-2025 Glucose [Mass/Vol] 114 mg/dL 70-140 [facility] HIVon 01-05-2025 HIV Non-Reactive Normal Nonreactive [facility] Comment on above: Result Comment: Non- Reactive Reactive Repeatedly reactive samples must be confirmed according to CDC recommended confirmatory algorithms. The subresults for either HIVAG or AHIV can be used as an aid in the selection of the confirmation algorithm for reactive samples. Send out specimens with Reactive results to [facility] for confirmation. Order the HIV antibody detection and differentiation: lc#[id number] Performed By: #### L 3890.6301, L509.8002, L3890.6102, BTS, L100.0100, L509.4006, L3890.6006 #### [facility] [address] [facility] [place], [place], [address] Hematocrit Auto (Bld) [Volum e fraction]Ordered By: Pedro Barbosa on 01-05-2025 Hematocrit (Bld) [Volume fraction] 32.7 % Low 37-47 [facility] Hemoglobin measurementOrdere d By: Pedro Barbosa on 01-05-2025 Hemoglobin (Bld) [Mass/Vol] 10.9 g/dL Low 12.0-15.0 [facility] Immature granulocytes/100 WB C Auto (Bld)Ordered By: Pedro Barbosa on 01-05-2025 Immature granulocytes/100 WBC (Bld) 0.500 % 0.0-0.9 [facility] Comment on above: IG% - Immature Granu locytes (promyelocytes, myelocytes and metamyelocytes) > 1% indicates that a LEFT SHIFT is Present. Laboratory - Chemistry and C hemistry - challengeOrdered By: Pedro Barbosa on 01-05-2025 Glucose Ql (U) Negative [facility] Laboratory - UrinalysisOrder ed By: Pedro Barbosa on 01-05-2025 Protein Ql (U) Negative [facility] MCV (mean corpuscular volume ) determinationOrdered By: Pedro Barbosa on 01-05-2025 MCV (RBC) [Entitic vol] 94.0 fL 81-99 [facility] Mean corpuscular hemoglobin (MCH) determinationOrdered By: Pedro Barbosa on 01-05-2025 MCH (RBC) [Entitic mass] 31.3 pg 27.0-32.0 [facility] Mean corpuscular hemoglobin concentration (MCHC) determinationOrdered By: Pedro Barbosa on 01-05-2025 MCHC (RBC) [Mass/Vol] 33.3 g/dL 32-36 [facility] Mean platelet volume determi nationOrdered By: Pedro Barbosa on 01-05-2025 Platelet mean volume (Bld) [Entitic vol] 10.9 fL 6.2-12.0 [facility] Monocyte percentageOrdered B y: Pedro Barbosa on 01-05-2025 Monocytes/100 WBC (Bld) 7.5 % 0-10 [facility] Neutrophil percentageOrdered By: Pedro Barbosa on 01-05-2025 Neutrophils/100 WBC (Bld) 74.3 % High 47-70 [facility] No Panel InformationOrdered By: Pedro Barbosa on 01-05-2025 HIV (1&2) Antibody Non-Reactive Nonreactive [facility] Comment on above: Non-ReactiveReactive Repeatedly reactive samples must be confirmed according to CDC recommended confirmatory algorithms. 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 [facility] [address], [address] [place] [address] OFFICE VISIT Date of Service: 01/05/25 MR#: [id number] Acct: [id number] Name: MELANIE LEIJA Rep #: [id number] : 2000 Provider: MANUJ de los santos Age/Sex: 24/F Location: [facility] Status: Signed Intake Vital Signs 11/17/24 09:33 12/22/24 13:11 01/05/25 12:55 Height 5 ft 6 in 5 ft 6.5 in 5 ft 6.5 in Weight: 192 lb BMI 30.5 BP 117/74 Intake Visit Reasons: 28wk2d ob/glucose Surgical Nurse Required: No Is patient in pain?: No [...] 1 current occupational status: employed current occupation: [employer] current occupational exposures/hazards: No pets and animals: [...] times per week duration: > 90 minutes/day dana/samaritan: None seatbelt use: always do you feel safe at home: Yes 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 Date Name GA/Weeks Outcome Route Bth Weight Infant Gen Labor Lgth Anesthesia Del Locatn Provider FOB 08/08/23 Rafia 39 live - full term 8lbs 5oz Female epidural [facility] Luz Veloz Delivery Date: 08/08/23 Last Updated [...] no complaints (more content not included)... Normal [facility] Platelet countOrdered By: Julio ashlyn Barbosa on 01-05-2025 Platelets (Bld) [#/Vol] 180 10*3/uL 150-450 [facility] RBC Auto (Bld) [#/Vol]Ordere d By: Pedro Barbosa on 01-05-2025 RBC (Bld) [#/Vol] 3.48 10*6/uL Low 4.2-5.4 [facility] Syphilis Antibodieson 2024 Syphilis Abs Non-Reactive Normal Nonreactive [facility] Comment on above: Performed By: #### L 3890.6301, L509.8002, L3890.6102, BTS, L100.0100, L509.4006, L3890.6006 #### [facility] [address] [place], [address] White blood cell (WBC) count Ordered By: Pedro Barbosa on 01-05-2025 WBC (Bld) [#/Vol] 8.5 10*3/uL 4.4-11.0 [facility] Urine Cultureon 12-24-2024 URC Below infection leve l. Mixed Gram Positive Organisms Edmond Count 1000-10,000 MIXC Mixed contaminants. Submit a new specimen if indicated. Normal [facility] Comment on above: Performed By: #### L 3890.6301, L509.8002, L3890.6102, BTS, L100.0100, L509.4006, L3890.6006 #### [facility] [address] [place], [address] AST(SGOT)on 12-22-2024 AST [Catalytic activity/Vol] 21 U/L Normal <=31 [facility] Comment on above: Performed By: #### M 100.678 #### [facility] [address] [place], [address] Abdomen Limitedon 12-22-2024 Abdomen Limited [facility] Imaging Services [address] [place], [place] [address] Abdomen Limited MR#: [id number] Acct: [id number] Name: MELANIE LEIJA Rep #: [id number] : 2000 F 24 From: Dung Zhou MD PCP: Dr. Mariely Neal MD Status: REG CLI Study: Abdomen Limited Date of Exam: 12/22/24 Exam# [id number] Ordering Dr: Mary Canales DO PROCEDURE: ABDOMEN [...] junction obstruction or transient obstruction. Reading Location: [address] CC: Dr. Mary Canales DO; Dr. Mariely Neal MD [employer]r: Signed Normal [facility] Alanine Aminotransferas (SGP T)on 12-22-2024 ALT [Catalytic activity/Vol] 18 U/L Normal <=34 [facility] Comment on above: Performed By: #### M 100678 #### [facility] [address] [place], [address] CBC-Complete Blood Cnt No Di ffon 12-22-2024 Erythrocyte distribution width (RBC) [Ratio] 12.6 % Normal 11.6-14.6 [facility] Comment on above: Performed By: #### M 100.678 #### [facility] [address] [place], [address] Hematocrit (Bld) [Volume fraction] 33.9 % Low 37-47 [facility] Comment on above: Performed By: #### M 100.678 #### [facility] [address] [place], [address] Hemoglobin (Bld) [Mass/Vol] 11.7 g/dL Low 12.0-15.0 [facility] Comment on above: Performed By: #### M 100.678 #### [facility] [address] [place], [address] MCH (RBC) [Entitic mass] 32.0 pg Normal 27.0-32.0 [facility] Comment on above: Performed By: #### M 100.678 #### [facility] [address] [place], [address] MCHC (RBC) [Mass/Vol] 34.5 g/dL Normal 32-36 [facility] Comment on above: Performed By: #### M 100.678 #### [facility] [address] [place], [address] MCV (RBC) [Entitic vol] 92.6 fL Normal 81-99 [facility] Comment on above: Performed By: #### M 100.678 #### [facility] [address] [place], [address] Platelet mean volume (Bld) [Entitic vol] 10.3 fL Normal 6.2-12.0 [facility] Comment on above: Performed By: #### M 100.678 #### [facility] [address] [place], [address] Platelets (Bld) [#/Vol] 162 10*3/uL Normal 150-450 [facility] Comment on above: Performed By: #### M 100.678 #### [facility] [address] [place], [address] RBC (Bld) [#/Vol] 3.66 10*6/uL Low 4.2-5.4 [facility] Comment on above: Performed By: #### M 100.678 #### [facility] [address] [place], [address] RDW SD 43.4 fl Normal 35.1-43.9 [facility] Comment on above: Performed By: #### M 100.678 #### [facility] [address] [place], [address] WBC (Bld) [#/Vol] 10.2 10*3/uL Normal 4.4-11.0 [facility] Comment on above: Performed By: #### M 100.678 #### [facility] [address] [place], [address] CTA Chest W/WO Contraston CTA Chest W/WO Contrast [facility] Imaging Services [address] [place] [address] CTA Chest W/WO Contrast MR#: [id number] Acct: [id number] Name: MELANIE LEIJA Rep #: [id number] : 2000 F 24 From: Joe alejo MD PCP: Dr. Mariely Neal MD Status: REG CLI Study: CTA Chest W/WO Contrast Date of Exam: 12/22/24 Exam# [id number] Ordering Dr: Mary Canales DO PROCEDURE: CTA [...] Radiographic follow-up recommended. Right hydronephrosis. Reading Location: [place] [address] CC: Dr. Mary Canales DO; Dr. Mariely Neal MD [employer] Gatherer: Signed Normal [facility] Erythrocyte distribution wid th ratioOrdered By: Yomaira Michael on 12-22-2024 Erythrocyte distribution width (RBC) [Ratio] 12.6 % 11.6-14.6 [facility] Erythrocyte distribution wid th standard deviationOrdered By: Yomaira Michael on 12-22-2024 Erythrocyte distribution width (RBC) [Ratio] 43.4 fl 35.1-43.9 [facility] Glomerular filtration rate ( GFR) estimation/1.73 sq m using serum, plasma, or whole bOrdered By: Yomaira Michael on 12-22-2024 GFR/1.73 sq M.predicted among non-blacks MDRD (S/P/Bld) [Vol rate/Area] 139 mL/min/{1.73_m2} >60 [facility] Comment on above: mL/min/1.73m2 CKD-EP I Creatinine Equation (2020) Hematocrit Auto (Bld) [Volum e fraction]Ordered By: Yomaira Michael on 12-22-2024 Hematocrit (Bld) [Volume fraction] 33.9 % Low 37-47 [facility] Hemoglobin measurementOrdere d By: Yomaira Michael on 12-22-2024 Hemoglobin (Bld) [Mass/Vol] 11.7 g/dL Low 12.0-15.0 [facility] Influenza virus A and B and SARS-CoV-2 (COVID-19) and Respiratory syncytial virus RNAOrdered By: Mary Perez on 12-22-2024 SARS-CoV-2 (COVID-19) RNA CHULA+probe Ql (Unsp spec) [facility] Laboratory - Chemistry and C hemistry - challengeOrdered By: Yomaira Michael on 12-22-2024 AST [Catalytic activity/Vol] 21 U/L <32 [facility] M100.678on 12-22-2024 M100.678 Pending SARS-CoV-2 (COVID 19) Negative INFLUENZA A Negative INFLUENZA B Negative RSV PCR Negative Normal [facility] Comment on above: Performed By: #### M 100.678 #### [facility] Laboratory [address] [place] [address]. [place], [address] MCV (mean corpuscular volume ) determinationOrdered By: Yomaira Michael on 12-22-2024 MCV (RBC) [Entitic vol] 92.6 fL 81-99 [facility] Mean corpuscular hemoglobin (MCH) determinationOrdered By: Yomaira Michael on 12-22-2024 MCH (RBC) [Entitic mass] 32.0 pg 27.0-32.0 [facility] Mean corpuscular hemoglobin concentration (MCHC) determinationOrdered By: Yomaira Michael on 12-22-2024 MCHC (RBC) [Mass/Vol] 34.5 g/dL 32-36 [facility] Mean platelet volume determi nationOrdered By: Yomaira Michael on 12-22-2024 Platelet mean volume (Bld) [Entitic vol] 10.3 fL 6.2-12.0 [facility] OB Triage Physician Noteon 1 OB Triage Physician Note [facility] Medical Records Department [address] [place] [address] OB Triage Physician Note 12/22/24 1423 MR#: [id number] Acct: [id number] Name: MELANIE LEIJA Rep #: [id number] : 2000 24 From: Mary Canales DO PCP: Dr. 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 Date Name GA/Weeks Outcome Route Bth Weight Gen Labor Lgth Anesthesia Del [facility] Provider FOB 08/08/23 Rafia 41 live - full term 8lbs 5oz Female epidural [facility] Luz Hugh Delivery Date: 08/08/23 Last Updated [...] Negative -???-???-? (more content not included)... Normal [facility] Platelet countOrdered By: Hima Michael on 12-22-2024 Platelets (Bld) [#/Vol] 162 10*3/uL 150-450 [facility] Protein+Creatinine Ratio,Uri neon 12-22-2024 PROT:CRE RATIO 200 mg/g CRE Normal 0-200 [facility] Comment on above: Performed By: #### M 100.678 #### [facility] [address] [place], [address] Protein (U) [Mass/Vol] 15.4 mg/dL High 0.0-12.0 [facility] Comment on above: Performed By: #### M 100.678 #### [facility] [address] [place], [address] UR CREAT 77.10 mg/dL Normal 28.00-217.00 [facility] Comment on above: Performed By: #### M 100.678 #### [facility] [address] [place], [address] RBC Auto (Bld) [#/Vol]Ordere d By: Yomaira Michael on 12-22-2024 RBC (Bld) [#/Vol] 3.66 10*6/uL Low 4.2-5.4 [facility] Random urine creatinine beni urement (mass/volume)Ordered By: Yomaira Michael on 12-22-2024 Creatinine Unsp time (U) [Mass/Vol] 77.10 mg/dL 28.00-217.00 [facility] Serum Creatinine AND GFRon 1 Creatinine [Mass/Vol] 0.45 mg/dL Low 0.70-1.20 [facility] Comment on above: Performed By: #### M 100.678 #### [facility] [address] [place], [address] GFR/1.73 sq M.predicted among non-blacks MDRD (S/P/Bld) [Vol rate/Area] 139 mL/min/{1.73_m2} Normal >60 [facility] Comment on above: Result Comment: mL/m in/1.73m2 CKD-EPI Creatinine Equation (2020) Performed By: #### M 100.678 #### [facility] [address] [place], [address] Serum creatinine measurement (mass/volume)Ordered By: Yomaira Michael on 12-22-2024 Creatinine [Mass/Vol] 0.45 mg/dL Low 0.70-1.20 [facility] Serum or plasma alanine rincon otransferase (ALT) measurementOrdered By: Yomaira Michael on 12-22-2024 ALT [Catalytic activity/Vol] 18 U/L <35 [facility] Serum or plasma uric acid me asurement (mass/volume)Ordered By: Yomaira Michael on 12-22-2024 Urate [Mass/Vol] 3.9 mg/dL 2.6-6.0 [facility] Comment on above: The drugs N-Acetylcy steine and Metamizole may falsely depress this assay. Uric Acidon 12-22-2024 URIC 3.9 mg/dL Normal 2.6-6.0 [facility] Comment on above: Result Comment: The drugs N-Acetylcysteine and Metamizole may falsely depress this assay. Performed By: #### M 100.678 #### [facility] [address] [facility] [place], [address] Urine cultureOrdered By: Staci Perez on 12-22-2024 Bacteria identified Cx Nom (U) Positive Abnormal [facility] Urine protein measurement (m ass/volume)Ordered By: Yomaira Michael on 12-22-2024 Protein (U) [Mass/Vol] 15.4 mg/dL High 0.0-12.0 [facility] Urine protein/creatinine mas s ratioOrdered By: Yomaira Michael on 12-22-2024 Protein/Creatinine (U) [Mass ratio] 200 mg/g CRE 0-200 [facility] White blood cell (WBC) count Ordered By: Yomaira Michael on 12-22-2024 WBC (Bld) [#/Vol] 10.2 10*3/uL 4.4-11.0 [facility] OB Triage Progress Noteon OB Triage Progress Note [facility] Medical Records Department [address] [place] [address] OB Triage Progress Note 12/17/24 1657 MR#: [id number] Acct: [id number] Name: MELANIE LEIJA Rep #: [id number] : 2000 24 From: Diana Escobar MD PCP: Dr. Mariely Neal MD Status:DEP CLI Y DOS: Location: [facility] Progress Notes Date of Service: 12/12/24 Progress Note: Patient presents for triage evaluation secondary to headache FHT: 140 Moderate variability reactive no decelerations [place]: n regular ctx Contractions Assessment and plan: [...] MD; Dr. Diana Escobar MD Signed Normal [facility] Laboratory - Chemistry and C hemistry - challengeOrdered By: Yomaira Michael on 12-15-2024 Glucose Ql (U) Negative [facility] Laboratory - UrinalysisOrder ed By: Yomaira Michael on 12-15-2024 Protein Ql (U) Negative [facility] [employer] Office Visit Reporton 12-15-2024 [employer] Office Visit Report [facility], [address] [place] [address] OFFICE VISIT Date of Service: 12/15/24 MR#: [id number] Acct: [id number] Name: MELANIE LEIJA Rep #: [id number] : 2000 Provider: MICHELLE Interiano ams Age/Sex: 24/F Location: [facility] Status: Signed Intake Vital Signs 10/20/24 09:38 12/12/24 09:46 12/15/24 13:11 Height 5 ft 6 in 5 ft 6 in 5 ft 6 in Weight: 180 lb BMI 29.0 BP 115/74 Intake Visit Reasons: 25wk2d ob Chief Complaint: 25wk OB Surgical Nurse Required: No Is patient in pain?: No [...] 1 current occupational status: employed current occupation: [email or web address] - [employer] current occupational exposures/hazards: No pets and [...] times per week duration: > 90 minutes/day dana/samaritan: None seatbelt use: always do you feel safe at home: Yes 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 Date Name GA/Weeks Outcome Route Bth Weight Infant Gen Labor Lgth Anesthesia Del Locatn Provider FOB 08/08/23 Rafia 41 live - full term 8lbs 5oz Female epidural [facility] Luz Veloz Delivery Date: 08/08/23 Last Updated [...] 17w 2d (more content not included)... Normal [facility] Anion gap in Serum or Plasma Ordered By: Diana Escobar on 12-12-2024 Anion gap [Moles/Vol] 11 mmol/L - [facility] BUN/creatinine ratioOrdered By: Diana Escobar on 12-12-2024 Urea nitrogen/Creatinine [Mass ratio] 15.4 mg/mg - [facility] Bilirubin, totalOrdered By: Dinaa Escobar on 12-12-2024 Bilirubin [Mass/Vol] 0.51 mg/dL 0.00-1.30 [facility] CBC-Complete Blood Cnt No Di ffon 12-12-2024 Erythrocyte distribution width (RBC) [Ratio] 12.8 % Normal 11.6-14.6 [facility] Comment on above: Performed By: #### M 100.678 #### [facility] [address] [place], [address] Hematocrit (Bld) [Volume fraction] 36.9 % Low 37-47 [facility] Comment on above: Performed By: #### M 100.678 #### [facility] [address] [place], [address] Hemoglobin (Bld) [Mass/Vol] 12.6 g/dL Normal 12.0-15.0 [facility] Comment on above: Performed By: #### M 100.678 #### [facility] [address] [place], [address] MCH (RBC) [Entitic mass] 32.1 pg High 27.0-32.0 [facility] Comment on above: Performed By: #### M 100.678 #### [facility] [address] [place], [address] MCHC (RBC) [Mass/Vol] 34.1 g/dL Normal 32-36 [facility] Comment on above: Performed By: #### M 100.678 #### [facility] [address] [place], [address] MCV (RBC) [Entitic vol] 93.9 fL Normal 81-99 [facility] Comment on above: Performed By: #### M 100.678 #### [facility] [address] [place], [address] Platelet mean volume (Bld) [Entitic vol] 10.9 fL Normal 6.2-12.0 [facility] Comment on above: Performed By: #### M 100.678 #### [facility] [address] [place], [address] Platelets (Bld) [#/Vol] 167 10*3/uL Normal 150-450 [facility] Comment on above: Performed By: #### M 100.678 #### [facility] [address] [place], [address] RBC (Bld) [#/Vol] 3.93 10*6/uL Low 4.2-5.4 [facility] Comment on above: Performed By: #### M 100.678 #### [facility] [address] [place], [address] RDW SD 44.5 fl High 35.1-43.9 [facility] Comment on above: Performed By: #### M 100.678 #### [facility] [address] [place], [address] WBC (Bld) [#/Vol] 10.2 10*3/uL Normal 4.4-11.0 [facility] Comment on above: Performed By: #### M 100.678 #### [facility] [address] [place], [address] Carbon dioxide, total [Moles /volume] in Central venous bloodOrdered By: Diana Escobar on 12-12-2024 CO2 [Moles/Vol] 20.5 mmol/L Low 21.0-32.0 [facility] Chloride assayOrdered By: Cy Escobar on 12-12-2024 Chloride [Moles/Vol] 104 mmol/L 98-108 [facility] Comprehensive Metabolic Prof ilon 12-12-2024 Albumin [Mass/Vol] 3.5 g/dL Normal 3.5-5.0 [facility] Comment on above: Performed By: #### L 3890.6301, L509.8002, L3890.6102, BTS, L100.0100, L509.4006, L3890.6006 #### [facility] [address] [place], [address] Albumin/Globulin [Mass ratio] 1.3 {ratio} Normal 0.9-2.4 [facility] Comment on above: Performed By: #### L 3890.6301, L509.8002, L3890.6102, BTS, L100.0100, L509.4006, L3890.6006 #### [facility] [address] [place], [address] ALK PHOS 69 U/L Normal 35-104 [facility] Comment on above: Performed By: #### L 3890.6301, L509.8002, L3890.6102, BTS, L100.0100, L509.4006, L3890.6006 #### [facility] [address] [place], [address] ALT [Catalytic activity/Vol] 12 U/L Normal <=34 [facility] Comment on above: Performed By: #### L 3890.6301, L509.8002, L3890.6102, BTS, L100.0100, L509.4006, L3890.6006 #### [facility] [address] [place], [address] AST [Catalytic activity/Vol] 19 U/L Normal <=31 [facility] Comment on above: Performed By: #### L 3890.6301, L509.8002, L3890.6102, BTS, L100.0100, L509.4006, L3890.6006 #### [facility] [address] [place], [address] Bilirubin [Mass/Vol] 0.51 mg/dL Normal 0.00-1.30 [facility] Comment on above: Performed By: #### L 3890.6301, L509.8002, L3890.6102, BTS, L100.0100, L509.4006, L3890.6006 #### [facility] [address] [place], [address] BUN/CRE 15.4 RATIO Normal 10-20 [facility] Comment on above: Performed By: #### L 3890.6301, L509.8002, L3890.6102, BTS, L100.0100, L509.4006, L3890.6006 #### [facility] [address] [place], [address] Calcium [Mass/Vol] 8.8 mg/dL Normal 7.6-11.0 [facility] Comment on above: Performed By: #### L 3890.6301, L509.8002, L3890.6102, BTS, L100.0100, L509.4006, L3890.6006 #### [facility] [address] [place], [address] Chloride [Moles/Vol] 104 mmol/L Normal 98-108 [facility] Comment on above: Performed By: #### L 3890.6301, L509.8002, L3890.6102, BTS, L100.0100, L509.4006, L3890.6006 #### [facility] [address] [place], [address] CO2 [Moles/Vol] 20.5 mmol/L Low 21.0-32.0 [facility] Comment on above: Performed By: #### L 3890.6301, L509.8002, L3890.6102, BTS, L100.0100, L509.4006, L3890.6006 #### [facility] [address] [place], [address] Creatinine [Mass/Vol] 0.48 mg/dL Low 0.70-1.20 [facility] Comment on above: Performed By: #### L 3890.6301, L509.8002, L3890.6102, BTS, L100.0100, L509.4006, L3890.6006 #### [facility] [address] [place], [address] ECRCL 199.73 ml/min Normal 50-250 [facility] Comment on above: Performed By: #### L 3890.6301, L509.8002, L3890.6102, BTS, L100.0100, L509.4006, L3890.6006 #### [facility] [address] [place], [address] GAP 11 Normal 5-15 [facility] Comment on above: Performed By: #### L 3890.6301, L509.8002, L3890.6102, BTS, L100.0100, L509.4006, L3890.6006 #### [facility] [address] [place], [address] GFR/1.73 sq M.predicted among non-blacks MDRD (S/P/Bld) [Vol rate/Area] 137 mL/min/{1.73_m2} Normal >60 [facility] Comment on above: Result Comment: mL/m in/1.73m2 CKD-EPI Creatinine Equation (2020) Performed By: #### L 3890.6301, L509.8002, L3890.6102, BTS, L100.0100, L509.4006, L3890.6006 #### [facility] [address] [place], [address] Globulin (S) [Mass/Vol] 2.8 g/dL Normal 2.2-4.2 [facility] Comment on above: Performed By: #### L 3890.6301, L509.8002, L3890.6102, BTS, L100.0100, L509.4006, L3890.6006 #### [facility] [address] [place], [address] Glucose [Mass/Vol] 104 mg/dL High 70-99 [facility] Comment on above: Performed By: #### L 3890.6301, L509.8002, L3890.6102, BTS, L100.0100, L509.4006, L3890.6006 #### [facility] [address] [place], [address] Potassium [Moles/Vol] 3.7 mmol/L Normal 3.3-5.1 [facility] Comment on above: Performed By: #### L 3890.6301, L509.8002, L3890.6102, BTS, L100.0100, L509.4006, L3890.6006 #### [facility] [address] [place], [address] Sodium [Moles/Vol] 136 mmol/L Normal 133-145 [facility] Comment on above: Performed By: #### L 3890.6301, L509.8002, L3890.6102, BTS, L100.0100, L509.4006, L3890.6006 #### [facility] [address] [place], [address] T PROT 6.4 g/dL Normal 5.9-8.4 [facility] Comment on above: Performed By: #### L 3890.6301, L509.8002, L3890.6102, BTS, L100.0100, L509.4006, L3890.6006 #### [facility] [address] [place], [address] Urea nitrogen [Mass/Vol] 7 mg/dL Normal 4-19 [facility] Comment on above: Performed By: #### L 3890.6301, L509.8002, L3890.6102, BTS, L100.0100, L509.4006, L3890.6006 #### [facility] [address] [place], [address] Erythrocyte distribution wid th ratioOrdered By: Diana Escobar on 12-12-2024 Erythrocyte distribution width (RBC) [Ratio] 12.8 % 11.6-14.6 [facility] Erythrocyte distribution wid th standard deviationOrdered By: Diana Escobar on 12-12-2024 Erythrocyte distribution width (RBC) [Ratio] 44.5 fl High 35.1-43.9 [facility] Glomerular filtration rate ( GFR) estimation/1.73 sq m using serum, plasma, or whole bOrdered By: Diana Escobar on 12-12-2024 GFR/1.73 sq M.predicted among non-blacks MDRD (S/P/Bld) [Vol rate/Area] 137 mL/min/{1.73_m2} >60 [facility] Comment on above: mL/min/1.73m2 CKD-EP I Creatinine Equation (2020) Hematocrit Auto (Bld) [Volum e fraction]Ordered By: Diana Escobar on 12-12-2024 Hematocrit (Bld) [Volume fraction] 36.9 % Low 37-47 [facility] Hemoglobin measurementOrdere d By: Diana Escobar on 12-12-2024 Hemoglobin (Bld) [Mass/Vol] 12.6 g/dL 12.0-15.0 [facility] Laboratory - Chemistry and C hemistry - challengeOrdered By: Diana Escobar on 12-12-2024 AST [Catalytic activity/Vol] 19 U/L <32 [facility] MCV (mean corpuscular volume ) determinationOrdered By: Diana Escobar on 12-12-2024 MCV (RBC) [Entitic vol] 93.9 fL 81-99 [facility] Mean corpuscular hemoglobin (MCH) determinationOrdered By: Diana Escobar on 12-12-2024 MCH (RBC) [Entitic mass] 32.1 pg High 27.0-32.0 [facility] Mean corpuscular hemoglobin concentration (MCHC) determinationOrdered By: Diana Escobar on 12-12-2024 MCHC (RBC) [Mass/Vol] 34.1 g/dL 32-36 [facility] Mean platelet volume determi nationOrdered By: Diana Escobar on 12-12-2024 Platelet mean volume (Bld) [Entitic vol] 10.9 fL 6.2-12.0 [facility] Platelet countOrdered By: Cy Escobar on 12-12-2024 Platelets (Bld) [#/Vol] 167 10*3/uL 150-450 [facility] Potassium measurement (mass/ volume)Ordered By: Diana Escobar on 12-12-2024 Potassium (Unsp spec) [Mass/Vol] 3.7 mmol/L 3.3-5.1 [facility] Protein+Creatinine Ratio,Uri neon 12-12-2024 PROT:CRE RATIO 109 mg/g CRE Normal 0-200 [facility] Comment on above: Performed By: #### M [id number] #### [facility] [address] [place], [address] Protein (U) [Mass/Vol] 7.6 mg/dL Normal 0.0-12.0 [facility] Comment on above: Performed By: #### M 100.678 #### [facility] [address] [place], [address] UR CREAT 69.50 mg/dL Normal 28.00-217.00 [facility] Comment on above: Performed By: #### M 100.678 #### [facility] [address] [facility] [place], [address] RBC Auto (Bld) [#/Vol]Ordere d By: Diana Escobar on 12-12-2024 RBC (Bld) [#/Vol] 3.93 10*6/uL Low 4.2-5.4 [facility] Random urine creatinine beni urement (mass/volume)Ordered By: Diana Escobar on 12-12-2024 Creatinine Unsp time (U) [Mass/Vol] 69.50 mg/dL 28.00-217.00 [facility] Serum creatinine measurement (mass/volume)Ordered By: Diana Escobar on 12-12-2024 Creatinine [Mass/Vol] 0.48 mg/dL Low 0.70-1.20 [facility] Serum globulin measurementOr dered By: Diana Escobar on 12-12-2024 Globulin (S) [Mass/Vol] 2.8 g/dL 2.2-4.2 [facility] Serum glucose measurement (m ass/volume)Ordered By: Diana Escobar on 12-12-2024 Glucose [Mass/Vol] 104 mg/dL High 70-99 [facility] Serum or plasma alanine rincon otransferase (ALT) measurementOrdered By: Diana Escobar on 12-12-2024 ALT [Catalytic activity/Vol] 12 U/L <35 [facility] Serum or plasma albumin beni urement (mass/volume)Ordered By: Diana Escobar on 12-12-2024 Albumin [Mass/Vol] 3.5 g/dL 3.5-5.0 [facility] Serum or plasma albumin/glob ulin mass ratioOrdered By: Diana Escobar on 12-12-2024 Albumin/Globulin [Mass ratio] 1.3 {ratio} 0.9-2.4 [facility] Serum or plasma alkaline whit sphatase measurementOrdered By: Diana Escobar on 12-12-2024 ALP [Catalytic activity/Vol] 69 U/L 35-104 [facility] Serum or plasma calcium beni urement (mass/volume)Ordered By: Diana Escobar on 12-12-2024 Calcium [Mass/Vol] 8.8 mg/dL 7.6-11.0 [facility] Serum or plasma urea nitroge n measurement (mass/volume)Ordered By: Diana Escobar on 12-12-2024 Urea nitrogen [Mass/Vol] 7 mg/dL 4-19 [facility] Sodium levelOrdered By: Vincenzo Escobar on 12-12-2024 Sodium [Moles/Vol] 136 mmol/L 133-145 [facility] Total proteinOrdered By: Orlando Escobar on 12-12-2024 Protein [Mass/Vol] 6.4 g/dL 5.9-8.4 [facility] Urine protein measurement (m ass/volume)Ordered By: Diana Escobar on 12-12-2024 Protein (U) [Mass/Vol] 7.6 mg/dL 0.0-12.0 [facility] Urine protein/creatinine mas s ratioOrdered By: Diana Escobar on 12-12-2024 Protein/Creatinine (U) [Mass ratio] 109 mg/g CRE 0-200 [facility] White blood cell (WBC) count Ordered By: Diana Escobar on 12-12-2024 WBC (Bld) [#/Vol] 10.2 10*3/uL 4.4-11.0 [facility] Laboratory - Chemistry and C hemistry - challengeOrdered By: Chikis Ferrera on 12-08-2024 Bilirubin Ql (U) Negative [facility] Glucose Ql (U) Negative [facility] Ketones Ql (U) Negative [facility] pH (U) 7 [pH] [facility] Specific gravity (U) [Rel density] 1.010 [facility] Urobilinogen (U) [Mass/Vol] 1 mg/dL [facility] Laboratory - Hematology and Cell countsOrdered By: Chikis Ferrera on 12-08-2024 Hemoglobin Ql (U) Negative [facility] Laboratory - UrinalysisOrder ed By: Chikis Ferrera on 12-08-2024 Nitrite Ql (U) Negative [facility] Protein Ql (U) Trace [facility] MR/Deniz 12-08-2024 MR/UYEN [facility] [address], [address] [place] [address] OFFICE VISIT Date of Service: 12/08/24 MR#: [id number] Acct: [id number] Name: MELANIE LEIJA Rep #: [id number] : 2000 Provider: Dr. Chikis Campos i, MD Age/Sex: 24/F Location: [facility] Status: Signed Intake Vital Signs 11/17/24 09:33 12/08/24 08:04 Height 5 ft 6 in 5 ft 6 in Weight: 174 lb 5 oz 174 lb 5 oz BMI 28.1 28.1 BP 128/73 H 129/84 H Pulse 102 H Intake Visit Reasons: Kidney stones Chief Complaint: new patient for kidney stones Surgical Nurse Required: No Accompanied by: child Is patient in pain?: No Allergies No Known Allergies Allergy (Verified 12/08/24 08:04) Medications ???Medication ???Instructions ???Recorded ???Confirmed ???Type docosahexaenoic acid 200 mg mg PO 08/20/23 12/08/24 History capsule ( DHA) multivitamin-ferrous 1 tab PO QAM 12/08/24 12/08/24 His tory fumarate-folic acid 18 mg-400 mcg tablet (Women's Daily Multivitamin) Nurse's Note: bladder scan PVR: 60cc. [facility] Medical History (Updated 12/08/24 @ 08:[address] Chikis Ferrera MD) Cephalopelvic disproportion Depression Anxiety Migraines Surgical History delivery delivered History of tonsillectomy Family History Grandmother Breast cancer, Onset Age: 80 Paternal Other Autoimmune disorder Cancer Social History adopted: No household members: significant other and children number of children: 1 current occupational status: employed current occupation: [email or web address] - [employer] current occupational exposures/hazards: No pets and [...] times per week duration: > 90 minutes/day dana/samaritan: None seatbelt use: always do you feel safe at home: Yes 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 Date Name GA/Weeks Outcome Route Bth Weight Gen Labor Lgth Anesthesia Del Locatn Provider FOB 08/08/23 Rafia 39 live - full term 8lbs 5oz Female epidural [facility] [place] Delivery Date: 08/08/23 Last Updated [...] 162 lb (more content not included)... Normal [facility] Urine Cultureon 11-16-2024 URC Below infection leve l. Mixed Gram Positive Organisms Edmond Count <1000 MIXC Mixed contaminants. Submit a new specimen if indicated. Normal [facility] Comment on above: Performed By: #### M 100.2202 #### [facility] Laboratory [address] [facility]. [place], [place], [address] Abdomen/Pelvis without Conto n 11-13-2024 Abdomen/Pelvis without Cont [facility] Imaging Services [address] [place], [place] [address] Abdomen/Pelvis without Cont MR#: [id number] Acct: [id number] Name: MELANIE LEIJA Rep #: [id number] : 2000 F 24 From: Rashaun Aldana MD PCP: Dr. Mariely Neal MD Status: REG CLI Study: Abdomen/Pelvis without Cont Date of Exam: 07/04 Exam# [id number] Ordering Dr: Diana Escobar PROCEDURE: ABDOMEN/PELVIS WITHOUT [...] Mild hepatomegaly. 4. Gravid uterus. Reading Location: [facility] CC: Dr. Mariely Neal MD; Dr. Diana Escobar MD [employer] Gat[employer]r: Signed Normal [facility] Absolute lymphocyte countOrd ered By: Diana Escobar on 11-13-2024 Lymphocytes Auto (Unsp spec) [#/Vol] 2.10 10*3/uL 0.83-4.51 [facility] Absolute neutrophil countOrd ered By: Diana Escobar on 11-13-2024 Neutrophils (Bld) [#/Vol] 9.5 10*3/uL High 2.0-7.7 [facility] Anion gap in Serum or Plasma Ordered By: Diana Escobar on 11-13-2024 Anion gap [Moles/Vol] 12 mmol/L 5-15 [facility] Automated lymphocyte count a s percentage of total leukocytesOrdered By: Diana Escobar on 11-13-2024 Lymphocytes/100 WBC Auto (Unsp spec) 16.9 % Low 19-41 [facility] BUN/creatinine ratioOrdered By: Diana Escobar on 11-13-2024 Urea nitrogen/Creatinine [Mass ratio] 12.7 mg/mg 10-20 [facility] Basophil percentageOrdered B y: Diana Escobar on 11-13-2024 Basophils/100 WBC (Bld) 0.2 % 0-1 [facility] Bilirubin Test strip Ql (U)O rdered By: Mary Perez on 11-13-2024 Bilirubin Ql (U) Negative Negative [facility] Bilirubin, totalOrdered By: Diana Barberhugh on 11-13-2024 Bilirubin [Mass/Vol] 0.58 mg/dL 0.00-1.30 [facility] CBC W/Diff, Automatedon Absolute Lymph 2.10 X10 3/uL Normal 0.83-4.51 [facility] Comment on above: Performed By: #### L 100.0100 #### [facility] [address] [place], [address] Absolute Neut 9.5 X10 3/uL High 2.0-7.7 [facility] Comment on above: Performed By: #### L 100.0100 #### [facility] [address] [place], [address] Basophils/100 WBC (Bld) 0.2 % Normal 0-1 [facility] Comment on above: Performed By: #### L 100.0100 #### [facility] [address] [place], [address] Eosinophils/100 WBC (Bld) 0.7 % Normal 0-5 [facility] Comment on above: Performed By: #### L 100.0100 #### [facility] [address] [place], [address] Erythrocyte distribution width (RBC) [Ratio] 13.3 % Normal 11.6-14.6 [facility] Comment on above: Performed By: #### L 100.0100 #### [facility] [address] [place], [address] Hematocrit (Bld) [Volume fraction] 37.1 % Normal 37-47 [facility] Comment on above: Performed By: #### L 100.0100 #### [facility] [address] [place], [address] Hemoglobin (Bld) [Mass/Vol] 12.9 g/dL Normal 12.0-15.0 [facility] Comment on above: Performed By: #### L 100.0100 #### [facility] [address] [place], [address] IG% 0.600 Normal 0.0-0.9 [facility] Comment on above: Result Comment: IG% - Immature Granulocytes (promyelocytes, myelocytes and metamyelocytes) > 1% indicates that a LEFT SHIFT is Present. Performed By: #### L 100.0100 #### [facility] [address] [place], [address] Lymphocytes/100 WBC (Bld) 16.9 % Low 19-41 [facility] Comment on above: Performed By: #### L 100.0100 #### [facility] [address] [place], [address] MCH (RBC) [Entitic mass] 32.2 pg High 27.0-32.0 [facility] Comment on above: Performed By: #### L 100.0100 #### [facility] [address] [place], [address] MCHC (RBC) [Mass/Vol] 34.8 g/dL Normal 32-36 [facility] Comment on above: Performed By: #### L 100.0100 #### [facility] [address] [place], [address] MCV (RBC) [Entitic vol] 92.5 fL Normal 81-99 [facility] Comment on above: Performed By: #### L 100.0100 #### [facility] [address] [place], [address] Monocytes/100 WBC (Bld) 4.8 % Normal 0-10 [facility] Comment on above: Performed By: #### L 100.0100 #### [facility] [address] [place], [address] Neutrophils/100 WBC (Bld) 76.8 % High 47-70 [facility] Comment on above: Performed By: #### L 100.0100 #### [facility] [address] [place], [address] Nucleated RBC (Bld) [#/Vol] 0 10*3/uL Normal 0-5 [facility] Comment on above: Performed By: #### L 100.0100 #### [facility] [address] [place], [address] Platelet mean volume (Bld) [Entitic vol] 11.0 fL Normal 6.2-12.0 [facility] Comment on above: Performed By: #### L 100.0100 #### [facility] [address] [place], [address] Platelets (Bld) [#/Vol] 170 10*3/uL Normal 150-450 [facility] Comment on above: Performed By: #### L 100.0100 #### [facility] [address] [place], [address] RBC (Bld) [#/Vol] 4.01 10*6/uL Low 4.2-5.4 [facility] Comment on above: Performed By: #### L 100.0100 #### [facility] [address] [place], [address] RDW SD 44.9 fl High 35.1-43.9 [facility] Comment on above: Performed By: #### L 100.0100 #### [facility] [address] [place], [address] WBC (Bld) [#/Vol] 12.4 10*3/uL High 4.4-11.0 [facility] Comment on above: Performed By: #### L 100.0100 #### [facility] [address] [place], [address] Carbon dioxide, total [Moles /volume] in Central venous bloodOrdered By: Diana Escobar on 11-13-2024 CO2 [Moles/Vol] 21.5 mmol/L 21.0-32.0 [facility] Chloride assayOrdered By: Cy Escobar on 11-13-2024 Chloride [Moles/Vol] 103 mmol/L 98-108 [facility] Comprehensive Metabolic Prof ilon 11-13-2024 Albumin [Mass/Vol] 3.7 g/dL Normal 3.5-5.0 [facility] Comment on above: Performed By: #### M 100.678 #### [facility] [address], [address] Albumin/Globulin [Mass ratio] 1.3 {ratio} Normal 0.9-2.4 [facility] Comment on above: Performed By: #### M 100.678 #### [facility] [address] [place], [address] ALK PHOS 67 U/L Normal 35-104 [facility] Comment on above: Performed By: #### M 100.678 #### [facility] [address] [place], [address] ALT [Catalytic activity/Vol] 11 U/L Normal <=34 [facility] Comment on above: Performed By: #### M 100.678 #### [facility] [address] [place], [address] AST [Catalytic activity/Vol] 19 U/L Normal <=31 [facility] Comment on above: Performed By: #### M 100.678 #### [facility] [address] [place], [address] Bilirubin [Mass/Vol] 0.58 mg/dL Normal 0.00-1.30 [facility] Comment on above: Performed By: #### M 100.678 #### [facility] [address] [place], [address] BUN/CRE 12.7 RATIO Normal 10-20 [facility] Comment on above: Performed By: #### M 100.678 #### [facility] [address] [place], [address] Calcium [Mass/Vol] 9.0 mg/dL Normal 7.6-11.0 [facility] Comment on above: Performed By: #### M 100.678 #### [facility] [address] [place], [address] Chloride [Moles/Vol] 103 mmol/L Normal 98-108 [facility] Comment on above: Performed By: #### M 100.678 #### [facility] [address] [place], [address] CO2 [Moles/Vol] 21.5 mmol/L Normal 21.0-32.0 [facility] Comment on above: Performed By: #### M 100.678 #### [facility] [address] [place], [address] Creatinine [Mass/Vol] 0.58 mg/dL Low 0.70-1.20 [facility] Comment on above: Performed By: #### M 100.678 #### [facility] [address] [place], [address] ECRCL 159.10 ml/min Normal 50-250 [facility] Comment on above: Performed By: #### M 100.678 #### [facility] [address] [place], [address] GAP 12 Normal 5-15 [facility] Comment on above: Performed By: #### M 100.678 #### [facility] [address] [place], [address] GFR/1.73 sq M.predicted among non-blacks MDRD (S/P/Bld) [Vol rate/Area] 131 mL/min/{1.73_m2} Normal >60 [facility] Comment on above: Result Comment: mL/m in/1.73m2 CKD-EPI Creatinine Equation (2020) Performed By: #### M 100.678 #### [facility] [address] [place], [address] Globulin (S) [Mass/Vol] 2.8 g/dL Normal 2.2-4.2 [facility] Comment on above: Performed By: #### M 100.678 #### [facility] [address] [place], [address] Glucose [Mass/Vol] 87 mg/dL Normal 70-99 [facility] Comment on above: Performed By: #### M 100.678 #### [facility] [address] [place], [address] Potassium [Moles/Vol] 3.8 mmol/L Normal 3.3-5.1 [facility] Comment on above: Performed By: #### M 100.678 #### [facility] [address] [place], [address] Sodium [Moles/Vol] 136 mmol/L Normal 133-145 [facility] Comment on above: Performed By: #### M 100.678 #### [facility] [address] [place], [place], [id number] T PROT 6.5 g/dL Normal 5.9-8.4 [facility] Comment on above: Performed By: #### M 100.678 #### [facility] [address] [place], [place], [id number] Urea nitrogen [Mass/Vol] 7 mg/dL Normal 4-19 [facility] Comment on above: Performed By: #### M 100.678 #### [facility] [address] [place], [place], [address] Eosinophil percentageOrdered By: Diana Escobar on 11-13-2024 Eosinophils/100 WBC (Bld) 0.7 % 0-5 [facility] Erythrocyte distribution wid th ratioOrdered By: Diana Escobar on 11-13-2024 Erythrocyte distribution width (RBC) [Ratio] 13.3 % 11.6-14.6 [facility] Erythrocyte distribution wid th standard deviationOrdered By: Diana Escobar on 11-13-2024 Erythrocyte distribution width (RBC) [Ratio] 44.9 fl High 35.1-43.9 [facility] Glomerular filtration rate ( GFR) estimation/1.73 sq m using serum, plasma, or whole bOrdered By: Diaan Escobar on 11-13-2024 GFR/1.73 sq M.predicted among non-blacks MDRD (S/P/Bld) [Vol rate/Area] 131 mL/min/{1.73_m2} >60 [facility] Comment on above: mL/min/1.73m2 CKD-EP I Creatinine Equation (2020) Hematocrit Auto (Bld) [Volum e fraction]Ordered By: Diana Escobar on 11-13-2024 Hematocrit (Bld) [Volume fraction] 37.1 % 37-47 [facility] Hemoglobin measurementOrdere d By: Diana Escobar on 11-13-2024 Hemoglobin (Bld) [Mass/Vol] 12.9 g/dL 12.0-15.0 [facility] Immature granulocytes/100 WB C Auto (Bld)Ordered By: Diana Escobar on 11-13-2024 Immature granulocytes/100 WBC (Bld) 0.600 % 0.0-0.9 [facility] Comment on above: IG% - Immature Granu locytes (promyelocytes, myelocytes and metamyelocytes) > 1% indicates that a LEFT SHIFT is Present. Ketones Test strip Ql (U)Ord ered By: Mary Perez on 11-13-2024 Ketones Ql (U) Negative Negative [facility] Laboratory - Chemistry and C hemistry - challengeOrdered By: Diana Escobar on 11-13-2024 AST [Catalytic activity/Vol] 19 U/L <32 [facility] Glucose Ql (U) Negative [facility] Laboratory - UrinalysisOrder ed By: Diana Escobar on 11-13-2024 Protein Ql (U) Negative [facility] MCV (mean corpuscular volume ) determinationOrdered By: Diana Escobar on 11-13-2024 MCV (RBC) [Entitic vol] 92.5 fL 81-99 [facility] Mean corpuscular hemoglobin (MCH) determinationOrdered By: Diana Escobar on 11-13-2024 MCH (RBC) [Entitic mass] 32.2 pg High 27.0-32.0 [facility] Mean corpuscular hemoglobin concentration (MCHC) determinationOrdered By: Diana Escobar on 11-13-2024 MCHC (RBC) [Mass/Vol] 34.8 g/dL 32-36 [facility] Mean platelet volume determi nationOrdered By: Diana Escobar on 11-13-2024 Platelet mean volume (Bld) [Entitic vol] 11.0 fL 6.2-12.0 [facility] Monocyte percentageOrdered B y: Diana Escobar on 11-13-2024 Monocytes/100 WBC (Bld) 4.8 % 0-10 [facility] Neutrophil percentageOrdered By: Diana Escobar on 11-13-2024 Neutrophils/100 WBC (Bld) 76.8 % High 47-70 [facility] Nitrite Test strip Ql (U)Ord ered By: Mary Perez on 11-13-2024 Nitrite Ql (U) Negative Negative [facility] Nucleated red blood cell per centageOrdered By: Diana Escobar on 11-13-2024 Nucleated RBC/100 WBC (Bld) [Ratio] 0 % 0-5 [facility] OB Triage Progress Noteon OB Triage Progress Note [facility] Medical Records Department [address] [place] [address] OB Triage Progress Note 11/13/24 1757 MR#: [id number] Acct: [id number] Name: MELANIE LEIJA Rep #: [id number] : 2000 24 From: Diana Escobar MD [...] pH 7.0 (5.0 - 8.0) Ur Specific Carney 1.010 (1.002-1.030) Urine Protein 100 H (Negative) [...] MD; Dr. Diana Escobar MD Signed Normal [facility] [employer] Estate [employer]or Office Visit Reporton 11-13-2024 Real Estate Investor Office Visit Report [facility] [address], [address] [place] [address] OFFICE VISIT Date of Service: 11/13/24 MR#: [id number] Acct: [id number] Name: MELANIE LEIJA Rep #: [id number] : 2000 Provider: Dr. Mary Peterson DO Age/Sex: 24/F Location: [facility] Status: Signed Intake Vital Signs 10/20/24 09:38 11/13/24 15:28 Height 5 ft 6 in 5 ft 6 in Weight: 170 lb 7 oz BMI 27.5 BP 129/84 H Intake Visit Reasons: OB bleeding Chief Complaint: OB Bleeding Surgical Nurse Required: No Is patient in pain?: No [...] 1 current occupational status: employed current occupation: [employer] current occupational exposures/hazards: No pets and [...] times per week duration: > 90 minutes/day dana/samaritan: None seatbelt use: always do you feel safe at home: Yes 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 Date Name GA/Weeks Outcome Route Bth Weight Gen Labor Lgth Anesthesia Del Locatn Provider FOB 08/08/23 Rafia 39 live - full term 8lbs 5oz Female epidural [facility] [place] Veloz Delivery Date: 08/08/23 Last Updated [...] Negative -???-? (more content not included)... Normal [facility] Platelet countOrdered By: Cy Escobar on 11-13-2024 Platelets (Bld) [#/Vol] 170 10*3/uL 150-450 [facility] Potassium measurement (mass/ volume)Ordered By: Diana Escobar on 11-13-2024 Potassium (Unsp spec) [Mass/Vol] 3.8 mmol/L 3.3-5.1 [facility] Protein Test strip Ql (U)Ord ered By: Mary Perez on 11-13-2024 Protein Ql (U) 100 mg/dl High Negative [facility] RBC Auto (Bld) [#/Vol]Ordere d By: Diana Escobar on 11-13-2024 RBC (Bld) [#/Vol] 4.01 10*6/uL Low 4.2-5.4 [facility] Serum creatinine measurement (mass/volume)Ordered By: Diana Escobar on 11-13-2024 Creatinine [Mass/Vol] 0.58 mg/dL Low 0.70-1.20 [facility] Serum globulin measurementOr dered By: Diana Escobar on 11-13-2024 Globulin (S) [Mass/Vol] 2.8 g/dL 2.2-4.2 [facility] Serum glucose measurement (m ass/volume)Ordered By: Diana Escobar on 11-13-2024 Glucose [Mass/Vol] 87 mg/dL 70-99 [facility] Serum or plasma alanine rincon otransferase (ALT) measurementOrdered By: Diana Escobar on 11-13-2024 ALT [Catalytic activity/Vol] 11 U/L <35 [facility] Serum or plasma albumin beni urement (mass/volume)Ordered By: Diana Escobar on 11-13-2024 Albumin [Mass/Vol] 3.7 g/dL 3.5-5.0 [facility] Serum or plasma albumin/glob ulin mass ratioOrdered By: Diana Escobar on 11-13-2024 Albumin/Globulin [Mass ratio] 1.3 {ratio} 0.9-2.4 [facility] Serum or plasma alkaline whit sphatase measurementOrdered By: Diana Escobar on 11-13-2024 ALP [Catalytic activity/Vol] 67 U/L 35-104 [facility] Serum or plasma calcium beni urement (mass/volume)Ordered By: Diana Escobar on 11-13-2024 Calcium [Mass/Vol] 9.0 mg/dL 7.6-11.0 [facility] Serum or plasma urea nitroge n measurement (mass/volume)Ordered By: Diana Escobar on 11-13-2024 Urea nitrogen [Mass/Vol] 7 mg/dL 4-19 [facility] Sodium levelOrdered By: Vincenzo Escobar on 11-13-2024 Sodium [Moles/Vol] 136 mmol/L 133-145 [facility] Total proteinOrdered By: Orlando Escobar on 11-13-2024 Protein [Mass/Vol] 6.5 g/dL 5.9-8.4 [facility] Urinalysis, Routine (Dipstic k)on 11-13-2024 BILIRUBIN URINE Negative Normal Negative [facility] Comment on above: Order Comment: COLOR OF URINE MAY AFFECT DIPSTICK RESULTS.COMMERCIAL STRIPPER TO SPECIFY Performed By: #### M 100.678 #### [facility] [address] [place], [place], [address] Clarity (U) Turbid Normal Clear [facility] Comment on above: Order Comment: COLOR OF URINE MAY AFFECT DIPSTICK RESULTS.COMMERCIAL STRIPPER TO SPECIFY Performed By: #### M 100.678 #### [facility] [address] [place], [place], [address] Color (U) Nadege Normal Yellow [facility] Comment on above: Order Comment: COLOR OF URINE MAY AFFECT DIPSTICK RESULTS.COMMERCIAL STRIPPER TO SPECIFY Performed By: #### M 100.678 #### [facility] [address] [place], [place], [id number] GLUCOSE, UR Normal Normal Normal [facility] Comment on above: Order Comment: COLOR OF URINE MAY AFFECT DIPSTICK RESULTS.COMMERCIAL STRIPPER TO SPECIFY Performed By: #### M 100.678 #### [facility] [address] [place], [address] KETONE UR Negative Normal Negative [facility] Comment on above: Order Comment: COLOR OF URINE MAY AFFECT DIPSTICK RESULTS.COMMERCIAL STRIPPER TO SPECIFY Performed By: #### M 100.678 #### [facility] [address] [place], [address] LEUK ESTERASE 500 /ul Abnormal Negative [facility] Comment on above: Order Comment: COLOR OF URINE MAY AFFECT DIPSTICK RESULTS.COMMERCIAL STRIPPER TO SPECIFY Performed By: #### M 100.678 #### [facility] [address] [place], [address] Nitrite Ql (U) Negative Normal Negative [facility] Comment on above: Order Comment: COLOR OF URINE MAY AFFECT DIPSTICK RESULTS.COMMERCIAL STRIPPER TO SPECIFY Performed By: #### M 100.678 #### [facility] [address] [place], [address] OCCULT BLOOD-UR 250 /ul Abnormal Negative [facility] Comment on above: Order Comment: COLOR OF URINE MAY AFFECT DIPSTICK RESULTS.COMMERCIAL STRIPPER TO SPECIFY Performed By: #### M 100.678 #### [facility] [address] [place], [address] pH UR 7.0 Normal 5.0 - 8.0 [facility] Comment on above: Order Comment: COLOR OF URINE MAY AFFECT DIPSTICK RESULTS.COMMERCIAL STRIPPER TO SPECIFY Performed By: #### M 100.678 #### [facility] [address] [place], [address] PROT DIPSTX 100 mg/dl Abnormal Negative [facility] Comment on above: Order Comment: COLOR OF URINE MAY AFFECT DIPSTICK RESULTS.COMMERCIAL STRIPPER TO SPECIFY Performed By: #### M 100.678 #### [facility] [address] [place], [address] SP.GR. DIPSTX 1.010 Normal 1.002-1.030 [facility] Comment on above: Order Comment: COLOR OF URINE MAY AFFECT DIPSTICK RESULTS.COMMERCIAL STRIPPER TO SPECIFY Performed By: #### M 100.678 #### [facility] [address] [place], [place], [address] UROBILI Normal Normal Normal [facility] Comment on above: Order Comment: COLOR OF URINE MAY AFFECT DIPSTICK RESULTS.COMMERCIAL STRIPPER TO SPECIFY Performed By: #### M 100.678 #### [facility] [address] [place], [place], [address] Urine clarityOrdered By: Staci Perez on 11-13-2024 Clarity (U) Turbid Clear [facility] Urine color determinationOrd ered By: Mary Perez on 11-13-2024 Color (U) Nadege Yellow [facility] Urine cultureOrdered By: Staci Perez on 11-13-2024 Bacteria identified Cx Nom (U) Positive Abnormal [facility] Urine glucose detectionOrder ed By: Mary Perez on 11-13-2024 Glucose Ql (U) Normal mg/dl Normal [facility] Urine leukocyte esterase det ection by dipstickOrdered By: Mary Perez on 11-13-2024 Leukocyte esterase Test strip Ql (U) 500 /ul High Negative [facility] Urine pHOrdered By: Mary Perez on 11-13-2024 pH (U) 7.0 [pH] 5.0 - 8.0 [facility] Urine specific gravity measu rementOrdered By: Mary Perez on 11-13-2024 Specific gravity (U) [Rel density] 1.010 1.002-1.030 [facility] Urine urobilinogen measureme ntOrdered By: Mary Perez on 11-13-2024 Urobilinogen Ql (U) Normal mg/dl Normal [facility] White blood cell (WBC) count Ordered By: Diana Escobar on 11-13-2024 WBC (Bld) [#/Vol] 12.4 10*3/uL High 4.4-11.0 [facility] Progress Noteon 11-07-2024 Flight Crew 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 Patient hemoglobin should be optimized, patient given pelvic and vaginal bleeding precautions. All questions and concerns addressed. My final recommendations will be communicated back to the requesting physician by way of shared medical record or fax. Nam Harris MD [facility] Laboratory - Chemistry and C hemistry - challengeOrdered By: Pedro Barbosa on 10-20-2024 Glucose Ql (U) Negative [facility] Laboratory - UrinalysisOrder ed By: Pedro Barbosa on 10-20-2024 Protein Ql (U) Negative [facility] [employer] Office Visit Reporton 10-20-2024 Real Estate Investor Office Visit Report [facility] [address], [address] [place] [address] OFFICE VISIT Date of Service: 10/20/24 MR#: [id number] Acct: [id number] Name: MELANIE LEIJA Rep #: [id number] : 2000 Provider: MANJU de los santos Age/Sex: 24/F Location: [facility] [place] Status: Signed Intake Vital Signs 08/28/24 13:05 09/25/24 13:54 10/20/24 09:38 Height 5 ft 6 in 5 ft 6 in 5 ft 6 in Weight: 162 lb 3 oz BMI 26.2 BP 139/69 H Intake Visit Reasons: 18wk ob Surgical Nurse Required: No Is patient in pain?: No [...] 1 current occupational status: employed current occupation: [employer] current occupational exposures/hazards: No pets and animals: [...] times per week duration: > 90 minutes/day dana/samaritan: None seatbelt use: always do you feel safe at home: Yes 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 Date Name GA/Weeks Outcome Route Bth Weight Gen Labor Lgth Anesthesia Del Locatn Provider FOB 08/08/23 Rafia 39 live - full term 8lbs 5oz Female epidural [facility] Lu[facility] Veloz Delivery Date: 08/08/23 Last Updated [...] Negative -???-???-??? (more content not included)... Normal [facility] Laboratory - Chemistry and C hemistry - challengeOrdered By: Mary Perez on 09-25-2024 Glucose Ql (U) Negative [facility] Laboratory - UrinalysisOrder ed By: Mary Perez on 09-25-2024 Protein Ql (U) Negative [facility] Real Estate Investor Office Visit Reporton 09-25-2024 Real Estate Investor Office Visit Report [facility] [address], [address] [place] [address] OFFICE VISIT Date of Service: 09/25/24 MR#: [id number] Acct: [id number] Name: MELANIE LEIJA Rep #: [id number] 2 : 2000 Provider: Dr. Mary Peterson DO Age/Sex: 24/F Location: [facility] [place] Status: Signed Intake Vital Signs 09/19/23 14:48 08/28/24 13:05 09/25/24 13:54 Height 5 ft 6 in 5 ft 6 in 5 ft 6 in Weight: 157 lb 4 oz BMI 25.3 BP 133/81 H Intake Visit Reasons: 14wk ob Chief Complaint: 14wk OB Surgical Nurse Required: No Is patient in pain?: No [...] 1 current occupational status: employed current occupation: [employer] current occupational exposures/hazards: No pets and animals: [...] times per week duration: > 90 minutes/day dana/samaritan: None seatbelt use: always do you feel safe at home: Yes 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 Date Name GA/Weeks Outcome Route Bth Weight Gen Labor Lgth Anesthesia Del Locatn Provider FOB 08/08/23 Rafia 39 live - full term 8lbs 5oz Female epidural [facility] Lu[facility] Veloz Delivery Date: 08/08/23 Last Updated [...] Unstable Ho (more content not included)... Normal [facility] Absolute lymphocyte countOrd ered By: Yomaira Michael on 09-01-2024 Lymphocytes Auto (Unsp spec) [#/Vol] 2.28 10*3/uL 0.83-4.51 [facility] Absolute neutrophil countOrd ered By: Yomaira Michael on 09-01-2024 Neutrophils (Bld) [#/Vol] 6.9 10*3/uL 2.0-7.7 [facility] Automated lymphocyte count a s percentage of total leukocytesOrdered By: Yomaira Michael on 09-01-2024 Lymphocytes/100 WBC Auto (Unsp spec) 23.0 % 19-41 [facility] Basophil percentageOrdered B y: Yomaira Michael on 09-01-2024 Basophils/100 WBC (Bld) 0.2 % 0-1 [facility] CBC W/Diff, Automatedon 08-11 Absolute Lymph 2.28 X10 3/uL Normal 0.83-4.51 [facility] Comment on above: Performed By: #### L 3890.7821, L509.8002, L3890.6102, BTS, L100.0100, L509.4006, L3890.6006 #### [facility] Laboratory [address] [place], [address] Absolute Neut 6.9 X10 3/uL Normal 2.0-7.7 [facility] Comment on above: Performed By: #### L 3890.6301, L509.8002, L3890.6102, BTS, L100.0100, L509.4006, L3890.6006 #### [facility] [address] [place], [address] Basophils/100 WBC (Bld) 0.2 % Normal 0-1 [facility] Comment on above: Performed By: #### L 3890.6301, L509.8002, L3890.6102, BTS, L100.0100, L509.4006, L3890.6006 #### [facility] [address] [place], [address] Eosinophils/100 WBC (Bld) 0.8 % Normal 0-5 [facility] Comment on above: Performed By: #### L 3890.6301, L509.8002, L3890.6102, BTS, L100.0100, L509.4006, L3890.6006 #### [facility] [address] [place], [address] Erythrocyte distribution width (RBC) [Ratio] 13.1 % Normal 11.6-14.6 [facility] Comment on above: Performed By: #### L 3890.6301, L509.8002, L3890.6102, BTS, L100.0100, L509.4006, L3890.6006 #### [facility] [address] [place], [address] Hematocrit (Bld) [Volume fraction] 39.0 % Normal 37-47 [facility] Comment on above: Performed By: #### L 3890.6301, L509.8002, L3890.6102, BTS, L100.0100, L509.4006, L3890.6006 #### [facility] [address] [place], [address] Hemoglobin (Bld) [Mass/Vol] 13.5 g/dL Normal 12.0-15.0 [facility] Comment on above: Performed By: #### L 3890.6301, L509.8002, L3890.6102, BTS, L100.0100, L509.4006, L3890.6006 #### [facility] [address] [place], [address] IG% 0.100 Normal 0.0-0.9 [facility] Comment on above: Result Comment: IG% - Immature Granulocytes (promyelocytes, myelocytes and metamyelocytes) > 1% indicates that a LEFT SHIFT is Present. Performed By: #### L 3890.6301, L509.8002, L3890.6102, BTS, L100.0100, L509.4006, L3890.6006 #### [facility] [address] [place], [address] Lymphocytes/100 WBC (Bld) 23.0 % Normal 19-41 [facility] Comment on above: Performed By: #### L 3890.6301, L509.8002, L3890.6102, BTS, L100.0100, L509.4006, L3890.6006 #### [facility] [address] [place], [address] MCH (RBC) [Entitic mass] 31.8 pg Normal 27.0-32.0 [facility] Comment on above: Performed By: #### L 3890.6301, L509.8002, L3890.6102, BTS, L100.0100, L509.4006, L3890.6006 #### [facility] [address] [place], [address] MCHC (RBC) [Mass/Vol] 34.6 g/dL Normal 32-36 [facility] Comment on above: Performed By: #### L 3890.6301, L509.8002, L3890.6102, BTS, L100.0100, L509.4006, L3890.6006 #### [facility] [address] [place], [address] MCV (RBC) [Entitic vol] 92.0 fL Normal 81-99 [facility] Comment on above: Performed By: #### L 3890.6301, L509.8002, L3890.6102, BTS, L100.0100, L509.4006, L3890.6006 #### [facility] [address] [place], [address] Monocytes/100 WBC (Bld) 6.1 % Normal 0-10 [facility] Comment on above: Performed By: #### L 3890.6301, L509.8002, L3890.6102, BTS, L100.0100, L509.4006, L3890.6006 #### [facility] [address] [place], [address] Neutrophils/100 WBC (Bld) 69.8 % Normal 47-70 [facility] Comment on above: Performed By: #### L 3890.6301, L509.8002, L3890.6102, BTS, L100.0100, L509.4006, L3890.6006 #### [facility] [address] [place], [address] Nucleated RBC (Bld) [#/Vol] 0 10*3/uL Normal 0-5 [facility] Comment on above: Performed By: #### L 3890.6301, L509.8002, L3890.6102, BTS, L100.0100, L509.4006, L3890.6006 #### [facility] [address] [place], [address] Platelet mean volume (Bld) [Entitic vol] 12.5 fL High 6.2-12.0 [facility] Comment on above: Performed By: #### L 3890.6301, L509.8002, L3890.6102, BTS, L100.0100, L509.4006, L3890.6006 #### [facility] [address] [place], [address] Platelets (Bld) [#/Vol] 164 10*3/uL Normal 150-450 [facility] Comment on above: Performed By: #### L 3890.6301, L509.8002, L3890.6102, BTS, L100.0100, L509.4006, L3890.6006 #### [facility] [address] [place], [address] RBC (Bld) [#/Vol] 4.24 10*6/uL Normal 4.2-5.4 [facility] Comment on above: Performed By: #### L 3890.6301, L509.8002, L3890.6102, BTS, L100.0100, L509.4006, L3890.6006 #### [facility] [address] [place], [address] RDW SD 44.3 fl High 35.1-43.9 [facility] Comment on above: Performed By: #### L 3890.6301, L509.8002, L3890.6102, BTS, L100.0100, L509.4006, L3890.6006 #### [facility] [address] [place], [address] WBC (Bld) [#/Vol] 9.9 10*3/uL Normal 4.4-11.0 [facility] Comment on above: Performed By: #### L 3890.6301, L509.8002, L3890.6102, BTS, L100.0100, L509.4006, L3890.6006 #### [facility] [address] [place], [address] Chlamydia/GC CHULA aptimaon CHLAMY,NUC ACID Negative Normal Negative [facility] Comment on above: Performed By: #### L 3890.6301, L509.8002, L3890.6102, BTS, L100.0100, L509.4006, L3890.6006 #### [facility] [address] [place], [place], [address] GC BY NUC ACID Negative Normal Negative [facility] Comment on above: Result Comment: Perf ormed at: =G - [facility] [address] [id number] Crop Duster Helper: Giselle Gallego MD, Phone: [phone] Performed By: #### L 3890.6301, L509.8002, L3890.6102, BTS, L100.0100, L509.4006, L3890.6006 #### [facility] [address] [place], [address] Eosinophil percentageOrdered By: Yomaira Michael on 09-01-2024 Eosinophils/100 WBC (Bld) 0.8 % 0-5 [facility] Erythrocyte distribution wid th ratioOrdered By: Yomaira Michael on 09-01-2024 Erythrocyte distribution width (RBC) [Ratio] 13.1 % 11.6-14.6 [facility] Erythrocyte distribution wid th standard deviationOrdered By: Yomaira Michael on 09-01-2024 Erythrocyte distribution width (RBC) [Ratio] 44.3 fl High 35.1-43.9 [facility] HIVon 09-01-2024 HIV Non-Reactive Normal Nonreactive [facility] Comment on above: Result Comment: Non- Reactive Reactive Repeatedly reactive samples must be confirmed according to CDC recommended confirmatory algorithms. The subresults for either HIVAG or AHIV can be used as an aid in the selection of the confirmation algorithm for reactive samples. Send out specimens with Reactive results to [facility] for confirmation. Order the HIV antibody detection and differentiation: lc#[id number] Performed By: #### L 3890.6301, L509.8002, L3890.6102, BTS, L100.0100, L509.4006, L3890.6006 #### [facility] [address] [place], [place], [address] Hematocrit Auto (Bld) [Volum e fraction]Ordered By: Yomaira Michael on 09-01-2024 Hematocrit (Bld) [Volume fraction] 39.0 % 37-47 [facility] Hemoglobin measurementOrdere d By: Yomaira Michael on 09-01-2024 Hemoglobin (Bld) [Mass/Vol] 13.5 g/dL 12.0-15.0 [facility] Hepatitis C Antibodyon 09-01 Hepatitis C Ab Non-Reactive Normal Nonreactive [facility] Comment on above: Result Comment: Reac tive: Presumptive evidence of antibodies to HCV. Follow CDC recommendations for supplemental testing. Non-Reactive: Antibodies to HCV were not detected; does not exclude the possibility of exposure to HCV Reactive Results are presumptive evidence of antibodies to HCV. Follow CDC recommendations for supplemental testing. Order confirmation testing: HCV Quant by PCR testing - HCVPCR #[id number] Non Reactive: < 0.8 Equivocal: >/= 0.8 to < 1.0 Reactive: >/= 1.0 The CDC requires that a reactive/equivocal HCV antibody result be sent out for confirmation. HCV Quant by PCR testing. Performed By: #### L 3890.6301, L509.8002, L3890.6102, BTS, L100.0100, L509.4006, L3890.6006 #### [facility] [address] [place], [address] Immature granulocytes/100 WB C Auto (Bld)Ordered By: Yomaira Michael on 09-01-2024 Immature granulocytes/100 WBC (Bld) 0.100 % 0.0-0.9 [facility] Comment on above: IG% - Immature Granu locytes (promyelocytes, myelocytes and metamyelocytes) > 1% indicates that a LEFT SHIFT is Present. L3890.6102on 09-01-2024 HEP B Surf Ag Non-Reactive Normal Nonreactive [facility] Comment on above: Result Comment: Reac tive: Presumptive evidence of HBV.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 CULTURE,BACTERIALon URINE CULTURE,BACTERIAL PATIENT: MELANIE LEIJA LOCATION: [place] [address] BILL#: [id number] : [birth year] AGE: SEX: F ORDERED BY: LARRY BEE SOURCE: URINE COLLECTED: 05/14/19 21:05 ANTIBIOTICS AT [facility].: RECEIVED : 05/14/19 21:05 SITE: Clean Catch/Voided R E S U L T S URINE CULTURE,BACTERIAL FINAL 05/15/19 14:00 NO SIGNIFICANT GROWTH. Normal [facility] Comment on above: Performed By: #### D RUG3 #### [facility] [address] [place] [address] URINE CULTURE,BACTERIAL TEST URINE CULTURE,BACTERIAL WAS CANCELLED, 05/15/2019 22:52 DUPLICATE ORDER. See [id number] for results. 05/15/2019 22:52. PATIENT: MELANIE LEIJA LOCATION: [place] [address] BILL#: [id number] : [birth year] AGE: SEX: F ORDERED BY: LARRY BEE SOURCE: URINE COLLECTED: 05/14/19 18:04 ANTIBIOTICS AT [facility]ARI[facility]A.: RECEIVED : SITE: Clean Catch/Voided R E S U L T S URINE CULTURE,BACTERIAL CANCELLED 05/15/19 22:52 Normal [facility] Comment on above: Performed By: #### U RINC ####[id number] [place] [address] VITAMIN D, 25-HYDROXYon VITAMIN D, 25-HYDROXY 27 ng/mL Abnormal [facility] Comment on above: Result Comment: . DEFICIENCY: < 20 NG/ML INSUFFICIENCY: 20-29 NG/ML SUFFICIENCY: 30-100 NG/ML THIS ASSAY ACCURATELY QUANTIFIES THE SUM OF VITAMIN D3, 25-HYDROXY AND VIT D2,25-HYDROXY. { Performed By: #### V TDOH #### [facility] [address] [place] [address] Comprehensive Panelon 2019 ALP [Catalytic activity/Vol] 93 U/L Normal 45-117 [facility] Comment on above: Result Comment: Refe rence ranges for this patient`s age group have not been established. These reference ranges reflect verified or established ranges for the adult population. Interpret ranges with caution using the clinical context and additional reference resources. Performed By: #### P 14 #### [address] [address] Bilirubin [Mass/Vol] 0.5 mg/dL Normal 0.2-1.0 [facility] Comment on above: Result Comment: Use of this assay is not recommended for patients undergoing treatment with eltrombopag due to the potential for falsely elevated results. Performed By: #### P 14 #### [facility] [address] [place], [place] [address] Protein [Mass/Vol] 8.0 g/dL Normal 6.4-8.2 [facility] Comment on above: Result Comment: Refe rence ranges for this patient`s age group have not been established. These reference ranges reflect verified or established ranges for the adult population. Interpret ranges with caution using the clinical context and additional reference resources. Performed By: #### P 14 #### [facility] [address] [place], [place] [address] ALT [Catalytic activity/Vol] 20 U/L Normal 12-78 [facility] Comment on above: Result Comment: Refe rence ranges for this patient`s age group have not been established. These reference ranges reflect verified or established ranges for the adult population. Interpret ranges with caution using the clinical context and additional reference resources. Performed By: #### P 14 #### [facility] [address] [place] [address] AST [Catalytic activity/Vol] 16 U/L Normal 15-37 [facility] Comment on above: Result Comment: Refe rence ranges for this patient`s age group have not been established. These reference ranges reflect verified or established ranges for the adult population. Interpret ranges with caution using the clinical context and additional reference resources. Performed By: #### P 14 #### [facility] [address] [place] [address] Creatinine [Mass/Vol] 0.67 mg/dL Normal 0.51-0.95 [facility] Comment on above: Result Comment: Refe [...] results. Performed By: #### P 14 #### [facility] [address] [place] [address] Albumin [Mass/Vol] 4.2 g/dL Normal 3.4-5.0 [facility] Comment on above: Result Comment: Refe rence ranges for this patient`s age group have not been established. These reference ranges reflect verified or established ranges for the adult population. Interpret ranges with caution using the clinical context and additional reference resources. Performed By: #### P 14 #### [facility] [address] [place] [address] Anion gap [Moles/Vol] 7 mmol/L Low 8-16 [facility] Comment on above: Performed By: #### P 14 #### [facility] [address] [place] [address] Calcium [Mass/Vol] 9.2 mg/dL Normal 8.5-10.1 [facility] Comment on above: Result Comment: Refe rence ranges for this patient`s age group have not been established. These reference ranges reflect verified or established ranges for the adult population. Interpret ranges with caution using the clinical context and additional reference resources. Performed By: #### P 14 #### [facility] [address] [place], [place] [address] CO2 [Moles/Vol] 28 mmol/L Normal 21-32 [facility] Comment on above: Result Comment: Refe rence ranges for this patient`s age group have not been established. These reference ranges reflect verified or established ranges for the adult population. Interpret ranges with caution using the clinical context and additional reference resources. Performed By: #### P 14 #### [facility] [address] [place], [place] [address] Glucose [Mass/Vol] 97 mg/dL Normal 70-99 [facility] Comment on above: Result Comment: Refe rence ranges for this patient`s age group have not been established. These reference ranges reflect verified or established ranges for the adult population. Interpret ranges with caution using the clinical context and additional reference resources. Performed By: #### P 14 #### [facility] [address] [place], [place] [address] Urea nitrogen [Mass/Vol] 9 mg/dL Normal 7-18 [facility] Comment on above: Result Comment: Refe rence ranges for this patient`s age group have not been established. These reference ranges reflect verified or established ranges for the adult population. Interpret ranges with caution using the clinical context and additional reference resources. Performed By: #### P 14 #### [facility] [address] [place], [place] [address] Chloride [Moles/Vol] 108 mmol/L High 98-107 [facility] Comment on above: Result Comment: Refe rence ranges for this patient`s age group have not been established. These reference ranges reflect verified or established ranges for the adult population. Interpret ranges with caution using the clinical context and additional reference resources. Performed By: #### P 14 #### [facility] [address] [place], [place] [address] Potassium [Moles/Vol] 3.6 mmol/L Normal 3.5-5.1 [facility] Comment on above: Result Comment: Refe rence ranges for this patient`s age group have not been established. These reference ranges reflect verified or established ranges for the adult population. Interpret ranges with caution using the clinical context and additional reference resources. Performed By: #### P 14 #### [facility] [address] [place], [place] [address] Sodium [Moles/Vol] 139 mmol/L Normal 136-145 [facility] Comment on above: Result Comment: Refe rence ranges for this patient`s age group have not been established. These reference ranges reflect verified or established ranges for the adult population. Interpret ranges with caution using the clinical context and additional reference resources. Performed By: #### P 14 #### [facility] [address] [place], [place] [address] DRUG SCREEN,URINEon 05-13-19 20 AMPHETAMINE SCREEN,U Negative Normal NEGATIVE [facility] Comment on above: Result Comment: CUTO FF LEVEL: 500 NG/ML Cross-reactivity has been reported with high concentrations of the following drugs: buproprion, chloroquine, chlorpromazine, ephedrine, mephentermine, fenfluramine, phentermine, phenylpropanolamine, pseudoephedrine, and propranolol. Performed By: #### D RUG3 #### [facility] [address] [place] [address] BARBITURATES SCREEN,U Negative Normal NEGATIVE [facility] Comment on above: Result Comment: CUTO FF LEVEL: 200 NG/ML Performed By: #### D RUG3 #### [facility] [address] [place] [address] BENZODIAZEPINES SCREEN,U Negative Normal NEGATIVE [facility] Comment on above: Result Comment: CUTO FF LEVEL: 200 NG/ML Performed By: #### D RUG3 #### [facility] [address] [place] [address] CANNABINOIDS SCREEN,U Negative Normal NEGATIVE [facility] Comment on above: Result Comment: CUTO FF LEVEL: 50 NG/ML Performed By: #### D RUG3 #### [facility] [address] [place] [address] COCAINE METABOLITE SCREEN,U Negative Normal NEGATIVE [facility] Comment on above: Result Comment: CUTO FF LEVEL: 150 NG/ML Performed By: #### D RUG3 #### [facility] [address] [place] [address] DRUG SCREEN COMMENT SEE BELOW Normal [facility] Comment on above: Result Comment: Drug screen results are presumptive and should not be used to assess compliance with prescribed medication. Contact the performing [facility] laboratory to add-on definitive confirmatory testing [...] directors. Performed By: #### D RUG3 #### [facility] [address] [place] [address] METHADONE SCREEN,U Negative Normal NEGATIVE [facility] Comment on above: Result Comment: CUTO FF LEVEL: 150 NG/ML The metabolite J-nqfow-uaieryslnqdear (LAAM) is not detected by this method in concentrations that would be found in the urine of patients on LAAM therapy. Performed By: #### D RUG3 #### [facility] [address] [place] [id number] OPIATES SCREEN,U Negative Normal NEGATIVE [facility] Comment on above: Result Comment: CUTO FF LEVEL: 300 NG/ML The opiate screen does not detect fentanyl, meperidine, or tramadol. Oxycodone is not consistently detected (refer to Oxycodone Screen, Urine result). Performed By: #### D RUG3 #### [facility] [address] [place] [id number] OXYCODONE SCREEN,U Negative Normal NEGATIVE [facility] Comment on above: Result Comment: CUTO FF LEVEL: 100 NG/ML This test will accurately detect both oxycodone and oxymorphone. Performed By: #### D RUG3 #### [facility] [address] [place] [id number] PCP SCREEN,U Negative Normal NEGATIVE [facility] Comment on above: Result Comment: CUTO FF LEVEL: 25 NG/ML Cross-reactivity has been reported with dextromethorphan. Performed By: #### D RUG3 #### [facility] [address] [place] [address] ECU Troponin Ion 05-13-2019 Troponin I.cardiac [Mass/Vol] ng/mL Normal 0.015-0.045 [facility] Comment on above: Result Comment: Refe rence ranges for this patient`s age group have not been established. These reference ranges reflect verified or established ranges for the adult population. Interpret ranges with caution using the clinical context and additional reference resources. Performed By: #### E RTRP #### [facility] [address] [place], [place] [address] ED NOTEon 05-13-2019 ED NOTE HNO ID: [id number] Author: Tabitha WagnerRn) CRISTHIAN Roth Service: Emergency Medicine Author Type: Registered Nurse Type: ED Notes Filed: 05/13/2019 4:42 PM Note Text: Box lunch to pt [facility] ED NOTE HNO ID: [id number] Author: Tabitha John) CRISTHIAN Roth Service: Emergency Medicine Author Type: Registered Nurse Type: ED Notes Filed: 05/13/2019 4:25 PM Note Text: Pt made aware per ed that she will not be able to have cell phone/pt verbalized understanding [facility] ED NOTE HNO ID: [id number] Author: Tabitha John) CRISTHIAN Roth Service: Emergency Medicine Author Type: Registered Nurse Type: ED Notes Filed: 05/13/2019 4:24 PM Note Text: Visitor at bedside. [facility] ED NOTE HNO ID: [id number] Author: Vivienne John) [place], RN Service: Emergency Medicine Author Type: Registered Nurse Type: ED Notes Filed: 05/13/2019 4:15 PM Note Text: REPORT GIVEN OFF UNIT FOR LUNCH [facility] ED NOTE HNO ID: [id number] Author: Vivienne Rose, RN Service: Emergency Medicine Author Type: Registered Nurse Type: ED Notes Filed: 05/13/2019 4:08 PM Note Text: Report given to Christie MORROW [phone] at [facility]. [facility] ED NOTE HNO ID: [id number] Author: Viviennejuan carlos Rose RN Service: Emergency Medicine Author Type: Registered Nurse Type: ED Notes Filed: 05/13/2019 4:04 PM Note Text: Mother at bedside taking selfies with daughter. Mothers behavior seems inappropriate [facility] ED NOTE HNO ID: [id number] Author: Kesha Rincon (Tech) [employer] Service: Emergency Medicine Author Type: Neurological Physiotherapist Type: ED Notes Filed: 05/13/2019 3:49 PM Note Text: Labs were drawn and sent. [facility] ED NOTE HNO ID: [id number] Author: Kesha WagnerIdle Free SystemsRoxy [place], [employer] Service: Emergency Medicine Author Type: Neurological Physiotherapist Type: ED Notes Filed: 05/13/2019 3:49 PM Note Text: Clean catch urine specimen obtained and sent. [facility] ED NOTE HNO ID: [id number] Author: Vivienne Rose RN Service: Emergency Medicine Author Type: Registered Nurse Type: ED Notes Filed: 05/13/2019 3:32 PM Note Text: recv call back from [facility] peds psych unit is full [facility] ED NOTE HNO ID: [id number] Author: Nicole WagnerRnRoxy Rubio RN Service: Emergency Medicine Author Type: Registered Nurse Type: ED Notes Filed: 05/13/2019 3:06 PM Note Text: Per Dr. Hess, patient to be placed in psych room at this time. [facility] ED NOTE HNO ID: [id number] Author: Vivienne Rose RN Service: ? Author Type: Registered Nurse Type: ED Notes Filed: 05/13/2019 2:58 PM Note Text: [facility]: [facility] Expected date: Expected time: Means of arrival: Comments: SI CIA1?? [facility] ED NOTE HNO ID: [id number] Author: Nicole WagnerRnRoxy Rubio RN Service: Emergency Medicine Author Type: Registered Nurse Type: ED Notes Filed: 05/13/2019 2:11 PM Note Text: Dr. Hess aware of patient and states will come evaluate. [facility] ED NOTE HNO ID: [id number] Author: Nicole WagnerRnRoxy Rubio RN Service: Emergency Medicine Author Type: Registered Nurse Type: ED Notes Filed: 05/13/2019 2:06 PM Note Text: Clean catch urine specimen obtained and sent. Normal [facility] ED NOTE HNO ID: [id number] Author: Nicole (Rn) CRISTHIAN Rubio Service: Emergency [...] Denies drug or ETOH use today. Normal [facility] ED PROV NOTEon 05-13-2019 ED PROV NOTE HNO ID: [id number] Author: Yari Hess MD Service: Emergency Medicine [...] 05/10/2019 she got drunk, went to the [facility], and attempted to hang herself on a [...] her to the ED. Patient arrives to [facility]. with her mother and stepfather No [...] Lymph 2.00 1.00 - 4.00 thou/cmm Abs. Daggett 0.32 0.00 - 0.86 thou/cmm Abs. Eosin 0.05 0.00 - 0.45 thou/cmm Abs. Baso 0.03 0.00 - 0.10 thou/cmm URINALYSIS WITH MICROSCOPIC (AK,AV,EU,FV,HL,BIRANA,MM,S P) Result Value Ref Range Color YELLOW Urine Appearance 2+ (SLT CLOUDY) RBC, Urine 0.0-3 0.0 - 5.0 /hpf Glucose, Urine NEGATIVE Negative mg/dL Ketones, Urine NEGATIVE Negative mg/dL Hemoglobin, Urine MODERATE (A) Negative Protein, Urine NEGATIVE Negative mg/dL Nitrites Urine NEGATIVE Negative Bilirubin, Urine NEGATIVE Negative Specific Carney, Ur 1.010 1.005 - 1.030 pH, Urine [...] Non-detected Non-Detected EKG Result Value Ref Range Flight Crew Time Clerk NAME : MELANIE LEIJA PID : [id number] : 2000 Gender : Female Race : [...] ms QTC Calculation(Bazett) : 399 ms P [place] : 53 degrees R [place] : 19 degrees T [place] : 22 degrees Test Reason : Location : 4 : [place] [address] Overread By : , Edited By : [...] ? Family history: of suicide, attempts, or [place] 1 psychiatric disorders requiring hospitalization ? Precipitants/Stressors/ Interpersonal: triggering events leading to humiliation, shame or despair (e.g; loss of relationship, financial or Health status-real or anticipated). Ongoing medical illness (denis. MENTAL HEALTH PROGRAM DIRECTOR disorders, pain). Intoxication. Family turmoil/chaos. History of Physical or sexual abuse. Social isolation. ? Change in treatment: discharge from psychiatric hospital, provider or treatment change ? Access to firearms 2. PROTECTIVE FACTORS protective factors, even if present, may not counteract significant acute risk ? Internal: ability to cope with stress, scientologist beliefs, frustration tolerance ? External: responsibility to [...] www.sprc.org/library/alesia safetygoals.pdf ? SAFE-T marilyn upon the [place] [employer] Practice Guidelines for the Assessment and Treatment of Patients with Suicidal Behaviors www.psychiatryonline.co m/Kimberly/KimberlyTo pic_14.aspx ? Practice Parameter for the Assessment and Treatment of Children and Adolescents with Suicidal Behavior. Journal of the [place] Academy of Child and Adolescent Psychiatry, 2001, 40 (7 Supplement): 24s-51s ACKNOWLEDGEMENTS ? Originally conceived by Kofi Gaines MD, and developed as a collaboration Between [employer] and the Suicide Prevention Resource Center. ? This material is based upon work supported by the Substance Abuse and Mental Health, Services Administration (SAMA) under Emigdio No. 2Z52YV35606. Any opinions/findings Conclusions/recommendat ions expressed in this material are those of the author and do Not necessarily reflect the views [facility]. National Suicide Prevention Lifeline 1.800.273.TALK (3129) MDM / Disposition / Plan No evidence of neck trauma, airway compromise. No Evidence of focal neurologic findings. Hcg negative. We called [facility] for transfer however they do not have any beds available. Screening labs ordered while we attempted to find accepting pediatric facility. Patient was accepted at [facility]. I spoke with Dr. De La Torre from ED who accepted patient. CBC without significant findings. Remainder of lab work is pending. Patient to be sent via EMS. Patient, mother, step father aware of transfer. The patient was TRANSFERRED to: ED Condition at time of disposition: stable SIGNATURE: MD Yari Alegria MD 05/16/19 1153 Normal [facility] ED Triage Noteon 05-13-2019 ED Triage Note HNO ID: [id number] Author: DENISE Murcia Pa-C Service: Emergency Medicine Author Type: Physician Director Of Security Type: ED Triage Notes Filed: 05/13/2019 1:56 [...] WORKUP: Test SIGNATURE: Noreen Anne PA-C Normal [facility] Hemogram/Diffon 05-13-2019 Abs Immature Grans 0.03 thou/cmm Normal 0.00-0.05 [facility] Comment on above: Performed By: #### C BCD1 #### [place] [address] Abs Neut (ANC) 6.38 thou/cmm Normal 1.45-7.50 [facility] Comment on above: Performed By: #### C BCD1 #### [place] [address] Abs. Baso 0.03 thou/cmm Normal 0.00-0.10 [facility] Comment on above: Performed By: #### C BCD1 #### [facility] [address] [place], [place] [address] Abs. Daggett 0.32 thou/cmm Normal 0.00-0.86 [facility] Comment on above: Performed By: #### C BCD1 #### [facility] [address] [place], [place] [address] Basophils/100 WBC (Bld) 0.3 % Normal [facility] Comment on above: Performed By: #### C BCD1 #### [facility] [address] [place], [place] [address] Eosinophils (Bld) [#/Vol] 0.05 thou/cmm Normal 0.00-0.45 [facility] Comment on above: Performed By: #### C BCD1 #### [facility] [address] [place], [place] [address] Eosinophils/100 WBC (Bld) 0.6 % Normal [facility] Comment on above: Performed By: #### C BCD1 #### [facility] [address] [place], [place] [address] Erythrocyte distribution width (RBC) [Ratio] 12.0 % Normal 11.5-15.0 [facility] Comment on above: Performed By: #### C BCD1 #### [facility] [address] [place], [place] [address] Hematocrit (Bld) [Volume fraction] 44.6 % Normal 34.1-44.9 [facility] Comment on above: Performed By: #### C BCD1 #### [facility] [address] [place], [place] [address] Hemoglobin (Bld) [Mass/Vol] 15.0 g/dL Normal 11.5-15.5 [facility] Comment on above: Performed By: #### C BCD1 #### [facility] [address] [place], [place] [address] Immature Grans 0.30 % Normal [facility] Comment on above: Performed By: #### C BCD1 #### [facility] [address] [place], [place] [address] Lymphocytes (Bld) [#/Vol] 2.00 thou/cmm Normal 1.00-4.00 [facility] Comment on above: Performed By: #### C BCD1 #### [facility] [address] [place], [place] [address] Lymphocytes/100 WBC (Bld) 22.7 % Normal [facility] Comment on above: Performed By: #### C BCD1 #### [facility] [address] [place], [place] [address] MCH (RBC) [Entitic mass] 30.8 pg Normal 26.0-34.0 [facility] Comment on above: Performed By: #### C BCD1 #### [facility] [address] [place], [place] [address] MCHC (RBC) [Mass/Vol] 33.6 % Normal 30.5-36.0 [facility] Comment on above: Performed By: #### C BCD1 #### [facility] [address] [place], [place] [address] MCV (RBC) [Entitic vol] 91.6 fL Normal 80.0-100.0 [facility] Comment on above: Performed By: #### C BCD1 #### [facility] [address] [place], [place] [address] Monocytes/100 WBC (Bld) 3.6 % Normal [facility] Comment on above: Performed By: #### C BCD1 #### [facility] [address] [place], [place] [address] Platelet mean volume (Bld) [Entitic vol] 11.4 fL Normal 9.0-12.7 [facility] Comment on above: Performed By: #### C BCD1 #### [facility] [address] [place], [place] [address] Platelets (Bld) [#/Vol] 235 thou/cmm Normal 150-400 [facility] Comment on above: Performed By: #### C BCD1 #### [facility] [address] [place], [place] [address] RBC (Bld) [#/Vol] 4.87 mil/cmm Normal 3.90-5.20 [facility] Comment on above: Performed By: #### C BCD1 #### [facility] [address] [place], [place] [address] RDW SD 40.4 fl Normal 37.0-50.0 [facility] Comment on above: Performed By: #### C BCD1 #### [facility] [address] [place], [place] [address] Seg Neutrophil 72.5 % Normal [facility] Comment on above: Performed By: #### C BCD1 #### [facility] [address] [place], [place] [address] WBC (Bld) [#/Vol] 8.80 thou/cmm Normal 3.70-11.00 [facility] Comment on above: Performed By: #### C BCD1 #### [facility] [address] [place], [place] [address] Provider Note - ED Pedson Provider Note - ED Peds Time Seen: Time [id number] 18:25 History of Presenting Illness and Social History: /Lactating: Are You no (1) Are You Currently Breastfeedingno (1) Patient Complaint: This 18 year old Female presents with complaint(s) of psychiatric evaluation. History of Presenting Illness and Social History: HPI: HPI: Patient is a 18-year-old female who presents to the emergency department from [facility] as a transfer for psychiatric evaluation. [...] Patient has no formal psychiatric diagnoses. Patient's tube coater did start her on Prozac several months [...] who presents to the emergency department from [facility] as a transfer for psychiatric evaluation [...] dictated by speech recognition. Minor errors in product scientist may be present. Please DocHalo if questions. UPDATE Received signout from Dr. Seth at 1999. At the time of signout, patient undergoing psychiatric evaluation by social welfare clerk. After evaluation by Deisy house worker, decision for inpatient admission to the [...] Information T PRBP SpO2O2(LPM) %FiO2 Method 13-May-2019 18:02:[id number] 98 room air, no respiratory support Shift [...] Physical Exam, Vital Signs, Shift Change/Handoff, Rx Paper Novelty Maker, ED Diagnosis (REQUIRED), Attestation Gricelda Seth ( (Resident)) (Signed 13-May-2019 20:44) Authored: Time Seen, History of Presenting Illness and Social History, Allergies and Home Medications, History Attestation, Physical Exam, Vital Signs, Shift Change/Handoff, Rx Paper Novelty Maker, ED Diagnosis (REQUIRED), Attestation Clem Lomeli) (Signed 14-May-2019 01:22) Authored: History of Presenting Illness and Social History, Disposition, Attestation Co-Signer: History of Presenting Illness and Social History Last Updated: 14-May-2019 01:22 by Clem Lomeli) References: 1. Data Referenced From Triage - ED Peds 13-May-2019 18:02 Normal [facility] Triage - ED Pedson 0 Triage - [...] (8 yrs & older) VAS Pain Ratin [place] Coma Scale Peds (2yrs to Adult): [place] Coma Scale Score: 15 Cough Lasting Greater than 2 Weeks: no Allergies: no Patient has Homicidal Thoughts: no Acuity Level: 1 Peds Complaint Code ([facility]): 11 ABCD PRIMARY ASSESSMENT MELANIE LEIJA's primary assessment is Within Defined Limits. The airway is open and patent. Breathing spontaneous and unlabored with clear breath sounds bilaterally. Circulation is normal with good peripheral pulses. Skin is warm and dry and color is normal for race. Alert and appropriate for age. RISK SCREEN [place] Suicide Risk Screen Risk Screen Not Applicable/Able [...] this within the past 3 months yes [place] Risk Level: icon high Interventions: Low Risk [...] 13-May-2019 18:04 by Lucy Marrero (CRISTHIAN) Normal [facility] Ur/Serum Drug Screenon 05-12 Urine Amphetamine Non-detected Normal Non-Detected [facility] Comment on above: Performed By: #### D RUG3 #### [place] [address] Urine Barbiturates Non-detected Normal Non-Detected [facility] Comment on above: Performed By: #### D RUG3 #### [place] [address] Urine Benzodiazepine Non-detected Normal Non-Detected [facility] Comment on above: Performed By: #### D RUG3 #### [address] [address] Urine Opiate Non-detected Normal Non-Detected [facility] Comment on above: Performed By: #### D RUG3 #### [address] [address] Urine PCP Non-detected Normal Non-Detected [facility] Comment on above: Performed By: #### D RUG3 #### [place] [address] Urine THC Non-detected Normal Non-Detected [facility] Comment on above: Result Comment: Urin [...] only. Performed By: #### D RUG3 #### [place] [address] Urine Cocaine Metab Non-detected Normal Non-Detected [facility] Comment on above: Performed By: #### D RUG3 #### [place] [address] Acetaminophen [Mass/Vol] <2.0 Low 10.0-30.0 [facility] Comment on above: Performed By: #### D RUG3 #### [place] [address] Serum Salicylate < 1.7 Low 2.8-20.0 [facility] Comment on above: Performed By: #### D RUG3 #### [place] [address] Serum Alcohol < 3 Normal [facility] Comment on above: Performed By: #### D RUG3 #### [place] [address] Urinalysis Routineon 020 Bacteria LM.HPF (Urine sed) [#/Area] NONE Normal None [facility] Comment on above: Performed By: #### U RIN2 #### [place] [address] Ep Cells Urine 5.6 /hpf High 0.0-5.0 [facility] Comment on above: Performed By: #### U RIN2 #### [facility] [address] [place] [address] Hyaline Cast 2.2 /lpf High 0.0-1.0 [facility] Comment on above: Performed By: #### U RIN2 #### [facility] [address] [place] [address] WBC LM.HPF (Urine sed) [#/Area] 179.6 /[HPF] High 0.0-5.0 [facility] Comment on above: Performed By: #### U RIN2 #### [facility] [address] [place] [address] Appearance (U) 2+ (SLT CLOUDY) Normal [facility] Comment on above: Performed By: #### U RIN2 #### [place] [address] Color (U) YELLOW Normal [facility] Comment on above: Performed By: #### U RIN2 #### [facility] [address] [place] [address] RBC LM.HPF (Urine sed) [#/Area] 0.0-3 Normal 0.0-5.0 [facility] Comment on above: Performed By: #### U RIN2 #### [place] [address] Bilirubin (U) [Mass/Vol] Negative Normal Negative [facility] Comment on above: Performed By: #### U RIN2 #### [place] [address] Glucose Ql (U) Negative Normal Negative [facility] Comment on above: Performed By: #### U RIN2 #### [place] [address] Hemoglobin,Urine MODERATE Abnormal Negative [facility] Comment on above: Performed By: #### U RIN2 #### [place] [address] Ketone Urine Negative Normal Negative [facility] Comment on above: Performed By: #### U RIN2 #### [address] [address] Leukocytes Esterase LARGE Abnormal Negative [facility] Comment on above: Performed By: #### U RIN2 #### [facility] [address] [place], [place] [address] Nitrites Urine Negative Normal Negative [facility] Comment on above: Performed By: #### U RIN2 #### [facility] [address] [place], [place] [address] pH (U) 6.5 [pH] Normal 5.0-8.0 [facility] Comment on above: Performed By: #### U RIN2 #### [facility] [address] [place], [place] [address] Protein (U) [Mass/Vol] Negative Normal Negative [facility] Comment on above: Performed By: #### U RIN2 #### [facility] [address] [place] [address] Specific Carney, Ur 1.010 Normal 1.005-1.030 [facility] Comment on above: Performed By: #### U RIN2 #### [facility] [address] [place] [address] Urobilinogen,Ur 0.2 EU/dL Normal 0.2-1.0 [facility] Comment on above: Performed By: #### U RIN2 #### [facility] [address] [place], [place] [address] Vital Signs Date Time Vital Sign Value Performing Clinician Faci lity 01-05-2025 12:55-0400 Body height 168.[address] Mariely Neal MD Work Phone: [facility] 01-05-2025 12:55-0400 Body mass index (BMI) [Ratio] 30.5 kg/m2 Dr. Mariely Neal MD Work Phone: [facility] 01-05-2025 12:55-0400 Body weight 87.[address] Mariely Neal MD Work Phone: [facility] 01-05-2025 12:55-0400 Diastolic blood pressure 74 mm[Hg] Dr. Mariely Neal MD Work Phone: [facility] 01-05-2025 12:55-0400 Systolic blood pressure 117 mm[Hg] Dr. Mariely Neal MD Work Phone: 0(549)677-709639 [place] [address] 12-22-2024 15:02-0400 Diastolic blood pressure 64 mm[Hg] Dr. Mariely Neal MD Work Phone: 7(171)684-850339 [place] [address] 12-22-2024 15:02-0400 Heart rate 87 /min Dr. Mariely Neal MD Work Phone: 5(555)025-218839 [place] [address] 12-22-2024 15:02-0400 Systolic blood pressure 124 mm[Hg] Dr. Mariely Neal MD Work Phone: 1(361)578-845839 [place] [address] 12-22-2024 13:11-0400 Body mass index (BMI) [Ratio] 29.4 kg/m2 Dr. Mariely Neal MD Work Phone: 3(615)361-124139 [place] [address] 12-22-2024 13:11-0400 Body weight 83.[address] Mariely Neal MD Work Phone: 7(899)201-966239 [place] [address] 12-22-2024 12:10-0400 SaO2% (BldA) [Mass fraction] 99 % Dr. Mariely Neal MD Work Phone: 6(993)628-825639 [place] [address] 12-22-2024 09:07-0400 Body temperature 98.4 [degF] Dr. Mariely Neal MD Work Phone: 6(682)770-911039 [place] [address] 12-22-2024 09:07-0400 Diastolic blood pressure 75 mm[Hg] Dr. Mariely Neal MD Work Phone: 5(620)224-397739 [place] [address] 12-22-2024 09:07-0400 Heart rate 92 /min Dr. Mariely Neal MD Work Phone: 7(822)956-502739 [place] [address] 12-22-2024 09:07-0400 Respiratory rate 16 /min Dr. Mariely Neal MD Work Phone: 3(910)895-311139 [place] [address] 12-22-2024 09:07-0400 SaO2% (BldA) [Mass fraction] 100 % Dr. Mariely Neal MD Work Phone: 9(865)201-596739 [place] [address] 12-22-2024 09:07-0400 Systolic blood pressure 146 mm[Hg] Dr. Mariely Neal MD Work Phone: 2(932)826-441739 [place] [address] 12-15-2024 13:11-0400 Body height 167.[address] Mariely Neal MD Work Phone: 6(743)985-343639 [place] [address] 12-15-2024 13:11-0400 Body mass index (BMI) [Ratio] 29 kg/m2 Dr. Mariely Neal MD Work Phone: 1(003)692-801439 [place] [address] 12-15-2024 13:11-0400 Body weight 81.[address] Mariely Neal MD Work Phone: 5(506)459-852539 [place] [address] 12-15-2024 13:11-0400 Diastolic blood pressure 74 mm[Hg] Dr. Mariely Neal MD Work Phone: 7(585)184-290339 [place] [address] 12-15-2024 13:11-0400 Systolic blood pressure 115 mm[Hg] Dr. Mariely Neal MD Work Phone: 8(917)927-825239 [place] [address] 12-12-2024 11:28-0400 Heart rate 98 /min Dr. Mariely Neal MD Work Phone: 5(652)165-824539 [place] [address] 12-12-2024 11:28-0400 Respiratory rate 16 /min Dr. Mariely Neal MD Work Phone: 4(912)155-676839 [place] [address] 12-12-2024 10:39-0400 Diastolic blood pressure 67 mm[Hg] Dr. Mariely Neal MD Work Phone: 0(027)162-475839 [place] [address] 12-12-2024 10:39-0400 Systolic blood pressure 130 mm[Hg] Dr. Mariely Neal MD Work Phone: 5(184)093-185339 [place] [address] 12-12-2024 10:01-0400 Body temperature 98.1 [degF] Dr. Mariely Neal MD Work Phone: 3(271)161-455639 [place] [address] 12-12-2024 09:46-0400 Body height 167.[address] Mariely Neal MD Work Phone: 0(812)158-260539 [place] [address] 12-12-2024 09:46-0400 Body mass index (BMI) [Ratio] 29.5 kg/m2 Dr. Mariely Neal MD Work Phone: 5(958)169-419239 [place] [address] 12-12-2024 09:46-0400 Body weight 83.[address] Mariely Neal MD Work Phone: 2(541)260-129139 [place] [address] 12-08-2024 08:04-0400 Body height 167.[address] Mariely Neal MD Work Phone: 0(651)358-342739 [place] [address] 12-08-2024 08:04-0400 Body mass index (BMI) [Ratio] 28.1 kg/m2 Dr. Mariely Neal MD Work Phone: 3(803)707-748139 [place] [address] 12-08-2024 08:04-0400 Body weight 79.[address] Mariely Neal MD Work Phone: 5(217)428-950439 [place] [address] 12-08-2024 08:04-0400 Diastolic blood pressure 84 mm[Hg] Dr. Mariely Neal MD Work Phone: 6(022)149-362039 [place] [address] 12-08-2024 08:04-0400 Heart rate 102 /min Dr. Mariely Neal MD Work Phone: 9(323)466-410139 [place] [address] 12-08-2024 08:04-0400 Systolic blood pressure 129 mm[Hg] Dr. Mariely Neal MD Work Phone: 7(612)275-826239 [place] [address] 11-17-2024 09:33-0400 Body height 167.[address] Mariely Neal MD Work Phone: 6(056)634-842339 [place] [address] 11-17-2024 09:33-0400 Body mass index (BMI) [Ratio] 28.1 kg/m2 Dr. Mariely Neal MD Work Phone: 6(234)413-259639 [place] [address] 11-17-2024 09:33-0400 Body weight 79.[address] Mariely Neal MD Work Phone: 9(734)137-146439 [place] [address] 11-17-2024 09:33-0400 Diastolic blood pressure 73 mm[Hg] Dr. Mariely Neal MD Work Phone: 1(181)588-299739 [place] [address] 11-17-2024 09:33-0400 Systolic blood pressure 128 mm[Hg] Dr. Mariely Neal MD Work Phone: 6(387)491-992939 [place] [address] 11-13-2024 16:30-0400 Body height 167.[address] Mariely Neal MD Work Phone: 4(569)608-695739 [place] [address] 11-13-2024 16:30-0400 Body mass index (BMI) [Ratio] 27.2 kg/m2 Dr. Mariely Neal MD Work Phone: 4(091)186-443239 [place] [address] 11-13-2024 16:30-0400 Body weight 76.[address] Mariely Neal MD Work Phone: 4(129)534-292239 [place] [address] 11-13-2024 16:29-0400 Body temperature 98.2 [degF] Dr. Mariely Neal MD Work Phone: 6(926)453-718739 [place] [address] 11-13-2024 16:29-0400 Diastolic blood pressure 64 mm[Hg] Dr. Mariely Neal MD Work Phone: 4(555)742-776039 [place] [address] 11-13-2024 16:29-0400 Heart rate 93 /min Dr. Mariely Neal MD Work Phone: 2(936)052-968239 [place] [address] 11-13-2024 16:29-0400 Respiratory rate 14 /min Dr. Mariely Neal MD Work Phone: 0(295)485-422039 [place] [address] 11-13-2024 16:29-0400 Systolic blood pressure 114 mm[Hg] Dr. Mariely Neal MD Work Phone: 4(172)426-948839 [place] [address] 11-13-2024 15:28-0400 Body height 167.[address] Mariely Neal MD Work Phone: 0(268)007-191239 [place] [address] 11-13-2024 15:28-0400 Body mass index (BMI) [Ratio] 27.5 kg/m2 Dr. Mariely Neal MD Work Phone: 7(360)503-261539 [place] [address] 11-13-2024 15:28-0400 Body weight 77.[address] Mariely Neal MD Work Phone: 5(648)689-806739 [place] [address] 11-13-2024 15:28-0400 Diastolic blood pressure 84 mm[Hg] Dr. Mariely Neal MD Work Phone: 8(948)114-817939 [place] [address] 11-13-2024 15:28-0400 Systolic blood pressure 129 mm[Hg] Dr. Mariely Neal MD Work Phone: 1(744)807-011939 [place] [address] 10-20-2024 09:38-0400 Body height 167.[address] Mariely Neal MD Work Phone: 8(760)034-012239 [place] [address] 10-20-2024 09:38-0400 Body mass index (BMI) [Ratio] 26.2 kg/m2 Dr. Mariely Neal MD Work Phone: 4(337)452-113639 [place] [address] 10-20-2024 09:38-0400 Body weight 73.[address] Mariely Neal MD Work Phone: 3(840)357-007439 [place] [address] 10-20-2024 09:38-0400 Diastolic blood pressure 69 mm[Hg] Dr. Mariely Neal MD Work Phone: 5(379)447-980639 [place] [address] 10-20-2024 09:38-0400 Systolic blood pressure 139 mm[Hg] Dr. Mariely Neal MD Work Phone: 8(637)414-526739 [place] [address] 09-25-2024 13:54-0400 Body height 167.[address] Mariely Neal MD Work Phone: 5(780)397-521639 [place] [address] 09-25-2024 13:54-0400 Body mass index (BMI) [Ratio] 25.3 kg/m2 Dr. Mariely Neal MD Work Phone: 3(678)393-468239 [place] [address] 09-25-2024 13:54-0400 Body weight 71.[address] Mariely Neal MD Work Phone: 1(149)714-903439 [place] [address] 09-25-2024 13:54-0400 Diastolic blood pressure 81 mm[Hg] Dr. Mariely Neal MD Work Phone: 2(181)281-769939 [place] [address] 09-25-2024 13:54-0400 Systolic blood pressure 133 mm[Hg] Dr. Mariely Neal MD Work Phone: 0(017)267-850239 [place] [address] 08-28-2024 13:05-0400 Body height 167.[address] Mariely Neal MD Work Phone: 3(506)781-685539 [place] [address] 08-28-2024 13:01-0400 Body mass index (BMI) [Ratio] 25 kg/m2 Dr. Mariely Neal MD Work Phone: 8(936)028-925939 [place] [address] 08-28-2024 13:01-0400 Body weight 70.[address] Mariely Neal MD Work Phone: 3(389)329-643739 [place] [address] 08-28-2024 13:01-0400 Diastolic blood pressure 71 mm[Hg] Dr. Mariely Neal MD Work Phone: 0(569)634-442539 [place] [address] 08-28-2024 13:01-0400 Systolic blood pressure 135 mm[Hg] Dr. Mariely Neal MD Work Phone: 9(891)927-774539 [place] [address] 07-09-2023 18:44-0400 Diastolic blood pressure 84 mm[Hg] Dr. Mariely Neal Work Phone: 1(067)548-510239 [place] [address] 07-09-2023 18:44-0400 Heart rate 85 /min Dr. Mariely Neal Work Phone: 8(234)660-570439 [place] [address] 07-09-2023 18:44-0400 Systolic blood pressure 138 mm[Hg] Dr. Mariely Neal Work Phone: 1(024)485-350539 [place] [address] 07-09-2023 18:10-0400 SaO2% (BldA) [Mass fraction] 99 % Dr. Mariely Neal Work Phone: 9(088)643-732339 [place] [address] 07-09-2023 18:09-0400 Body temperature 99.8 [degF] Dr. Mariely Neal Work Phone: 2(830)405-690539 [place] [address] 07-09-2023 17:54-0400 Respiratory rate 20 /min Dr. Mariely Neal Work Phone: 3(594)227-810939 [place] [address] 07-09-2023 17:50-0400 Body height 168.[address] Mariely Neal Work Phone: 1(455)795-565939 [place] [address] 07-09-2023 17:50-0400 Body mass index (BMI) [Ratio] 29.7 kg/m2 Dr. Mariely Neal Work Phone: 4(062)256-393339 [place] [address] 07-09-2023 17:50-0400 Body weight 84.[address] Mariely Neal Work Phone: 5(726)047-333439 [place] [address] 06-27-2023 10:28-0400 Body mass index (BMI) [Ratio] 29.8 kg/m2 Dr. Mariely Neal Work Phone: 7(549)600-630339 [place] [address] 06-27-2023 10:28-0400 Body weight 83.[address] Mariely Neal Work Phone: 8(218)342-867339 [place] [address] 06-27-2023 10:28-0400 Diastolic blood pressure 71 mm[Hg] Dr. Mariely Neal Work Phone: 0(127)055-240639 [place] [address] 06-27-2023 10:28-0400 Systolic blood pressure 115 mm[Hg] Dr. Mariely Neal Work Phone: 7(252)434-034139 [place] [address] 06-13-2023 13:28-0400 Body mass index (BMI) [Ratio] 29.7 kg/m2 Dr. Mariely eNal Work Phone: 7(865)996-211839 [place] [address] 06-13-2023 13:28-0400 Body weight 83.[address] Mariely Neal Work Phone: 3(491)420-882839 [place] [address] 06-13-2023 13:28-0400 Diastolic blood pressure 77 mm[Hg] Dr. Mariely Neal Work Phone: 0(968)135-641539 [place] [address] 06-13-2023 13:28-0400 Systolic blood pressure 126 mm[Hg] Dr. Mariely Neal Work Phone: 5(409)313-027639 [place] [address] 05-31-2023 14:11-0400 Body mass index (BMI) [Ratio] 28.7 kg/m2 Dr. Mariely Neal Work Phone: 6(631)620-839139 [place] [address] 05-31-2023 14:11-0400 Body weight 80.[address] Mariely Neal Work Phone: 9(880)917-262939 [place] [address] 05-31-2023 14:11-0400 Diastolic blood pressure 78 mm[Hg] Dr. Mariely Neal Work Phone: 4(358)257-329539 [place] [address] 05-31-2023 14:11-0400 Systolic blood pressure 122 mm[Hg] Dr. Mariely Neal Work Phone: 1(840)338-728939 [place] [address] 05-16-2023 13:14-0500 Body height 167.[address] Mariely Neal Work Phone: 4(803)056-074739 [place] [address] 05-16-2023 13:14-0500 Body mass index (BMI) [Ratio] 27.8 kg/m2 Dr. Mariely Neal Work Phone: 9(002)235-895439 [place] [address] 05-16-2023 13:14-0500 Body weight 78.[address] Mareily Neal Work Phone: 8(663)848-214939 [place] [address] 05-16-2023 13:14-0500 Diastolic blood pressure 74 mm[Hg] Dr. Mariely Neal Work Phone: 8(014)963-940739 [place] [address] 05-16-2023 13:14-0500 Systolic blood pressure 126 mm[Hg] Dr. Mariely Neal Work Phone: 9(028)237-025439 [place] [address] 05-09-2023 14:41-0500 Body mass index (BMI) [Ratio] 27.4 kg/m2 Dr. Mariely Neal Work Phone: 0(536)284-361639 [place] [address] 05-09-2023 14:41-0500 Body temperature 98.7 [degF] Dr. Mariely Neal Work Phone: 4(182)911-599917 [address] 05-09-2023 14:41-0500 Body weight 77.[address] Mariely Neal Work Phone: 0(260)021-813817 [address] 05-09-2023 14:41-0500 Diastolic blood pressure 86 mm[Hg] Dr. Mariely Neal Work Phone: 8(156)062-049639 [place] [address] 05-09-2023 14:41-0500 Heart rate 107 /min Dr. Mariely Neal Work Phone: 6(307)884-361817 [address] 05-09-2023 14:41-0500 Respiratory rate 16 /min Dr. Mariely Neal Work Phone: 5(644)105-456417 [address] 05-09-2023 14:41-0500 SaO2% (BldA) [Mass fraction] 98 % Dr. Mariely Neal Work Phone: 1(604)811-652717 [address] 05-09-2023 14:41-0500 Systolic blood pressure 134 mm[Hg] Dr. Mariely Neal Work Phone: 0(852)420-064717 [address] 05-02-2023 10:14-0500 Body mass index (BMI) [Ratio] 27.6 kg/m2 Dr. Mariely Neal Work Phone: 6(627)570-120317 [address] 05-02-2023 10:14-0500 Body weight 77.[address] Mariely Neal Work Phone: 4(440)224-948839 [place] [address] 05-02-2023 10:14-0500 Diastolic blood pressure 73 mm[Hg] Dr. Mariely Neal Work Phone: 3(047)388-185639 [place] [address] 05-02-2023 10:14-0500 Systolic blood pressure 124 mm[Hg] Dr. Mariely Neal Work Phone: 2(214)992-408139 [place] [address] 04-05-2023 09:48-0500 Body mass index (BMI) [Ratio] 25.9 kg/m2 Dr. Mariely Neal Work Phone: 7(956)530-212039 [place] [address] 04-05-2023 09:48-0500 Body weight 73.[address] Mariely Neal Work Phone: 3(734)963-766339 [place] [address] 04-05-2023 09:48-0500 Diastolic blood pressure 64 mm[Hg] Dr. Mariely Neal Work Phone: 1(934)589-694139 [place] [address] 04-05-2023 09:48-0500 Systolic blood pressure 114 mm[Hg] Dr. Mariely Neal Work Phone: 3(887)871-023439 [place] [address] 03-08-2023 09:18-0500 Body mass index (BMI) [Ratio] 24.2 kg/m2 Dr. Mariely Neal Work Phone: 6(124)151-968139 [place] [address] 03-08-2023 09:18-0500 Body weight 68.[address] Mariely Neal Work Phone: 5(354)931-877439 [place] [address] 03-08-2023 09:18-0500 Diastolic blood pressure 74 mm[Hg] Dr. Mariely Neal Work Phone: 2(124)089-568639 [place] [address] 03-08-2023 09:18-0500 Systolic blood pressure 125 mm[Hg] Dr. Mariely Neal Work Phone: 2(734)937-201439 [place] [address] 02-09-2023 09:26-0500 Body mass index (BMI) [Ratio] 22.9 kg/m2 Dr. Mariely Neal Work Phone: 3(987)847-266539 [place] [address] 02-09-2023 09:26-0500 Body weight 64.[address] Mariely Neal Work Phone: [facility] 02-09-2023 09:26-0500 Diastolic blood pressure 74 mm[Hg] Dr. Mariely Neal Work Phone: 3(640)665-547839 [place] [address] 02-09-2023 09:26-0500 Systolic blood pressure 116 mm[Hg] Dr. Mariely Neal Work Phone: 9(564)771-236139 [place] [address] 01-09-2023 10:12-0400 Body height 167.[address] Mariely Neal Work Phone: 5(388)049-622839 [place] [address] 01-09-2023 10:12-0400 Body mass index (BMI) [Ratio] 22.9 kg/m2 Dr. Mariely Neal Work Phone: 1(285)335-428139 [place] [address] 01-09-2023 10:12-0400 Body weight 64.[address] Mariely Neal Work Phone: 2(955)930-278039 [place] [address] 01-09-2023 10:12-0400 Diastolic blood pressure 78 mm[Hg] Dr. Mariely Neal Work Phone: 1(486)974-261039 [place] [address] 01-09-2023 10:12-0400 Systolic blood pressure 125 mm[Hg] Dr. Mariely Neal Work Phone: 5(794)707-919517 [address] Encounters Encounter Date Encounter Type Care Provider Facility Start: 03-23-2025 ambulatory Diana Lisa lity:[facility] Start: 01-22-2025 ambulatory Mary Ordoñez cility:[facility] Start: 01-05-2025 End: 01-05-2025 ambulatory Mariely Neal Facility:[facility] Start: 01-05-2025 End: 01-05-2025 ambulatory [facility] Start: 01-05-2025 End: 01-05-2025 ambulatory Pedro Barbosa NP Facility:[facility] Start: 12-22-2024 ambulatory Mary Ordoñez cility:[facility] Start: 12-22-2024 Non-patient / Non-visit Dr. Mary Canales DO -[facility] Start: 12-22-2024 End: 12-22-[address] Mariely Neal MD Work Phone: [facility] Start: 12-22-2024 End: 12-22-2024 Patient encounter procedure Yomaira Michael CNM -[facility] Work Phone: Start: 12-22-2024 End: 12-22-2024 Emergency department patient visit ED PHYSICIAN PROVIDER -Emergency Department Work Phone: Start: 12-17-2024 ambulatory Mariely Neal Facility: [facility] Start: 12-17-2024 Non-patient / Non-visit Dr. Diana Escobar MD -[facility] Start: 12-15-2024 End: 12-15-2024 Patient encounter procedure Yomaira Michael CNM -[facility] Work Phone: Start: 12-15-2024 End: 12-15-[address] Mariely Neal MD Work Phone: -[facility] Start: 12-12-2024 End: 12-12-[address] Diana Escobar MD -[facility] Work Phone: Start: 12-12-2024 End: 12-12-[address] Mariely Neal MD Work Phone: -[facility] Start: 12-08-2024 End: 12-08-[address] Chikis Ferrera MD -[facility] Work Phone: Start: 12-08-2024 End: 12-08-[address] Mariely Neal MD Work Phone: -[facility] Start: 11-17-2024 End: 11-17-[address] Diana Escobar MD -[facility] Work Phone: Start: 11-17-2024 End: 11-17-[address] Mariely Neal MD Work Phone: -[facility] Start: 11-13-2024 ambulatory Diana Lisa lity:[facility] Start: 11-13-2024 Non-patient / Non-visit Dr. Diana Escobar MD -[facility] Start: 11-13-2024 End: 11-13-[address] Mary Canales DO [facility] Work Phone: Start: 11-13-2024 End: 11-13-[address] Mariely Neal MD Work Phone: [facility] Start: 11-07-2024 End: 11-07-2024 ambulatory NAM D [facility] Start: 11-03-2024 End: 11-03-2024 [facility] Start: 10-20-2024 End: 10-20-2024 Patient encounter procedure Pedro Barbosa HEAD PORTER-C [facility] Work Phone: Start: 10-20-2024 End: 10-20-[address] Mariely Neal MD Work Phone: [facility] Start: 09-25-2024 End: 09-25-[address] Mariely Neal MD Work Phone: [facility] Start: 09-25-2024 End: 09-25-[address] Mary Canales DO [facility] Work Phone: Start: 09-01-2024 End: 09-01-[address] Mariely Neal MD Work Phone: [facility] Work Phone: Start: 09-01-2024 End: 09-01-2024 Patient encounter procedure Yomaira Michael CN -Lab [facility] Start: 09-01-2024 End: 09-01-2024 ambulatory Yomaira Michael Facility:[facility] Start: 08-28-2024 End: 08-28-[address] Mariely Neal MD Work Phone: [facility] Work Phone: Start: 08-28-2024 End: 08-28-2024 Patient encounter procedure Yomaira Michael CNM -Laboratory Specimen Work Phone: Start: 08-28-2024 End: 08-28-2024 Patient encounter procedure Yomaira Michael CNM -[facility] Work Phone: Start: 08-28-2024 End: 08-28-[address] Mariely Neal MD Work Phone: [facility] Work Phone: Start: 08-28-2024 End: 08-28-2024 ambulatory Yomaira Michael Facility:[facility] Start: 08-08-2024 Non-patient / Non-visit Jonna Bernabe RN -[facility] Work Phone: Start: 08-08-2024 ambulatory Jonna Bernabe Facility :[facility] Start: 07-09-2023 Non-patient / Non-visit Dr. Mariely Neal Work Phone: [facility] Start: 07-09-2023 End: 07-09-[address] Mariely Neal Work Phone: [facility] Work Phone: Start: 07-09-2023 End: 07-09-[address] Mariely Neal Work Phone: [facility] Work Phone: Start: 06-27-2023 End: 06-27-[address] Mariely Neal Work Phone: [facility] Work Phone: Start: 06-13-2023 End: 06-13-[address] Mariely Neal Work Phone: [facility] Work Phone: Start: 05-31-2023 End: 05-31-[address] Mariely Neal Work Phone: [facility] Work Phone: Start: 05-16-2023 End: 05-16-[address] Mariely Neal Work Phone: [facility] Work Phone: Start: 05-16-2023 End: 05-16-[address] Mariely Neal Work Phone: [facility] Work Phone: Start: 05-09-2023 End: 05-09-[address] Mariely Neal Work Phone: [facility] Work Phone: Start: 05-02-2023 End: 05-02-[address] Mariely Neal Work Phone: [facility] Work Phone: Start: 04-05-2023 End: 04-05-[address] Mariely Neal Work Phone: [facility] Work Phone: Start: 03-08-2023 End: 03-08-[address] Mariely Neal Work Phone: [facility] Work Phone: Start: 02-09-2023 End: 02-09-[address] Mariely Neal Work Phone: [facility] Work Phone: Start: 01-10-2023 End: 01-10-[address] Mariely Neal Work Phone: [facility] Work Phone: Start: 01-10-2023 End: 01-10-[address] Mariely Neal Work Phone: [facility] Start: 01-09-2023 End: 01-09-[address] Mariely Neal Work Phone: [facility] Work Phone: Start: 01-09-2023 End: 01-09-[address] Mariely Neal Work Phone: [facility] Specimen Work Phone: Start: 01-09-2023 End: 01-09-[address] Mariely Neal Work Phone: [facility] Work Phone: Start: 12-11-2022 ambulatory MARIELY Jerome ity:[facility] Procedures Date Procedure Procedure Detail Performing Clinician Start: 01-05-2025 Serologic test for syphilis Dr. Mariely Neal MD Work Phone: Start: 12-22-2024 Polymerase chain lenard ction analysis Dr. Mariely Neal MD Work Phone: Start: 12-22-2024 SARS-CoV-2, Influenz [...] HCV Quant by PCR testing - HCVPCR #[id number] Non Reactive: < 0.8 Equivocal: >/= 0.8 [...] 09-01-2024 Serologic test for syphilis Dr. Mariely Nael MD Work Phone: Start: 08-28-2024 Urine culture [...] section History of delivery, currently Pedro Barbosa HEAD PORTER-C H/O: section History of delivery, currently Dr. Mray Canales DO H/O: section History of delivery, currently Dr. Diana Escobar MD H/O: section History of delivery, currently Yomaira Michael CNM H/O: section History of delivery, currently Yomaira Michael CNM H/O: section History of delivery, currently Pedro Barbosa HEAD PORTER-C Plan of Treatment Date Care Activity Detail Author Start: 01-05-2025 End: 01-05-2025 Patient encounter procedure -[facility] Work Phone: Start: 12-22-2024 Nonstress test [facility] Start: 12-22-2024 Obstetric monitoring [facility] Start: 12-22-2024 [facility] Start: 12-22-2024 Vital signs measurements [facility] Start: 12-22-2024 Patient discharge [facility] Start: 12-12-2024 Nonstress test [facility] Start: 12-12-2024 Obstetric monitoring [facility] Start: 12-12-2024 Vital signs measurements [facility] Start: 12-12-2024 [facility] Start: 11-13-2024 Nonstress test [facility] Start: 11-13-2024 Obstetric monitoring [facility] Start: 11-13-2024 Vital signs measurements [facility] Start: 11-13-2024 End: 11-13-2024 [facility] Start: 11-13-2024 Bacteria identified in Urine by Culture Urine Culture [facility] Start: 11-13-2024 Patient discharge [facility] Start: 07-09-2023 Nonstress test [facility] Start: 07-09-2023 Obstetric monitoring [facility] Start: 07-09-2023 Vital signs measurements [facility] Start: 07-09-2023 [facility] Start: 07-09-2023 Patient discharge [facility] CBC W Auto Different ial panel - Blood [facility] Chlamydia deoxyribon ucleic acid detection [facility] Hepatitis C antibody measurement [facility] Patient Education Kick Counts ED False Labor OB Triage: Return to Hospital or Notify Physician if you Experience: [facility] Work Phone: Patient referral [facility] Work Phone: Rubella IgG measurement [facility] Serologic test for syphilis [facility] Urine culture [facility] Immunizations Immunization Date Immunization Notes Care Provider Fa cility 01-05-2025 tetanus toxoid, redu rossana diphtheria toxoid, and acellular pertussis vaccine, adsorbed Dr. Mariely Neal MD Work Phone: [facility] Payers Date Payer Category Payer Self-pay [id number] 2022 Medicaid [id number] 2002 Unknown [id number] 2.16. [id number] 2002 Unknown [id number] 2.16. 840.1.582842.3.579.2.479 2002 Unknown [id number] 2.16. 840.1.908534.3.579.2.479 Unknown [facility] [id number] Unknown [facility] [employer] [id number] Unknown [id number] 2.16.8 40.1.424897.3.579.2.462 Unknown [id number] 2.16.8 40.1.907397.3.579.2.462 Unknown [id number] 2.16.8 40.1.527749.3.579.2.462 Unknown [id number] 2.16.8 40.1.864136.3.579.2.462 Unknown [id number] 2.16.8 40.1.058286.3.579.2.462 Unknown [id number] 2.16.8 40.1.187381.3.579.2.462 Unknown [id number] 2.16.8 40.1.006262.3.579.2.462 Unknown [id number] 2.16.8 40.1.181601.3.579.2.462 Unknown [id number] 2.16.8 40.1.755246.3.579.2.462 Unknown [id number] 2.16.8 40.1.356350.3.579.2.462 Unknown [id number] 2.16.8 40.1.234494.3.579.2.462 Unknown [id number] 2.16.8 40.1.993637.3.579.2.462 Unknown [id number] 2.16.8 40.1.371329.3.579.2.462 Unknown [id number] 2.16.8 40.1.679643.3.579.2.462 Unknown [id number] 2.16.8 40.1.432512.3.579.2.462 Unknown [id number] 2.16.8 40.1.300264.3.579.2.462 Unknown [id number] 2.16.8 40.1.046329.3.579.2.462 Unknown [id number] 2.16.8 40.1.392338.3.579.2.462 Unknown [id number] 2.16.8 40.1.713126.3.579.2.462 Unknown [id number] 2.16.8 40.1.498804.3.579.2.462 Unknown [id number] 2.16.8 40.1.082249.3.579.2.462 Social History Date Type Detail Facility Start: 01-09-2023 End: 06-27-2023 Tobacco smoking status VTIS Unknown if ever smoked [facility] Start: 09-01-2014 With Family [facility] Start: 07-22-2020 Non-smoker [facility] Start: 2000 Sex Assigned At Female W [facility] Start: 08-08-2024 Tobacco smoking stat us NHIS Never smoked tobacco (finding) [facility] Sex Female [facility] Clinical Notes 08-28-2024 to 12-22-2024 Note Date & Type Note Facility 12-22-2024 History and physi angus note [facility] 12-22-2024 Radiology Diagnostic study note [facility] Imaging Services [address] [place] [address] CTA Chest W/WO Contrast MR#: [id number] Acct: [id number] Name: MELANIE LEIJA Rep #: [id number] : 2000 F 24 From: Donavan Correa MD PCP: Dr. Mariely Neal MD Status: REG CLI Study:CTA Chest W/WO Contrast Date of Exam: 12/22/24 Exam# [id number] Ordering Dr: Mary Mims DO PROCEDURE: CTA [...] Radiographic follow-up recommended. Right hydronephrosis. Reading Location: [facility] CC: Dr. Mary Canales DO; Dr. Mariely Neal MD ~ [employer] Gatherer: Signed [facility] 12-22-2024 Radiology Diagnostic study note [facility] Imaging Services [address] [place], [place] [id number] Abdomen Limited MR#: [id number] Acct: [id number] Name: MELANIE LEIJA Rep #: [id number] : 2000 F 24 From: Yuan Zhou MD PCP: Dr. Mariely Neal MD Status: REG CLI Study:Abdomen Limited Date of Exam: 12/10 06/03 Exam# [id number] Ordering Dr: Mary Mims DO PROCEDURE: ABDOMEN [...] junction obstruction or transient obstruction. Reading Location: [address] CC: Dr. Mary Canales DO; Dr. Mariely Neal MD ~ [employer]herer: Signed [facility] 12-15-2024 Progress note [facility] 12-08-2024 Progress note [facility] 11-13-2024 Radiology Diagnostic study note [facility] Imaging Services [address] [place] [address] Abdomen/Pelvis without Cont MR#: [id number] Acct: [id number] Name: MELANIE LEIJA Rep #: [id number] : 2000 F 24 From: Rashaun Aldana MD PCP: Dr. Mariely Neal MD Status: REG CLI Study:Abdomen/Pelvis without Cont Date of Exa m: 11/13/24 Exam# [id number] Ordering Dr: Diana Ruffin MD PROCEDURE: ABDOMEN/PELVIS [...] Mild hepatomegaly. 4. Gravid uterus. Reading Location: [facility]: Dr. Mariely Neal MD; Dr. Diana Escobar MD ~ [employer] G[employer]herer: Signed [facility] 10-20-2024 Progress note [facility] 09-25-2024 Evaluation note Diagnosis Onset [...] Supervision of high-risk acute January 05 12:38pm [facility] Work Phone: 1(394) 946-775606-19-2025 Evaluation note* Diagnosis Onset Date Resolution Status Admit Date Anxiety acute August 28 12:40pm 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, 2024 12:40pm Depression acute August 28 12:40pm History of delivery , currently acute August 28 12:40pm acute August 28 12:40pm Supervision of high-risk acute August 28, 2024 12:40pm [facility] Work Phone: 1(173) 629-523106-19-2025 Evaluation note* Diagnosis Onset Date Resolution Status [...] of high-risk acute September 25, 2024 1:52pm [facility] Work Phone: 1(470) 874-223906-19-2025 Evaluation note* Diagnosis Onset Date Resolution Status [...] Supervision of high-risk acute October 20 9:35am [facility] Work Phone: 1(491) 762-374306-19-2025 Evaluation note* Diagnosis Onset Date Resolution Status [...] high-risk acute November 13, 2 025 3:30pm [facility] Work Phone: 1(397) 361-876806-19-2025 Evaluation note* Diagnosis Onset Date Resolution Status [...] Supervision of high-risk acute November 17 9:15am [facility] Work Phone: 1(271) 263-856406-19-2025 Evaluation note* Diagnosis Onset Date Resolution Status [...] 7:57am Nephrolithiasis acute December 08, 2024 7:57am [facility] Work Phone: 1([phone]) 156-804106-19-2025 Evaluation note* Diagnosis Onset Date Resolution Status [...] Supervision of high-risk acute December 15 1:06pm [facility] Work Phone: 1(635) 805-640606-19-2025 Progress [facility] [address] [place] [address], [address] [place] [address] OFFICE VISIT Date of Service: 08/28/24 MR#: [id number] Acct: [id number] Name: MELANIE LEIJA Rep #: [id number] : 2000 Provider: MICHELLE Michael Age/Sex: 24/F Location: [facility] Status: Signed Intake Vital Signs 09/19/23 14:48 08/28/24 13:01 08/28/24 13:05 Height 5 ft 6 in 5 ft 6 in 5 ft 6 in Weight: 155 lb 4 oz BMI 25.0 BP 135/71 H Intake Visit Reasons: *EST* NOB LMP 06/21, DESTIN 03/28 Chief Complaint: NOB Surgical Nurse Required: No Is patient in pain?: No [...] 1 current occupational status: employed current occupation: [employer] current occupational exposures/hazards: No pets and animals: [...] times per week duration: > 90 minutes/day dana/samaritan: None seatbelt use: always do you feel safe at home: Yes additional social history: 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 Date Name GA/Weeks Outcome Route Bth Weight Gen Labor Lgth Anesthesia Del Locatn Provider FOB 08/08/23 Rafia 39 live - full term 8lbs 5oz Female epidural [facility] Luz Veloz Delivery Date: 08/08/23 Last Updated [...] Pulmonary (e.g.,TB,Asthma), Seasonal allergies, Drug/latex allergies/reactions, Breast, Sleeve Wheel Maker surgery, Anesthetic complications, History of abnormal pap, [...] Cosigner Signature: Date (if applicable) CC: ~ [facility] Diagnosis Onset Date Resolution Status acute Supervision of normal first [facility] Work Phone: Evaluation note* Diagnosis Onset Date Resolution Status acute Supervision of normal first acute acute Supervision of normal first acute acute Supervision of normal first acute acute Supervision of normal first acute Acute sinusitis resolved Anxiety acute Depression acute acute Supervision of normal first [facility] Work Phone: Evaluation note* Diagnosis [...] normal first acute Decreased movement acu te [facility] Work Phone: Evaluation note* Diagnosis Onset Date Resolution Status Admit Date Anxiety acute August 28 12:40pm 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, 2024 12:40pm Depression acute August 28 12:40pm History of delivery , currently acute August 28 12:40pm acute August 28 12:40pm Supervision of high-risk acute August 28, 2024 12:40pm [facility] Work Phone: History and physical note Author Alejandra Cason [facility] July 09, 2023 6:09pm Note Date/Time July 09, 2023 6:0 9pm [facility] Records Department [address] [place] [address] OB Triage Physician Note 07/09/23 1807 MR#: [id number] Acct: [id number] Name: MELANIE LEIJA Rep #:[id number] : 2000 22 From: Alejandra Cason CNM PCP: Dr. 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 See problem list details for additional plan information. Charges/Coding Visit Charges Office Visits / Consults: 29108 OP Consult L3 Procedures Urinary/Genital 52xxx-59xxx: 12167-47 non-stress test Interp Multi Select Codes Urinary/Genital Urinary/Genital CPT Codes: 60394-04 non-stress test Interp 07/09/23 1809 <Electronically signed by Alejandra lovell CNM> Date _ Alejandra Cason CNM Cosigner Signature (if applicable): Date CC: MICHELLE Cason; Dr. Mariely Neal MD ~ Signed [facility] Work Phone: History and physical note Author Mary Perez [facility] Note Date/Time December 22, 2024 2 :28pm [facility] Medical Records Department [address] [place] [address] OB Triage Physician Note 12/22/24 1423 MR#: [id number] Acct: [id number] Name: MELANIE LEIJA Rep #:[id number] : 2000 24 From: Mary Canales DO PCP: Dr. 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 Date Name GA/Weeks Outcome Route Bth Weight Gen Labor Lgth Anesthesia Del Locatn Provider FOB 08/08/23 Rafia 39 live - full term 8lbs 5oz Female epidural [facility] Luz Veloz Delivery Date: 08/08/23 Last Updated [...] high risk , unspecified, second trimester COMMENT: [id number], DESTIN 03/28, PC: Mary Jo Morataya?: Hugh [...] Multi Select Codes Visit Charges Office Visit/Consults: 27971 OV L3 Est 20min Urinary/Genital Urinary/Genital CPT Codes: 62003-10 non-stress test Interp 12/22/24 1428 <Electronically signed by Mary Larson DO> Date _ Mary Canales DO Cosigner Signature (if applicable): Date CC: Dr. Mary Canales DO; Dr. Mariely Neal MD ~ Signed [facility] Work Phone: Hospital Discharge instructionsAdditional Instructions supervisor baking Rx for [facility] Work Phone: Progress note Author Yomaira Michael [facility] Note Date/Time August 28, 2024 1:25 pm [facility] [address] [place] [address], [address] [place] [address] OFFICE VISIT Date of Service: 08/28/24 MR#: [id number] Acct: [id number] Name: MELANIE LEIJA Rep #: [id number] : 2000 Provider: MICHELLE Michael Age/Sex: 24/F Location: [facility] Status: Signed Intake Vital Signs 09/19/23 14:48 08/28/24 13:01 08/28/24 13:05 Height 5 ft 6 in 5 ft 6 in 5 ft 6 in Weight: 155 lb 4 oz BMI 25.0 BP 135/71 H Intake Visit Reasons: *EST* NOB LMP 06/21, DESTIN 03/28 Chief Complaint: NOB Surgical Nurse Required: No Is patient in pain?: No [...] 1 current occupational status: employed current occupation: [employer] current occupational exposures/hazards: No pets and animals: [...] times per week duration: > 90 minutes/day dana/samaritan: None seatbelt use: always do you feel safe at home: Yes additional social history: 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 Date Name GA/Weeks Outcome Route Bth Weight Infant Gen Labor Lgth Anesthesia Del Locatn Provider FOB 08/08/23 Rafia 39 live - full term 8lbs 5oz Female epidural [facility] Luz Veloz Delivery Date: 08/08/23 Last Updated [...] Pulmonary (e.g.,TB,Asthma), Seasonal allergies, Drug/latex allergies/reactions, Breast, Sleeve Wheel Maker surgery, Anesthetic complications, History of abnormal pap, [...] to patient and patient chose: nipt 08/28/24 5075 <Electronically signed by Yomaira castro CNM> Date _ Yomaira Michael CNM Cosigner Signature: Date (if applicable) CC: ~ [facility] Work Phone: Progress note Author Pedro Barbosa [facility] Note Date/Time October 20, 2024 9: 49am [facility] [address] [place] [address], [address] [place] [address] OFFICE VISIT Date of Service: 10/20/24 MR#: [id number] Acct: [id number] Name: MELANIE LEIJA Rep #: [id number] : 2000 Provider: MANJU Barbosa Age/Sex: 24/F Location: [facility] Status: Signed Intake Vital Signs 08/28/24 13:05 09/25/24 13:54 10/20/24 09:38 Height 5 ft 6 in 5 ft 6 in 5 ft 6 in Weight: 162 lb 3 oz BMI 26.2 BP 139/69 H Intake Visit Reasons: 18wk ob Surgical Nurse Required: No Is patient in pain?: No [...] 1 current occupational status: employed current occupation: [employer] current occupational exposures/hazards: No pets and animals: [...] times per week duration: > 90 minutes/day dana/samaritan: None seatbelt use: always do you feel safe at home: Yes additional social history: 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 Date Name GA/Weeks Outcome Route Bth Weight Gen Labor Lgth Anesthesia Del Locatn Provider FOB 08/08/23 Rafia 39 live - full term 8lbs 5oz Female epidural [facility] Luz Veloz Delivery Date: 08/08/23 Last Updated [...] high risk , unspecified, second trimester Comment: [id number], DESTIN 03/28, PC: Mary Jo Morataya?: Hugh [...] 10/20/24 0952 <Electronically signed by Pedro castro HEAD PORTER HEAD PORTER-C> Date _ Pedro Barbosa NP HEAD PORTER-C Cosigner Signature: Date (if applicable) CC: ~ [facility] Work Phone: Progress note Author Chikis Ferrera [facility] Note Date/Time December 08, 2024 8:25am [facility] [address] [place] [address], [address] [place] [address] OFFICE VISIT Date of Service: 12/08/24 MR#: [id number] Acct: [id number] Name: MELANIE LEIJA Rep #: [id number] : 2000 Provider: Dr. Piper Ferrera MD Age/Sex: 24/F Location: [facility] Status: Signed Intake Vital Signs 11/17/24 09:33 12/08/24 08:04 Height 5 ft 6 in 5 ft 6 in Weight: 174 lb 5 oz 174 lb 5 oz BMI 28.1 28.1 BP 128/73 H 129/84 H Pulse 102 H Intake Visit Reasons: Kidney stones Chief Complaint: new patient for kidney stones Surgical Nurse Required: No Accompanied by: child Is patient in pain?: No Allergies No Known Allergies Allergy (Verified 12/08/24 08:04) Medications ?Medication ?Instructions ?Recorded ?Confirmed ?Type docosahexaenoic acid 200 mg mg PO 08/20/23 12/08/24 Hi story capsule ( DHA) multivitamin-ferrous 1 tab PO QAM 12/08/24 History fumarate-folic acid 18 mg-400 mcg tablet (Women's Daily Multivitamin) Nurse's Note: bladder scan PVR: 60cc. [facility] Medical History (Updated 12/08/24 @ 08:[address] Chikis Ferrera MD) Cephalopelvic disproportion Depression Anxiety Migraines Surgical History delivery delivered History of tonsillectomy Family History Grandmother Breast cancer, Onset Age: 80 Paternal Other Autoimmune disorder Cancer Social History adopted: No household members: significant other and children number of children: 1 current occupational status: employed current occupation: [employer] current occupational exposures/hazards: No pets and animals: [...] times per week duration: > 90 minutes/day dana/samaritan: None seatbelt use: always do you feel safe at home: Yes additional social history: 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 Urology Chief Complaint: new patient for kidney [...] healthy appearing, comfortable and no acute distress [facility] Head: normocephalic and atraumatic Ears: hearing grossly [...] Palma on 12/08/24 08:08 Off Ur Spec Carney 1.010 Last Edit by Rose Mary Palma [...] Cosigner Signature: Date (if applicable) CC: ~ [facility] Work Phone: Progress note Author Yomaira Michael [facility] Note Date/Time December 15, 2024 1: 26pm [facility] [address], [address] [place] [address] OFFICE VISIT Date of Service: 12/15/24 MR#: [id number] Acct: [id number] Name: MELANIE LEIJA Rep #: [id number] : 2000 Provider: MICHELLE Michael Age/Sex: 24/F Location: [facility] [facility] Status: Signed Intake Vital Signs 10/20/24 09:38 12/12/24 09:46 12/15/24 13:11 Height 5 ft 6 in 5 ft 6 in 5 ft 6 in Weight: 180 lb BMI 29.0 BP 115/74 Intake Visit Reasons: 25wk2d ob Chief Complaint: 25wk OB Surgical Nurse Required: No Is patient in pain?: No [...] 1 current occupational status: employed 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 Date Name GA/Weeks Outcome Route Bth Weight Infant Gen Labor Lgth Anes thesia [facility] Provider FOB 08/08/23 Rafia 39 live - full term 8lbs 5oz Female epidural [facility] Luz Veloz Delivery Date: 08/08/23 Last Updated [...] high risk , unspecified, second trimester Comment: [id number], DESTIN 03/28, PC: Mary Jo Morataya?: Hugh [...] fallen in the past year?: No 12/15/24 [id number] <Electronically signed by Yomaira castro CNM> Date _ Yomaira Michael CNM Cosigner Signature: Date (if applicable) CC: ~ [facility] Work Phone: Reason for referral (narrative)No reason for referral information availableRanch[facility] Work Phone: Summary Purpose Family [...] Will No April 06 3:14pm Power of Hands Parter No April 06, 2021 3:14pm Advance Directive Response Recorded Date/ Time Living Will No April 06 4:14pm Power of Hands Parter No April 06, 2021 4:14pm Hospital Course Note Send Summary: Discharge Summ [place] Providers: Provider RoleProvider Name ReferringYajaira Hagan AttendingUte Olmos PrimaryRequired, No Pcp Note Recipients: Yajaira Hagan MD Required, No Pcp, MAYKEL CRANDALL M - [phone] [] Discharge: Summary: Admission Date: .13-May-2019 17:56:00 Discharge Date: 17-May-2019 Attending Physician at Discharge: Ute Olmos Admission Reason: Suicidal Ideation(1) Final Discharge Diagnoses: Cervicitis, Current severe episode of major depressive disorder without psychotic features without prior episode, PTSD (post-traumatic stress disorder), Recurrent major depressive disorder, Procedures: none Condition at Discharge: Satisfactory Disposition at Discharge: .Home Vital Signs: T PRBPSpO2 [id number]% Date/Time05/16 9:023 9: 9:023 9: 9:02 Range(36.5C [...] 13, 2024 3:30pm Supervision of high-risk [facility] 2024 3:30pm Anxiety November 17, 2024 9:15am [...] content) DATE CREATED AUTHOR 05/14/2019 Krystle Perkins [facility] DATE CREATED AUTHOR AUTHOR'S RUTHY BLANCO 05/17/2019 [facility] DATE CREATED AUTHOR AUTHOR'S ORGANIZ ATION 05/20/2019 [facility] DATE CREATED AUTHOR AUTHOR'S ORGANIZ ATION 12/16/2022 [facility] DATE CREATED AUTHOR AUTHOR'S ORGANIZ ATION 01/05/2025 [facility] DATE CREATED AUTHOR AUTHOR'S ORGANIZ ATION [facility] (unrecognized sec tion and content) [...] Provider, Referrin g Provider Active Pedro Barbosa HEAD PORTER, HEAD PORTER-C Attending Provider Active Team Status: Inactive Member [...] Inactive Member Role/Relationship Status Dates Dr. Mariely Nela MD Primary Care Provider Active Start: October 20, 2024 End: October 20, 2024 Dr. Mariely Neal MD Referring Provider Active Start: October 20, 2024 End: October 20, 2024 Pedro Barbosa NP, HEAD PORTER-C Attending Provider Active Start: October 20, 2024 [...] 28, 2024 End: August 28, 2024 Yomaira Micahel CNM Referring Provider Active S tart: August [...] 2024 End: October 20, 2024 Pedro Barbosa HEAD PORTER, HEAD PORTER-C Attending physician Active Start: October 20, 2024 [...] End: October 20, 2024 Pedro Barbosa NP, HEAD PORTER-C Attending physician Active Start: October 20, 2024 [...] December 17, 2024 Dr. Diana Escobar MD Nurse Practitioner Active Start: December 17, [...] 2025 End: January 05, 2025 Pedro Barbosa HEAD PORTER, HEAD PORTER-C Attending physician Active Start: January 05, 2025 End: January 05, 2025 Team Status: Active Member Role/Relationship Status Dates Dr. Mariely Neal MD Primary care physician Active Start: January 05, 2025 Pedro Ozone HEAD PORTER, HEAD PORTER-C Attending physician Active Start: January 05, 2025 [...] BE BASED ON THE PRIMARY CLINICAL RECORDS. [employer] [facility]. provides no warranty or guarantee of the accuracy or completeness of information in this document.
--- NOTE | 2025-03-10 15:37 | OB.TRI.PN ---
Progress Notes Date of Service: 03/09/25 Progress Note: Patient presents for triage evaluation secondary to elevated bps in office FHT: 130 Moderate variability reactive no decelerations category I tracing [place]: no recgular Contractions Assessment and plan: 37 weeks elevated bps on repeat all WNL normal labs no preeclampsia Reactive NST, reassuring maternal and status patient discharged to home to follow-up sunday in office. See problem list details for additional plan information. Laboratory Studies: Laboratory Tests 03/09/25 Range/Units 15:25 WBC 9.8 (4.4-11.0) K/mm3 RBC 3.89 L (4.2-5.4) M/mm3 Hgb 10.3 L (12.0-15.0) g/dL Hct 31.6 L (37-47) % MCV 81.2 (81-99) fL MCH 26.5 L (27.0-32.0) pg MCHC 32.6 (32-36) g/dL RDW Std Deviation 42.9 (35.1-43.9) fl RDW Coeff of Francesco 14.6 (11.6-14.6) % Plt Count 150 (150-450) K/mm3 MPV 10.9 (6.2-12.0) fl Creatinine 0.46 L (0.70-1.20) mg/dL Estim Creat Clear Calc 223.91 (50-250) ml/min Est GFR (MDRD) Non-Af 139 (>60) Uric Acid 4.2 (2.6-6.0) mg/dL AST 27 (<=31) U/L ALT 18 (<=34) U/L U Random Total Protein 28.9 H (0.0-12.0) mg/dL Urine Creatinine 109.00 (28.00-217.00) mg/dL Protein/Creatinin Ratio 265 H (0-200) mg/g CRE Syphilis Total Ab Nonreactive (Nonreactive) Blood Type A POSITIVE Antibody Screen NEGATIVE Charges/Coding Procedures Urinary/Genital 52xxx-59xxx: 00083-00 non-stress test Interp
== END 2025-03-09 17:00 | disposition home or self-care (01) ==
LOC: WPOUT 15:02 → WP 15:02
PROVIDERS: PCP Pediatrics; Referring Provider Obstetrics & Gynecology; Visit Provider Obstetrics & Gynecology
DX: O26.893 Other specified pregnancy related conditions, third trimester (principal); R10.13 Epigastric pain; O09.93 Supervision of high risk pregnancy, unspecified, third trimester; O33.9 Maternal care for disproportion, unspecified; O34.219 Maternal care for unspecified type scar from previous cesarean delivery; Z3A.37 37 weeks gestation of pregnancy; Z87.59 Personal history of other complications of pregnancy, childbirth and the puerperium
CPT/HCPCS: 36415; 59025; 59050 ×2; 82565; 82570; 84156; 84450; 84460; 84550; 85027; 86780; 86850; 86900; 86901; A4216; G0378 ×2; 99221